=== PATIENT | female | born 1950 | race Two or more races ===

== ENCOUNTER 2017-08-01 22:53 | Inpatient (IN) | payer MEDICARE, MEDICAID ==
[~2017-08-01] VITALS: Ht 134.6 cm; Wt 53.1 kg
[2017-08-01 22:56] VITALS: BP 113/81
--- NOTE | 2017-08-01 23:19 | Emergency Room Report ---
History of Present Illness General Chief Complaint: Syncope Source: Patient, Family Member, EMS Present Illness HPI This is a 67-year-old female with a history of high blood pressure. She presents with chief when of syncope. She was in her usual state of health when she went to the bathroom. She out of her son. She was on the toilet complaining of abdominal pain. Also was complaining of dizziness that she passed out. He said that she had multiple bout of diarrhea. Afterward she passed out. She was better with his on the ground. According to her son somehow she get dizzy but get better when she lay down. Never passed out before. No trauma. Still complaining of abdominal pain on and off for last few days. No fever chills been no nausea no vomiting. Said that she was diaphoretic and pale during her syncopal episode. Allergies: Coded Allergies: No Known Allergies (Unverified , 08/01/17) Patient History Past Medical History: see triage record, old chart reviewed, HTN Past Surgical History: other Pertinent Family History: none Social History: Denies: smoking Last Menstrual Period: NA Now: No Immunizations: other Reviewed Nursing Documentation: PMH: Agreed, PSxH: Agreed Nursing Documentation-PMH Hx Hypertension: Yes Hx Diabetes: Yes Review of Systems Eye: Denies: eye pain, blurred vision ENT: Denies: ear pain, nose congestion, throat swelling Respiratory: Denies: cough, shortness of breath Cardiovascular: Reports: syncope, Denies: chest pain, palpitations Gastrointestinal: Reports: abdominal pain, Denies: diarrhea, nausea, vomiting Musculoskeletal: Denies: back pain, joint pain Skin: Denies: rash Neurological: Denies: headache, numbness Endocrine: Denies: increased thirst, increased urine Hematologic/Lymphatic: Denies: easy bruising All Other Systems: negative except mentioned in HPI Physical Exam Vital Signs Date Time Temp Pulse Resp B/P (MAP) Pulse Ox O2 Delivery O2 Flow Rate FiO2 08/01/17 22:42 97.3 75 18 113/81 99 Room Air vitals normal Sp02 EP Interpretation: reviewed, normal General Appearance: well appearing, no apparent distress, alert, thin Head: normocephalic, atraumatic Eyes: bilateral eye PERRL, bilateral eye EOMI ENT: hearing grossly normal, normal pharynx Neck: full range of motion, supple, no meningismus Respiratory: chest non-tender, lungs clear, normal breath sounds Cardiovascular #1: regular rate, rhythm, no murmur Gastrointestinal: normal bowel sounds, no mass, no organomegaly, no bruit, non- distended, tenderness - Mild, lower abd Musculoskeletal: back normal, gait/station normal, normal range of motion Psychiatric: mood/affect normal Skin: warm/dry Medical Decision Making Diagnostic Impression: Primary Impression: Syncope Qualified Codes: R55 - Syncope and collapse Additional Impressions: Hyperglycemia due to type 1 diabetes mellitus Colitis Proteinuria Qualified Codes: R80.9 - Proteinuria, unspecified ER Course This patient presents with syncope while having bowel movement. This may be secondary to vagal response. No evidence of ACS, PE, dissection. No head trauma. Her abdominal pain is probably secondary to a colitis. Antibiotic started. Will admit to telemetry. I contacted Dr. Castellanos for admission. Laboratory Tests Test 08/01/17 23:21 08/02/17 00:40 White Blood Count 16.2 K/UL (4.8-10.8) H Red Blood Count 5.23 M/UL (4.20-5.40) Hemoglobin 14.9 G/DL (12.0-16.0) Hematocrit 45.4 % (37.0-47.0) Mean Corpuscular Volume 87 FL (80-99) Mean Corpuscular Hemoglobin 28.6 PG (27.0-31.0) Mean Corpuscular Hemoglobin Concent 32.9 G/DL (32.0-36.0) Red Cell Distribution Width 12.5 % (11.6-14.8) Platelet Count 320 K/UL (150-450) Mean Platelet Volume 7.1 FL (6.5-10.1) Neutrophils (%) (Auto) 77.7 % (45.0-75.0) H Lymphocytes (%) (Auto) 9.7 % (20.0-45.0) L Monocytes (%) (Auto) 9.6 % (1.0-10.0) Eosinophils (%) (Auto) 2.3 % (0.0-3.0) Basophils (%) (Auto) 0.8 % (0.0-2.0) Sodium Level 138 MMOL/L (136-145) Potassium Level 4.0 MMOL/L (3.5-5.1) Chloride Level 101 MMOL/L (98-107) Carbon Dioxide Level 30 MMOL/L (21-32) Anion Gap 7 mmol/L (5-15) Blood Urea Nitrogen 15 mg/dL (7-18) Creatinine 0.9 MG/DL (0.55-1.30) Estimat Glomerular Filtration Rate > 60 mL/min (>60) Glucose Level 254 MG/DL (74-106) H Calcium Level 9.1 MG/DL (8.5-10.1) Total Bilirubin 0.4 MG/DL (0.2-1.0) Aspartate Amino Transf (AST/SGOT) 16 U/L (15-37) Alanine Aminotransferase (ALT/SGPT) 20 U/L (12-78) Alkaline Phosphatase 126 U/L (46-116) H Total Creatine Kinase 92 U/L (26-308) Creatine Kinase MB 1.0 NG/ML (0.0-3.6) Creatine Kinase MB Relative Index 1.0 Troponin I 0.000 ng/mL (0.000-0.056) Total Protein 7.4 G/DL (6.4-8.2) Albumin 3.5 G/DL (3.4-5.0) Globulin 3.9 g/dL Albumin/Globulin Ratio 0.9 (1.0-2.7) L Urine Color Pale yellow Urine Appearance Clear Urine pH 7 (4.5-8.0) Urine Specific [place] 1.005 (1.005-1.035) Urine Protein 2+ (NEGATIVE) H Urine Glucose (UA) 2+ (NEGATIVE) H Urine Ketones 1+ (NEGATIVE) H Urine Occult Blood 1+ (NEGATIVE) H Urine Nitrite Negative (NEGATIVE) Urine Bilirubin Negative (NEGATIVE) Urine Urobilinogen Normal MG/DL (0.0-1.0) Urine Leukocyte Esterase 1+ (NEGATIVE) H Urine RBC 0-2 /HPF (0 - 2) Urine WBC 0-2 /HPF (0 - 2) Urine Squamous Epithelial Cells Few /LPF (NONE/OCC) Urine Bacteria None /HPF (NONE) Lab Results Impression labs with leukocytosis EKG Diagnostic Results Rate: normal Rhythm: NSR ST Segments: no acute changes Rhythm Strip Diag. Results Rhythm Strip Time: 23:18 EP Interpretation: yes Rate: 60 Rhythm: NSR, no PVC's, no ectopy Chest X-Ray Diagnostic Results Chest X-Ray Diagnostic Results : Chest X-Ray Ordered: Yes # of Views/Limited/Complete: 1 View Indication: Shortness of Breath EP Interpretation: Yes Interpretation: no consolidation, no effusion, no pneumothorax, no acute cardiopulmonary disease Impression: No acute disease Electronically Signed by: Sy Tolbert MD CT/MRI/US Diagnostic Results CT/MRI/US Diagnostic Results : Imaging Test Ordered: CT abdomen and pelvis Impression Read by radiologist. Colonic wall thickening and descending colon and proximal sigmoid colon. Normal appendix. Last Vital Signs Date Time Temp Pulse Resp B/P (MAP) Pulse Ox O2 Delivery O2 Flow Rate FiO2 08/01/17 22:42 97.3 75 18 113/81 99 Room Air Status: improved Disposition: ADMITTED INPATIENT Condition: Serious SY TOLBERT M.D. Aug 01, 2017 23:19
[2017-08-01 23:55] LABS: BASOPHILS % (AUTO) 0.8 % (0.0-2.0); EOSINOPHILS % (AUTO) 2.3 % (0.0-3.0); LYMPHOCYTES % (AUTO) 9.7 % (20.0-45.0); MEAN CORPUSCULAR HEMOGLOBIN 28.6 PG (27.0-31.0); MEAN CORPUSCULAR HGB CONC 32.9 G/DL (32.0-36.0); MEAN CORPUSCULAR VOLUME 87 FL (80-99); MEAN PLATELET VOLUME 7.1 FL (6.5-10.1); MONOCYTES % (AUTO) 9.6 % (1.0-10.0); NEUTROPHILS % (AUTO) 77.7 % (45.0-75.0); PLATELET COUNT 320 K/UL (150-450); RED BLOOD COUNT 5.23 M/UL (4.20-5.40); RED CELL DISTRIBUTION WIDTH 12.5 % (11.6-14.8); WHITE BLOOD COUNT 16.2 K/UL (4.8-10.8)
[2017-08-01 23:57] LABS: ANION GAP 7 mmol/L (5-15); CALCIUM 9.1 MG/DL (8.5-10.1); CARBON DIOXIDE 30 MMOL/L (21-32); CHLORIDE 101 MMOL/L (98-107); CREATININE 0.9 MG/DL (0.55-1.30); GLOMERULAR FILTRATION RATE > 60 mL/min (>60); SODIUM 138 MMOL/L (136-145)
[2017-08-02] VITALS (7 sets, daily range): BP systolic 115–133; BP diastolic 56–69
[2017-08-02 00:11] LABS: ALANINE AMINOTRANSFERASE 20 U/L (12-78); ALBUMIN/GLOBULIN RATIO 0.9 (1.0-2.7); ASPARTATE AMINO TRANSFERASE 16 U/L (15-37); TOTAL PROTEIN 7.4 G/DL (6.4-8.2)
[2017-08-02 00:54] LABS: APPEARANCE,URINE CLEAR; KETONES,URINE 1+ (NEGATIVE); LEUKOCYTE ESTERASE ,URINE 1+ (NEGATIVE); NITRITE,URINE NEGATIVE (NEGATIVE); PH,URINE 7 (4.5-8.0); PROTEIN,URINE 2+ (NEGATIVE); UROBILINOGEN,URINE NORMAL MG/DL (0.0-1.0)
[2017-08-02 01:14] LABS: RBC,URINE 0-2 /HPF (0 - 2); SQUAMOUS EPITHELIAL CELL,UR FEW /LPF (NONE/OCC); WBC,URINE 0-2 /HPF (0 - 2)
[2017-08-02] MEDS ORDERED: Ciprofloxacin 500mg tab ORAL ONE (01:45)
[2017-08-02] MEDS ORDERED: ENALAPRIL MALEA10 MG ORAL (02:17)
[2017-08-02] MEDS ORDERED: LANTUS SOL100 UNIT/1 SUBQ (02:17)
[2017-08-02] MEDS ORDERED: NORVASC10 MG ORAL (02:17)
[2017-08-02] MEDS ORDERED: VITAMIN D350000 UNIT PO (02:17)
[2017-08-02] MEDS ORDERED: LAMISIL250 MG ORAL (02:17)
--- NOTE | 2017-08-02 08:43 | Consultation ---
History of Present Illness General Date patient seen: Aug 02, 2017 Present Illness Allergies: Coded Allergies: No Known Allergies (Unverified , 08/01/17) Medication History Scheduled Amlodipine Besylate (Norvasc), 10 MG ORAL DAILY, (Reported) Enalapril Maleate* (Enalapril Maleate*), 10 MG ORAL EVERY 12 HOURS, (Reported) Insulin Glargine (Lantus), 0 SUBQ BEDTIME, (Reported) Terbinafine (Lamisil), 250 MG ORAL DAILY, (Reported) Miscellaneous Medications Cholecalciferol (Vitamin D3) (Vitamin D3), 50,000 UNIT PO, (Reported) Patient History Healthcare decision maker [place] Resuscitation status Full Code Advanced Directive on File Physical Exam Last 24 Hour Vital Signs Date Time Temp Pulse Resp B/P (MAP) Pulse Ox O2 Delivery O2 Flow Rate FiO2 08/02/17 08:00 97.8 92 20 133/68 97 08/02/17 04:00 83 08/02/17 04:00 97.5 77 18 115/58 94 Room Air 08/02/17 02:35 97.3 77 18 131/62 100 Room Air 08/02/17 02:26 97.3 77 18 131/62 100 Room Air 08/02/17 00:56 80 18 120/56 96 Room Air 08/01/17 22:56 97.3 75 18 113/81 99 Room Air 08/01/17 22:42 97.3 75 18 113/81 99 Room Air Laboratory Tests Test 08/01/17 23:21 08/02/17 00:40 White Blood Count 16.2 K/UL (4.8-10.8) H Red Blood Count 5.23 M/UL (4.20-5.40) Hemoglobin 14.9 G/DL (12.0-16.0) Hematocrit 45.4 % (37.0-47.0) Mean Corpuscular Volume 87 FL (80-99) Mean Corpuscular Hemoglobin 28.6 PG (27.0-31.0) Mean Corpuscular Hemoglobin Concent 32.9 G/DL (32.0-36.0) Red Cell Distribution Width 12.5 % (11.6-14.8) Platelet Count 320 K/UL (150-450) Mean Platelet Volume 7.1 FL (6.5-10.1) Neutrophils (%) (Auto) 77.7 % (45.0-75.0) H Lymphocytes (%) (Auto) 9.7 % (20.0-45.0) L Monocytes (%) (Auto) 9.6 % (1.0-10.0) Eosinophils (%) (Auto) 2.3 % (0.0-3.0) Basophils (%) (Auto) 0.8 % (0.0-2.0) Sodium Level 138 MMOL/L (136-145) Potassium Level 4.0 MMOL/L (3.5-5.1) Chloride Level 101 MMOL/L (98-107) Carbon Dioxide Level 30 MMOL/L (21-32) Anion Gap 7 mmol/L (5-15) Blood Urea Nitrogen 15 mg/dL (7-18) Creatinine 0.9 MG/DL (0.55-1.30) Estimat Glomerular Filtration Rate > 60 mL/min (>60) Glucose Level 254 MG/DL (74-106) H Calcium Level 9.1 MG/DL (8.5-10.1) Total Bilirubin 0.4 MG/DL (0.2-1.0) Aspartate Amino Transf (AST/SGOT) 16 U/L (15-37) Alanine Aminotransferase (ALT/SGPT) 20 U/L (12-78) Alkaline Phosphatase 126 U/L (46-116) H Total Creatine Kinase 92 U/L (26-308) Creatine Kinase MB 1.0 NG/ML (0.0-3.6) Creatine Kinase MB Relative Index 1.0 Troponin I 0.000 ng/mL (0.000-0.056) Total Protein 7.4 G/DL (6.4-8.2) Albumin 3.5 G/DL (3.4-5.0) Globulin 3.9 g/dL Albumin/Globulin Ratio 0.9 (1.0-2.7) L Urine Color Pale yellow Urine Appearance Clear Urine pH 7 (4.5-8.0) Urine Specific [place] 1.005 (1.005-1.035) Urine Protein 2+ (NEGATIVE) H Urine Glucose (UA) 2+ (NEGATIVE) H Urine Ketones 1+ (NEGATIVE) H Urine Occult Blood 1+ (NEGATIVE) H Urine Nitrite Negative (NEGATIVE) Urine Bilirubin Negative (NEGATIVE) Urine Urobilinogen Normal MG/DL (0.0-1.0) Urine Leukocyte Esterase 1+ (NEGATIVE) H Urine RBC 0-2 /HPF (0 - 2) Urine WBC 0-2 /HPF (0 - 2) Urine Squamous Epithelial Cells Few /LPF (NONE/OCC) Urine Bacteria None /HPF (NONE) Height (Feet): 4 Height (Inches): 0.00 Weight (Pounds): 117 Medications Current Medications Medications (Trade) Dose Ordered Sig/Sue Route PRN Reason Start Time Stop Time Status Last Admin Dose Admin Acetaminophen (Tylenol) 650 mg Q4H PRN ORAL Mild Pain/Temp > 100.5 08/02/17 06:00 09/01/17 05:59 08/02/17 07:52 Ondansetron HCl (Zofran) 4 mg Q6H PRN IVP Nausea & Vomiting 08/02/17 06:00 09/01/17 05:59 Sodium Chloride 1,000 ml @ 70 mls/hr [id number] IV 08/02/17 08:00 09/01/17 07:59 08/02/17 07:53 Assessment/Plan Assessment/Plan (1) Abdominal pain (2) Colitis seen dictated. JATINDER COLE Aug 02, 2017 08:43
[2017-08-02] MEDS ORDERED: Morphine Sulfate 2mg/ml Inj IVP PRN (08:45)
[2017-08-02 09:01] LABS: MEAN CORPUSCULAR HEMOGLOBIN 27.3 PG (27.0-31.0); MEAN CORPUSCULAR HGB CONC 30.8 G/DL (32.0-36.0); MEAN CORPUSCULAR VOLUME 89 FL (80-99); MEAN PLATELET VOLUME 6.6 FL (6.5-10.1); PLATELET COUNT 283 K/UL (150-450); RED BLOOD COUNT 5.06 M/UL (4.20-5.40); RED CELL DISTRIBUTION WIDTH 12.4 % (11.6-14.8)
[2017-08-02 09:13] LABS: ANION GAP 13 mmol/L (5-15); CALCIUM 8.4 MG/DL (8.5-10.1); CARBON DIOXIDE 24 MMOL/L (21-32); CHLORIDE 99 MMOL/L (98-107); CREATININE 0.7 MG/DL (0.55-1.30); GLOMERULAR FILTRATION RATE > 60 mL/min (>60); POTASSIUM 4.1 MMOL/L (3.5-5.1); SODIUM 136 MMOL/L (136-145)
[2017-08-02 09:48] LABS: BAND NEUTROPHILS % (MANUAL) 0 % (0-8); BASOPHILS % (MANUAL) 0 % (0-2); EOSINOPHILS % (MANUAL) 0 % (0-3); LYMPHOCYTES % (MANUAL) 2 % (20-45); NEUTROPHILS % (MANUAL) 96 % (45-75); PLATELET ESTIMATE ADEQUATE; PLATELET MORPHOLOGY NORMAL; TOTAL CELLS COUNTED 100
--- NOTE | 2017-08-02 10:13 | Diagnostic Imaging Report ---
Clinical Indication: Lower abdominal pain x3 hours Technique: No oral contrast utilized, per emergency room physician request IV administration nonionic contrast. Venous phase spiral acquisition obtained through the abdomen and pelvis. Multiplanar reconstructions were generated. Total dose length product 588 mGycm. CTDIvol(s) 13 mGy. Dose reduction achieved using automated exposure control Comparison: None Findings: The wall of the descending and proximal sigmoid colon appears edematous. There is minimal adjacent fat stranding There is no evidence of diverticulosis or diverticulitis. The appendix is only equivocally visualized there is no gross findings to suggest acute appendicitis. No small bowel distention. No free or loculated intraperitoneal air or fluid. There is wall thickening of the distal esophagus and possible hiatal hernia. The stomach and duodenum are unremarkable. Within the right hepatic lobe, bridging segments 5 and 8, there is a 3.5 x 3.7 cm mass. This demonstrates mixture of low attenuation and peripheral nodular enhancement. There is a subcentimeter low-attenuation lesion within segment 4A. This is too small to characterize. The gallbladder, bile ducts, pancreas, spleen, adrenals left kidney are unremarkable.] Demonstrate subcentimeter low-attenuation lesion which is too small to characterize. The uterus is unremarkable. Adnexal calcifications may reflect calcified fallopian tubes. No pelvic mass or adenopathy. No retroperitoneal or mesenteric mass or adenopathy. The included lung bases are clear. The bones are unremarkable Impression: Diffuse wall thickening of the descending and proximal sigmoid colon, consistent with colitis, nonspecific as regards etiology 2.5 x 3.7 cm mass within the right hepatic lobe. Presence of peripheral nodular enhancement is highly suggestive of but not conclusive for the diagnosis of hepatic hemangioma. Recommend hemangioma protocol contrast CT or MRI for further evaluation Subcentimeter low-attenuation within segment 4A of the liver, too small to characterize, most likely benign simple cysts or bile hamartomas. No further followup necessary Small hiatal hernia. Distal esophageal wall thickening nor is possibly esophagitis Appendix not definitely visualized. No findings to suggest acute appendicitis This agrees with the preliminary interpretation provided overnight by [facility] teleradiology service. The CT scanner at [facility] is accredited by the [employer] and the scans are performed using protocols designed to limit radiation exposure to as low as reasonably achievable to attain images of sufficient resolution adequate for diagnostic evaluation.
--- NOTE | 2017-08-02 10:23 | GI Initial Consult Note ---
PrettyAdele Tristen N.PPaola 08/02/17 1023: History of Present Illness General Date patient seen: Aug 02, 2017 Time patient seen: 10:12 Reason for Hospitalization: Syncope Referring physician: SAE DYER Reason for Consultation: RECTAL BLEED Present Illness HPI This is a 67-year-old female with a history of high blood pressure. She presents with chief when of syncope. She was in her usual state of health when she went to the bathroom. She out of her son. She was on the toilet complaining of abdominal pain. Also was complaining of dizziness that she passed out. He said that she had multiple bout of diarrhea. Afterward she passed out. She was better with his on the ground. According to her son somehow she get dizzy but get better when she lay down. Never passed out before. No trauma. Still complaining of abdominal pain on and off for last few days. No fever chills been no nausea no vomiting. Said that she was diaphoretic and pale during her syncopal episode. GI consulted for rectal bleed/colitis shown on CTAP. HPI as noted above. Pt seen on floor, awake A&Ox4 NAD with no active s/sx of N/V/D. Per RN report, the patient had active rectal bleeding over the night. No active rectal bleeding noted at this time. Dried red blood seen on patients under clothing. States this is the first time this has happened to her. The daughter said she recently had episodes of black stools as well. No history of endoscopic or colonoscopy. Home Meds Reported Medications Insulin Glargine (LANTUS) 100 Unit/1 Ml Insuln.pen, 0 SUBQ BEDTIME, #1 EA 0 Refills 08/02/17 Terbinafine (Lamisil) 250 Mg Tablet, 250 MG ORAL DAILY, TAB 08/02/17 Cholecalciferol (Vitamin D3) (VITAMIN D3) 50,000 Unit Capsule, 51797 UNIT PO, CAP 08/02/17 Amlodipine Besylate (Norvasc) 10 Mg Tablet, 10 MG ORAL DAILY, TAB 08/02/17 Enalapril Maleate* (ENALAPRIL MALEATE*) 10 Mg Tablet, 10 MG ORAL EVERY 12 HOURS , TAB 08/02/17 Med list reviewed/reconciled: Yes Allergies: Coded Allergies: No Known Allergies (Unverified , 08/01/17) Patient History History Provided By: Patient, Medical Record PMH Narrative Past Medical History: see triage record, old chart reviewed, HTN Past Surgical History: other Pertinent Family History: none Social History: Denies: smoking Last Menstrual Period: NA Now: No Immunizations: other Reviewed Nursing Documentation: PMH: Agreed, PSxH: Agreed Nursing Documentation-PMH Hx Hypertension: Yes Hx Diabetes: Yes Social History: Denies: smoking, alcohol use, drug use, other Review of Systems All Other Systems: negative except mentioned in HPI Physical Exam Vital Signs Date Time Temp Pulse Resp B/P (MAP) Pulse Ox O2 Delivery O2 Flow Rate FiO2 08/01/17 22:42 97.3 75 18 113/81 99 Room Air Sp02 EP Interpretation: reviewed, normal Labs Laboratory Tests Test 08/01/17 23:21 08/02/17 00:40 08/02/17 08:35 White Blood Count 16.2 K/UL (4.8-10.8) H 13.0 K/UL (4.8-10.8) H Red Blood Count 5.23 M/UL (4.20-5.40) 5.06 M/UL (4.20-5.40) Hemoglobin 14.9 G/DL (12.0-16.0) 13.8 G/DL (12.0-16.0) Hematocrit 45.4 % (37.0-47.0) 44.9 % (37.0-47.0) Mean Corpuscular Volume 87 FL (80-99) 89 FL (80-99) Mean Corpuscular Hemoglobin 28.6 PG (27.0-31.0) 27.3 PG (27.0-31.0) Mean Corpuscular Hemoglobin Concent 32.9 G/DL (32.0-36.0) 30.8 G/DL (32.0-36.0) L Red Cell Distribution Width 12.5 % (11.6-14.8) 12.4 % (11.6-14.8) Platelet Count 320 K/UL (150-450) 283 K/UL (150-450) Mean Platelet Volume 7.1 FL (6.5-10.1) 6.6 FL (6.5-10.1) Neutrophils (%) (Auto) 77.7 % (45.0-75.0) H % (45.0-75.0) Lymphocytes (%) (Auto) 9.7 % (20.0-45.0) L % (20.0-45.0) Monocytes (%) (Auto) 9.6 % (1.0-10.0) % (1.0-10.0) Eosinophils (%) (Auto) 2.3 % (0.0-3.0) % (0.0-3.0) Basophils (%) (Auto) 0.8 % (0.0-2.0) % (0.0-2.0) Sodium Level 138 MMOL/L (136-145) 136 MMOL/L (136-145) Potassium Level 4.0 MMOL/L (3.5-5.1) 4.1 MMOL/L (3.5-5.1) Chloride Level 101 MMOL/L (98-107) 99 MMOL/L (98-107) Carbon Dioxide Level 30 MMOL/L (21-32) 24 MMOL/L (21-32) Anion Gap 7 mmol/L (5-15) 13 mmol/L (5-15) Blood Urea Nitrogen 15 mg/dL (7-18) 11 mg/dL (7-18) Creatinine 0.9 MG/DL (0.55-1.30) 0.7 MG/DL (0.55-1.30) Estimat Glomerular Filtration Rate > 60 mL/min (>60) > 60 mL/min (>60) Glucose Level 254 MG/DL (74-106) H 282 MG/DL (74-106) H Calcium Level 9.1 MG/DL (8.5-10.1) 8.4 MG/DL (8.5-10.1) L Total Bilirubin 0.4 MG/DL (0.2-1.0) Aspartate Amino Transf (AST/SGOT) 16 U/L (15-37) Alanine Aminotransferase (ALT/SGPT) 20 U/L (12-78) Alkaline Phosphatase 126 U/L (46-116) H Total Creatine Kinase 92 U/L (26-308) Creatine Kinase MB 1.0 NG/ML (0.0-3.6) Creatine Kinase MB Relative Index 1.0 Troponin I 0.000 ng/mL (0.000-0.056) Total Protein 7.4 G/DL (6.4-8.2) Albumin 3.5 G/DL (3.4-5.0) Globulin 3.9 g/dL Albumin/Globulin Ratio 0.9 (1.0-2.7) L Urine Color Pale yellow Urine Appearance Clear Urine pH 7 (4.5-8.0) Urine Specific [place] 1.005 (1.005-1.035) Urine Protein 2+ (NEGATIVE) H Urine Glucose (UA) 2+ (NEGATIVE) H Urine Ketones 1+ (NEGATIVE) H Urine Occult Blood 1+ (NEGATIVE) H Urine Nitrite Negative (NEGATIVE) Urine Bilirubin Negative (NEGATIVE) Urine Urobilinogen Normal MG/DL (0.0-1.0) Urine Leukocyte Esterase 1+ (NEGATIVE) H Urine RBC 0-2 /HPF (0 - 2) Urine WBC 0-2 /HPF (0 - 2) Urine Squamous Epithelial Cells Few /LPF (NONE/OCC) Urine Bacteria None /HPF (NONE) Differential Total Cells Counted 100 Neutrophils % (Manual) 96 % (45-75) H Lymphocytes % (Manual) 2 % (20-45) L Monocytes % (Manual) 2 % (1-10) Eosinophils % (Manual) 0 % (0-3) Basophils % (Manual) 0 % (0-2) Band Neutrophils 0 % (0-8) Platelet Estimate Adequate Platelet Morphology Normal Red Blood Cell Morphology Normal General Appearance: well appearing, no apparent distress, alert Head: normocephalic EENT: PERRL/EOMI, normal ENT inspection Neck: supple Respiratory: normal breath sounds, no respiratory distress Cardiovascular: normal rate Gastrointestinal: normal inspection, non tender, soft, normal bowel sounds, non -distended Rectal: deferred Genitourinary: no CVA tenderness Musculoskeletal: normal inspection, back normal Neurologic: normal inspection, alert, oriented x3, responsive Psychiatric: normal inspection, judgement/insight normal, memory normal Skin: normal inspection, normal color, no rash, warm/dry, palpation normal, well hydrated Lymphatic: normal inspection, no adenopathy Current Medications Current Medications Medications (Trade) Dose Ordered Sig/Sue Route PRN Reason Start Time Stop Time Status Last Admin Dose Admin Acetaminophen (Tylenol) 650 mg Q4H PRN ORAL Mild Pain/Temp > 100.5 08/02/17 06:00 09/01/17 05:59 08/02/17 07:52 Morphine Sulfate (Morphine Sulfate) 1 mg Q4H PRN IVP severe pain 08/02/17 08:45 08/09/17 08:44 Ondansetron HCl (Zofran) 4 mg Q6H PRN IVP Nausea & Vomiting 08/02/17 06:00 09/01/17 05:59 Sodium Chloride 1,000 ml @ 70 mls/hr [id number] IV 08/02/17 08:00 09/01/17 07:59 08/02/17 07:53 GI: Plan Problems: (1) Rectal bleed (2) Colitis (3) Hyperglycemia due to type [address] AP reviewed >> see full report, - Diffuse wall thickening of the descending and proximal sigmoid colon, consistent with colitis, nonspecific as regards etiology - 2.5 x 3.7 cm mass within the right hepatic lobe. Presence of peripheral nodular enhancement is highly suggestive of but not conclusive for the diagnosis of hepatic hemangioma. - Small hiatal hernia. Distal esophageal wall thickening nor is possibly esophagitis - Appendix not definitely visualized. No findings to suggest acute appendicitis fu MRI liver protocol EGD/colonoscopy scheduled tomorrow. - CLD now, NPO @ [place]. - cont IVFs - hold all blood thinners monitor H&H, prn transfusions pain mgmt fu labs, AFP, hepatitis panel Discussed with Dr. Gomez. Thank you for this patient referral, we will follow. THEO GOMEZ 08/02/17 1246: History of Present Illness General Reason for Hospitalization: Syncope Present Illness Home Meds Reported Medications Insulin Glargine (LANTUS) 100 Unit/1 Ml Insuln.pen, 0 SUBQ BEDTIME, #1 EA 0 Refills 08/02/17 Terbinafine (Lamisil) 250 Mg Tablet, 250 MG ORAL DAILY, TAB 08/02/17 Cholecalciferol (Vitamin D3) (VITAMIN D3) 50,000 Unit Capsule, 29073 UNIT PO, CAP 08/02/17 Amlodipine Besylate (Norvasc) 10 Mg Tablet, 10 MG ORAL DAILY, TAB 08/02/17 Enalapril Maleate* (ENALAPRIL MALEATE*) 10 Mg Tablet, 10 MG ORAL EVERY 12 HOURS , TAB 08/02/17 Allergies: Coded Allergies: No Known Allergies (Unverified , 08/01/17) GI: Plan Plan The patient was seen and examined at bedside and all new and available data was reviewed in the patients chart. I agree with the above findings, impression and plan. (Patient seen earlier today. Signature stamp does not reflect patient encounter time.). - [facility] Tristen N.PPaola Aug 02, 2017 10:23 THEO GOMEZ Aug 02, 2017 12:46
[2017-08-02] MEDS: Piperacillin/Tazobactam 3.375 GM in D5W 55 ML IVPB SCH ×2 (13:33→20:15)
--- NOTE | 2017-08-02 14:13 | Cardiac Electrophysiology PN ---
Subjective Subjective Cardiology consult dictated [id number] Objective Last 24 Hour Vital Signs Date Time Temp Pulse Resp B/P (MAP) Pulse Ox O2 Delivery O2 Flow Rate FiO2 08/02/17 12:00 97.5 96 20 130/69 97 Room Air 08/02/17 08:00 93 08/02/17 08:00 97.8 92 20 133/68 97 08/02/17 04:00 83 08/02/17 04:00 97.5 77 18 115/58 94 Room Air 08/02/17 02:35 97.3 77 18 131/62 100 Room Air 08/02/17 02:26 97.3 77 18 131/62 100 Room Air 08/02/17 00:56 80 18 120/56 96 Room Air 08/01/17 22:56 97.3 75 18 113/81 99 Room Air 08/01/17 22:42 97.3 75 18 113/81 99 Room Air Laboratory Tests Test 08/01/17 23:21 08/02/17 00:40 08/02/17 08:35 White Blood Count 16.2 K/UL (4.8-10.8) H 13.0 K/UL (4.8-10.8) H Red Blood Count 5.23 M/UL (4.20-5.40) 5.06 M/UL (4.20-5.40) Hemoglobin 14.9 G/DL (12.0-16.0) 13.8 G/DL (12.0-16.0) Hematocrit 45.4 % (37.0-47.0) 44.9 % (37.0-47.0) Mean Corpuscular Volume 87 FL (80-99) 89 FL (80-99) Mean Corpuscular Hemoglobin 28.6 PG (27.0-31.0) 27.3 PG (27.0-31.0) Mean Corpuscular Hemoglobin Concent 32.9 G/DL (32.0-36.0) 30.8 G/DL (32.0-36.0) L Red Cell Distribution Width 12.5 % (11.6-14.8) 12.4 % (11.6-14.8) Platelet Count 320 K/UL (150-450) 283 K/UL (150-450) Mean Platelet Volume 7.1 FL (6.5-10.1) 6.6 FL (6.5-10.1) Neutrophils (%) (Auto) 77.7 % (45.0-75.0) H % (45.0-75.0) Lymphocytes (%) (Auto) 9.7 % (20.0-45.0) L % (20.0-45.0) Monocytes (%) (Auto) 9.6 % (1.0-10.0) % (1.0-10.0) Eosinophils (%) (Auto) 2.3 % (0.0-3.0) % (0.0-3.0) Basophils (%) (Auto) 0.8 % (0.0-2.0) % (0.0-2.0) Sodium Level 138 MMOL/L (136-145) 136 MMOL/L (136-145) Potassium Level 4.0 MMOL/L (3.5-5.1) 4.1 MMOL/L (3.5-5.1) Chloride Level 101 MMOL/L (98-107) 99 MMOL/L (98-107) Carbon Dioxide Level 30 MMOL/L (21-32) 24 MMOL/L (21-32) Anion Gap 7 mmol/L (5-15) 13 mmol/L (5-15) Blood Urea Nitrogen 15 mg/dL (7-18) 11 mg/dL (7-18) Creatinine 0.9 MG/DL (0.55-1.30) 0.7 MG/DL (0.55-1.30) Estimat Glomerular Filtration Rate > 60 mL/min (>60) > 60 mL/min (>60) Glucose Level 254 MG/DL (74-106) H 282 MG/DL (74-106) H Calcium Level 9.1 MG/DL (8.5-10.1) 8.4 MG/DL (8.5-10.1) L Total Bilirubin 0.4 MG/DL (0.2-1.0) Aspartate Amino Transf (AST/SGOT) 16 U/L (15-37) Alanine Aminotransferase (ALT/SGPT) 20 U/L (12-78) Alkaline Phosphatase 126 U/L (46-116) H Total Creatine Kinase 92 U/L (26-308) Creatine Kinase MB 1.0 NG/ML (0.0-3.6) Creatine Kinase MB Relative Index 1.0 Troponin I 0.000 ng/mL (0.000-0.056) Total Protein 7.4 G/DL (6.4-8.2) Albumin 3.5 G/DL (3.4-5.0) Globulin 3.9 g/dL Albumin/Globulin Ratio 0.9 (1.0-2.7) L Urine Color Pale yellow Urine Appearance Clear Urine pH 7 (4.5-8.0) Urine Specific [place] 1.005 (1.005-1.035) Urine Protein 2+ (NEGATIVE) H Urine Glucose (UA) 2+ (NEGATIVE) H Urine Ketones 1+ (NEGATIVE) H Urine Occult Blood 1+ (NEGATIVE) H Urine Nitrite Negative (NEGATIVE) Urine Bilirubin Negative (NEGATIVE) Urine Urobilinogen Normal MG/DL (0.0-1.0) Urine Leukocyte Esterase 1+ (NEGATIVE) H Urine RBC 0-2 /HPF (0 - 2) Urine WBC 0-2 /HPF (0 - 2) Urine Squamous Epithelial Cells Few /LPF (NONE/OCC) Urine Bacteria None /HPF (NONE) Differential Total Cells Counted 100 Neutrophils % (Manual) 96 % (45-75) H Lymphocytes % (Manual) 2 % (20-45) L Monocytes % (Manual) 2 % (1-10) Eosinophils % (Manual) 0 % (0-3) Basophils % (Manual) 0 % (0-2) Band Neutrophils 0 % (0-8) Platelet Estimate Adequate Platelet Morphology Normal Red Blood Cell Morphology Normal FEDE KWOK Aug 02, 2017 14:12
--- NOTE | 2017-08-02 14:26 | Diagnostic Imaging Report ---
Indication: Shortness of breath Technique: One view of the chest Comparison: none Findings: Lungs and pleural spaces are clear. Heart size is normal. Impression: No acute process
[2017-08-02] MEDS ORDERED: Nulytely 4L ORAL ONE (16:00)
--- NOTE | 2017-08-02 16:44 | Diagnostic Imaging Report ---
Indication: Liver mass seen on CT abdomen pelvis Technique: Axial single shot fast spin echo breath hold, coronal single shot fast spin-echo breath hold, axial T2 FRFSE fat-saturated, 2-D thick slab MRCP, axial 2-D FIESTA fat-saturated, axial 3-D dual echo breath-hold, precontrast axial and postcontrast axial and coronal water weighted axial images of the abdomen Comparison: 08/01/2017 CT scan Findings: Some images are degraded by respiratory motion artifact, particularly the postcontrast images. Within the right hepatic lobe, corresponding to the abnormality described on recent CT scan, there is a mass which measures approximately 4.3 x 3.4 cm. This demonstrates uniformly high T2 signal on the T2-weighted images. It demonstrates uniformly low signal on the dual echo and precontrast LAVA FLEX images. On the postcontrast lava flex images, there is very slight nodular enhancement at the lateral periphery, slightly increased nodular enhancement at the periphery on the postcontrast image sets with increased filling of the margins. 10 minute delayed phase images demonstrate complete enhancement of nearly the entirety of the lesion, with a small an enhancing area that may represent a central scar. Note that the intensity of the enhancement is similar to the degree of blood pool enhancement of the aorta. The remainder of the liver is unremarkable. The gallbladder, bile ducts, pancreas, spleen, adrenals are unremarkable. The kidneys are unremarkable No other significant abnormality. Colon wall thickening described on recent CT is less easily seen on MRI, although the descending colon wall does appear diffusely edematous. Impression: 4.2 cm right hepatic lobe mass, also described on recent CT scan. Signal and enhancement characteristics are highly suggestive of a benign hemangioma Colon wall edema reported on previous CT also demonstrated on MRI, consistent with colitis
--- NOTE | 2017-08-02 18:00 | History and Physical Report ---
DATE OF ADMISSION: 08/01/2017 HISTORY OF PRESENT ILLNESS: I saw her at around 6:55 a.m. today, this morning on 08/02/2017. At the bedside, the son was there. I obtained most of the history from the son. According to the son, the patient had syncope last night while she was in the bathroom. She called him and he came and according to the son, while at the bathroom, she lost consciousness for about 3 minutes and also had diaphoresis and dizziness before, but no shortness of breath, no chest pain. The patient has also had rectal bleeding as well, fresh red blood from the rectum. The patient has history of diabetes and hypertension. Rectal bleeding has been going on for one day only and the patient has abdominal pain for one day. She has history of CVA in the past. The patient is also admitted for colitis as well as syncope as well as leukocytosis and rectal bleeding. The patient also had one episode of bradycardia, but it went back to 84 and normal sinus, and there was question of possible heart block as well. Dr. Roque was made aware of this consult and Dr. Roque was made aware of the second pause as well as bradycardia, heart block, and syncope, so Dr. Roque was made aware already by me and was going to see the patient for consultation. The patient just basically denies nausea or vomiting. Does have abdominal pain and rectal bleeding. Does have the syncopal episode. Denies headache. Denies vertigo. Denies shortness of breath. Denies cough. Denies chest pain. PAST MEDICAL HISTORY: Hypertension, NIDDM, and history of CVA. PAST SURGICAL HISTORY: None. ALLERGIES: No known allergies. MEDICATIONS: Amlodipine, enalapril, Lantus, and vitamin D. FAMILY HISTORY: Noncontributory. SOCIAL HISTORY: The patient has no history of smoking, alcohol, or illicit drugs. REVIEW OF SYSTEMS: HEENT: Denies headaches. RESPIRATORY: Denies shortness of breath. Denies cough. CARDIOVASCULAR: Denies chest pain. Denies orthopnea. GASTROINTESTINAL: Denies nausea or vomiting. Does have abdominal pain and rectal bleeding for one day. EXTREMITIES: Denies pain in the lower extremities. CENTRAL NERVOUS SYSTEM: She had syncopal episode last night while she was in the bathroom, lost consciousness for a couple of minutes according to the son. Denies vertigo. Denies headache. PHYSICAL EXAMINATION: VITAL SIGNS: Temperature 97.3, pulse 77, and blood pressure 131/62. HEENT: PERRLA. NECK: Supple. No lymphadenopathy. CHEST: Clear to auscultation. CARDIOVASCULAR: Regular rate and rhythm. No murmur. GASTROINTESTINAL: Soft. Mild midabdomen tenderness. No rebound. Abdomen is soft. No organomegaly. EXTREMITIES: No edema. Reflexes equal on both sides. Moves all four extremities. Cranial nerves II through XII intact. DIAGNOSTIC AND LABORATORY DATA: EKG shows possible heart block. WBC of 16.3, hemoglobin 14.9, and platelets of 320,000. Sodium 138, potassium 4, BUN of 16, creatinine 0.9, and glucose of 254. ASSESSMENT AND PLAN: 1. Syncope. 2. Leukocytosis. 3. Possible on the imaging study. 4. Rectal bleeding. 5. Bradycardia with a pause. PLAN: I have consulted Dr. Roque. Dr. Carrillo, Dr. Gomez, Dr. Bryan, Dr. Hunter, and Dr. Moise have been consulted already. They are aware of this condition and the patient's symptoms and findings, all are aware and consulted by me already. I saw the patient. I spoke with the son and will follow the patient. Gerhard Baltazar M.D. DR: CRYSTAL JOB#: [id number] CC:
--- NOTE | 2017-08-02 21:30 | Consultation ---
DATE OF CONSULTATION: 08/02/2017 INFECTIOUS DISEASE CONSULTATION CONSULTING PHYSICIAN: Ishan Wylie M.D. PRIMARY ATTENDING PHYSICIAN: Gerhard Baltazar M.D. REASON FOR CONSULTATION: Colitis. HISTORY OF PRESENT ILLNESS: This is a 67-year-old female admitted last night with syncopal episode. She had abdominal pain and diarrhea, went to the bathroom and there, she passed out. At the time of admission, she had leukocytosis. She also complains of bleeding from rectum. PAST MEDICAL HISTORY: Significant for hypertension and diabetes mellitus, on insulin. MEDICATIONS: morphine, Zofran, and Tylenol. Got the dose of Cipro and Flagyl in the ER. ALLERGIES: No known drug allergy. SOCIAL HISTORY: Originally from [facility]. , has 3 children. No history of alcohol, drug abuse, or smoking. No recent history of travel to other countries. No sick contact. REVIEW OF SYSTEMS: No nausea. No vomiting. No diarrhea at that time. No fever. No chills. PHYSICAL EXAMINATION: VITAL SIGNS: Temperature 97.8 degrees, pulse 92, and blood pressure 133/68. GENERAL APPEARANCE: Seems to be thin, awake, alert, and oriented x3. HEAD AND NECK: [place] conjunctivae. No oral lesion. HEART: Regular. Normal rate. LUNGS: Clear. ABDOMEN: Soft, flat, nontender. EXTREMITIES: She has no edema. LABORATORY AND DIAGNOSTIC DATA: Sodium 136, potassium 4.1, chloride 99, bicarbonate 24, BUN 11, creatinine 0.7, and glucose 282. WBC coming down from the time of admission from 16.3 , hemoglobin 13.8, hematocrit 44.9, and platelets 283,000. The patient had CT scan of the abdomen and pelvis that showed colitis of descending and proximal sigmoid colon, a 2.5 x 3.7 cm mass in right hepatic lobe, likely hepatic hemangioma. IMPRESSION: 1. Colitis. 2. Right hepatic mass. 3. Syncope. 4. Gastrointestinal bleeding. 5. Diabetes mellitus. 6. Hypertension. RECOMMENDATION: We will start the patient on Zosyn. The patient will have MRI of abdomen for further evaluation of the liver mass. We will follow up the clinical course of laboratories. At the end of my exam, I thank Dr. Baltazar for involving me in the care of this patient. Ishan Wylie M.D. DR: Naseem JOB#: [id number] CC: SHAY
[2017-08-02] MEDS ORDERED: Fleet's Enema 133ml RECTAL ONE (23:00)
--- NOTE | 2017-08-02 23:30 | Consultation ---
DATE OF CONSULTATION: 08/02/2017 CARDIOLOGY CONSULTATION CONSULTING PHYSICIAN: Tesfaye Roque M.D. REFERRING PHYSICIAN: Gerhard Baltazar M.D. REASON FOR CONSULTATION: Recurrent bradycardic episodes and syncope. HISTORY OF PRESENT ILLNESS: The patient is a 67-year-old lady with history of hypertension, who presented to the hospital after syncopal episode. The patient apparently went to the bathroom and she had an episode of dizziness and then she passed out. The patient has never passed out before even though she has got dizzy. The patient also has some abdominal pain and diarrhea, but no vomiting. On the telemetry, the patient had multiple pauses of more than 3 seconds with evidence of intermittent AV block. Cardiac electrophysiology consultation was requested for further evaluation and management. REVIEW OF SYSTEMS: Performed and was negative other than what was mentioned in history of present illness. PAST MEDICAL HISTORY: Includes hypertension. MEDICATIONS: At home include Norvasc 10 mg daily, enalapril 10 mg b.i.d., vitamin D3, and insulin. SOCIAL HISTORY: She lives at home. Does not smoke or drink alcohol. FAMILY HISTORY: Noncontributory. PHYSICAL EXAMINATION: VITAL SIGNS: Blood pressure is 130/60, pulse 96, respirations 18, and she is afebrile. HEAD AND NECK: Shows no JVD or carotid bruit. LUNGS: Clear. CARDIOVASCULAR: Shows regular S1, S2 with no gallop or murmur. ABDOMEN: Soft. EXTREMITIES: No pitting edema. LABORATORY AND DIAGNOSTIC DATA: White count 13, hemoglobin 15.9, hematocrit of 44.9, and platelet count 283,000. Sodium 133, potassium 4.1, BUN of 11, creatinine 0.7, glucose 282. Troponin is negative. Urinalysis was negative nitrite, 1+ leukocyte esterase. CT of the abdomen and pelvis showed a 3.5 x 3.7 cm mass in the right hepatic lobe suggestive of hemangioma. ASSESSMENT AND PLAN: 1. Syncope in a patient with bradycardia, Mobitz type 2 block as well as episodes of sinus bradycardia and junctional rhythm in the 30s, and more than 3-second pause. The patient off any sinus-edwin or atrioventricular-edwin blocking agent. We will check thyroid function test. We will watch the patient on telemetry and get an echocardiogram. If all the above is negative, the patient may need permanent pacemaker implantation. 2. Hypertension. Continue the patient's blood pressure medication, lisinopril 10 mg b.i.d. Please hold off on amlodipine at this time. 3. Diabetes, on insulin and enalapril. 4. A 4-cm liver mass. The patient will be going for MRI for further evaluation of gastrointestinal. 5. Rectal bleed and the patient with history of colitis. CT of abdomen and pelvis again suggestive of thickening of descending and proximal sigmoid colon consistent with colitis. Thank you very much, Dr. Baltazar, for allowing me to participate in the care of this patient. Please do not hesitate to contact me for any questions regarding my evaluation. Tesfaye Roque M.D. DR: Mis JOB#: [id number] CC:
[2017-08-03] VITALS (10 sets, daily range): BP systolic 107–130; BP diastolic 53–68
[2017-08-03] MEDS: Piperacillin/Tazobactam 3.375 GM in D5W 55 ML IVPB SCH ×3 (04:17→20:35)
[2017-08-03] MEDS: NovoLOG Insulin Flexpen SUBQ SCH ×4 (06:07→21:09)
--- NOTE | 2017-08-03 06:59 | Pre-Procedure Note/Attestation ---
Pre-Procedure Note/Attestation Complete Prior to Procedure Planned Procedure: not applicable Procedure Narrative: esophagogastroduodenoscopy and colonoscopy Indications for Procedure Pre-Operative Diagnosis: gib Attestation I attest that I discussed the nature of the procedure; its benefits; risks and complications; and alternatives (and the risks and benefits of such alternatives ), prior to the procedure, with the patient (or the patient's legal footwear sales representative). I attest that, if there was a reasonable possibility of needing a blood transfusion, the patient (or the patient's legal footwear sales representative) was given the [facility] standardized written summary, pursuant to the [place] Blood Safety Act ([place] Health and Safety Code # 1645, as amended). I attest that I re-evaluated the patient just prior to the surgery and that there has been no change in the patient's H&P, except as documented below: THEO MÉNDEZ Aug 03, 2017 06:59
[2017-08-03 07:00] LABS: MEAN CORPUSCULAR HEMOGLOBIN 28.3 PG (27.0-31.0); MEAN CORPUSCULAR VOLUME 88 FL (80-99); MEAN PLATELET VOLUME 7.2 FL (6.5-10.1); PLATELET COUNT 324 K/UL (150-450); RED BLOOD COUNT 4.84 M/UL (4.20-5.40); RED CELL DISTRIBUTION WIDTH 12.7 % (11.6-14.8); WHITE BLOOD COUNT 16.5 K/UL (4.8-10.8)
[2017-08-03 07:02] LABS: PROTHROMBIN TIME 10.9 SEC (9.30-11.50)
--- NOTE | 2017-08-03 07:03 | Anethesia Preoperative Eval ---
Anesthesia Pre-op PMH/ROS General Date of Evaluation: Aug 03, 2017 Time of Evaluation: 06:59 Anesthesiologist: Viviana ASA Score: ASA 3 Mallampati Score Class I : Soft palate, uvula, fauces, pillars visible Class II: Soft palate, uvula, fauces visible Class III: Soft palate, base of uvula visible Class IV: Only hard plate visible Mallampati Classification: Class II Surgeon: Jason Diagnosis: GI bleed Surgical Procedure: EGD Colonoscopy Anesthesia History: none Family History: no anesthesia problems Allergies: Coded Allergies: No Known Allergies (Unverified , 08/01/17) Medications: see eMAR Past Medical History Cardiovascular: Reports: HTN, arrhythmia - Heart block with sima episodes, Denies: CAD, DC, valve dz, other Pulmonary: Denies: asthma, COPD, JENNYFER, other Gastrointestinal/Genitourinary: Reports: GERD, other - colitis, Denies: CRI, ESRD Neurologic/Psychiatric: Denies: dementia, CVA, depression/anxiety, TIA, other Endocrine: Reports: DM - poorly controled, Denies: hypothyroidism, steroids, other HEENT: Denies: cataract (L), cataract (R), glaucoma, [place] (L), [place] (R), other Hematology/Immune: Denies: anemia, DVT, bleeding disorder, other Musculoskeletal/Integumentary: Reports: DJD, Denies: OA, RA, DDD, edema, other Other: other - malnourished PMH Narrative: as above admitted for syncopal episode PSxH Narrative: see chart Anesthesia Pre-op Phys. Exam Physician Exam Last Vital Signs Date Time Temp Pulse Resp B/P (MAP) Pulse Ox O2 Delivery O2 Flow Rate FiO2 08/03/17 04:00 93 08/03/17 04:00 96.8 18 123/64 98 Room Air Constitutional: NAD Neurologic: CN 2-12 intact Cardiovascular: other - IIR Respiratory: CTA Gastrointestinal: S/NT/ND Airway Exam Mallampati Score: Class II Neck: stiff ROM: limited Teeth: missing Dentures: no upper, no lower Anesthesia Pre-op A/P Labs Hematology Test 08/02/17 08:35 08/03/17 05:50 White Blood Count 13.0 K/UL (4.8-10.8) H Pending Red Blood Count 5.06 M/UL (4.20-5.40) Pending Hemoglobin 13.8 G/DL (12.0-16.0) Pending Hematocrit 44.9 % (37.0-47.0) Pending Mean Corpuscular Volume 89 FL (80-99) Pending Mean Corpuscular Hemoglobin 27.3 PG (27.0-31.0) Pending Mean Corpuscular Hemoglobin Concent 30.8 G/DL (32.0-36.0) L Pending Red Cell Distribution Width 12.4 % (11.6-14.8) Pending Platelet Count 283 K/UL (150-450) Pending Mean Platelet Volume 6.6 FL (6.5-10.1) Pending Neutrophils (%) (Auto) % (45.0-75.0) Pending Lymphocytes (%) (Auto) % (20.0-45.0) Pending Monocytes (%) (Auto) % (1.0-10.0) Pending Eosinophils (%) (Auto) % (0.0-3.0) Pending Basophils (%) (Auto) % (0.0-2.0) Pending Differential Total Cells Counted 100 Neutrophils % (Manual) 96 % (45-75) H Lymphocytes % (Manual) 2 % (20-45) L Monocytes % (Manual) 2 % (1-10) Eosinophils % (Manual) 0 % (0-3) Basophils % (Manual) 0 % (0-2) Band Neutrophils 0 % (0-8) Platelet Estimate Adequate Platelet Morphology Normal Red Blood Cell Morphology Normal Coagulation Test 08/03/17 05:50 Prothrombin Time Pending Prothromb Time International Ratio Pending Activated Partial Thromboplast Time Pending Chemistry Test 08/02/17 08:35 08/03/17 05:50 Sodium Level 136 MMOL/L (136-145) Pending Potassium Level 4.1 MMOL/L (3.5-5.1) Pending Chloride Level 99 MMOL/L (98-107) Pending Carbon Dioxide Level 24 MMOL/L (21-32) Pending Anion Gap 13 mmol/L (5-15) Blood Urea Nitrogen 11 mg/dL (7-18) Pending Creatinine 0.7 MG/DL (0.55-1.30) Pending Estimat Glomerular Filtration Rate > 60 mL/min (>60) Pending Glucose Level 282 MG/DL (74-106) H Pending Hemoglobin A1c 10.4 % (4.3-6.0) H Calcium Level 8.4 MG/DL (8.5-10.1) L Pending Troponin I Pending Pro-B-Type Natriuretic Peptide Pending Alpha Fetoprotein Pending Thyroid Stimulating Hormone (TSH) Pending Free Thyroxine Pending Risk Assessment & Plan Assessment: ASA 3 Plan: MAC Status Change Before Surgery: No Pre-Antibiotics Drug: as scheduled MARCEL KENDRICK M.D. Aug 03, 2017 07:03
[2017-08-03] MEDS ORDERED: NS 500ML IV ONE (07:07)
[2017-08-03 07:12] LABS: ANION GAP 19 mmol/L (5-15); CALCIUM 8.4 MG/DL (8.5-10.1); CARBON DIOXIDE 15 MMOL/L (21-32); CHLORIDE 101 MMOL/L (98-107); CREATININE 0.8 MG/DL (0.55-1.30); GLOMERULAR FILTRATION RATE > 60 mL/min (>60); POTASSIUM 4.1 MMOL/L (3.5-5.1); SODIUM 135 MMOL/L (136-145); THYROID STIMULATING HORMONE 1.317 uiU/mL (0.358-3.740)
[2017-08-03] MEDS ORDERED: DiphenhydrAMINE 50mg/ml Inj IVP PRN (07:15)
[2017-08-03] MEDS ORDERED: fentaNYL 100 mcg/2 mL IV PRN (07:15)
--- NOTE | 2017-08-03 07:18 | Endoscopy Procedure Note ---
Endoscopy Procedure Note Indication for Procedure: gib Procedures Performed: EGD, colonoscopy Operative Findings/Diagnosis: HH, gastritis, hemorrhoids Specimen: yes Pt Tolerated Procedure Well: Yes Estimated Blood Loss: none Anesthesiologist: katy Anesthesia: MAC Implant(s) used?: No 50 yrs or older w/o bx or poly: Not Applicable 10yrs. F/U not recommended: Not Applicable THEO MÉNDEZ Aug 03, 2017 07:18
[2017-08-03] MEDS ORDERED: Propofol 200mg/20ml IV ONE (07:30)
[2017-08-03] MEDS ORDERED: fentaNYL 100 mcg/2 mL IV ONE (07:30)
[2017-08-03] MEDS ORDERED: Midazolam 2mg/2ml Inj ONE (07:30)
--- NOTE | 2017-08-03 07:46 | Immediate Post-Op Evaluation ---
Immediate Post-Op Evalulation Immediate Post-Op Evalulation Procedure: EGD Colonoscopy Date of Evaluation: Aug 03, 2017 Time of Evaluation: 07:45 IV Fluids: 300 Blood Products: none Estimated Blood Loss: none Urinary Output: none Blood Pressure Systolic: 121 Blood Pressure Diastolic: 67 Pulse Rate: 94 Respiratory Rate: 22 O2 Sat by Pulse Oximetry: 99 Temperature (Fahrenheit): 99.8 Pain Score (1-10): 1 Nausea: No Vomiting: No Complications none Patient Status: awake, patent, none Hydration Status: adequate MARCEL KENDRICK M.D. Aug 03, 2017 07:46
--- NOTE | 2017-08-03 08:30 | Consultation ---
DATE OF CONSULTATION: 08/02/2017 PAIN MANAGEMENT CONSULTATION CONSULTING PHYSICIAN: Mark Moise M.D. REFERRING PHYSICIAN: Gerhard Baltazar M.D. PHYSICIAN FITNESS COACH: Carine Floyd CHIEF COMPLAINT: Abdominal pain. HISTORY OF PRESENT ILLNESS: This is a 67-year-old female, who has been seen on the telemetry floor of [facility] for initial comprehensive pain management consultation. The patient was complaining of abdominal pain. Upon admission we were consulted so that the patient would have adequate pain control while here in the hospital. PAST MEDICAL HISTORY: Hepatitis, diabetes mellitus. PAST SURGICAL HISTORY: Appendectomy. ALLERGIES: No known drug allergies. MEDICATIONS: Norvasc, enalapril SOCIAL HISTORY: Denies smoking tobacco, drinking alcohol, or drug abuse. REVIEW OF SYSTEMS: Denies rash, fever, chills, sweating, dizziness, drowsiness, sore throat, or change in her weight. No nausea, vomiting, diarrhea, or blood in the stool or urine. No bowel or bladder incontinence. No dysuria. She is complaining of abdominal pain. PHYSICAL EXAMINATION: GENERAL: Alert, awake, and oriented. VITAL SIGNS: Blood pressure 133/68 temperature is 98 degrees Fahrenheit. HEENT: PERRLA. NECK: Range of motion is full in all directions. No tenderness. No adenopathy. LUNGS: Decreased breath sounds bilaterally. HEART: Regular. ABDOMEN: Obese, tenderness to palpation. BACK: Range of motion is decreased in flexion and extension. EXTREMITIES: No cyanosis. No clubbing. No edema. NEUROLOGIC: Motor is intact. Sensory is intact. Reflexes are not obtainable. No adenopathy. ASSESSMENT AND PLAN: This is a 67-year-old female with abdominal pain colitis. The patient was started on morphine 1 mg IV every 4 hours as needed. The patient was discussed with Dr. Moise and Dr. Moise concurred. We will follow the patient. Thank you very much for the courtesy of this consultation. Mark Moise M.D. JEIN Floyd DR: NILSON JOB#: [id number] CC: SHAY
--- NOTE | 2017-08-03 08:30 | General Progress Note ---
Assessment/Plan Assessment/Plan (1) Abdominal pain (2) Colitis Pt will be continued on Morphine D/w Dr. Moise and he concurred. Subjective Date patient seen: Aug 03, 2017 Time patient seen: 07:15 - am Constitutional: Reports: no symptoms HEENT: Reports: no symptoms Cardiovascular: Reports: no symptoms Respiratory: Reports: no symptoms Gastrointestinal/Abdominal: Reports: abdominal pain Genitourinary: Reports: no symptoms Neurologic/Psychiatric: Reports: no symptoms Endocrine: Reports: no symptoms Hematologic/Lymphatic: Reports: no symptoms Allergies: Coded Allergies: No Known Allergies (Unverified , 08/01/17) Subjective Patient is in bed no signs of pain or distress is s/p GI procedure. Objective Last 24 Hour Vital Signs Date Time Temp Pulse Resp B/P (MAP) Pulse Ox O2 Delivery O2 Flow Rate FiO2 08/03/17 08:10 97.3 127/64 08/03/17 08:00 100.0 93 22 124/68 97 Room Air 08/03/17 07:46 94 22 99 08/03/17 07:45 94 24 119/67 97 Room Air 08/03/17 07:40 92 18 121/67 100 Nasal Cannula 3.0 08/03/17 07:34 99.4 93 15 126/65 99 Nasal Cannula 3.0 08/03/17 04:00 93 08/03/17 04:00 96.8 93 18 123/64 98 Room Air 08/03/17 00:00 97.7 88 20 130/64 98 Room Air 08/02/17 20:00 96 08/02/17 20:00 98.4 94 20 132/58 96 Room Air 08/02/17 16:00 97.8 22 118/58 97 08/02/17 16:00 95 08/02/17 12:00 93 08/02/17 12:00 97.5 96 20 130/69 97 Room Air Intake and Output 08/03/17 08/04/17 19:00 07:00 Intake Total 300 ml Output Total 0 ml Balance 300 ml IV Total 300 ml Output Estimated Blood Loss 0 ml Laboratory Tests 08/02/17 08:35: White Blood Count 13.0H, Red Blood Count 5.06, Hemoglobin 13.8, Hematocrit 44.9 , Mean Corpuscular Volume 89, Mean Corpuscular Hemoglobin 27.3, Mean Corpuscular Hemoglobin Concent 30.8L, Red Cell Distribution Width 12.4, Platelet Count 283, Mean Platelet Volume 6.6, Neutrophils (%) (Auto) , Lymphocytes (%) (Auto) , Monocytes (%) (Auto) , Eosinophils (%) (Auto) , Basophils (%) (Auto) , Differential Total Cells Counted 100, Neutrophils % ( Manual) 96H, Lymphocytes % (Manual) 2L, Monocytes % (Manual) 2, Eosinophils % ( Manual) 0, Basophils % (Manual) 0, Band Neutrophils 0, Platelet Estimate Adequate, Platelet Morphology Normal, Red Blood Cell Morphology Normal, Sodium Level 136, Potassium Level 4.1, Chloride Level 99, Carbon Dioxide Level 24, Anion Gap 13, Blood Urea Nitrogen 11, Creatinine 0.7, Estimat Glomerular Filtration Rate > 60, Glucose Level 282H, Hemoglobin A1c 10.4H, Calcium Level 8.4L 08/03/17 05:50: White Blood Count 16.5H, Red Blood Count 4.84, Hemoglobin 13.7, Hematocrit 42.8 , Mean Corpuscular Volume 88, Mean Corpuscular Hemoglobin 28.3, Mean Corpuscular Hemoglobin Concent 32.0, Red Cell Distribution Width 12.7, Platelet Count 324, Mean Platelet Volume 7.2, Neutrophils (%) (Auto) , Lymphocytes (%) ( Auto) , Monocytes (%) (Auto) , Eosinophils (%) (Auto) , Basophils (%) (Auto) , Neutrophils % (Manual) [Pending], Lymphocytes % (Manual) [Pending], Platelet Estimate [Pending], Platelet Morphology [Pending], Sodium Level 135L, Potassium Level 4.1, Chloride Level 101, Carbon Dioxide Level 15L, Anion Gap 19H, Blood Urea Nitrogen 15, Creatinine 0.8, Estimat Glomerular Filtration Rate > 60, Glucose Level 294H, Calcium Level 8.4L, Prothrombin Time 10.9, Prothromb Time International Ratio 1.0, Activated Partial Thromboplast Time 27, Troponin I 0.000, Pro-B-Type Natriuretic Peptide 220H, Alpha Fetoprotein [Pending], Thyroid Stimulating Hormone (TSH) 1.317, Free Thyroxine 1.14, Hepatitis A IgM Antibody [Pending], Hepatitis B Surface Antigen [Pending], Hepatitis B Core IgM Antibody [Pending], Hepatitis C Antibody [Pending] Height (Feet): 4 Height (Inches): 5.00 Weight (Pounds): 117 General Appearance: no apparent distress, alert EENT: PERRL/EOMI, normal ENT inspection Neck: non-tender, normal alignment Cardiovascular: normal rate, regular rhythm Respiratory/Chest: lungs clear, normal breath sounds Abdomen: tender Extremities: non-tender Edema: no edema noted Arm (L), no edema noted Arm (R), no edema noted Leg (L), no edema noted Leg (R), no edema noted Pedal (L), no edema noted Pedal (R), no edema noted Generalized Neurologic: alert, oriented x 3, responsive Skin: warm/dry JATINDER COLE Aug 03, 2017 08:30
--- NOTE | 2017-08-03 08:30 | Consultation ---
DATE OF CONSULTATION: 08/02/2017 HEMATOLOGY/ONCOLOGY CONSULTATION CONSULTING PHYSICIAN: Arun Gamez M.D. REQUESTING PHYSICIAN: Gerhard Baltazar M.D. REASON FOR CONSULTATION: Evaluation of hepatic mass. IDENTIFICATION DATA: Dear Dr. Baltazar: The patient is a pleasant 67-year-old female with past medical history significant for hypertension, at this time presents with dizziness consistent with a potential syncopal episode. She complained that she apparently has been experiencing dizziness and passed out. She had told me she had multiple bouts of diarrhea. She was feeling better. Then she was found on the ground. According to her son she was complaining of getting dizzy before this happened and has been complaining of abdominal pain that has been on and off. GI consulted. A CT of the abdomen was completed and showed a mass in the right hepatic lobe. Hematology service was consulted for evaluation and treatment. PAST MEDICAL HISTORY: As noted above. PAST SURGICAL HISTORY: None noted. MEDICATIONS: Insulin, , vitamin D, . ALLERGIES: No known drug allergies. REVIEW OF SYSTEMS: CONSTITUTIONAL: No fevers, chills, or night sweats. SKIN: No rashes, bumps, or itching. HEENT: No headache, hearing or vision changes. BREASTS: No lumps, pain, or discharge. PULMONARY: No cough, sputum, or shortness of breath. GASTROINTESTINAL: No nausea, vomiting, diarrhea. GENITOURINARY: No dysuria, frequency, or urgency. MUSCULOSKELETAL: No joint swelling, muscle pain, or trauma. PHYSICAL EXAMINATION: VITAL SIGNS: Reviewed. GENERAL: No acute distress. PULMONARY: Decreased breath sounds. CARDIOVASCULAR: Regular rate. No S3, S4. ABDOMEN: Soft, nontender, and nondistended. EXTREMITIES: A 1+ edema. LABORATORY DATA: WBC 13,000 and hemoglobin 13.8. IMAGING: CAT scan of the abdomen and pelvis shows 3.7 x 2.5 cm mass in the hepatic lobe with a hemangioma versus evaluation. MRI of the abdomen completed today shows a 4.2 cm mass of the hepatic lobe on recent CAT scan, highly suggestive of a benign hemangioma. ASSESSMENT AND RECOMMENDATION: 1. 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 I do not need any further workup at this time as it has been already evaluated with an MRI, which is the best study for this type of finding. 2. Leukocytosis, likely secondary to reactive process. 3. Pain management. She has been seen by pain management team and medications have been adjusted. 4. Hypertension. She was seen by cardiology service. Continue to closely monitor. 5. Hyperglycemia. We will check hemoglobin A1c. I appreciate the consultation. Arun Gamez M.D. DR: SADIA JOB#: [id number] CC:
[2017-08-03 08:31] LABS: BAND NEUTROPHILS % (MANUAL) 0 % (0-8); BASOPHILS % (MANUAL) 0 % (0-2); EOSINOPHILS % (MANUAL) 0 % (0-3); LYMPHOCYTES % (MANUAL) 2 % (20-45); NEUTROPHILS % (MANUAL) 91 % (45-75); PLATELET ESTIMATE ADEQUATE; PLATELET MORPHOLOGY NORMAL; TOTAL CELLS COUNTED 100
--- NOTE | 2017-08-03 09:56 | Infectious Diseases Prog Note ---
Assessment/Plan Assessment/Plan A: 1. Colitis. 2. Right hepatic mass, likely hemangioma 3. Syncope. 4. Gastrointestinal bleeding. 5. Diabetes mellitus. 6. Hypertension. 7.Gastritis & Hemorrhoids P; Continue Zosyn Subjective ROS Limited/Unobtainable: No Constitutional: Reports: fever, other - Rxbs=708.3 Respiratory: Reports: no symptoms Cardiovascular: Reports: no symptoms Gastrointestinal/Abdominal: Reports: no symptoms Allergies: Coded Allergies: No Known Allergies (Unverified , 08/01/17) Objective Vital Signs Last 24 Hour Vital Signs Date Time Temp Pulse Resp B/P (MAP) Pulse Ox O2 Delivery O2 Flow Rate FiO2 08/03/17 08:10 97.3 127/64 08/03/17 08:00 100.0 93 22 124/68 97 Room Air 08/03/17 07:46 94 22 99 08/03/17 07:45 94 24 119/67 97 Room Air 08/03/17 07:40 92 18 121/67 100 Nasal Cannula 3.0 08/03/17 07:34 99.4 93 15 126/65 99 Nasal Cannula 3.0 08/03/17 04:00 93 08/03/17 04:00 96.8 93 18 123/64 98 Room Air 08/03/17 00:00 97.7 88 20 130/64 98 Room Air 08/02/17 20:00 96 08/02/17 20:00 98.4 94 20 132/58 96 Room Air 08/02/17 16:00 97.8 22 118/58 97 08/02/17 16:00 95 08/02/17 12:00 93 08/02/17 12:00 97.5 96 20 130/69 97 Room Air Height (Feet): 4 Height (Inches): 5.00 Weight (Pounds): 117 General Appearance: no acute distress HEENT: mucous membranes moist Respiratory/Chest: lungs clear Cardiovascular: normal rate Abdomen: soft, non tender Extremities: no edema Neurologic/Psychiatric: alert, oriented x 3, responsive Laboratory Tests Test 08/03/17 05:50 White Blood Count 16.5 K/UL (4.8-10.8) H Red Blood Count 4.84 M/UL (4.20-5.40) Hemoglobin 13.7 G/DL (12.0-16.0) Hematocrit 42.8 % (37.0-47.0) Mean Corpuscular Volume 88 FL (80-99) Mean Corpuscular Hemoglobin 28.3 PG (27.0-31.0) Mean Corpuscular Hemoglobin Concent 32.0 G/DL (32.0-36.0) Red Cell Distribution Width 12.7 % (11.6-14.8) Platelet Count 324 K/UL (150-450) Mean Platelet Volume 7.2 FL (6.5-10.1) Neutrophils (%) (Auto) % (45.0-75.0) Lymphocytes (%) (Auto) % (20.0-45.0) Monocytes (%) (Auto) % (1.0-10.0) Eosinophils (%) (Auto) % (0.0-3.0) Basophils (%) (Auto) % (0.0-2.0) Differential Total Cells Counted 100 Neutrophils % (Manual) 91 % (45-75) H Lymphocytes % (Manual) 2 % (20-45) L Monocytes % (Manual) 7 % (1-10) Eosinophils % (Manual) 0 % (0-3) Basophils % (Manual) 0 % (0-2) Band Neutrophils 0 % (0-8) Platelet Estimate Adequate Platelet Morphology Normal Red Blood Cell Morphology Normal Prothrombin Time 10.9 SEC (9.30-11.50) Prothromb Time International Ratio 1.0 (0.9-1.1) Activated Partial Thromboplast Time 27 SEC (23-33) Sodium Level 135 MMOL/L (136-145) L Potassium Level 4.1 MMOL/L (3.5-5.1) Chloride Level 101 MMOL/L (98-107) Carbon Dioxide Level 15 MMOL/L (21-32) L Anion Gap 19 mmol/L (5-15) H Blood Urea Nitrogen 15 mg/dL (7-18) Creatinine 0.8 MG/DL (0.55-1.30) Estimat Glomerular Filtration Rate > 60 mL/min (>60) Glucose Level 294 MG/DL (74-106) H Calcium Level 8.4 MG/DL (8.5-10.1) L Troponin I 0.000 ng/mL (0.000-0.056) Pro-B-Type Natriuretic Peptide 220 pg/mL (0-125) H Alpha Fetoprotein Pending Thyroid Stimulating Hormone (TSH) 1.317 uiU/mL (0.358-3.740) Free Thyroxine 1.14 NG/DL (0.76-1.46) Hepatitis A IgM Antibody Pending Hepatitis B Surface Antigen Pending Hepatitis B Core IgM Antibody Pending Hepatitis C Antibody Pending Current Medications Medications (Trade) Dose Ordered Sig/Sue Route PRN Reason Start Time Stop Time Status Last Admin Dose Admin Acetaminophen (Tylenol) 650 mg Q4H PRN ORAL Mild Pain/Temp > 100.5 08/02/17 06:00 09/01/17 05:59 08/02/17 07:52 Dextrose (Dextrose 50%) STAT PRN IV Hypoglycemia 08/02/17 22:15 09/01/17 22:14 Insulin Aspart (NovoLOG) BEFORE MEALS AND HS SUBQ 08/03/17 06:30 09/02/17 06:29 Morphine Sulfate (Morphine Sulfate) 1 mg Q4H PRN IVP severe pain 08/02/17 08:45 08/09/17 08:44 Ondansetron HCl (Zofran) 4 mg Q6H PRN IVP Nausea & Vomiting 08/02/17 06:00 09/01/17 05:59 Piperacillin Sod/ Tazobactam Sod 3.375 gm/Dextrose 55 ml @ 13.75 mls/ hr Q8H IVPB 08/02/17 12:00 08/09/17 11:59 08/03/17 04:17 Sodium Chloride 1,000 ml @ 70 mls/hr [id number] IV 08/02/17 08:00 09/01/17 07:59 08/03/17 08:31 MITCHELL HOLM Aug 03, 2017 09:56
--- NOTE | 2017-08-03 10:58 | General Progress Note ---
Assessment/Plan Assessment/Plan ASSESSMENT AND RECOMMENDATION: 1. 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 Patient does not need any further workup at this time. 2. Leukocytosis, likely secondary to reactive process. 3. Pain management. She has been seen by pain management team and medications have been adjusted. 4. Hypertension. She was seen by cardiology service. Continue to closely monitor. 5. Hyperglycemia. We will check hemoglobin A1c. Subjective Allergies: Coded Allergies: No Known Allergies (Unverified , 08/01/17) All Systems: reviewed and negative except above Subjective pt getting egd/ colo Objective Last 24 Hour Vital Signs Date Time Temp Pulse Resp B/P (MAP) Pulse Ox O2 Delivery O2 Flow Rate FiO2 08/03/17 08:10 97.3 127/64 08/03/17 08:00 100.0 93 22 124/68 97 Room Air 08/03/17 07:46 94 22 99 08/03/17 07:45 94 24 119/67 97 Room Air 08/03/17 07:40 92 18 121/67 100 Nasal Cannula 3.0 08/03/17 07:34 99.4 93 15 126/65 99 Nasal Cannula 3.0 08/03/17 04:00 93 08/03/17 04:00 96.8 93 18 123/64 98 Room Air 08/03/17 00:00 97.7 88 20 130/64 98 Room Air 08/02/17 20:00 96 08/02/17 20:00 98.4 94 20 132/58 96 Room Air 08/02/17 16:00 97.8 22 118/58 97 08/02/17 16:00 95 08/02/17 12:00 93 08/02/17 12:00 97.5 96 20 130/69 97 Room Air Intake and Output 08/03/17 08/04/17 19:00 07:00 Intake Total 300 ml Output Total 0 ml Balance 300 ml IV Total 300 ml Output Estimated Blood Loss 0 ml Laboratory Tests 08/03/17 05:50: White Blood Count 16.5H, Red Blood Count 4.84, Hemoglobin 13.7, Hematocrit 42.8 , Mean Corpuscular Volume 88, Mean Corpuscular Hemoglobin 28.3, Mean Corpuscular Hemoglobin Concent 32.0, Red Cell Distribution Width 12.7, Platelet Count 324, Mean Platelet Volume 7.2, Neutrophils (%) (Auto) , Lymphocytes (%) ( Auto) , Monocytes (%) (Auto) , Eosinophils (%) (Auto) , Basophils (%) (Auto) , Differential Total Cells Counted 100, Neutrophils % (Manual) 91H, Lymphocytes % (Manual) 2L, Monocytes % (Manual) 7, Eosinophils % (Manual) 0, Basophils % ( Manual) 0, Band Neutrophils 0, Platelet Estimate Adequate, Platelet Morphology Normal, Red Blood Cell Morphology Normal, Prothrombin Time 10.9, Prothromb Time International Ratio 1.0, Activated Partial Thromboplast Time 27, Sodium Level 135L, Potassium Level 4.1, Chloride Level 101, Carbon Dioxide Level 15L, Anion Gap 19H, Blood Urea Nitrogen 15, Creatinine 0.8, Estimat Glomerular Filtration Rate > 60, Glucose Level 294H, Calcium Level 8.4L, Troponin I 0.000, Pro-B-Type Natriuretic Peptide 220H, Alpha Fetoprotein [Pending], Thyroid Stimulating Hormone (TSH) 1.317, Free Thyroxine 1.14, Hepatitis A IgM Antibody [Pending], Hepatitis B Surface Antigen [Pending], Hepatitis B Core IgM Antibody [Pending], Hepatitis C Antibody [Pending] Height (Feet): 4 Height (Inches): 5.00 Weight (Pounds): 117 Arun Gamez Aug 03, 2017 10:58
--- NOTE | 2017-08-03 11:03 | Cardiac Electrophysiology PN ---
Assessment/Plan Assessment/Plan 1. Syncope in a patient with bradycardia, Mobitz type 2 block as well as episodes of sinus bradycardia and junctional rhythm in the 30s, and more than 3-second pause. The patient off any sinus-edwin or atrioventricular-edwin blocking agent. HR improved. ? Vagal due to GI symptoms. Watch on tele. 2. Hypertension. Off BP meds for now. 3. Diabetes, on insulin and enalapril. 4. A 4-cm liver mass. Had MRI for further evaluation of gastrointestinal. 5. Rectal bleed and the patient with history of colitis. CT of abdomen and pelvis again suggestive of thickening of descending and proximal sigmoid colon consistent with colitis.S/P EGD and colonoscopy by Dr Jason CRONIN rN Subjective Subjective No chest beverly or SOB. Already had EGD and colonoscopy today. Objective Last 24 Hour Vital Signs Date Time Temp Pulse Resp B/P (MAP) Pulse Ox O2 Delivery O2 Flow Rate FiO2 08/03/17 08:10 97.3 127/64 08/03/17 08:00 100.0 93 22 124/68 97 Room Air 08/03/17 07:46 94 22 99 08/03/17 07:45 94 24 119/67 97 Room Air 08/03/17 07:40 92 18 121/67 100 Nasal Cannula 3.0 08/03/17 07:34 99.4 93 15 126/65 99 Nasal Cannula 3.0 08/03/17 04:00 93 08/03/17 04:00 96.8 93 18 123/64 98 Room Air 08/03/17 00:00 97.7 88 20 130/64 98 Room Air 08/02/17 20:00 96 08/02/17 20:00 98.4 94 20 132/58 96 Room Air 08/02/17 16:00 97.8 22 118/58 97 08/02/17 16:00 95 08/02/17 12:00 93 08/02/17 12:00 97.5 96 20 130/69 97 Room Air Intake and Output 08/03/17 08/04/17 19:00 07:00 Intake Total 300 ml Output Total 0 ml Balance 300 ml IV Total 300 ml Output Estimated Blood Loss 0 ml Laboratory Tests Test 08/03/17 05:50 White Blood Count 16.5 K/UL (4.8-10.8) H Red Blood Count 4.84 M/UL (4.20-5.40) Hemoglobin 13.7 G/DL (12.0-16.0) Hematocrit 42.8 % (37.0-47.0) Mean Corpuscular Volume 88 FL (80-99) Mean Corpuscular Hemoglobin 28.3 PG (27.0-31.0) Mean Corpuscular Hemoglobin Concent 32.0 G/DL (32.0-36.0) Red Cell Distribution Width 12.7 % (11.6-14.8) Platelet Count 324 K/UL (150-450) Mean Platelet Volume 7.2 FL (6.5-10.1) Neutrophils (%) (Auto) % (45.0-75.0) Lymphocytes (%) (Auto) % (20.0-45.0) Monocytes (%) (Auto) % (1.0-10.0) Eosinophils (%) (Auto) % (0.0-3.0) Basophils (%) (Auto) % (0.0-2.0) Differential Total Cells Counted 100 Neutrophils % (Manual) 91 % (45-75) H Lymphocytes % (Manual) 2 % (20-45) L Monocytes % (Manual) 7 % (1-10) Eosinophils % (Manual) 0 % (0-3) Basophils % (Manual) 0 % (0-2) Band Neutrophils 0 % (0-8) Platelet Estimate Adequate Platelet Morphology Normal Red Blood Cell Morphology Normal Prothrombin Time 10.9 SEC (9.30-11.50) Prothromb Time International Ratio 1.0 (0.9-1.1) Activated Partial Thromboplast Time 27 SEC (23-33) Sodium Level 135 MMOL/L (136-145) L Potassium Level 4.1 MMOL/L (3.5-5.1) Chloride Level 101 MMOL/L (98-107) Carbon Dioxide Level 15 MMOL/L (21-32) L Anion Gap 19 mmol/L (5-15) H Blood Urea Nitrogen 15 mg/dL (7-18) Creatinine 0.8 MG/DL (0.55-1.30) Estimat Glomerular Filtration Rate > 60 mL/min (>60) Glucose Level 294 MG/DL (74-106) H Calcium Level 8.4 MG/DL (8.5-10.1) L Troponin I 0.000 ng/mL (0.000-0.056) Pro-B-Type Natriuretic Peptide 220 pg/mL (0-125) H Alpha Fetoprotein Pending Thyroid Stimulating Hormone (TSH) 1.317 uiU/mL (0.358-3.740) Free Thyroxine 1.14 NG/DL (0.76-1.46) Hepatitis A IgM Antibody Pending Hepatitis B Surface Antigen Pending Hepatitis B Core IgM Antibody Pending Hepatitis C Antibody Pending Objective HEAD AND NECK: Shows no JVD or carotid bruit. LUNGS: Clear. CARDIOVASCULAR: Shows regular S1, S2 with no gallop or murmur. ABDOMEN: Soft. EXTREMITIES: No pitting edema. FEDE KWOK Aug 03, 2017 11:03
--- NOTE | 2017-08-03 12:47 | 48 Hour Post Anesthesia Eval ---
Post Anesthesia Evaluation Procedure: EGD Colonoscopy Date of Evaluation: Aug 03, 2017 Time of Evaluation: 12:45 Blood Pressure Systolic: 124 0: 76 Pulse Rate: 74 Respiratory Rate: 22 Temperature (Fahrenheit): 97.6 O2 Sat by Pulse Oximetry: 98 Airway: patent Nausea: No Vomiting: No Pain Intensity: 2 Hydration Status: adequate Cardiopulmonary Status: stable Mental Status/LOC: patient returned to baseline Follow-up Care/Observations: n/a Post-Anesthesia Complications: none Follow-up care needed: N/A MARCEL KENDRICK M.D. Aug 03, 2017 12:47
--- NOTE | 2017-08-03 13:48 | Neurology Progress Note ---
Interim History Interim History ROS Limited/Unobtainable: No Objective Physical Exam Last Vital Signs Date Time Temp Pulse Resp B/P (MAP) Pulse Ox O2 Delivery O2 Flow Rate FiO2 08/03/17 12:47 74 22 98 08/03/17 12:15 97.9 107/53 08/03/17 08:00 Room Air 08/03/17 07:40 3.0 Laboratory Tests Test 08/03/17 05:50 White Blood Count 16.5 K/UL (4.8-10.8) H Red Blood Count 4.84 M/UL (4.20-5.40) Hemoglobin 13.7 G/DL (12.0-16.0) Hematocrit 42.8 % (37.0-47.0) Mean Corpuscular Volume 88 FL (80-99) Mean Corpuscular Hemoglobin 28.3 PG (27.0-31.0) Mean Corpuscular Hemoglobin Concent 32.0 G/DL (32.0-36.0) Red Cell Distribution Width 12.7 % (11.6-14.8) Platelet Count 324 K/UL (150-450) Mean Platelet Volume 7.2 FL (6.5-10.1) Neutrophils (%) (Auto) % (45.0-75.0) Lymphocytes (%) (Auto) % (20.0-45.0) Monocytes (%) (Auto) % (1.0-10.0) Eosinophils (%) (Auto) % (0.0-3.0) Basophils (%) (Auto) % (0.0-2.0) Differential Total Cells Counted 100 Neutrophils % (Manual) 91 % (45-75) H Lymphocytes % (Manual) 2 % (20-45) L Monocytes % (Manual) 7 % (1-10) Eosinophils % (Manual) 0 % (0-3) Basophils % (Manual) 0 % (0-2) Band Neutrophils 0 % (0-8) Platelet Estimate Adequate Platelet Morphology Normal Red Blood Cell Morphology Normal Prothrombin Time 10.9 SEC (9.30-11.50) Prothromb Time International Ratio 1.0 (0.9-1.1) Activated Partial Thromboplast Time 27 SEC (23-33) Sodium Level 135 MMOL/L (136-145) L Potassium Level 4.1 MMOL/L (3.5-5.1) Chloride Level 101 MMOL/L (98-107) Carbon Dioxide Level 15 MMOL/L (21-32) L Anion Gap 19 mmol/L (5-15) H Blood Urea Nitrogen 15 mg/dL (7-18) Creatinine 0.8 MG/DL (0.55-1.30) Estimat Glomerular Filtration Rate > 60 mL/min (>60) Glucose Level 294 MG/DL (74-106) H Calcium Level 8.4 MG/DL (8.5-10.1) L Troponin I 0.000 ng/mL (0.000-0.056) Pro-B-Type Natriuretic Peptide 220 pg/mL (0-125) H Alpha Fetoprotein Pending Thyroid Stimulating Hormone (TSH) 1.317 uiU/mL (0.358-3.740) Free Thyroxine 1.14 NG/DL (0.76-1.46) Hepatitis A IgM Antibody Pending Hepatitis B Surface Antigen Pending Hepatitis B Core IgM Antibody Pending Hepatitis C Antibody Pending Impression/Recommendations Problems: (1) Syncope, vasovagal (2) H/o single seizure episode 2/2 acute stroke x 8 years ago Status: stable Recommendations # [id number] FRANCIA RANDALL Aug 03, 2017 13:47
--- NOTE | 2017-08-03 13:59 | Consultation ---
History of Present Illness General Date patient seen: Aug 03, 2017 Chief Complaint: Syncope Referring physician: SAE DYER Reason for Consultation: RECTAL BLEED Present Illness HPI 67F presented after episode of syncope. Was at home when she had diarrhea followed by syncopal episodes. Was admitted for care and management. During admission stool black and guaiac positive. Had colonoscopy today where some areas of mucosal ischemia noted. Surgery called to evaluate. when seen at bedside patient states she feels well. no complaints. denies abdominal pain or discomfort. no n/v/f/c. has been having diarrhea for few days. no complaints post procedure. chart reviewed. CT/MRI reviewed. Had uncomplicated sigmoid colitis on CT. Allergies: Coded Allergies: No Known Allergies (Unverified , 08/01/17) Medication History Scheduled Amlodipine Besylate (Norvasc), 10 MG ORAL DAILY, (Reported) Enalapril Maleate* (Enalapril Maleate*), 10 MG ORAL EVERY 12 HOURS, (Reported) Insulin Glargine (Lantus), 0 SUBQ BEDTIME, (Reported) Terbinafine (Lamisil), 250 MG ORAL DAILY, (Reported) Miscellaneous Medications Cholecalciferol (Vitamin D3) (Vitamin D3), 50,000 UNIT PO, (Reported) Patient History History Provided By: Patient, Medical Record Healthcare decision maker [place] Resuscitation status Full Code Advanced Directive on File Past Medical/Surgical History Past Medical/Surgical History: (1) Colitis (2) Proteinuria (3) Hyperglycemia due to type 1 diabetes mellitus (4) Rectal bleed (5) Syncope (6) Syncope, vasovagal (7) H/o single seizure episode 2/2 acute stroke x 8 years ago Review of Systems Constitutional: Denies: no symptoms, see HPI, chills, sweats, fever, malaise, weakness, other Eye: Denies: no symptoms, see HPI, eye pain, blurred vision, tearing, double vision, nose pain, nose congestion, acuity changes, discharge, other ENT: Denies: no symptoms, see HPI, ear pain, ear discharge, nose pain, nose congestion, throat pain, throat swelling, mouth pain, hearing loss, nasal discharge, other Respiratory: Denies: no symptoms, see HPI, cough, orthopnea, shortness of breath, stridor, wheezing, HAYNES, sputum, other Cardiovascular: Denies: no symptoms, see HPI, chest pain, edema, palpitations, syncope, PND, other Gastrointestinal: Denies: no symptoms, see HPI, abdominal pain, constipation, diarrhea, nausea, vomiting, melena, hematemesis, other Genitourinary: Denies: no symptoms, see HPI, discharge, dysuria, frequency, hematuria, pain, retention, incontinence, urgency, vag bleed/dc, other Musculoskeletal: Denies: no symptoms, see HPI, back pain, gout, joint pain, joint swelling, muscle pain, muscle stiffness, other Skin: Denies: no symptoms, see HPI, rash, change in color, change in hair/nails , dryness, lesions, other Psychiatric: Denies: no symptoms, see HPI, prior hx, anxiety, depressed feelings, emotional problems, SI, HI, hallucinations, other Neurological: Denies: no symptoms, see HPI, headache, numbness, paresthesia, seizure, tingling, tremors, focal weakness, syncope, dizziness, other Endocrine: Denies: no symptoms, see HPI, excessive sweating, flushing, intolerance to temperature, increased thirst, increased urine, unexplained weight loss, other Hematologic/Lymphatic: Denies: no symptoms, see HPI, anemia, blood clots, easy bleeding, easy bruising, swollen glands, diathesis, other Physical Exam General Appearance: no apparent distress, alert Lines, tubes and drains: peripheral HEENT: normocephalic, mucous membranes moist, PERRL Neck: normal inspection Respiratory/Chest: normal breath sounds, no respiratory distress, no accessory muscle use Cardiovascular/Chest: normal peripheral pulses, normal rate Abdomen: non tender, soft, no organomegaly, no mass, hyperactive bowel sounds Extremities: non-tender Skin Exam: normal pigmentation Neurologic: alert, oriented x 3, responsive Last 24 Hour Vital Signs Date Time Temp Pulse Resp B/P (MAP) Pulse Ox O2 Delivery O2 Flow Rate FiO2 08/03/17 12:47 74 22 98 08/03/17 12:15 97.9 101 18 107/53 100 08/03/17 08:10 97.3 127/64 08/03/17 08:00 100.0 93 22 124/68 97 Room Air 08/03/17 07:46 94 22 99 08/03/17 07:45 94 24 119/67 97 Room Air 08/03/17 07:40 92 18 121/67 100 Nasal Cannula 3.0 08/03/17 07:34 99.4 93 15 126/65 99 Nasal Cannula 3.0 08/03/17 04:00 93 08/03/17 04:00 96.8 93 18 123/64 98 Room Air 08/03/17 00:00 97.7 88 20 130/64 98 Room Air 08/02/17 20:00 96 08/02/17 20:00 98.4 94 20 132/58 96 Room Air 08/02/17 16:00 97.8 22 118/58 97 08/02/17 16:00 95 Intake and Output 08/03/17 08/04/17 19:00 07:00 Intake Total 300 ml Output Total 0 ml Balance 300 ml IV Total 300 ml Output Estimated Blood Loss 0 ml Laboratory Tests Test 08/03/17 05:50 White Blood Count 16.5 K/UL (4.8-10.8) H Red Blood Count 4.84 M/UL (4.20-5.40) Hemoglobin 13.7 G/DL (12.0-16.0) Hematocrit 42.8 % (37.0-47.0) Mean Corpuscular Volume 88 FL (80-99) Mean Corpuscular Hemoglobin 28.3 PG (27.0-31.0) Mean Corpuscular Hemoglobin Concent 32.0 G/DL (32.0-36.0) Red Cell Distribution Width 12.7 % (11.6-14.8) Platelet Count 324 K/UL (150-450) Mean Platelet Volume 7.2 FL (6.5-10.1) Neutrophils (%) (Auto) % (45.0-75.0) Lymphocytes (%) (Auto) % (20.0-45.0) Monocytes (%) (Auto) % (1.0-10.0) Eosinophils (%) (Auto) % (0.0-3.0) Basophils (%) (Auto) % (0.0-2.0) Differential Total Cells Counted 100 Neutrophils % (Manual) 91 % (45-75) H Lymphocytes % (Manual) 2 % (20-45) L Monocytes % (Manual) 7 % (1-10) Eosinophils % (Manual) 0 % (0-3) Basophils % (Manual) 0 % (0-2) Band Neutrophils 0 % (0-8) Platelet Estimate Adequate Platelet Morphology Normal Red Blood Cell Morphology Normal Prothrombin Time 10.9 SEC (9.30-11.50) Prothromb Time International Ratio 1.0 (0.9-1.1) Activated Partial Thromboplast Time 27 SEC (23-33) Sodium Level 135 MMOL/L (136-145) L Potassium Level 4.1 MMOL/L (3.5-5.1) Chloride Level 101 MMOL/L (98-107) Carbon Dioxide Level 15 MMOL/L (21-32) L Anion Gap 19 mmol/L (5-15) H Blood Urea Nitrogen 15 mg/dL (7-18) Creatinine 0.8 MG/DL (0.55-1.30) Estimat Glomerular Filtration Rate > 60 mL/min (>60) Glucose Level 294 MG/DL (74-106) H Calcium Level 8.4 MG/DL (8.5-10.1) L Troponin I 0.000 ng/mL (0.000-0.056) Pro-B-Type Natriuretic Peptide 220 pg/mL (0-125) H Alpha Fetoprotein Pending Thyroid Stimulating Hormone (TSH) 1.317 uiU/mL (0.358-3.740) Free Thyroxine 1.14 NG/DL (0.76-1.46) Hepatitis A IgM Antibody Pending Hepatitis B Surface Antigen Pending Hepatitis B Core IgM Antibody Pending Hepatitis C Antibody Pending Height (Feet): 4 Height (Inches): 5.00 Weight (Pounds): 117 Medications Current Medications Medications (Trade) Dose Ordered Sig/Sue Route PRN Reason Start Time Stop Time Status Last Admin Dose Admin Acetaminophen (Tylenol) 650 mg Q4H PRN ORAL Mild Pain/Temp > 100.5 08/02/17 06:00 09/01/17 05:59 08/02/17 07:52 Dextrose (Dextrose 50%) STAT PRN IV Hypoglycemia 08/02/17 22:15 09/01/17 22:14 Insulin Aspart (NovoLOG) BEFORE MEALS AND HS SUBQ 08/03/17 06:30 09/02/17 06:29 08/03/17 11:27 Morphine Sulfate (Morphine Sulfate) 1 mg Q4H PRN IVP severe pain 08/02/17 08:45 08/09/17 08:44 Ondansetron HCl (Zofran) 4 mg Q6H PRN IVP Nausea & Vomiting 08/02/17 06:00 09/01/17 05:59 Piperacillin Sod/ Tazobactam Sod 3.375 gm/Dextrose 55 ml @ 13.75 mls/ hr Q8H IVPB 08/02/17 12:00 08/09/17 11:59 08/03/17 12:27 Sodium Chloride 1,000 ml @ 70 mls/hr [id number] IV 08/02/17 08:00 09/01/17 07:59 08/03/17 08:31 Assessment/Plan Problem List: (1) Colitis Assessment & Plan: 67F with uncomplicated sigmoid colitis, rectal bleeding, abdominal discomfort, and colonoscopy with ischemia. Afebrile, HD stable, VSS, labs reviewed. CT/MRI reviewed. on Exam patient without abdominal pain or tenderness. abdomen soft, non distended, benign. -likely ischemia from colitis. -no acute surgical intervention planned. will need to keep close eye on her. if complicates will require surgery. hopefully will recover with events. -repeat AM labs -monitor on clears. thank you for this consultation. will follow with recs. ICD Codes: K52.9 - Noninfective gastroenteritis and colitis, unspecified SNOMED: [id number] Status: stable EzequielHoward roy Aug 03, 2017 13:59
--- NOTE | 2017-08-03 15:16 | Cardiology Report ---
APPROVED REPORT EXAM: Two-dimensional and M-mode echocardiogram with Doppler and color Doppler. M-Mode DIMENSIONS IVSd1.2 (0.7-1.1cm)Left Atrium (MM)3.1 (1.6-4.0cm) LVDd4.0 (3.5-5.6cm)Aortic Root3.0 (2.0-3.7cm) PWd0.7 (0.7-1.1cm)Aortic Cusp Exc.1.8 (1.5-2.0cm) IVSs1.4 cm LVDs2.9 (2.5-4.0cm) PWs1.8 cm Normal left ventricular chamber size, systolic function and wall motion. Left ventricular ejection fraction estimated to be 55-60 %. No left ventricular hypertrophy. No evidence of pericardial effusion. All other cardiac chamber sizes are within normal limits. Right cardiac chamber sizes are within normal limits. Focal aortic valve sclerosis with adequate cusp excursion. Thickened mitral valve leaflets with normal excursion. Mitral annulus and aortic root calcification. Normal pulmonic valve structure. Normal tricuspid valve structure. IVC at normal size with physiologic collapse. A color flow and spectral Doppler study was performed and revealed: No aortic regurgitation. Trace mitral regurgitation. Mitral diastolic velocities suggest reduced left ventricular relaxation c/w mild LV diastolic dysfunction (Grade I ). Mild, tricuspid regurgitation. Tricuspid systolic velocities suggests peak right ventricular systolic pressure of 33 mmHg, consistent with mild pulmonary hypertension. No Pulmonic regurgitation present.
[2017-08-03] MEDS ORDERED: 1/2 NS 1000ml IV ONE (15:56)
[2017-08-03] MEDS ORDERED: NS 500ML ONE (15:56)
[2017-08-03] MEDS ORDERED: Tubing IV Secondary IV ONE (15:56)
--- NOTE | 2017-08-03 17:02 | Cardiology Report ---
APPROVED REPORT EKG Measurement Heart [id number] OR 180P51 [id number] Normal sinus rhythm Normal ECG
--- NOTE | 2017-08-03 19:45 | Procedure Note ---
DATE OF PROCEDURE: 08/03/2017 SURGEON: Segundo Gomez M.D. REFERRING PHYSICIAN: Gerhard Baltazar M.D. PROCEDURE: Upper endoscopy with biopsy and colonoscopy with biopsy. ANESTHESIA: Per Dr. Michelle. INSTRUMENT: Olympus adult flexible upper endoscope and colonoscope. INDICATION: Rectal bleeding and anemia. DESCROIPTION OF PROCEDURE: The procedure, risks, benefits, and possible consequences including hemorrhage, aspiration, perforation and infection, and alternative treatments, were explained to the patient/legal guardian by Dr. Segundo Gomez and the patient/legal guardian understood and accepted these risks. After informed consent was obtained and the patient was adequately sedated, Olympus upper endoscope was advanced from mouth into the second portion of the duodenum and retroflexion was performed in the stomach. The patient has atrophic gastritis. Random biopsies from body and antrum were obtained to rule out H. pylori infection. The patient also had evidence of 3-4 cm hiatal hernia without any obvious esophagitis. At this time, the upper endoscope was retrieved. The patient was turned over for colonoscopy. First, digital rectal exam was performed which showed possible internal hemorrhoids. Then the scope was advanced into an area that seemed to be about 60 cm from the anal verge with severe colitis, this is most likely ischemic colitis. Given the possibility of ischemic colitis, only biopsy from this area was obtained and procedure was terminated. SUMMARY FINDINGS: 1. Atrophic gastritis. 2. Hiatal hernia. 3. Possible ischemic colitis. 4. Internal hemorrhoids. RECOMMENDATIONS: 1. Follow up biopsy results and treat accordingly. 2. IV fluids. 3. Bowel rest. 4. The patient currently on antibiotics. 5. Monitor labs. 6. Daily examination. 7. The patient will need a repeat full colonoscopy as an outpatient when the ischemic colitis has completely resolved, may be in a month or two. I want to thank Dr. Gerhard Baltazar for this kind referral. Segundo Gomez M.D. DR: INGRID JOB#: [id number] CC: Gerhard Baltazar M.D.; Fax#: [phone]
--- NOTE | 2017-08-03 20:00 | Consultation ---
DATE OF CONSULTATION: 08/03/2017 NEUROLOGICAL CONSULTATION CONSULTING PHYSICIAN: Jason Hunter M.D. REQUESTING PHYSICIAN: Gerhard Baltazar M.D. HISTORY OF PRESENT ILLNESS: The patient is a 67-year-old female seen in neurological consultation to evaluate the episodes of transient loss of consciousness. According to the patient, but also from her daughter known that on the day of admission, she was having severe constipation. She went to the bathroom trying to push down, she started to developed acute pain in her abdomen. She shouted to her son who tried to help her out, found her pale, diaphoretic, and weak. According to the family, her blood pressure was very low and heart rate was very slow. The patient had a brief loss of consciousness, and she slid down. At that point, she developed a bout of loose stool. Blood was noted in her stool. There was no tongue biting. No involuntary movement but she started to wake up while being in supine position. Paramedics were called to the scene. She was brought to this facility. Her vital signs on admission was stable at 113/81, heart rate of 75, temperature 97.3. She was awake without apparent distress. Her initial workup included a chest x-ray revealing no acute disease. Her abdomen and pelvis CT scan revealed a diffuse wall thickening of the descending and proximal sigmoid colon consistent with colitis, nonspecific etiology, right hepatic lobe had a mass 2.5 x 3.7 cm suggestive of hepatic hemangioma. MRI of the abdomen was obtained. This confirmed presence of 4.2 cm right hepatic lobe mass, enhancement suggestive of a benign hemangioma. Since admission till present, vital signs remained stable, although, the patient has a low-grade fevers of 100.0 degrees. Laboratory work included CBC study with WBC 16.2. Normal coagulopathy. Urinalysis with 1+ ketones and 2+ protein. Chemistry panel unremarkable except blood sugar 254. Anion gap of 19. Hemoglobin A1c of 10.4. BNP of 220. Normal TSH. Hepatitis panel was ordered and results are pending. The patient had an endoscopy done, results are now pending. Since admission until present, there were no paroxysmal events. PAST MEDICAL HISTORY: The patient has a history of previous stroke approximately 8 years ago during which she had a transient loss of consciousness, diagnosed as seizure. There was no further seizure activity and there was no evidence of use of anticonvulsants. She has hypertension, [id number] diabetes mellitus. MEDICATIONS: Treatment now included included Benadryl, fentanyl as necessary, insulin, morphine as necessary, IV fluids, antibiotics. SOCIAL HISTORY: No alcohol or drug abuse. Supportive family. FAMILY HISTORY: Noncontributory. REVIEW OF SYSTEMS: Currently feels well. There is slight generalized weakness and some difficulty ambulation, but denies chest pain or palpitations. Denies respiratory problems. No abdominal pain or discomfort. The patient has frequent constipation. PHYSICAL EXAMINATION: GENERAL: This is a well-developed, slim, elderly female, not in acute distress, lying comfortably in bed. VITAL SIGNS: Now are stable. Blood pressure 127/64, temperature 97.8 degrees. HEENT: Head, normocephalic. There is no evidence of trauma. Eyes, ears, and throat are clear. NECK: Supple. No meningeal signs. MUSCULOSKELETAL: Unremarkable. There are no deformities. Peripheral pulses 1+ symmetric. MENTAL STATUS: She is alert and oriented x3. Her speech is fluent. Language intact. There is no aphasia. No apraxia. Cognitive function normal. CRANIAL NERVE II: Pupils are both responding to light and accommodation. Extraocular movement intact. No nystagmus. CRANIAL NERVE V: Normal corneal responses. CRANIAL NERVE VII: No facial asymmetry. CRANIAL NERVE VIII: Normal hearing. CRANIAL NERVES IX THROUGH XII: Normal limits. MOTOR EXAMINATION: Normal muscle tone and strength 5/5 in all extremities. No involuntary movement. Deep tendon reflexes 1+ symmetric with downgoing toes on both sides. Sensory exam normal to pinprick and light touch. Gait is slow, but stable. IMPRESSION: 1. History of transient loss of consciousness, most likely representing vasovagal syncope. No evidence of transient ischemic attack, stroke, or seizure activities. 2. History of stroke accompanied by a single episode of seizure event. 3. Hypertension. 4. Insulin-dependent diabetes mellitus. 5. Chronic constipation. RECOMMENDATIONS: The patient will complete her current workup including gastrointestinal workup and cardiac assessment. In absence of seizure activities and normal nonfocal neurological examination, we recommended to observe patient for paroxysmal event, no anticonvulsants will be necessary at this time. The patient is to continue with Ecotrin 81 mg and statins as a stroke prevention. Thank you for allowing me to see this interesting patient in neurological consultation. Jason Parul Hunter DR: Sonny JOB#: [id number] CC:
--- NOTE | 2017-08-03 20:55 | General Progress Note ---
Assessment/Plan Problem List: (1) Colitis ICD Codes: K52.9 - Noninfective gastroenteritis and colitis, unspecified SNOMED: 97471583 (2) Rectal bleed ICD Codes: K62.5 - Hemorrhage of anus and rectum SNOMED: 35262791 (3) Syncope ICD Codes: R55 - Syncope and collapse SNOMED: 607448883 Qualifiers: Qualified Codes: R55 - Syncope and collapse (4) H/o single seizure episode 2/2 acute stroke x 8 years ago Status: progressing Assessment/Plan rectal bleed s/p bradycardia afebrile syncope heart block pacer per ep Subjective ROS Limited/Unobtainable: Yes Constitutional: Reports: no symptoms Allergies: Coded Allergies: No Known Allergies (Unverified , 08/01/17) Objective Last 24 Hour Vital Signs Date Time Temp Pulse Resp B/P (MAP) Pulse Ox O2 Delivery O2 Flow Rate FiO2 08/03/17 20:11 98.6 99 18 118/54 95 Room Air 08/03/17 16:00 97.9 18 113/56 98 Room Air 08/03/17 16:00 91 08/03/17 12:47 74 22 98 08/03/17 12:15 97.9 101 18 107/53 100 08/03/17 12:00 101 08/03/17 08:10 97.3 127/64 08/03/17 08:00 100 08/03/17 08:00 100.0 93 22 124/68 97 Room Air 08/03/17 07:46 94 22 99 08/03/17 07:45 94 24 119/67 97 Room Air 08/03/17 07:40 92 18 121/67 100 Nasal Cannula 3.0 08/03/17 07:34 99.4 93 15 126/65 99 Nasal Cannula 3.0 08/03/17 04:00 93 08/03/17 04:00 96.8 93 18 123/64 98 Room Air 08/03/17 00:00 97.7 88 20 130/64 98 Room Air Intake and Output 08/03/17 08/04/17 19:00 07:00 Intake Total 1442.50 ml Output Total 200 ml Balance 1242.50 ml Intake Oral 360 ml IV Total 1082.50 ml Output Urine Total 200 ml Estimated Blood Loss 0 ml Laboratory Tests 08/03/17 05:50: White Blood Count 16.5H, Red Blood Count 4.84, Hemoglobin 13.7, Hematocrit 42.8 , Mean Corpuscular Volume 88, Mean Corpuscular Hemoglobin 28.3, Mean Corpuscular Hemoglobin Concent 32.0, Red Cell Distribution Width 12.7, Platelet Count 324, Mean Platelet Volume 7.2, Neutrophils (%) (Auto) , Lymphocytes (%) ( Auto) , Monocytes (%) (Auto) , Eosinophils (%) (Auto) , Basophils (%) (Auto) , Differential Total Cells Counted 100, Neutrophils % (Manual) 91H, Lymphocytes % (Manual) 2L, Monocytes % (Manual) 7, Eosinophils % (Manual) 0, Basophils % ( Manual) 0, Band Neutrophils 0, Platelet Estimate Adequate, Platelet Morphology Normal, Red Blood Cell Morphology Normal, Prothrombin Time 10.9, Prothromb Time International Ratio 1.0, Activated Partial Thromboplast Time 27, Sodium Level 135L, Potassium Level 4.1, Chloride Level 101, Carbon Dioxide Level 15L, Anion Gap 19H, Blood Urea Nitrogen 15, Creatinine 0.8, Estimat Glomerular Filtration Rate > 60, Glucose Level 294H, Calcium Level 8.4L, Troponin I 0.000, Pro-B-Type Natriuretic Peptide 220H, Alpha Fetoprotein [Pending], Thyroid Stimulating Hormone (TSH) 1.317, Free Thyroxine 1.14, Hepatitis A IgM Antibody [Pending], Hepatitis B Surface Antigen [Pending], Hepatitis B Core IgM Antibody [Pending], Hepatitis C Antibody [Pending] 08/03/17 15:00: Lactic Acid Level 1.40 Height (Feet): 4 Height (Inches): 5.00 Weight (Pounds): 117 Cardiovascular: normal rate Gerhard Baltazar MD Aug 03, 2017 20:55
[2017-08-04] VITALS (7 sets, daily range): BP systolic 106–123; BP diastolic 55–63
[2017-08-04] MEDS: Piperacillin/Tazobactam 3.375 GM in D5W 55 ML IVPB SCH (03:47)
[2017-08-04] MEDS: NovoLOG Insulin Flexpen SUBQ SCH ×4 (06:09→21:30)
[2017-08-04 07:33] LABS: MEAN CORPUSCULAR HEMOGLOBIN 28.7 PG (27.0-31.0); MEAN CORPUSCULAR HGB CONC 31.9 G/DL (32.0-36.0); MEAN CORPUSCULAR VOLUME 90 FL (80-99); MEAN PLATELET VOLUME 6.8 FL (6.5-10.1); PLATELET COUNT 300 K/UL (150-450); RED BLOOD COUNT 4.37 M/UL (4.20-5.40); RED CELL DISTRIBUTION WIDTH 13.2 % (11.6-14.8); WHITE BLOOD COUNT 14.9 K/UL (4.8-10.8)
[2017-08-04 07:56] LABS: ALANINE AMINOTRANSFERASE 16 U/L (12-78); ALBUMIN/GLOBULIN RATIO 0.8 (1.0-2.7); ANION GAP 19 mmol/L (5-15); ASPARTATE AMINO TRANSFERASE 15 U/L (15-37); CALCIUM 8.2 MG/DL (8.5-10.1); CARBON DIOXIDE 12 MMOL/L (21-32); CHLORIDE 102 MMOL/L (98-107); CREATININE 0.9 MG/DL (0.55-1.30); GLOMERULAR FILTRATION RATE > 60 mL/min (>60); POTASSIUM 3.5 MMOL/L (3.5-5.1); SODIUM 133 MMOL/L (136-145)
[2017-08-04 08:27] LABS: BAND NEUTROPHILS % (MANUAL) 0 % (0-8); BASOPHILS % (MANUAL) 0 % (0-2); EOSINOPHILS % (MANUAL) 0 % (0-3); LYMPHOCYTES % (MANUAL) 8 % (20-45); NEUTROPHILS % (MANUAL) 88 % (45-75); PLATELET ESTIMATE ADEQUATE; PLATELET MORPHOLOGY NORMAL; TOTAL CELLS COUNTED 100
--- NOTE | 2017-08-04 09:26 | General Progress Note ---
Assessment/Plan Assessment/Plan (1) Abdominal pain (2) Colitis Pt will be discontinued off the Morphine D/w Dr. Moise and he concurred. Subjective Date patient seen: Aug 04, 2017 Time patient seen: 07:30 - am Constitutional: Reports: no symptoms HEENT: Reports: no symptoms Cardiovascular: Reports: no symptoms Respiratory: Reports: no symptoms Gastrointestinal/Abdominal: Reports: no symptoms Genitourinary: Reports: no symptoms Neurologic/Psychiatric: Reports: no symptoms Endocrine: Reports: no symptoms Hematologic/Lymphatic: Reports: no symptoms Allergies: Coded Allergies: No Known Allergies (Unverified , 08/01/17) Subjective Patient is laying in bed and shows no signs of pain or distress at this time. She no longer is c/o abdominal pain. Objective Last 24 Hour Vital Signs Date Time Temp Pulse Resp B/P (MAP) Pulse Ox O2 Delivery O2 Flow Rate FiO2 08/04/17 08:09 97.3 90 18 117/63 100 08/04/17 05:22 96.6 94 18 122/58 100 Nasal Cannula 08/04/17 04:00 94 08/04/17 04:00 96.6 94 18 122/58 100 Room Air 08/04/17 00:23 96.4 86 18 106/59 98 Room Air 08/04/17 00:00 95 08/03/17 20:11 98.6 99 18 118/54 95 Room Air 08/03/17 20:00 98 08/03/17 16:00 97.9 18 113/56 98 Room Air 08/03/17 16:00 91 08/03/17 12:47 74 22 98 08/03/17 12:15 97.9 101 18 107/53 100 08/03/17 12:00 101 Intake and Output 08/04/17 08/05/17 19:00 07:00 Intake Total 450 ml Balance 450 ml Intake Oral 450 ml Laboratory Tests 08/03/17 15:00: Lactic Acid Level 1.40 08/04/17 06:20: Lactic Acid Level 1.30, White Blood Count 14.9H, Red Blood Count 4.37, Hemoglobin 12.5, Hematocrit 39.2, Mean Corpuscular Volume 90, Mean Corpuscular Hemoglobin 28.7, Mean Corpuscular Hemoglobin Concent 31.9L, Red Cell Distribution Width 13.2, Platelet Count 300, Mean Platelet Volume 6.8, Neutrophils (%) (Auto) , Lymphocytes (%) (Auto) , Monocytes (%) (Auto) , Eosinophils (%) (Auto) , Basophils (%) (Auto) , Differential Total Cells Counted 100, Neutrophils % (Manual) 88H, Lymphocytes % (Manual) 8L, Monocytes % (Manual) 4, Eosinophils % (Manual) 0, Basophils % (Manual) 0, Band Neutrophils 0 , Platelet Estimate Adequate, Platelet Morphology Normal, Red Blood Cell Morphology Normal, Sodium Level 133L, Potassium Level 3.5, Chloride Level 102, Carbon Dioxide Level 12L, Anion Gap 19H, Blood Urea Nitrogen 13, Creatinine 0.9 , Estimat Glomerular Filtration Rate > 60, Glucose Level 300H, Calcium Level 8.2L, Total Bilirubin 0.5, Aspartate Amino Transf (AST/SGOT) 15, Alanine Aminotransferase (ALT/SGPT) 16, Alkaline Phosphatase 99, Total Protein 6.0L, Albumin 2.6L, Globulin 3.4, Albumin/Globulin Ratio 0.8L Height (Feet): 4 Height (Inches): 5.00 Weight (Pounds): 117 General Appearance: no apparent distress, alert EENT: PERRL/EOMI, normal ENT inspection Neck: non-tender, normal alignment Cardiovascular: normal rate, regular rhythm Respiratory/Chest: lungs clear, normal breath sounds Abdomen: non tender, soft Extremities: non-tender Edema: no edema noted Arm (L), no edema noted Arm (R), no edema noted Leg (L), no edema noted Leg (R), no edema noted Pedal (L), no edema noted Pedal (R), no edema noted Generalized Neurologic: alert, oriented x 3 JATINDER COLE N. P.Idris Aug 04, 2017 09:26
--- NOTE | 2017-08-04 10:02 | General Surgery Progress Note ---
General Surgery-Progress Note Subjective Symptoms: improved, BM Objective Last 24 Hour Vital Signs Date Time Temp Pulse Resp B/P (MAP) Pulse Ox O2 Delivery O2 Flow Rate FiO2 08/04/17 08:09 97.3 90 18 117/63 100 08/04/17 05:22 96.6 94 18 122/58 100 Nasal Cannula 08/04/17 04:00 94 08/04/17 04:00 96.6 94 18 122/58 100 Room Air 08/04/17 00:23 96.4 86 18 106/59 98 Room Air 08/04/17 00:00 95 08/03/17 20:11 98.6 99 18 118/54 95 Room Air 08/03/17 20:00 98 08/03/17 16:00 97.9 18 113/56 98 Room Air 08/03/17 16:00 91 08/03/17 12:47 74 22 98 08/03/17 12:15 97.9 101 18 107/53 100 08/03/17 12:00 101 I&O Intake and Output 08/04/17 08/05/17 19:00 07:00 Intake Total 450 ml Balance 450 ml Intake Oral 450 ml Cardiovascular: RSR Respiratory: clear Abdomen: soft, flat, non-tender, present bowel sounds Extremities: no tenderness Laboratory Tests Test 08/03/17 15:00 08/04/17 06:20 Lactic Acid Level 1.40 mmol/L (0.66-2.22) 1.30 mmol/L (0.66-2.22) White Blood Count 14.9 K/UL (4.8-10.8) H Red Blood Count 4.37 M/UL (4.20-5.40) Hemoglobin 12.5 G/DL (12.0-16.0) Hematocrit 39.2 % (37.0-47.0) Mean Corpuscular Volume 90 FL (80-99) Mean Corpuscular Hemoglobin 28.7 PG (27.0-31.0) Mean Corpuscular Hemoglobin Concent 31.9 G/DL (32.0-36.0) L Red Cell Distribution Width 13.2 % (11.6-14.8) Platelet Count 300 K/UL (150-450) Mean Platelet Volume 6.8 FL (6.5-10.1) Neutrophils (%) (Auto) % (45.0-75.0) Lymphocytes (%) (Auto) % (20.0-45.0) Monocytes (%) (Auto) % (1.0-10.0) Eosinophils (%) (Auto) % (0.0-3.0) Basophils (%) (Auto) % (0.0-2.0) Differential Total Cells Counted 100 Neutrophils % (Manual) 88 % (45-75) H Lymphocytes % (Manual) 8 % (20-45) L Monocytes % (Manual) 4 % (1-10) Eosinophils % (Manual) 0 % (0-3) Basophils % (Manual) 0 % (0-2) Band Neutrophils 0 % (0-8) Platelet Estimate Adequate Platelet Morphology Normal Red Blood Cell Morphology Normal Sodium Level 133 MMOL/L (136-145) L Potassium Level 3.5 MMOL/L (3.5-5.1) Chloride Level 102 MMOL/L (98-107) Carbon Dioxide Level 12 MMOL/L (21-32) L Anion Gap 19 mmol/L (5-15) H Blood Urea Nitrogen 13 mg/dL (7-18) Creatinine 0.9 MG/DL (0.55-1.30) Estimat Glomerular Filtration Rate > 60 mL/min (>60) Glucose Level 300 MG/DL (74-106) H Calcium Level 8.2 MG/DL (8.5-10.1) L Total Bilirubin 0.5 MG/DL (0.2-1.0) Aspartate Amino Transf (AST/SGOT) 15 U/L (15-37) Alanine Aminotransferase (ALT/SGPT) 16 U/L (12-78) Alkaline Phosphatase 99 U/L (46-116) Total Protein 6.0 G/DL (6.4-8.2) L Albumin 2.6 G/DL (3.4-5.0) L Globulin 3.4 g/dL Albumin/Globulin Ratio 0.8 (1.0-2.7) L Plan Problems: (1) Colitis Assessment & Plan: 67F with uncomplicated sigmoid colitis, rectal bleeding, abdominal discomfort, and colonoscopy with ischemia. Afebrile, HD stable, VSS, labs reviewed. CT/MRI reviewed. Exam without abdominal pain or tenderness. abdomen soft, non distended, benign. labs with leukocytosis resolving and lactate trending down. -likely ischemia from colitis. -no acute surgical intervention planned as she is improving. -diet as tolerated. thank you for this consultation. will follow with lisbeth. Howard Cerda Aug 04, 2017 10:02
--- NOTE | 2017-08-04 10:39 | Infectious Diseases Prog Note ---
Assessment/Plan Assessment/Plan A: 1. Colitis, likely ischemic 2. Right hepatic mass, likely hemangioma 3. Syncope. 4. Gastrointestinal bleeding. 5. Diabetes mellitus. 6. Hypertension. 7.Gastritis & Hemorrhoids P; Change Zosyn to Levaquin & Flagyl Subjective ROS Limited/Unobtainable: No Respiratory: Reports: no symptoms Cardiovascular: Reports: no symptoms Gastrointestinal/Abdominal: Reports: no symptoms, other - tolerating liquid diet Genitourinary: Reports: no symptoms Allergies: Coded Allergies: No Known Allergies (Unverified , 08/01/17) Objective Vital Signs Last 24 Hour Vital Signs Date Time Temp Pulse Resp B/P (MAP) Pulse Ox O2 Delivery O2 Flow Rate FiO2 08/04/17 08:09 97.3 90 18 117/63 100 08/04/17 05:22 96.6 94 18 122/58 100 Nasal Cannula 08/04/17 04:00 94 08/04/17 04:00 96.6 94 18 122/58 100 Room Air 08/04/17 00:23 96.4 86 18 106/59 98 Room Air 08/04/17 00:00 95 08/03/17 20:11 98.6 99 18 118/54 95 Room Air 08/03/17 20:00 98 08/03/17 16:00 97.9 18 113/56 98 Room Air 08/03/17 16:00 91 08/03/17 12:47 74 22 98 08/03/17 12:15 97.9 101 18 107/53 100 08/03/17 12:00 101 Height (Feet): 4 Height (Inches): 5.00 Weight (Pounds): 117 General Appearance: no acute distress HEENT: mucous membranes moist Respiratory/Chest: lungs clear Cardiovascular: normal rate Abdomen: soft, non tender Extremities: no edema Neurologic/Psychiatric: alert, oriented x 3, responsive Laboratory Tests Test 08/03/17 15:00 08/04/17 06:20 Lactic Acid Level 1.40 mmol/L (0.66-2.22) 1.30 mmol/L (0.66-2.22) White Blood Count 14.9 K/UL (4.8-10.8) H Red Blood Count 4.37 M/UL (4.20-5.40) Hemoglobin 12.5 G/DL (12.0-16.0) Hematocrit 39.2 % (37.0-47.0) Mean Corpuscular Volume 90 FL (80-99) Mean Corpuscular Hemoglobin 28.7 PG (27.0-31.0) Mean Corpuscular Hemoglobin Concent 31.9 G/DL (32.0-36.0) L Red Cell Distribution Width 13.2 % (11.6-14.8) Platelet Count 300 K/UL (150-450) Mean Platelet Volume 6.8 FL (6.5-10.1) Neutrophils (%) (Auto) % (45.0-75.0) Lymphocytes (%) (Auto) % (20.0-45.0) Monocytes (%) (Auto) % (1.0-10.0) Eosinophils (%) (Auto) % (0.0-3.0) Basophils (%) (Auto) % (0.0-2.0) Differential Total Cells Counted 100 Neutrophils % (Manual) 88 % (45-75) H Lymphocytes % (Manual) 8 % (20-45) L Monocytes % (Manual) 4 % (1-10) Eosinophils % (Manual) 0 % (0-3) Basophils % (Manual) 0 % (0-2) Band Neutrophils 0 % (0-8) Platelet Estimate Adequate Platelet Morphology Normal Red Blood Cell Morphology Normal Sodium Level 133 MMOL/L (136-145) L Potassium Level 3.5 MMOL/L (3.5-5.1) Chloride Level 102 MMOL/L (98-107) Carbon Dioxide Level 12 MMOL/L (21-32) L Anion Gap 19 mmol/L (5-15) H Blood Urea Nitrogen 13 mg/dL (7-18) Creatinine 0.9 MG/DL (0.55-1.30) Estimat Glomerular Filtration Rate > 60 mL/min (>60) Glucose Level 300 MG/DL (74-106) H Calcium Level 8.2 MG/DL (8.5-10.1) L Total Bilirubin 0.5 MG/DL (0.2-1.0) Aspartate Amino Transf (AST/SGOT) 15 U/L (15-37) Alanine Aminotransferase (ALT/SGPT) 16 U/L (12-78) Alkaline Phosphatase 99 U/L (46-116) Total Protein 6.0 G/DL (6.4-8.2) L Albumin 2.6 G/DL (3.4-5.0) L Globulin 3.4 g/dL Albumin/Globulin Ratio 0.8 (1.0-2.7) L Current Medications Medications (Trade) Dose Ordered Sig/Sue Route PRN Reason Start Time Stop Time Status Last Admin Dose Admin Acetaminophen (Tylenol) 650 mg Q4H PRN ORAL Mild Pain/Temp > 100.5 08/02/17 06:00 09/01/17 05:59 08/02/17 07:52 Dextrose (Dextrose 50%) STAT PRN IV Hypoglycemia 08/02/17 22:15 09/01/17 22:14 Insulin Aspart (NovoLOG) BEFORE MEALS AND HS SUBQ 08/03/17 06:30 09/02/17 06:29 08/04/17 06:09 Ondansetron HCl (Zofran) 4 mg Q6H PRN IVP Nausea & Vomiting 08/02/17 06:00 09/01/17 05:59 Piperacillin Sod/ Tazobactam Sod 3.375 gm/Dextrose 55 ml @ 13.75 mls/ hr Q8H IVPB 08/02/17 12:00 08/09/17 11:59 08/04/17 03:47 Sodium Chloride 1,000 ml @ 70 mls/hr [id number] IV 08/02/17 08:00 09/01/17 07:59 08/04/17 00:34 MITCHELL HOLM Aug 04, 2017 10:39
[2017-08-04] MEDS: metroNIDAZOLE 500mg tab ORAL SCH ×2 (13:21→21:28)
[2017-08-04] MEDS ORDERED: Levofloxacin 500mg tab ORAL SCH (14:00)
--- NOTE | 2017-08-04 14:14 | GI Progress Note ---
Assessment/Plan Problems: (1) Syncope ICD Codes: R55 - Syncope and collapse SNOMED: 852857523 Qualifiers: Qualified Codes: R55 - Syncope and collapse (2) Rectal bleed ICD Codes: K62.5 - Hemorrhage of anus and rectum SNOMED: 18214627 (3) Colitis ICD Codes: K52.9 - Noninfective gastroenteritis and colitis, unspecified SNOMED: 41611116 Status: stable Status Narrative Discussed with Dr. Gomez. Assessment/Plan SUMMARY FINDINGS: 1. Atrophic gastritis. 2. Hiatal hernia. 3. Possible ischemic colitis. 4. Internal hemorrhoids. RECOMMENDATIONS: okay for DC per GI standpoint Follow up biopsy results and treat accordingly. IV fluids. Bowel rest. >> adv diet transition to PO abx >> leva + flagyl The patient will need a repeat full colonoscopy as an outpatient when the ischemic colitis has completely resolved, may be in a month or two. Subjective Gastrointestinal/Abdominal: Reports: abdominal pain Subjective rectal bleed Objective Last 24 Hour Vital Signs Date Time Temp Pulse Resp B/P (MAP) Pulse Ox O2 Delivery O2 Flow Rate FiO2 08/04/17 11:55 97.1 84 18 123/58 100 08/04/17 08:09 97.3 90 18 117/63 100 08/04/17 08:00 104 08/04/17 05:22 96.6 94 18 122/58 100 Nasal Cannula 08/04/17 04:00 94 08/04/17 04:00 96.6 94 18 122/58 100 Room Air 08/04/17 00:23 96.4 86 18 106/59 98 Room Air 08/04/17 00:00 95 08/03/17 20:11 98.6 99 18 118/54 95 Room Air 08/03/17 20:00 98 08/03/17 16:00 97.9 18 113/56 98 Room Air 08/03/17 16:00 91 Intake and Output 08/04/17 08/05/17 19:00 07:00 Intake Total 700 ml Balance 700 ml Intake Oral 700 ml # Voids 1 # Bowel Movements 1 Laboratory Tests Test 08/03/17 15:00 08/04/17 06:20 Lactic Acid Level 1.40 mmol/L (0.66-2.22) 1.30 mmol/L (0.66-2.22) White Blood Count 14.9 K/UL (4.8-10.8) H Red Blood Count 4.37 M/UL (4.20-5.40) Hemoglobin 12.5 G/DL (12.0-16.0) Hematocrit 39.2 % (37.0-47.0) Mean Corpuscular Volume 90 FL (80-99) Mean Corpuscular Hemoglobin 28.7 PG (27.0-31.0) Mean Corpuscular Hemoglobin Concent 31.9 G/DL (32.0-36.0) L Red Cell Distribution Width 13.2 % (11.6-14.8) Platelet Count 300 K/UL (150-450) Mean Platelet Volume 6.8 FL (6.5-10.1) Neutrophils (%) (Auto) % (45.0-75.0) Lymphocytes (%) (Auto) % (20.0-45.0) Monocytes (%) (Auto) % (1.0-10.0) Eosinophils (%) (Auto) % (0.0-3.0) Basophils (%) (Auto) % (0.0-2.0) Differential Total Cells Counted 100 Neutrophils % (Manual) 88 % (45-75) H Lymphocytes % (Manual) 8 % (20-45) L Monocytes % (Manual) 4 % (1-10) Eosinophils % (Manual) 0 % (0-3) Basophils % (Manual) 0 % (0-2) Band Neutrophils 0 % (0-8) Platelet Estimate Adequate Platelet Morphology Normal Red Blood Cell Morphology Normal Sodium Level 133 MMOL/L (136-145) L Potassium Level 3.5 MMOL/L (3.5-5.1) Chloride Level 102 MMOL/L (98-107) Carbon Dioxide Level 12 MMOL/L (21-32) L Anion Gap 19 mmol/L (5-15) H Blood Urea Nitrogen 13 mg/dL (7-18) Creatinine 0.9 MG/DL (0.55-1.30) Estimat Glomerular Filtration Rate > 60 mL/min (>60) Glucose Level 300 MG/DL (74-106) H Calcium Level 8.2 MG/DL (8.5-10.1) L Total Bilirubin 0.5 MG/DL (0.2-1.0) Aspartate Amino Transf (AST/SGOT) 15 U/L (15-37) Alanine Aminotransferase (ALT/SGPT) 16 U/L (12-78) Alkaline Phosphatase 99 U/L (46-116) Total Protein 6.0 G/DL (6.4-8.2) L Albumin 2.6 G/DL (3.4-5.0) L Globulin 3.4 g/dL Albumin/Globulin Ratio 0.8 (1.0-2.7) L Height (Feet): 4 Height (Inches): 5.00 Weight (Pounds): 117 General Appearance: WD/WN, no apparent distress, alert Cardiovascular: normal rate Respiratory/Chest: normal breath sounds, no respiratory distress Abdominal Exam: normal bowel sounds, non tender, soft Extremities: normal range of motion, non-tender Adele Olsen N.P. Aug 04, 2017 14:14
--- NOTE | 2017-08-04 15:30 | Cardiac Electrophysiology PN ---
Assessment/Plan Assessment/Plan 1. Syncope in a patient with sinus bradycardia and junctional rhythm in the 30s , and more than 3-second pause. The patient off any sinus-edwin or atrioventricular-edwni blocking agent. HR improved. ? Vagal due to GI symptoms. No recurrence 2. Hypertension. Off BP meds for now. 3. Diabetes, on insulin 4. A 4-cm liver mass. Had MRI for further evaluation of gastrointestinal. 5. Rectal bleed and the patient with history of colitis. CT of abdomen and pelvis again suggestive of thickening of descending and proximal sigmoid colon consistent with colitis.S/P EGD and colonoscopy by Dr Jason LYON rN Subjective Subjective Feeling better. S/P EGD and colonoscopy yesterday. Objective Last 24 Hour Vital Signs Date Time Temp Pulse Resp B/P (MAP) Pulse Ox O2 Delivery O2 Flow Rate FiO2 08/04/17 11:55 97.1 84 18 123/58 100 08/04/17 08:09 97.3 90 18 117/63 100 08/04/17 08:00 104 08/04/17 05:22 96.6 94 18 122/58 100 Nasal Cannula 08/04/17 04:00 94 08/04/17 04:00 96.6 94 18 122/58 100 Room Air 08/04/17 00:23 96.4 86 18 106/59 98 Room Air 08/04/17 00:00 95 08/03/17 20:11 98.6 99 18 118/54 95 Room Air 08/03/17 20:00 98 08/03/17 16:00 97.9 18 113/56 98 Room Air 08/03/17 16:00 91 Intake and Output 08/04/17 08/05/17 19:00 07:00 Intake Total 700 ml Balance 700 ml Intake Oral 700 ml # Voids 2 # Bowel Movements 2 Laboratory Tests Test 08/04/17 06:20 White Blood Count 14.9 K/UL (4.8-10.8) H Red Blood Count 4.37 M/UL (4.20-5.40) Hemoglobin 12.5 G/DL (12.0-16.0) Hematocrit 39.2 % (37.0-47.0) Mean Corpuscular Volume 90 FL (80-99) Mean Corpuscular Hemoglobin 28.7 PG (27.0-31.0) Mean Corpuscular Hemoglobin Concent 31.9 G/DL (32.0-36.0) L Red Cell Distribution Width 13.2 % (11.6-14.8) Platelet Count 300 K/UL (150-450) Mean Platelet Volume 6.8 FL (6.5-10.1) Neutrophils (%) (Auto) % (45.0-75.0) Lymphocytes (%) (Auto) % (20.0-45.0) Monocytes (%) (Auto) % (1.0-10.0) Eosinophils (%) (Auto) % (0.0-3.0) Basophils (%) (Auto) % (0.0-2.0) Differential Total Cells Counted 100 Neutrophils % (Manual) 88 % (45-75) H Lymphocytes % (Manual) 8 % (20-45) L Monocytes % (Manual) 4 % (1-10) Eosinophils % (Manual) 0 % (0-3) Basophils % (Manual) 0 % (0-2) Band Neutrophils 0 % (0-8) Platelet Estimate Adequate Platelet Morphology Normal Red Blood Cell Morphology Normal Sodium Level 133 MMOL/L (136-145) L Potassium Level 3.5 MMOL/L (3.5-5.1) Chloride Level 102 MMOL/L (98-107) Carbon Dioxide Level 12 MMOL/L (21-32) L Anion Gap 19 mmol/L (5-15) H Blood Urea Nitrogen 13 mg/dL (7-18) Creatinine 0.9 MG/DL (0.55-1.30) Estimat Glomerular Filtration Rate > 60 mL/min (>60) Glucose Level 300 MG/DL (74-106) H Lactic Acid Level 1.30 mmol/L (0.66-2.22) Calcium Level 8.2 MG/DL (8.5-10.1) L Total Bilirubin 0.5 MG/DL (0.2-1.0) Aspartate Amino Transf (AST/SGOT) 15 U/L (15-37) Alanine Aminotransferase (ALT/SGPT) 16 U/L (12-78) Alkaline Phosphatase 99 U/L (46-116) Total Protein 6.0 G/DL (6.4-8.2) L Albumin 2.6 G/DL (3.4-5.0) L Globulin 3.4 g/dL Albumin/Globulin Ratio 0.8 (1.0-2.7) L Objective HEAD AND NECK: Shows no JVD or carotid bruit. LUNGS: Clear. CARDIOVASCULAR: Shows regular S1, S2 with no gallop or murmur. ABDOMEN: Soft. EXTREMITIES: No pitting edema. FEDE KWOK Aug 04, 2017 15:30
--- NOTE | 2017-08-04 17:03 | General Progress Note ---
Assessment/Plan Assessment/Plan ASSESSMENT AND RECOMMENDATION: 1. 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 Patient does not need any further workup at this time. 2. Leukocytosis, likely secondary to reactive process. 3. Rectal bleeding, no drop in H/H. 4. Ischemic colitis and hemorrhoids. GI following. Subjective Allergies: Coded Allergies: No Known Allergies (Unverified , 08/01/17) All Systems: reviewed and negative except above Subjective rectal bleeding Objective Last 24 Hour Vital Signs Date Time Temp Pulse Resp B/P (MAP) Pulse Ox O2 Delivery O2 Flow Rate FiO2 08/04/17 15:41 97.5 95 18 123/61 100 08/04/17 12:00 86 08/04/17 11:55 97.1 84 18 123/58 100 08/04/17 08:09 97.3 90 18 117/63 100 08/04/17 08:00 104 08/04/17 05:22 96.6 94 18 122/58 100 Nasal Cannula 08/04/17 04:00 94 08/04/17 04:00 96.6 94 18 122/58 100 Room Air 08/04/17 00:23 96.4 86 18 106/59 98 Room Air 08/04/17 00:00 95 08/03/17 20:11 98.6 99 18 118/54 95 Room Air 08/03/17 20:00 98 Intake and Output 08/04/17 08/05/17 19:00 07:00 Intake Total 700 ml Balance 700 ml Intake Oral 700 ml # Voids 2 # Bowel Movements 2 Laboratory Tests 08/04/17 06:20: White Blood Count 14.9H, Red Blood Count 4.37, Hemoglobin 12.5, Hematocrit 39.2 , Mean Corpuscular Volume 90, Mean Corpuscular Hemoglobin 28.7, Mean Corpuscular Hemoglobin Concent 31.9L, Red Cell Distribution Width 13.2, Platelet Count 300, Mean Platelet Volume 6.8, Neutrophils (%) (Auto) , Lymphocytes (%) (Auto) , Monocytes (%) (Auto) , Eosinophils (%) (Auto) , Basophils (%) (Auto) , Differential Total Cells Counted 100, Neutrophils % ( Manual) 88H, Lymphocytes % (Manual) 8L, Monocytes % (Manual) 4, Eosinophils % ( Manual) 0, Basophils % (Manual) 0, Band Neutrophils 0, Platelet Estimate Adequate, Platelet Morphology Normal, Red Blood Cell Morphology Normal, Sodium Level 133L, Potassium Level 3.5, Chloride Level 102, Carbon Dioxide Level 12L, Anion Gap 19H, Blood Urea Nitrogen 13, Creatinine 0.9, Estimat Glomerular Filtration Rate > 60, Glucose Level 300H, Lactic Acid Level 1.30, Calcium Level 8.2L, Total Bilirubin 0.5, Aspartate Amino Transf (AST/SGOT) 15, Alanine Aminotransferase (ALT/SGPT) 16, Alkaline Phosphatase 99, Total Protein 6.0L, Albumin 2.6L, Globulin 3.4, Albumin/Globulin Ratio 0.8L Height (Feet): 4 Height (Inches): 5.00 Weight (Pounds): 117 General Appearance: no apparent distress EENT: normal ENT inspection Neck: normal alignment Cardiovascular: normal peripheral pulses Extremities: non-tender Skin: warm/dry Arun Gamez Aug 04, 2017 17:03
--- NOTE | 2017-08-04 17:29 | General Progress Note ---
Assessment/Plan Problem List: (1) Colitis ICD Codes: K52.9 - Noninfective gastroenteritis and colitis, unspecified SNOMED: 54009535 (2) Rectal bleed ICD Codes: K62.5 - Hemorrhage of anus and rectum SNOMED: 77245861 (3) Syncope ICD Codes: R55 - Syncope and collapse SNOMED: 565792689 Qualifiers: Qualified Codes: R55 - Syncope and collapse (4) H/o single seizure episode 2/2 acute stroke x 8 years ago Assessment/Plan rectal bleed s/p bradycardia afebrile syncope heart block ischemic colitis heartburn improving Subjective Allergies: Coded Allergies: No Known Allergies (Unverified , 08/01/17) Subjective heartburn Objective Last 24 Hour Vital Signs Date Time Temp Pulse Resp B/P (MAP) Pulse Ox O2 Delivery O2 Flow Rate FiO2 08/04/17 15:41 97.5 95 18 123/61 100 08/04/17 12:00 86 08/04/17 11:55 97.1 84 18 123/58 100 08/04/17 08:09 97.3 90 18 117/63 100 08/04/17 08:00 104 08/04/17 05:22 96.6 94 18 122/58 100 Nasal Cannula 08/04/17 04:00 94 08/04/17 04:00 96.6 94 18 122/58 100 Room Air 08/04/17 00:23 96.4 86 18 106/59 98 Room Air 08/04/17 00:00 95 08/03/17 20:11 98.6 99 18 118/54 95 Room Air 08/03/17 20:00 98 Intake and Output 08/04/17 08/05/17 19:00 07:00 Intake Total 1280 ml Balance 1280 ml Intake Oral 700 ml IV Total 580 ml # Voids 2 # Bowel Movements 2 Laboratory Tests 08/04/17 06:20: White Blood Count 14.9H, Red Blood Count 4.37, Hemoglobin 12.5, Hematocrit 39.2 , Mean Corpuscular Volume 90, Mean Corpuscular Hemoglobin 28.7, Mean Corpuscular Hemoglobin Concent 31.9L, Red Cell Distribution Width 13.2, Platelet Count 300, Mean Platelet Volume 6.8, Neutrophils (%) (Auto) , Lymphocytes (%) (Auto) , Monocytes (%) (Auto) , Eosinophils (%) (Auto) , Basophils (%) (Auto) , Differential Total Cells Counted 100, Neutrophils % ( Manual) 88H, Lymphocytes % (Manual) 8L, Monocytes % (Manual) 4, Eosinophils % ( Manual) 0, Basophils % (Manual) 0, Band Neutrophils 0, Platelet Estimate Adequate, Platelet Morphology Normal, Red Blood Cell Morphology Normal, Sodium Level 133L, Potassium Level 3.5, Chloride Level 102, Carbon Dioxide Level 12L, Anion Gap 19H, Blood Urea Nitrogen 13, Creatinine 0.9, Estimat Glomerular Filtration Rate > 60, Glucose Level 300H, Lactic Acid Level 1.30, Calcium Level 8.2L, Total Bilirubin 0.5, Aspartate Amino Transf (AST/SGOT) 15, Alanine Aminotransferase (ALT/SGPT) 16, Alkaline Phosphatase 99, Total Protein 6.0L, Albumin 2.6L, Globulin 3.4, Albumin/Globulin Ratio 0.8L Height (Feet): 4 Height (Inches): 5.00 Weight (Pounds): 117 Gerhard Baltazar MD Aug 04, 2017 17:29
[2017-08-05] VITALS: BP 104/50
[2017-08-05 04:00] VITALS: BP 123/79
[2017-08-05] MEDS: metroNIDAZOLE 500mg tab ORAL SCH (05:54)
[2017-08-05] MEDS: NovoLOG Insulin Flexpen SUBQ SCH (06:02)
[2017-08-05 06:16] VITALS: BP 123/79
--- NOTE | 2017-08-05 07:19 | General Progress Note ---
Assessment/Plan Problem List: (1) Colitis ICD Codes: K52.9 - Noninfective gastroenteritis and colitis, unspecified SNOMED: 71489235 (2) Syncope ICD Codes: R55 - Syncope and collapse SNOMED: 442927292 Qualifiers: Qualified Codes: R55 - Syncope and collapse (3) Rectal bleed ICD Codes: K62.5 - Hemorrhage of anus and rectum SNOMED: 28821677 Assessment/Plan fu biopsy results ok to dc needs out patient fu for full colonoscopy in 4-6 weeks Subjective ROS Limited/Unobtainable: Yes Allergies: Coded Allergies: No Known Allergies (Unverified , 08/01/17) Subjective no event Objective Last 24 Hour Vital Signs Date Time Temp Pulse Resp B/P (MAP) Pulse Ox O2 Delivery O2 Flow Rate FiO2 08/05/17 06:16 98.1 94 20 123/79 100 08/05/17 04:00 98.1 94 20 123/79 100 08/05/17 03:44 91 08/05/17 00:00 97.8 95 18 104/50 100 08/05/17 00:00 109 08/04/17 20:00 99.2 111 18 118/55 97 08/04/17 20:00 116 08/04/17 16:00 108 08/04/17 15:41 97.5 95 18 123/61 100 08/04/17 12:00 86 08/04/17 11:55 97.1 84 18 123/58 100 08/04/17 08:09 97.3 90 18 117/63 100 08/04/17 08:00 104 Height (Feet): 4 Height (Inches): 5.00 Weight (Pounds): 117 General Appearance: alert EENT: normal ENT inspection Neck: supple Cardiovascular: normal rate Respiratory/Chest: lungs clear Abdomen: normal bowel sounds, non tender, soft Extremities: non-tender THEO MÉNDEZ Aug 05, 2017 07:19
[2017-08-05 07:43] LABS: BASOPHILS % (AUTO) 0.8 % (0.0-2.0); EOSINOPHILS % (AUTO) 0.2 % (0.0-3.0); LYMPHOCYTES % (AUTO) 9.5 % (20.0-45.0); MEAN CORPUSCULAR HEMOGLOBIN 28.6 PG (27.0-31.0); MEAN CORPUSCULAR HGB CONC 31.9 G/DL (32.0-36.0); MEAN CORPUSCULAR VOLUME 90 FL (80-99); MEAN PLATELET VOLUME 6.9 FL (6.5-10.1); MONOCYTES % (AUTO) 10.2 % (1.0-10.0); NEUTROPHILS % (AUTO) 79.3 % (45.0-75.0); PLATELET COUNT 337 K/UL (150-450); RED BLOOD COUNT 4.51 M/UL (4.20-5.40); RED CELL DISTRIBUTION WIDTH 13.2 % (11.6-14.8); WHITE BLOOD COUNT 13.1 K/UL (4.8-10.8)
[2017-08-05 08:00] VITALS: BP 105/52
[2017-08-05 08:29] LABS: ANION GAP 17 mmol/L (5-15); CALCIUM 7.9 MG/DL (8.5-10.1); CARBON DIOXIDE 12 MMOL/L (21-32); CHLORIDE 104 MMOL/L (98-107); CREATININE 0.9 MG/DL (0.55-1.30); GLOMERULAR FILTRATION RATE > 60 mL/min (>60); POTASSIUM 4.6 MMOL/L (3.5-5.1); SODIUM 133 MMOL/L (136-145)
--- NOTE | 2017-08-05 10:54 | Infectious Diseases Prog Note ---
Assessment/Plan Assessment/Plan antibiotics : levoquin, flagyl A 1. colitis 2. liver hemangioma 3. DM 4. HTN 5. GI bleeding P 1. continue levoquin, flagyl po 6 more days 2. will follow up cultures Subjective Constitutional: Denies: fever, chills Respiratory: Denies: shortness of breath, dry cough Gastrointestinal/Abdominal: Denies: nausea, vomiting, diarrhea Musculoskeletal: Denies: pain Allergies: Coded Allergies: No Known Allergies (Unverified , 08/01/17) Objective Vital Signs Last 24 Hour Vital Signs Date Time Temp Pulse Resp B/P (MAP) Pulse Ox O2 Delivery O2 Flow Rate FiO2 08/05/17 08:00 89 08/05/17 08:00 97.2 89 21 105/52 99 08/05/17 06:16 98.1 94 20 123/79 100 08/05/17 04:00 98.1 94 20 123/79 100 08/05/17 03:44 91 08/05/17 00:00 97.8 95 18 104/50 100 08/05/17 00:00 109 08/04/17 20:00 99.2 111 18 118/55 97 08/04/17 20:00 116 08/04/17 16:00 108 08/04/17 15:41 97.5 95 18 123/61 100 08/04/17 12:00 86 08/04/17 11:55 97.1 84 18 123/58 100 Height (Feet): 4 Height (Inches): 5.00 Weight (Pounds): 117 Respiratory/Chest: lungs clear Cardiovascular: normal rate, regular rhythm, no gallop/murmur Abdomen: soft, non tender Extremities: no edema Laboratory Tests Test 08/05/17 06:11 White Blood Count 13.1 K/UL (4.8-10.8) H Red Blood Count 4.51 M/UL (4.20-5.40) Hemoglobin 12.9 G/DL (12.0-16.0) Hematocrit 40.4 % (37.0-47.0) Mean Corpuscular Volume 90 FL (80-99) Mean Corpuscular Hemoglobin 28.6 PG (27.0-31.0) Mean Corpuscular Hemoglobin Concent 31.9 G/DL (32.0-36.0) L Red Cell Distribution Width 13.2 % (11.6-14.8) Platelet Count 337 K/UL (150-450) Mean Platelet Volume 6.9 FL (6.5-10.1) Neutrophils (%) (Auto) 79.3 % (45.0-75.0) H Lymphocytes (%) (Auto) 9.5 % (20.0-45.0) L Monocytes (%) (Auto) 10.2 % (1.0-10.0) H Eosinophils (%) (Auto) 0.2 % (0.0-3.0) Basophils (%) (Auto) 0.8 % (0.0-2.0) Sodium Level 133 MMOL/L (136-145) L Potassium Level 4.6 MMOL/L (3.5-5.1) Chloride Level 104 MMOL/L (98-107) Carbon Dioxide Level 12 MMOL/L (21-32) L Anion Gap 17 mmol/L (5-15) H Blood Urea Nitrogen 16 mg/dL (7-18) Creatinine 0.9 MG/DL (0.55-1.30) Estimat Glomerular Filtration Rate > 60 mL/min (>60) Glucose Level 274 MG/DL (74-106) H Calcium Level 7.9 MG/DL (8.5-10.1) ROMMEL VARGAS Aug 05, 2017 10:54
--- NOTE | 2017-08-05 11:02 | General Surgery Progress Note ---
General Surgery-Progress Note Subjective Symptoms: improved, tolerating diet, voiding well, passing flatus, BM Additional Comments no complaints. feels great. Objective Last 24 Hour Vital Signs Date Time Temp Pulse Resp B/P (MAP) Pulse Ox O2 Delivery O2 Flow Rate FiO2 08/05/17 08:00 89 08/05/17 08:00 97.2 89 21 105/52 99 08/05/17 06:16 98.1 94 20 123/79 100 08/05/17 04:00 98.1 94 20 123/79 100 08/05/17 03:44 91 08/05/17 00:00 97.8 95 18 104/50 100 08/05/17 00:00 109 08/04/17 20:00 99.2 111 18 118/55 97 08/04/17 20:00 116 08/04/17 16:00 108 08/04/17 15:41 97.5 95 18 123/61 100 08/04/17 12:00 86 08/04/17 11:55 97.1 84 18 123/58 100 Drains: none Cardiovascular: RSR Respiratory: clear Abdomen: soft, flat, non-tender, present bowel sounds Extremities: no tenderness Laboratory Tests Test 08/05/17 06:11 White Blood Count 13.1 K/UL (4.8-10.8) H Red Blood Count 4.51 M/UL (4.20-5.40) Hemoglobin 12.9 G/DL (12.0-16.0) Hematocrit 40.4 % (37.0-47.0) Mean Corpuscular Volume 90 FL (80-99) Mean Corpuscular Hemoglobin 28.6 PG (27.0-31.0) Mean Corpuscular Hemoglobin Concent 31.9 G/DL (32.0-36.0) L Red Cell Distribution Width 13.2 % (11.6-14.8) Platelet Count 337 K/UL (150-450) Mean Platelet Volume 6.9 FL (6.5-10.1) Neutrophils (%) (Auto) 79.3 % (45.0-75.0) H Lymphocytes (%) (Auto) 9.5 % (20.0-45.0) L Monocytes (%) (Auto) 10.2 % (1.0-10.0) H Eosinophils (%) (Auto) 0.2 % (0.0-3.0) Basophils (%) (Auto) 0.8 % (0.0-2.0) Sodium Level 133 MMOL/L (136-145) L Potassium Level 4.6 MMOL/L (3.5-5.1) Chloride Level 104 MMOL/L (98-107) Carbon Dioxide Level 12 MMOL/L (21-32) L Anion Gap 17 mmol/L (5-15) H Blood Urea Nitrogen 16 mg/dL (7-18) Creatinine 0.9 MG/DL (0.55-1.30) Estimat Glomerular Filtration Rate > 60 mL/min (>60) Glucose Level 274 MG/DL (74-106) H Calcium Level 7.9 MG/DL (8.5-10.1) L Plan Problems: (1) Colitis Assessment & Plan: 67F with uncomplicated sigmoid colitis, rectal bleeding, abdominal discomfort, and colonoscopy with ischemia. Afebrile, HD stable, VSS, labs reviewed. CT/MRI reviewed. Exam without abdominal pain or tenderness. abdomen soft, non distended, benign. labs with leukocytosis resolving and lactate trending down. -likely ischemia from colitis which has resolved without sequela -no acute surgical intervention planned as she is improving. -diet as tolerated. -okay to d/c from surgical standpoint thank you for this consultation. Howard Cerda Aug 05, 2017 11:02
[2017-08-05] MEDS ORDERED: 1/2 NS 1000ml IV ONE (11:29)
--- NOTE | 2017-08-06 03:00 | Consultation ---
DATE OF CONSULTATION: 08/05/2017 PULMONARY CONSULTATION CONSULTING PHYSICIAN: Chicho Loco M.D. ATTENDING PHYSICIAN: Gerhard Baltazar M.D. TIME SEEN: 10:30 p.m. CHIEF COMPLAINT: Short of breath. HISTORY OF PRESENT ILLNESS: The patient is a 67-year-old woman who came in to the hospital from home brought in by the family. She was discharged earlier today after being treated for ischemic colitis. She became more short of breath and had elevated blood sugars. She was found to have diabetic ketoacidosis in the emergency department. Her pH was 6.98. She was intubated by the emergency physician and I was called to see her in consultation. PAST MEDICAL HISTORY: The patient has type 1 diabetes and is on insulin. She has history of recent diagnosis of ischemic colitis, hypertension, syncope, past history of stroke with single seizure. MEDICATIONS: At home, she was on amlodipine, enalapril, insulin, and Lamisil. She was discharged from the hospital today with Flagyl and insulin. The patient can provide no additional history. ALLERGIES: None. REVIEW OF SYSTEMS: Cannot be obtained. PHYSICAL EXAMINATION: GENERAL: The patient is sedated and intubated. VITAL SIGNS: Stable. She is on ventilator support via orotracheal tube. LUNGS: The chest is clear. CARDIAC: Rhythm is regular. ABDOMEN: Soft and nontender. Liver and spleen are not enlarged. There is no distention. Bowel sounds are hypoactive. EXTREMITIES: Perfused well. There is no clubbing, cyanosis, or edema. LABORATORY DATA: At the time of discharge, her bicarbonate is 12 this morning. DIAGNOSTIC DATA: CT of the abdomen and pelvis shows colonic wall thickening, it is less well seen, and there is some motion artifact. There is suggestion of nonspecific colitis, but there is no free air. There is no sign of infarct on CT of the brain. There is some left sphenoid sinusitis. IMPRESSIONS: 1. Diabetic ketoacidosis. 2. Diabetes mellitus. 3. Ischemic colitis. 4. Hypertension. 5. Leukocytosis with left shift. 6. Protein-calorie malnutrition. 7. Lactic acidosis. PLAN: The patient will be given intravenous fluids, insulin, and antibiotics. Ventilator support will be continued. I will be happy to follow her with you. Chicho Loco M.D. DR: Mansi JOB#: [id number] CC: SHAY
--- NOTE | 2017-08-08 09:33 | Discharge Summary ---
Discharge Summary Hospital Course Date of Admission Aug 01, 2017 at 23:18 Date of Discharge Aug 05, 2017 at 11:30 Admitting Diagnosis SYNCOPE HPI Carlee Harper is a 67 year old female who was admitted on Aug 01, 2017 at 23:18 for Syncope Hospital Course dc summary #[id number] Discharge Medications New Medications: Levofloxacin* (Levaquin*) 500 Mg Tablet 500 MG ORAL DAILY, #6 TAB Metronidazole* (Flagyl*) 500 Mg Tablet 500 MG ORAL THREE TIMES A DAY, #18 TAB 0 Refills Continued Medications: Cholecalciferol (Vitamin D3) (Vitamin D3) 50,000 Unit Capsule 97994 UNIT PO, CAP Enalapril Maleate* (Enalapril Maleate*) 10 Mg Tablet 10 MG ORAL EVERY 12 HOURS, TAB Insulin Glargine (Lantus) 100 Unit/1 Ml Insuln.pen 0 SUBQ BEDTIME, #1 EA 0 Refills Terbinafine (Lamisil) 250 Mg Tablet 250 MG ORAL DAILY, TAB Discharge Condition Upon Discharge: stable Discharge Disposition Patient was discharged to Home with Home Health() Discharge Diagnoses: Discharge Instructions Discharge Instructions Special Instructions I have been assigned to complete a D/C Summary on this account. I was not involved in the patient management María Cook NP ([facility]) Aug 08, 2017 09:33
--- NOTE | 2017-08-09 05:30 | Discharge Summary 2 SIG ---
DATE OF ADMISSION: 08/01/2017 DATE OF DISCHARGE: 08/05/2017 REASON FOR ADMISSION: A 67-year-old female with a history of hypertension, presented after apparently syncopal episode. She was in her usual state of health when she went to the bathroom. She was complaining of abdominal pain. She also complained of dizziness and then she passed out. The patient had reported multiple bouts of diarrhea. No fevers. No chills. No nausea. No vomiting. No bright red blood per rectum or tarry stools. After she had a syncopal episode, she was diaphoretic and pale. Upon presentation to ED she was still complaining of abdominal pain. Initial evaluation revealed leukocytosis, WBC -16.4. Stable hemoglobin and hematocrit. Stable electrolytes and renal parameters. Glucose -254. Vital signs were stable. Chest x-ray revealed no acute cardiopulmonary pathology. Troponin was negative. Urinalysis revealed no evidence of UTI. EKG showed sinus rhythm. No acute ischemic changes. CT of the abdomen and pelvis revealed diffuse wall thickening of the descending and proximal sigmoid colon consistent with colitis. A 2.5 x 3.7 mass in the right hepatic lobe. The patient was admitted with a diagnosis of syncope, colitis, and hyperglycemia. HOSPITAL COURSE: The patient was admitted on telemetry floor. Cardiology consult was requested. According to assistant to the vice president, who personally revealed all telemetry strips, the patient had Mobitz type 2 block, episodes of sinus bradycardia, and junctional rhythm in the 30s for more than 3 seconds. The patient was off any sinus edwin or atrioventricular edwin blocking agents. Thyroid function test was within normal limits. Echocardiogram revealed preserved ejection fraction of 55% to 60% and right ventricular systolic pressure of 33 consistent with mild pulmonary hypertension. LES inhibitor was continued for blood pressure, but amlodipine was on hold. Histotechnologist Supervisor closely followed. No further episodes of syncope. Heart rate improved, sinus rhythm on the monitor. According to assistant to the vice president, the patient had vasovagal syncope likely due to the GI symptoms. GI specialist seen and evaluated the patient. The patient subsequently undergone MRI of the abdomen, which revealed right hepatic lobe mass highly suggestive of benign hemangioma. Alpha-fetoprotein was within normal limits. Hepatitis panel was negative. The patient had overnight episode of the rectal bleeding, and the patient subsequently undergone upper endoscopy with biopsy and colonoscopy with biopsy with findings of atrophic gastritis, hiatal hernia, possible ischemic colitis, and internal hemorrhoids. The patient was on the IV fluids, initially on the bowel rest. The patient was on antibiotics per Infectious Diseases management. Initially, on IV antibiotics and later was transitioned to oral. The patient will need a full colonoscopy as outpatient in one to two months after ischemic colitis completely resolved. Pathology result revealed mild chronic gastritis, negative for Helicobacter infection; descending colon biopsy revealed benign colonic mucosa with ischemic type of injury. Per Infectious Disease specialist recommendation, the patient will need additional six days of Levaquin and Flagyl upon discharge. Diet was slowly advanced as tolerated. Patient was able to tolerate diet. Bed And Breakfast Innkeeper/oncologist followed the patient. The patient with stable hemoglobin and hematocrit. WBC down from initial 16.2 to 13.1 on the day of discharge. Blood sugar was managed with sliding scale of insulin. Hemoglobin A1c - 10.4, not at goal. The patient will need further optimization of anti-glycemic regimen as outpatient to bring the hemoglobin A1c under control. Neurologist seen and evaluated the patient and stated that the patient had transient loss of consciousness, most likely representing vasovagal syncope. No evidence of transient ischemic attack, stroke, or seizure activities. However, the patient had a history of stroke accompanied by single episode of seizure event in the past. Neurologist recommended to continue aspirin and statin and keep the patient off anticonvulsant medications at this time, but observe for any paroxysmal event. Pain management was addressed. Pain specialist closely followed. Surgeon followed with ischemic colitis management as well. According to surgeon, there was no need for surgical intervention at this time . Bowel regimen instituted. DVT and GI prophylaxis provided. The patient was able to tolerate diet. The patient was discharged home with Home Health Services. FINAL DIAGNOSES: 1. Syncope likely vasovagal, secondary to gastrointestinal symptoms. 2. Junctional rate, resolved. 3. Sinus bradycardia with Mobitz type 2, resolved. 4. Hypertension. 5. Rectal bleeding. 6. Status post esophagogastroduodenoscopy with colonoscopy. 7. Sigmoid ischemic colitis. 8. Hiatal hernia. 9. Atrophic gastritis. 10. Internal hemorrhoids. 11. Diabetes mellitus, out of control. 12. Liver hemangioma. 13. History of stroke with a single episode of seizure event. 14. Chronic constipation. DISCHARGE MEDICATIONS: See medication reconciliation list. Continue antibiotics for six additional days as per Infectious Diseases recommendation. DISCHARGE INSTRUCTIONS: The patient discharged home with Home Health Services for close monitoring of blood pressure and blood sugar and ensure compliance with medications and antibiotics. Monitor for any paroxysmal events. Gerhard Baltazar M.D. I have been assigned to dictate discharge summary on this account and I was not involved in the patient's management. María Carlsonyamile N.PPaola DR: Ann JOB#: [id number] CC: SHAY
--- NOTE | 2017-08-10 11:01 | Diagnostic Imaging Report ---
APPROVED REPORT CPT Code: 37819 Present Symptoms Comments: R/O DVT BILATERAL: Imaging reveals a patent deep venous system bilaterally. There is no evidence of thrombus within the femoral, popliteal or tibial segments. The greater saphenous veins are also within normal limits. Doppler indicates normal spontaneous flow within these segments.
--- NOTE | 2017-08-10 11:01 | Diagnostic Imaging Report ---
APPROVED REPORT CPT Code: 08299 Vascular Symptoms Syncope CAROTID (BILATERAL) - Imaging reveals no significant plaque within the right and left extracranial carotid arteries. The Doppler spectral flow analysis is within normal limits throughout the extracranial carotid arteries bilaterally. VERTEBRAL- The vertebral arteries are within normal limits.
== END 2017-08-05 11:30 | disposition home health service (06) | DRG 395 ==
LOC: EDBD 22:53 → EMR 23:05 → 2E 23:18 → EDBEDREQ 23:59
PROC: 0DBM8ZX Excision of Descending Colon, Via Natural or Artificial Opening Endoscopic, Diagnostic (ICD-10-PCS; principal; 2017-08-03 07:14)
PROC: 0DB78ZX Excision of Stomach, Pylorus, Via Natural or Artificial Opening Endoscopic, Diagnostic (ICD-10-PCS; principal; 2017-08-03 07:14)
PROC: 0DB68ZX Excision of Stomach, Via Natural or Artificial Opening Endoscopic, Diagnostic (ICD-10-PCS; principal; 2017-08-03 07:14)
DX: K55.9 Vascular disorder of intestine, unspecified (principal); E10.65 Type 1 diabetes mellitus with hyperglycemia; I10 Essential (primary) hypertension; R55 Syncope and collapse; Z79.4 Long term (current) use of insulin; R00.1 Bradycardia, unspecified; K44.9 Diaphragmatic hernia without obstruction or gangrene; K29.40 Chronic atrophic gastritis without bleeding; K64.8 Other hemorrhoids; D18.09 Hemangioma of other sites; Z86.73 Personal history of transient ischemic attack (TIA), and cerebral infarction without residual deficits; K59.00 Constipation, unspecified
CPT/HCPCS: 36415; 71010; 74177; 74183; 80048; 80053; 81003; 82105; 82550; 82553; 82962; 83036; 83605; 83880; 84439; 84443; 84484; 85007; 85025; 85610; 85730; 86705; 86709; 86803; 87340; 93005; 93306; 93880; 93970; 94003; 94150; 99285; A9585; J1815; J2250

== ENCOUNTER 2017-08-05 20:04 | Inpatient (IN) | payer MEDICARE, MEDICAID ==
[~2017-08-05] VITALS: Ht 147.3 cm; Wt 54.0 kg
[~2017-08-05 20:04] MED LIST: ENALAPRIL MALEA10 MG ORAL; LAMISIL250 MG ORAL; LANTUS SOL100 UNIT/1 SUBQ; NORVASC10 MG ORAL; VITAMIN D350000 UNIT PO
[2017-08-05] MEDS ORDERED: LORazepam Inj 2mg/ml 1ml IV ONE (20:15)
[2017-08-05 20:40] VITALS: BP 132/80
[2017-08-05 20:40] LABS: ABG ALLEN TEST POSITIVE; ABG PCO2 17.2 mmHg (35.0-45.0)
[2017-08-05 21:10] LABS: MEAN CORPUSCULAR HEMOGLOBIN 27.8 PG (27.0-31.0); MEAN CORPUSCULAR HGB CONC 29.7 G/DL (32.0-36.0); MEAN CORPUSCULAR VOLUME 94 FL (80-99); MEAN PLATELET VOLUME 6.2 FL (6.5-10.1); PLATELET COUNT 358 K/UL (150-450); RED BLOOD COUNT 4.42 M/UL (4.20-5.40); RED CELL DISTRIBUTION WIDTH 13.6 % (11.6-14.8); WHITE BLOOD COUNT 17.7 K/UL (4.8-10.8)
[2017-08-05 21:17] LABS: KETONES,URINE 4+ (NEGATIVE); LEUKOCYTE ESTERASE ,URINE NEGATIVE (NEGATIVE); NITRITE,URINE NEGATIVE (NEGATIVE); PH,URINE 5 (4.5-8.0); PROTEIN,URINE 2+ (NEGATIVE); UROBILINOGEN,URINE NORMAL MG/DL (0.0-1.0)
[2017-08-05 21:18] LABS: APPEARANCE,URINE SLIGHTLY CLOUDY
[2017-08-05 21:20] VITALS: BP 128/84
[2017-08-05 21:21] LABS: AMORPHOUS SEDIMENT,UR MODERATE /LPF; BACTERIA,URINE FEW /HPF; SQUAMOUS EPITHELIAL CELL,UR OCCASIONAL /LPF (NONE/OCC)
[2017-08-05 21:27] LABS: BAND NEUTROPHILS % (MANUAL) 0 % (0-8); BASOPHILS % (MANUAL) 0 % (0-2); EOSINOPHILS % (MANUAL) 0 % (0-3); LYMPHOCYTES % (MANUAL) 2 % (20-45); NEUTROPHILS % (MANUAL) 90 % (45-75); PLATELET ESTIMATE ADEQUATE; PLATELET MORPHOLOGY NORMAL; TOTAL CELLS COUNTED 100
[2017-08-05 21:28] LABS: BURR CELLS 2+; OVALOCYTES 1+
[2017-08-05 21:29] LABS: SCHISTOCYTES 1+
[2017-08-05 21:34] LABS: ALANINE AMINOTRANSFERASE 19 U/L (12-78); ALBUMIN/GLOBULIN RATIO 0.9 (1.0-2.7); ASPARTATE AMINO TRANSFERASE 20 U/L (15-37); CALCIUM 9.2 MG/DL (8.5-10.1); CHLORIDE 100 MMOL/L (98-107); CREATININE 1.2 MG/DL (0.55-1.30); LIPASE 62 U/L (73-393); POTASSIUM 4.9 MMOL/L (3.5-5.1); SODIUM 132 MMOL/L (136-145); TOTAL PROTEIN 6.8 G/DL (6.4-8.2)
[2017-08-05 21:40] LABS: CARBON DIOXIDE < 5 MMOL/L (21-32)
[2017-08-05 21:43] LABS: REFLEX LACTIC ACID YES OR NO YES
--- NOTE | 2017-08-05 21:48 | Emergency Room Report ---
History of Present Illness General Chief Complaint: Dyspnea/Respdistress Source: Family Member Present Illness HPI Patient was brought in by family Report that the patient was just recently discharged with diagnoses of colitis Family reports that the patient has been breathing faster than usual appears to be Becoming more unresponsive They also reported the patient was hungry and was asking to eat earlier However her blood sugars have been running in the mid 400s After repeat insulin doses it did not appear to make much difference as the patient's symptoms continued to worsen patient was brought to the emergency room Upon arrival the patient is tachypneic Appearance of who small respirations Confused and decreased GCS Patient however maintaining appropriate gag reflex Follows minimal commands initially History from the patient is not able to be obtained this does limit the history of present illness significantly However the patient's son provides appropriate input Allergies: Coded Allergies: No Known Allergies (Unverified , 08/01/17) Patient History Limited by: medical condition Past Medical History: see triage record Pertinent Family History: unable to obtain Now: No Reviewed Nursing Documentation: PMH: Agreed, PSxH: Agreed Nursing Documentation-PMH Past Medical History: No History, Except For Hx Hypertension: Yes Hx Diabetes: Yes Review of Systems All Other Systems: limited - Other than the ones mentioned in the history of present illness all others are reviewed however they do stay limited due to the patient's mental status Physical Exam Vital Signs Date Time Temp Pulse Resp B/P (MAP) Pulse Ox O2 Delivery O2 Flow Rate FiO2 08/05/17 20:05 97.5 116 25 135/82 100 Nasal Cannula 2.0 Sp02 EP Interpretation: reviewed, normal General Appearance: moderate distress - Altered, [place] respirations Head: normocephalic, atraumatic Eyes: bilateral eye PERRL, bilateral eye EOMI ENT: dry mucus membranes Neck: full range of motion, supple, thyroid normal Respiratory: lungs clear - However tachypneic, no retraction Cardiovascular #1: no edema, no gallop, tachycardia Gastrointestinal: non tender, soft, no mass, no organomegaly Genitourinary: no CVA tenderness Musculoskeletal: other - Patient is extremely weak, had to be transported by wheelchair, patient was not able to get onto the bed and had to be lifted, extremely weak diffusely Neurologic: responsive - To physical stimuli, was minimally verbal with us and denied abdominal pain however appears confused Skin: normal color, no rash, other - poor skin turgor Lymphatic: no adenopathy Procedures Critical Care Time Critical Care Time 50 minutes for multiple re\re evaluations Clinical findings including acidotic findings concerning for end organ injury and cardiopulmonary arrest not including any procedural time Central Line Central Line : Consent: Emergent Central Line Lumen: triple Maximal Sterile Barrier Tech: yes cap, yes mask, yes sterile gown, yes sterile gloves, yes large sterile sheet, yes hand hygiene, yes chlorhexidine prep Central Line Postion: femoral (R) Anesthesia: Lidocaine cc's of anesthesia: 2 Complications: none Central Line Post Position: sutured Attempts: One Patient Tolerated: Well Complications: None Intubation Intubation : Consent: Emergent Intubation Method: orotracheal Tube Size (cm): 7.5 Medications: Etomidate, Succinylcholine Breath Sounds after Intubation: equal Intubation Complications: no complications Post Intubation Xray: Yes Attempts: One Patient Tolerated: Well Complications: None Medical Decision Making Diagnostic Impression: Primary Impression: DKA (diabetic ketoacidoses) Additional Impression: Sepsis ER Course Patient presents in acute distress Tachypneic Accu-Chek is significantly elevated and there is concern regarding DKA upon arrival patient was aggressively hydrated along with insulin and insulin drip Patient is felt to have extremely dangerous blood work including ABG with a significantly low pH Given the patient's continued deterioration airway intubation was required The patient also had a central line placement Patient also had broad-spectrum antibiotics CT repeat does not reveal any perforation CT head reveals areas of hypodensity is appear to be chronic CVA Patient admitted to ICU in critical condition Dr santiago here evaluating for inpatient status Labs Test 08/05/17 20:30 08/05/17 21:00 08/05/17 22:23 08/05/17 23:55 White Blood Count 17.7 K/UL (4.8-10.8) Red Blood Count 4.42 M/UL (4.20-5.40) Hemoglobin 12.3 G/DL (12.0-16.0) Hematocrit 41.5 % (37.0-47.0) Mean Corpuscular Volume 94 FL (80-99) Mean Corpuscular Hemoglobin 27.8 PG (27.0-31.0) Mean Corpuscular Hemoglobin Concent 29.7 G/DL (32.0-36.0) Red Cell Distribution Width 13.6 % (11.6-14.8) Platelet Count 358 K/UL (150-450) Mean Platelet Volume 6.2 FL (6.5-10.1) Neutrophils (%) (Auto) % (45.0-75.0) Lymphocytes (%) (Auto) % (20.0-45.0) Monocytes (%) (Auto) % (1.0-10.0) Eosinophils (%) (Auto) % (0.0-3.0) Basophils (%) (Auto) % (0.0-2.0) Differential Total Cells Counted 100 Neutrophils % (Manual) 90 % (45-75) Lymphocytes % (Manual) 2 % (20-45) Monocytes % (Manual) 8 % (1-10) Eosinophils % (Manual) 0 % (0-3) Basophils % (Manual) 0 % (0-2) Band Neutrophils 0 % (0-8) Platelet Estimate Adequate Platelet Morphology Normal Ovalocytes 1+ [place] Cells 2+ Schistocytes 1+ Arterial Blood pH 6.980 (7.350-7.450) 6.840 (7.350-7.450) Arterial Blood Partial Pressure CO2 17.2 mmHg (35.0-45.0) 18.2 mmHg (35.0-45.0) Arterial Blood Partial Pressure O2 51.9 mmHg (75.0-100.0) 402.7 mmHg (75.0-100.0) Arterial Blood HCO3 4.0 mmol/L (22.0-26.0) 3.1 mmol/L (22.0-26.0) Arterial Blood Oxygen Saturation 81.5 % (92.0-98.0) 99.4 % (92.0-98.0) Arterial Blood Base Excess -26.0 -29.6 Zohaib Test Positive Positive Sodium Level 132 MMOL/L (136-145) Potassium Level 4.9 MMOL/L (3.5-5.1) Chloride Level 100 MMOL/L (98-107) Carbon Dioxide Level < 5 MMOL/L (21-32) Blood Urea Nitrogen 24 mg/dL (7-18) Creatinine 1.2 MG/DL (0.55-1.30) Estimat Glomerular Filtration Rate 45.0 mL/min (>60) Glucose Level 538 MG/DL (74-106) Lactic Acid Level 3.90 mmol/L (0.66-2.22) 3.80 mmol/L (0.66-2.22) Calcium Level 9.2 MG/DL (8.5-10.1) Total Bilirubin 0.3 MG/DL (0.2-1.0) Aspartate Amino Transf (AST/SGOT) 20 U/L (15-37) Alanine Aminotransferase (ALT/SGPT) 19 U/L (12-78) Alkaline Phosphatase 127 U/L (46-116) Total Creatine Kinase 98 U/L (26-308) Creatine Kinase MB 4.0 NG/ML (0.0-3.6) Creatine Kinase MB Relative Index 4.0 Troponin I 0.001 ng/mL (0.000-0.056) Pro-B-Type Natriuretic Peptide 910 pg/mL (0-125) Total Protein 6.8 G/DL (6.4-8.2) Albumin 3.2 G/DL (3.4-5.0) Globulin 3.6 g/dL Albumin/Globulin Ratio 0.9 (1.0-2.7) Lipase 62 U/L (73-393) Urine Color Pale yellow Urine Appearance Slightly cloudy Urine pH 5 (4.5-8.0) Urine Specific [place] 1.025 (1.005-1.035) Urine Protein 2+ (NEGATIVE) Urine Glucose (UA) 4+ (NEGATIVE) Urine Ketones 4+ (NEGATIVE) Urine Occult Blood 3+ (NEGATIVE) Urine Nitrite Negative (NEGATIVE) Urine Bilirubin Negative (NEGATIVE) Urine Urobilinogen Normal MG/DL (0.0-1.0) Urine Leukocyte Esterase Negative (NEGATIVE) Urine RBC 2-4 /HPF (0 - 2) Urine WBC 2-4 /HPF (0 - 2) Urine Squamous Epithelial Cells Occasional /LPF Urine Amorphous Sediment Moderate /LPF (NONE) Urine Bacteria Few /HPF (NONE) Test 08/06/17 00:40 Arterial Blood pH 7.220 (7.350-7.450) Arterial Blood Partial Pressure CO2 15.3 mmHg (35.0-45.0) Arterial Blood Partial Pressure O2 319.0 mmHg (75.0-100.0) Arterial Blood HCO3 6.1 mmol/L (22.0-26.0) Arterial Blood Oxygen Saturation 99.0 % (92.0-98.0) Arterial Blood Base Excess -19.3 Zohaib Test Positive EKG Diagnostic Results Rate: tachycardiac Rhythm: other ST Segments: other - Nonspecific ST and T-wave changes Rhythm Strip Diag. Results EP Interpretation: yes Rate: 110 Rhythm: no PVC's, no ectopy, other - sinus tach Chest X-Ray Diagnostic Results Chest X-Ray Diagnostic Results #1: Chest X-Ray Ordered: Yes # of Views/Limited/Complete: 1 View Indication: Shortness of Breath EP Interpretation: Yes Interpretation: no consolidation, no effusion, no pneumothorax, no acute cardiopulmonary disease Impression: No acute disease Electronically Signed by: Gerhard Joiner DO Chest X-Ray Diagnostic Results #2: Chest X-Ray Ordered: Yes # of Views/Limited/Complete: 1 View Indication: Shortness of Breath EP Interpretation: Yes Interpretation: no consolidation, no effusion, no pneumothorax, other - et tube at kym will be drawn back Impression: Other Electronically Signed by: Gerhard Joiner DO CT/MRI/US Diagnostic Results CT/MRI/US Diagnostic Results : Impression CT head:Areas of hypodensity concerning for ischemia, does not appear acute, multiple other previous recurrent infarcts CT abdomen pelvis:Similar colitis to previous no obvious perforation Last Vital Signs Date Time Temp Pulse Resp B/P (MAP) Pulse Ox O2 Delivery O2 Flow Rate FiO2 08/05/17 20:05 97.5 116 25 135/82 100 Nasal Cannula 2.0 Status: worsened Disposition: ADMITTED INPATIENT Condition: Critical Referrals: NOT CHOSEN IPA/,REFERRING (PCP) GERHARD JOINER D.O. Aug 05, 2017 21:47
[2017-08-05 22:20] VITALS: BP 133/82
[2017-08-05 23:00] VITALS: BP 116/60
[2017-08-05 23:00] LABS: ABG PCO2 18.2 mmHg (35.0-45.0)
[2017-08-05] MEDS ORDERED: Sodium Bicarbonate 50ml Carp IV ONE (23:00)
[2017-08-05 23:01] LABS: ABG ALLEN TEST POSITIVE; ABG BASE EXCESS -29.6
[2017-08-05 23:50] VITALS: BP 118/58
[2017-08-06] VITALS (24 sets, daily range): BP systolic 102–150; BP diastolic 41–61
[2017-08-06 00:52] LABS: ABG PCO2 15.3 mmHg (35.0-45.0)
[2017-08-06 00:53] LABS: ABG ALLEN TEST POSITIVE; ABG BASE EXCESS -19.3
[2017-08-06] MEDS: Insulin Rate Change 1 Each MISC PRN ×5 (04:54→23:57)
--- NOTE | 2017-08-06 06:03 | General Progress Note ---
Assessment/Plan Problem List: (1) Lactic acidosis ICD Codes: E87.2 - Acidosis SNOMED: 33765694 (2) Colitis ICD Codes: K52.9 - Noninfective gastroenteritis and colitis, unspecified SNOMED: 95802694 (3) DKA (diabetic ketoacidoses) ICD Codes: E13.10 - Other specified diabetes mellitus with ketoacidosis without coma SNOMED: 520346453, 34994511 (4) Sepsis ICD Codes: A41.9 - Sepsis, unspecified organism SNOMED: 74812866, 05593325 (5) Respiratory failure requiring intubation ICD Codes: J96.90 - Respiratory failure, unspecified, unspecified whether with hypoxia or hypercapnia SNOMED: 636271041 Assessment/Plan continue to manage DKA with IV insulin and IVF will follow electrolytes and replete as indicated continue ICU care Subjective ROS Limited/Unobtainable: Yes Allergies: Coded Allergies: No Known Allergies (Unverified , 08/01/17) Subjective admitted with severe metabolic acidosis after recent discharge intubated in ICU recently admitted with colitis Objective Last 24 Hour Vital Signs Date Time Temp Pulse Resp B/P (MAP) Pulse Ox O2 Delivery O2 Flow Rate FiO2 08/06/17 05:06 92 25 50 08/06/17 05:00 97 25 140/58 100 Mechanical Ventilator 100 08/06/17 04:09 99.8 90 25 132/61 100 Mechanical Ventilator 100 08/06/17 04:00 90 08/06/17 03:35 91 25 50 08/06/17 03:00 90 25 125/61 100 Mechanical Ventilator 100 08/06/17 02:00 102 25 111/54 100 Mechanical Ventilator 100 08/06/17 01:27 104 25 50 08/06/17 01:01 100 08/06/17 01:00 98.6 123 20 102/54 100 Mechanical Ventilator 100 08/06/17 00:30 100 08/06/17 00:05 98.0 120 24 118/58 100 Mechanical Ventilator 2.0 50 08/06/17 00:00 123 08/05/17 23:50 98.0 120 24 118/58 100 Mechanical Ventilator 2.0 50 08/05/17 23:08 50 08/05/17 23:00 98.1 122 24 116/60 100 Mechanical Ventilator 2.0 50 08/05/17 22:56 114 24 Mechanical Ventilator 65 08/05/17 22:47 115 26 65 08/05/17 22:20 98.0 124 22 133/82 100 Nasal Cannula 2.0 50 08/05/17 22:15 2.0 50 08/05/17 21:20 97.8 122 22 128/84 100 Nasal Cannula 2.0 99 08/05/17 20:40 116 24 Nasal Cannula 2.0 99 08/05/17 20:40 97.8 118 24 132/80 100 Nasal Cannula 2.0 99 08/05/17 20:05 97.5 116 25 135/82 100 Nasal Cannula 2.0 Laboratory Tests 08/05/17 20:30: White Blood Count 17.7H, Red Blood Count 4.42, Hemoglobin 12.3, Hematocrit 41.5 , Mean Corpuscular Volume 94, Mean Corpuscular Hemoglobin 27.8, Mean Corpuscular Hemoglobin Concent 29.7L, Red Cell Distribution Width 13.6, Platelet Count 358, Mean Platelet Volume 6.2L, Neutrophils (%) (Auto) , Lymphocytes (%) (Auto) , Monocytes (%) (Auto) , Eosinophils (%) (Auto) , Basophils (%) (Auto) , Differential Total Cells Counted 100, Neutrophils % ( Manual) 90H, Lymphocytes % (Manual) 2L, Monocytes % (Manual) 8, Eosinophils % ( Manual) 0, Basophils % (Manual) 0, Band Neutrophils 0, Platelet Estimate Adequate, Platelet Morphology Normal, Ovalocytes 1+, [place] Cells 2+, Schistocytes 1+, Arterial Blood pH 6.980*L, Arterial Blood Partial Pressure CO2 17.2*L, Arterial Blood Partial Pressure O2 51.9L, Arterial Blood HCO3 4.0L, Arterial Blood Oxygen Saturation 81.5L, Arterial Blood Base Excess -26.0, Zohaib Test Positive, Sodium Level 132L, Potassium Level 4.9, Chloride Level 100, Carbon Dioxide Level < 5*L, Blood Urea Nitrogen 24H, Creatinine 1.2, Estimat Glomerular Filtration Rate 45.0, Glucose Level 538#*H, Lactic Acid Level 3.90H, Calcium Level 9.2, Total Bilirubin 0.3, Aspartate Amino Transf (AST/SGOT) 20, Alanine Aminotransferase (ALT/SGPT) 19, Alkaline Phosphatase 127H, Total Creatine Kinase 98, Creatine Kinase MB 4.0H, Creatine Kinase MB Relative Index 4.0, Troponin I 0.001, Pro-B-Type Natriuretic Peptide 910H, Total Protein 6.8, Albumin 3.2L, Globulin 3.6, Albumin/Globulin Ratio 0.9L, Lipase 62L 08/05/17 21:00: Urine Color Pale yellow, Urine Appearance Slightly cloudy, Urine pH 5, Urine Specific [place] 1.025, Urine Protein 2+H, Urine Glucose (UA) 4+H, Urine Ketones 4+H, Urine Occult Blood 3+H, Urine Nitrite Negative, Urine Bilirubin Negative, Urine Urobilinogen Normal, Urine Leukocyte Esterase Negative, Urine RBC 2-4H, Urine WBC 2-4, Urine Squamous Epithelial Cells Occasional, Urine Amorphous Sediment ModerateH, Urine Bacteria Few 08/05/17 22:23: Arterial Blood pH 6.840*L, Arterial Blood Partial Pressure CO2 18.2*L, Arterial Blood Partial Pressure O2 402.7H, Arterial Blood HCO3 3.1L, Arterial Blood Oxygen Saturation 99.4H, Arterial Blood Base Excess -29.6, Zohaib Test Positive 08/05/17 23:55: Lactic Acid Level 3.80H 08/06/17 00:40: Arterial Blood pH 7.220*L, Arterial Blood Partial Pressure CO2 15.3*L, Arterial Blood Partial Pressure O2 319.0H, Arterial Blood HCO3 6.1L, Arterial Blood Oxygen Saturation 99.0H, Arterial Blood Base Excess -19.3, Zohaib Test Positive Height (Feet): 4 Height (Inches): 10.00 Weight (Pounds): 116 General Appearance: severe distress, other - intubated EENT: pale conjunctivae Neck: normal alignment Cardiovascular: tachycardia Respiratory/Chest: decreased breath sounds Abdomen: normal bowel sounds Pelvis: normal external exam Edema: 1+ Arm (L), 1+ Arm (R), 1+ Leg (L), 1+ Leg (R), 1+ Pedal (L), 1+ Pedal ( R), 1+ Generalized Objective Current Medications Medications (Trade) Dose Ordered Sig/Sue Route PRN Reason Start Time Stop Time Status Last Admin Dose Admin Dextrose (Dextrose 50%) PRN PRN IV HYPOGLYCEMIA 08/06/17 01:15 09/05/17 01:14 Insulin Human Regular (NovoLIN R) 5 units PRN PRN IV BS 200-299 08/06/17 01:15 09/05/17 01:14 Insulin Human Regular (NovoLIN R) 10 units PRN PRN IV BS=>300 08/06/17 01:15 09/05/17 01:14 Insulin Human Regular 100 units/ Sodium Chloride 101 ml @ 0 mls/hr Q24H IV 08/06/17 04:00 09/05/17 01:14 08/06/17 04:09 Miscellaneous Medication (Insulin Rate Change) 1 ea PRN PRN MISC Hyperglycemia 08/06/17 01:15 09/05/17 01:14 08/06/17 05:55 Item Value Date Time Bedside Blood Glucose 94 mg/dl 08/06/17 0500 Bedside Blood Glucose 245 mg/dl H 08/06/17 0200 Bedside Blood Glucose 441 mg/dl H 08/05/17 2250 RL MEDINA Aug 06, 2017 06:03
[2017-08-06] MEDS ORDERED: Piperacillin/Tazobactam 3.375 GM in D5W 110 ML IVPB SCH (07:45)
--- NOTE | 2017-08-06 07:52 | Infectious Diseases Prog Note ---
Assessment/Plan Assessment/Plan A: Sepsis, SIRS DKA Ischemic colitis Hypoxemic respiratory failure P: Started on Zosyn & IV fluids Subjective ROS Limited/Unobtainable: Yes Neurologic: Reports: confusion, other - on restraint Allergies: Coded Allergies: No Known Allergies (Unverified , 08/01/17) Objective Vital Signs Last 24 Hour Vital Signs Date Time Temp Pulse Resp B/P (MAP) Pulse Ox O2 Delivery O2 Flow Rate FiO2 08/06/17 07:00 83 25 139/54 100 Mechanical Ventilator 100 08/06/17 06:00 101 24 118/52 100 Mechanical Ventilator 100 08/06/17 05:06 92 25 50 08/06/17 05:00 97 25 140/58 100 Mechanical Ventilator 100 08/06/17 04:09 99.8 90 25 132/61 100 Mechanical Ventilator 100 08/06/17 04:00 90 08/06/17 03:35 91 25 50 08/06/17 03:00 90 25 125/61 100 Mechanical Ventilator 100 08/06/17 02:00 102 25 111/54 100 Mechanical Ventilator 100 08/06/17 01:27 104 25 50 08/06/17 01:01 100 08/06/17 01:00 98.6 123 20 102/54 100 Mechanical Ventilator 100 08/06/17 00:30 100 08/06/17 00:05 98.0 120 24 118/58 100 Mechanical Ventilator 2.0 50 08/06/17 00:00 123 08/05/17 23:50 98.0 120 24 118/58 100 Mechanical Ventilator 2.0 50 08/05/17 23:08 50 08/05/17 23:00 98.1 122 24 116/60 100 Mechanical Ventilator 2.0 50 08/05/17 22:56 114 24 Mechanical Ventilator 65 08/05/17 22:47 115 26 65 08/05/17 22:20 98.0 124 22 133/82 100 Nasal Cannula 2.0 50 08/05/17 22:15 2.0 50 08/05/17 21:20 97.8 122 22 128/84 100 Nasal Cannula 2.0 99 08/05/17 20:40 116 24 Nasal Cannula 2.0 99 08/05/17 20:40 97.8 118 24 132/80 100 Nasal Cannula 2.0 99 08/05/17 20:05 97.5 116 25 135/82 100 Nasal Cannula 2.0 Height (Feet): 4 Height (Inches): 10.00 Weight (Pounds): 116 HEENT: other - oally intubated Respiratory/Chest: lungs clear, other - on ventilator Cardiovascular: normal rate Abdomen: soft, non tender Extremities: no edema Neurologic/Psychiatric: disoriented Laboratory Tests Test 08/05/17 20:30 08/05/17 21:00 08/05/17 22:23 08/05/17 23:55 White Blood Count 17.7 K/UL (4.8-10.8) H Red Blood Count 4.42 M/UL (4.20-5.40) Hemoglobin 12.3 G/DL (12.0-16.0) Hematocrit 41.5 % (37.0-47.0) Mean Corpuscular Volume 94 FL (80-99) Mean Corpuscular Hemoglobin 27.8 PG (27.0-31.0) Mean Corpuscular Hemoglobin Concent 29.7 G/DL (32.0-36.0) L Red Cell Distribution Width 13.6 % (11.6-14.8) Platelet Count 358 K/UL (150-450) Mean Platelet Volume 6.2 FL (6.5-10.1) L Neutrophils (%) (Auto) % (45.0-75.0) Lymphocytes (%) (Auto) % (20.0-45.0) Monocytes (%) (Auto) % (1.0-10.0) Eosinophils (%) (Auto) % (0.0-3.0) Basophils (%) (Auto) % (0.0-2.0) Differential Total Cells Counted 100 Neutrophils % (Manual) 90 % (45-75) H Lymphocytes % (Manual) 2 % (20-45) L Monocytes % (Manual) 8 % (1-10) Eosinophils % (Manual) 0 % (0-3) Basophils % (Manual) 0 % (0-2) Band Neutrophils 0 % (0-8) Platelet Estimate Adequate Platelet Morphology Normal Ovalocytes 1+ [place] Cells 2+ Schistocytes 1+ Arterial Blood pH 6.980 (7.350-7.450) 6.840 (7.350-7.450) Arterial Blood Partial Pressure CO2 17.2 mmHg (35.0-45.0) *L 18.2 mmHg (35.0-45.0) *L Arterial Blood Partial Pressure O2 51.9 mmHg (75.0-100.0) L 402.7 mmHg (75.0-100.0) H Arterial Blood HCO3 4.0 mmol/L (22.0-26.0) L 3.1 mmol/L (22.0-26.0) L Arterial Blood Oxygen Saturation 81.5 % (92.0-98.0) L 99.4 % (92.0-98.0) H Arterial Blood Base Excess -26.0 -29.6 Zohaib Test Positive Positive Sodium Level 132 MMOL/L (136-145) L Potassium Level 4.9 MMOL/L (3.5-5.1) Chloride Level 100 MMOL/L (98-107) Carbon Dioxide Level < 5 MMOL/L (21-32) *L Blood Urea Nitrogen 24 mg/dL (7-18) H Creatinine 1.2 MG/DL (0.55-1.30) Estimat Glomerular Filtration Rate 45.0 mL/min (>60) Glucose Level 538 MG/DL (74-106) #*H Lactic Acid Level 3.90 mmol/L (0.66-2.22) H 3.80 mmol/L (0.66-2.22) H Calcium Level 9.2 MG/DL (8.5-10.1) Total Bilirubin 0.3 MG/DL (0.2-1.0) Aspartate Amino Transf (AST/SGOT) 20 U/L (15-37) Alanine Aminotransferase (ALT/SGPT) 19 U/L (12-78) Alkaline Phosphatase 127 U/L (46-116) H Total Creatine Kinase 98 U/L (26-308) Creatine Kinase MB 4.0 NG/ML (0.0-3.6) H Creatine Kinase MB Relative Index 4.0 Troponin I 0.001 ng/mL (0.000-0.056) Pro-B-Type Natriuretic Peptide 910 pg/mL (0-125) H Total Protein 6.8 G/DL (6.4-8.2) Albumin 3.2 G/DL (3.4-5.0) L Globulin 3.6 g/dL Albumin/Globulin Ratio 0.9 (1.0-2.7) L Lipase 62 U/L (73-393) L Urine Color Pale yellow Urine Appearance Slightly cloudy Urine pH 5 (4.5-8.0) Urine Specific [place] 1.025 (1.005-1.035) Urine Protein 2+ (NEGATIVE) H Urine Glucose (UA) 4+ (NEGATIVE) H Urine Ketones 4+ (NEGATIVE) H Urine Occult Blood 3+ (NEGATIVE) H Urine Nitrite Negative (NEGATIVE) Urine Bilirubin Negative (NEGATIVE) Urine Urobilinogen Normal MG/DL (0.0-1.0) Urine Leukocyte Esterase Negative (NEGATIVE) Urine RBC 2-4 /HPF (0 - 2) H Urine WBC 2-4 /HPF (0 - 2) Urine Squamous Epithelial Cells Occasional /LPF Urine Amorphous Sediment Moderate /LPF (NONE) H Urine Bacteria Few /HPF (NONE) Test 08/06/17 00:40 Arterial Blood pH 7.220 (7.350-7.450) Arterial Blood Partial Pressure CO2 15.3 mmHg (35.0-45.0) *L Arterial Blood Partial Pressure O2 319.0 mmHg (75.0-100.0) H Arterial Blood HCO3 6.1 mmol/L (22.0-26.0) L Arterial Blood Oxygen Saturation 99.0 % (92.0-98.0) H Arterial Blood Base Excess -19.3 Zohaib Test Positive Current Medications Medications (Trade) Dose Ordered Sig/Seu Route PRN Reason Start Time Stop Time Status Last Admin Dose Admin Dextrose (Dextrose 50%) PRN PRN IV HYPOGLYCEMIA 08/06/17 01:15 09/05/17 01:14 Insulin Human Regular (NovoLIN R) 5 units PRN PRN IV BS 200-299 08/06/17 01:15 09/05/17 01:14 Insulin Human Regular (NovoLIN R) 10 units PRN PRN IV BS=>300 08/06/17 01:15 09/05/17 01:14 Insulin Human Regular 100 units/ Sodium Chloride 101 ml @ 0 mls/hr Q24H IV 08/06/17 04:00 09/05/17 01:14 08/06/17 04:09 Miscellaneous Medication (Insulin Rate Change) 1 ea PRN PRN MISC Hyperglycemia 08/06/17 01:15 09/05/17 01:14 08/06/17 07:06 Piperacillin Sod/ Tazobactam Sod 3.375 gm/Dextrose 110 ml @ 27.5 mls/hr EVERY 8 HOURS IVPB 08/06/17 07:45 08/11/17 07:44 MITCHELL SHRESTHA Aug 06, 2017 07:52
--- NOTE | 2017-08-06 08:29 | Diagnostic Imaging Report ---
Indication: Abdominal pain Technique: Continuous helical scanning was performed without any contrast material from the diaphragms through the pelvis per specific request of the ordering physician. Axial, sagittal, and coronal images were generated. Dose: Total Dose Length Product - DLP MA before mGycm. Volume CT Dose Index - CTDIvol(s) 70.25 mGy. Automated exposure control was utilized for dose reduction. Comparison: 08/02/17 Findings: Lack of intravenous and oral contrast material limits evaluation. [place] artifact degrades the study. There is a subtle area of high density in the right lobe of the liver consistent with the lesion noted on previous study.. The spleen is unremarkable. The gallbladder is grossly normal. The pancreas is unremarkable. Adrenal glands are normal. The kidneys are grossly normal. Aorta is normal caliber. There is some calcification of the aorta. Fluid-filled colon is noted. The wall is difficult to evaluate due to lack of contrast. The bones are osteopenic. There are some mildly dilated loops of small bowel filled with fluid. The bladder is unremarkable. Uterus is normal. The remainder the study is unchanged. Impression: : Difficult to evaluate due to lack of contrast material. Wall thickening noted previously is difficult to determine on this exam. Nonspecific slightly dilated fluid-filled loops of small bowel. His may represent ileus. Mass in the right lobe of the liver representing the lesion seen on previous CT scan, likely hemangioma. No other gross change from previous study. The above report is concordant with preliminary reading by [employer] . The CT scanner at [facility] is accredited by the [employer] and the scans are performed using protocols designed to limit radiation exposure to as low as reasonably achievable to attain images of sufficient resolution adequate for diagnostic evaluation.
--- NOTE | 2017-08-06 09:32 | Diagnostic Imaging Report ---
Indication: Altered mental status Technique: Continuous helical CT scanning of the head was performed without intravenous contrast material. Axial and coronal 5 mm sections were generated. Dose: Total Dose Length Product - DLP [address] Dose Index - CTDIvol(s) 70.38 mGy. Automated exposure control was utilized for dose reduction. Comparison: None Findings: There is periventricular white matter low density. Focal low density is present in the right chaney radiata in the frontal lobe. Mild prominence of cortical sulci is noted. There is no shift of midline structures. No abnormal extra-axial fluid collections are noted. There is no evidence of intracerebral bleeding. No other abnormal high or low density areas are noted within the brain. There is an air-fluid level in left sphenoid sinus. There is ossification in the carotid siphons. Impression: Mild atrophy. Chronic small vessel white matter ischemic change. 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 MRI may be helpful for better evaluation if clinically warranted. Left sphenoid sinus inflammatory change. Atherosclerotic change. The above report is concordant with preliminary reading by [employer] . The CT scanner at [facility] is accredited by the [employer] and the scans are performed using protocols designed to limit radiation exposure to as low as reasonably achievable to attain images of sufficient resolution adequate for diagnostic evaluation.
--- NOTE | 2017-08-06 09:39 | Diagnostic Imaging Report ---
Indication: SOB Technique: XRAY CHEST 1 V Comparison:Current exam obtained at 2246 compared with an earlier 08/05/2017 16/09/14 Findings: An endotracheal tube has been placed. The tip is in the right mainstem bronchus. There is no other change. Impression: Endotracheal tube placement with the tip in the right mainstem bronchus. The ER physician was aware of this and made note that the tube was pulled back 1.5 cm after this image was taken. No other change.
--- NOTE | 2017-08-06 09:43 | Diagnostic Imaging Report ---
Indication: SOB Technique: XRAY CHEST 1 V. Comparison: 08/01/2017 Findings: The cardiomediastinal silhouette is stable. There are no acute infiltrates. Impression: No acute abnormality. No change from prior exam. .
[2017-08-06] MEDS: Piperacillin/Tazobactam 3.375 GM in NS 55 ML IVPB SCH ×2 (11:54→17:56)
[2017-08-06 12:14] LABS: BASOPHILS % (AUTO) 0.7 % (0.0-2.0); MEAN CORPUSCULAR HEMOGLOBIN 28.5 PG (27.0-31.0); MEAN CORPUSCULAR HGB CONC 32.8 G/DL (32.0-36.0); MEAN CORPUSCULAR VOLUME 87 FL (80-99); MEAN PLATELET VOLUME 6.3 FL (6.5-10.1); NEUTROPHILS % (AUTO) 82.3 % (45.0-75.0); PLATELET COUNT 260 K/UL (150-450); RED BLOOD COUNT 3.79 M/UL (4.20-5.40); RED CELL DISTRIBUTION WIDTH 12.6 % (11.6-14.8); WHITE BLOOD COUNT 12.5 K/UL (4.8-10.8)
--- NOTE | 2017-08-06 12:50 | Pulmonology Progress Note ---
Assessment/Plan Assessment/Plan resp failure Sepsis, SIRS DKA, severe acidosis Ischemic colitis P: seen last night for consultation, dictated and orders entered vent adjusted met w son at bedside last night in ER met w multiple children at bedside today in ICU ID started on Zosyn & IV fluids f/u ABG insulin drip per endo wean as tolerated Subjective ROS Limited/Unobtainable: Yes Allergies: Coded Allergies: No Known Allergies (Unverified , 08/01/17) Objective Last 24 Hour Vital Signs Date Time Temp Pulse Resp B/P (MAP) Pulse Ox O2 Delivery O2 Flow Rate FiO2 08/06/17 12:00 95 08/06/17 12:00 95 25 133/51 100 Mechanical Ventilator 100 08/06/17 12:00 100 08/06/17 11:25 89 25 50 08/06/17 11:00 90 25 131/51 100 Mechanical Ventilator 100 08/06/17 10:00 89 25 129/55 100 Mechanical Ventilator 100 08/06/17 09:10 93 25 50 08/06/17 09:00 85 25 124/53 100 Mechanical Ventilator 100 08/06/17 08:00 99.2 83 25 150/52 100 Mechanical Ventilator 100 08/06/17 08:00 80 08/06/17 08:00 100 08/06/17 07:24 89 26 50 08/06/17 07:00 83 25 139/54 100 Mechanical Ventilator 100 08/06/17 06:00 101 24 118/52 100 Mechanical Ventilator 100 08/06/17 05:06 92 25 50 08/06/17 05:00 97 25 140/58 100 Mechanical Ventilator 100 08/06/17 04:09 99.8 90 25 132/61 100 Mechanical Ventilator 100 08/06/17 04:00 90 08/06/17 03:35 91 25 50 08/06/17 03:00 90 25 125/61 100 Mechanical Ventilator 100 08/06/17 02:00 102 25 111/54 100 Mechanical Ventilator 100 08/06/17 01:27 104 25 50 08/06/17 01:01 100 08/06/17 01:00 98.6 123 20 102/54 100 Mechanical Ventilator 100 08/06/17 00:30 100 08/06/17 00:05 98.0 120 24 118/58 100 Mechanical Ventilator 2.0 50 08/06/17 00:00 123 08/05/17 23:50 98.0 120 24 118/58 100 Mechanical Ventilator 2.0 50 08/05/17 23:08 50 08/05/17 23:00 98.1 122 24 116/60 100 Mechanical Ventilator 2.0 50 08/05/17 22:56 114 24 Mechanical Ventilator 65 08/05/17 22:47 115 26 65 08/05/17 22:20 98.0 124 22 133/82 100 Nasal Cannula 2.0 50 08/05/17 22:15 2.0 50 08/05/17 21:20 97.8 122 22 128/84 100 Nasal Cannula 2.0 99 08/05/17 20:40 116 24 Nasal Cannula 2.0 99 08/05/17 20:40 97.8 118 24 132/80 100 Nasal Cannula 2.0 99 08/05/17 20:05 97.5 116 25 135/82 100 Nasal Cannula 2.0 Intake and Output 08/06/17 08/07/17 19:00 07:00 Intake Total 3.2 ml Output Total 440 ml Balance -436.8 ml Intake Oral 0 ml IV Total 3.2 ml Output Urine Total 440 ml # Bowel Movements 2 General Appearance: no acute distress HEENT: atraumatic Respiratory/Chest: lungs clear Cardiovascular: tachycardia Abdomen: soft, non tender Laboratory Tests 08/05/17 20:30: White Blood Count 17.7H, Red Blood Count 4.42, Hemoglobin 12.3, Hematocrit 41.5 , Mean Corpuscular Volume 94, Mean Corpuscular Hemoglobin 27.8, Mean Corpuscular Hemoglobin Concent 29.7L, Red Cell Distribution Width 13.6, Platelet Count 358, Mean Platelet Volume 6.2L, Neutrophils (%) (Auto) , Lymphocytes (%) (Auto) , Monocytes (%) (Auto) , Eosinophils (%) (Auto) , Basophils (%) (Auto) , Differential Total Cells Counted 100, Neutrophils % ( Manual) 90H, Lymphocytes % (Manual) 2L, Monocytes % (Manual) 8, Eosinophils % ( Manual) 0, Basophils % (Manual) 0, Band Neutrophils 0, Platelet Estimate Adequate, Platelet Morphology Normal, Ovalocytes 1+, [place] Cells 2+, Schistocytes 1+, Arterial Blood pH 6.980*L, Arterial Blood Partial Pressure CO2 17.2*L, Arterial Blood Partial Pressure O2 51.9L, Arterial Blood HCO3 4.0L, Arterial Blood Oxygen Saturation 81.5L, Arterial Blood Base Excess -26.0, Zohaib Test Positive, Sodium Level 132L, Potassium Level 4.9, Chloride Level 100, Carbon Dioxide Level < 5*L, Blood Urea Nitrogen 24H, Creatinine 1.2, Estimat Glomerular Filtration Rate 45.0, Glucose Level 538#*H, Lactic Acid Level 3.90H, Calcium Level 9.2, Total Bilirubin 0.3, Aspartate Amino Transf (AST/SGOT) 20, Alanine Aminotransferase (ALT/SGPT) 19, Alkaline Phosphatase 127H, Total Creatine Kinase 98, Creatine Kinase MB 4.0H, Creatine Kinase MB Relative Index 4.0, Troponin I 0.001, Pro-B-Type Natriuretic Peptide 910H, Total Protein 6.8, Albumin 3.2L, Globulin 3.6, Albumin/Globulin Ratio 0.9L, Lipase 62L 08/05/17 21:00: Urine Color Pale yellow, Urine Appearance Slightly cloudy, Urine pH 5, Urine Specific [place] 1.025, Urine Protein 2+H, Urine Glucose (UA) 4+H, Urine Ketones 4+H, Urine Occult Blood 3+H, Urine Nitrite Negative, Urine Bilirubin Negative, Urine Urobilinogen Normal, Urine Leukocyte Esterase Negative, Urine RBC 2-4H, Urine WBC 2-4, Urine Squamous Epithelial Cells Occasional, Urine Amorphous Sediment ModerateH, Urine Bacteria Few 08/05/17 22:23: Arterial Blood pH 6.840*L, Arterial Blood Partial Pressure CO2 18.2*L, Arterial Blood Partial Pressure O2 402.7H, Arterial Blood HCO3 3.1L, Arterial Blood Oxygen Saturation 99.4H, Arterial Blood Base Excess -29.6, Zohaib Test Positive 08/05/17 23:55: Lactic Acid Level 3.80H 08/06/17 00:40: Arterial Blood pH 7.220*L, Arterial Blood Partial Pressure CO2 15.3*L, Arterial Blood Partial Pressure O2 319.0H, Arterial Blood HCO3 6.1L, Arterial Blood Oxygen Saturation 99.0H, Arterial Blood Base Excess -19.3, Zohaib Test Positive 08/06/17 11:15: White Blood Count 12.5H, Red Blood Count 3.79L, Hemoglobin 10.8L, Hematocrit 32.9L, Mean Corpuscular Volume 87, Mean Corpuscular Hemoglobin 28.5, Mean Corpuscular Hemoglobin Concent 32.8, Red Cell Distribution Width 12.6, Platelet Count 260, Mean Platelet Volume 6.3L, Neutrophils (%) (Auto) 82.3H, Lymphocytes (%) (Auto) 6.0L, Monocytes (%) (Auto) 11.0H, Eosinophils (%) (Auto) 0.0, Basophils (%) (Auto) 0.7, Sodium Level [Pending], Potassium Level [Pending], Chloride Level [Pending], Carbon Dioxide Level [Pending], Blood Urea Nitrogen [ Pending], Creatinine [Pending], Estimat Glomerular Filtration Rate [Pending], Glucose Level [Pending], Calcium Level [Pending], Total Bilirubin [Pending], Aspartate Amino Transf (AST/SGOT) [Pending], Alanine Aminotransferase (ALT/SGPT ) [Pending], Alkaline Phosphatase [Pending], Total Protein [Pending], Albumin [ Pending], Globulin [Pending] Current Medications Medications (Trade) Dose Ordered Sig/Sue Route PRN Reason Start Time Stop Time Status Last Admin Dose Admin Dextrose (Dextrose 50%) PRN PRN IV HYPOGLYCEMIA 08/06/17 01:15 09/05/17 01:14 Insulin Human Regular (NovoLIN R) 5 units PRN PRN IV BS 200-299 08/06/17 01:15 09/05/17 01:14 Insulin Human Regular (NovoLIN R) 10 units PRN PRN IV BS=>300 08/06/17 01:15 09/05/17 01:14 Insulin Human Regular 100 units/ Sodium Chloride 101 ml @ 0 mls/hr Q24H IV 08/06/17 04:00 09/05/17 01:14 08/06/17 04:09 Miscellaneous Medication (Insulin Rate Change) 1 ea PRN PRN MISC Hyperglycemia 08/06/17 01:15 09/05/17 01:14 08/06/17 07:06 Piperacillin Sod/ Tazobactam Sod 3.375 gm/Sodium Chloride 55 ml @ 13.75 mls/ hr Q8H IVPB 08/06/17 10:00 08/13/17 09:59 08/06/17 11:54 Sodium Chloride 1,000 ml @ 75 mls/hr [id number] IV 08/06/17 09:00 09/05/17 08:59 08/06/17 09:45 NATO WOODRUFF Aug 06, 2017 12:50
[2017-08-06 12:56] LABS: ALANINE AMINOTRANSFERASE 15 U/L (12-78); ALBUMIN/GLOBULIN RATIO 0.9 (1.0-2.7); ANION GAP 22 mmol/L (5-15); ASPARTATE AMINO TRANSFERASE 19 U/L (15-37); CALCIUM 8.1 MG/DL (8.5-10.1); CHLORIDE 115 MMOL/L (98-107); CREATININE 0.9 MG/DL (0.55-1.30); GLOMERULAR FILTRATION RATE > 60 mL/min (>60); SODIUM 146 MMOL/L (136-145); TOTAL PROTEIN 5.2 G/DL (6.4-8.2)
[2017-08-06 12:58] LABS: CARBON DIOXIDE 9 MMOL/L (21-32); POTASSIUM 2.8 MMOL/L (3.5-5.1)
[2017-08-06 13:37] LABS: ABG ALLEN TEST POSITIVE; ABG BASE EXCESS -14.9; ABG PCO2 20.1 mmHg (35.0-45.0)
[2017-08-06] MEDS ORDERED: 1/2 NS 1000ml IV ONE (16:24)
[2017-08-06] MEDS ORDERED: NS 500ML ONE (16:35)
[2017-08-06] MEDS: D5 1/2NS w/KCl 20mEq 1,000 ML IV SCH (20:59)
--- NOTE | 2017-08-06 21:01 | Consultation ---
DATE OF CONSULTATION: 08/06/2017 CHIEF COMPLAINT: Abdominal pain. HISTORY OF PRESENT ILLNESS: The patient is a 67-year-old female, who just recently discharged from [facility]. In the last admission, she was diagnosed with ischemic colitis. She was stable and discharged to home. Apparently, according to the family the patient was tachypneic, sugars were running very high. The patient was brought to the emergency room. In the ER, the patient was found to have shortness of breath and respiratory failure requiring intubation. The patient was found to be having sugar in 500 range and acidotic, admitted for diabetic ketoacidosis. The patient had CT of the abdomen and pelvis without contrast done in the ER, which did not show any acute abdominal perforation. PAST MEDICAL HISTORY: 1. Hypertension. 2. Ischemic colitis. 3. Liver hemangioma. 4. Diabetes. 5. History of CVA. MEDICATIONS: Please see medication reconciliation list. ALLERGIES: No known drug allergies. SOCIAL HISTORY: Unable to obtain. FAMILY HISTORY: Noncontributory. REVIEW OF SYSTEMS: Unable to obtain. PHYSICAL EXAMINATION: VITAL SIGNS: Temperature is 99.2 degrees, pulse 89, respirations 25, and blood pressure 110/55. HEENT: Normocephalic and atraumatic. Sclerae anicteric. NECK: Supple. No evidence of obvious lymphadenopathy. CARDIOVASCULAR: Tachy, regular rate. Plus S1 and S2. LUNGS: Decreased breath sounds bilaterally and diffusely. The patient is on vent. ABDOMEN: Soft. Bowel sounds are hypoactive. Abdomen is mildly distended. No rebound. No guarding. No peritoneal signs. EXTREMITIES: No cyanosis. No clubbing. No edema. LABORATORY AND DIAGNOSTIC DATA: White count 17.7, hemoglobin 12, hematocrit 41, and platelets of 368. Sodium 133, potassium 4.9, bicarbonate less than 5, creatinine is 1.2, and glucose is 538. Alkaline phosphatase is 127. ASSESSMENT AND PLAN: This is a 67-year-old female with history of ischemic colitis, came to the hospital with respiratory failure, diabetic ketoacidosis, elevated blood sugars, elevated lactic acid. The patient currently on antibiotics, intubated. Based on repeat CT, there is no obvious perforation. No obvious acute complication from the ischemic colitis. Plan to continue antibiotic. Monitor laboratories. Followup with Endocrinology. Daily exam. We will make further recommendation as needed. Segundo Gomez M.D. DR: ARNALDO JOB#: [id number] CC:
[2017-08-06] MEDS: Pantoprazole Inj IVP SCH (21:55)
[2017-08-06] MEDS: Dyna-Hex 2% Top Sol 2oz TOPIC SCH (23:35)
[2017-08-07] VITALS (25 sets, daily range): BP systolic 103–181; BP diastolic 48–105
[2017-08-07] MEDS: Piperacillin/Tazobactam 3.375 GM in NS 55 ML IVPB SCH ×3 (01:52→17:30)
[2017-08-07] MEDS: Insulin Rate Change 1 Each MISC PRN ×3 (04:58→06:52)
[2017-08-07 05:02] LABS: ANION GAP 9 mmol/L (5-15); CALCIUM 7.7 MG/DL (8.5-10.1); CARBON DIOXIDE 19 MMOL/L (21-32); CHLORIDE 114 MMOL/L (98-107); CREATININE 0.9 MG/DL (0.55-1.30); GLOMERULAR FILTRATION RATE > 60 mL/min (>60); POTASSIUM 3.1 MMOL/L (3.5-5.1); SODIUM 142 MMOL/L (136-145)
[2017-08-07 05:21] LABS: MAGNESIUM 1.7 MG/DL (1.8-2.4); PHOSPHORUS 0.5 MG/DL (2.5-4.9)
[2017-08-07] MEDS: D5 1/2NS w/KCl 20mEq 1,000 ML IV SCH ×2 (06:00→17:29)
[2017-08-07] MEDS: Pantoprazole Inj IVP SCH (08:04)
--- NOTE | 2017-08-07 08:15 | History and Physical Report ---
DATE OF ADMISSION: 08/05/2017 HISTORY OF PRESENT ILLNESS: The patient was just discharged and was readmitted at this time for DKA and also leukocytosis and dyspnea. The patient complained of shortness of breath. No chest pain. No vomiting or diarrhea. No fever or chills. Does have abdominal pain and weakness. The patient is very weak, lethargic initially. The patient has a history of left-sided weakness, IDDM, history of syncope, history of bradycardia, history of colitis, history of gastrointestinal bleeding, hypertension, and history of fungal infection. MEDICATIONS: Norvasc, , Lantus. ALLERGIES: No known allergies. FAMILY HISTORY: Does have history of diabetes and hypertension. SOCIAL HISTORY: The patient denies history of smoking, alcohol, or illicit drugs. REVIEW OF SYSTEMS: HEENT: Denies headaches. RESPIRATORY: Does have shortness of breath. No cough. CARDIOVASCULAR: Denies chest pain. GASTROINTESTINAL: Does have nausea. No vomiting. Does have some abdominal cramps and generalized weakness. CENTRAL NERVOUS SYSTEM: No change in vision or speech pattern. Feels weak. PHYSICAL EXAMINATION: VITAL SIGNS: Temperature 99.6 degrees, pulse 98, and blood pressure 135/51. HEENT: PERRLA. NECK: Supple. No lymphadenopathy. CHEST: Clear to auscultation. GASTROINTESTINAL: Soft, nontender, and nondistended. Positive bowel sounds. No organomegaly. EXTREMITIES: No edema. Reflexes equal on both sides. NEUROLOGIC: Generalized weakness. LABORATORY STUDIES: WBC of 17.7, hemoglobin 12.3, and platelets 358,000. Sodium 132, potassium 4.9, BUN of 24, creatinine 1.9, carbon dioxide less than 5, and glucose 538. ASSESSMENT AND PLAN: 1. Diabetic ketoacidosis, the patient is admitted to intensive care unit. 2. Leukocytosis, rule out urinary tract infection, rule out sepsis, rule out apnea with dyspnea. I have asked Dr. Bryan, Dr. Last, Dr. Moise, Dr. Loco, Dr. Gomez, and Dr. Roque to see the patient for the history of bradycardia, gastrointestinal bleed, and dyspnea, rule out pneumonia as well as for diabetic ketoacidosis and management of . Ali Parul Baltazar DR: Lui JOB#: [id number] CC:
[2017-08-07] MEDS: Dyna-Hex 2% Top Sol 2oz TOPIC SCH (09:00)
--- NOTE | 2017-08-07 09:46 | Consultation ---
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
[2017-08-07] MEDS ORDERED: Potassium Phosphate 30 MM in NS 275 ML IV ONE (10:30)
--- NOTE | 2017-08-07 11:21 | GI Progress Note ---
Assessment/Plan Problems: (1) DKA (diabetic ketoacidoses) ICD Codes: E13.10 - Other specified diabetes mellitus with ketoacidosis without coma SNOMED: 487093674, 68341748 (2) Colitis ICD Codes: K52.9 - Noninfective gastroenteritis and colitis, unspecified SNOMED: 78759632 (3) Lactic acidosis ICD Codes: E87.2 - Acidosis SNOMED: 66745841 (4) Respiratory failure requiring intubation ICD Codes: J96.90 - Respiratory failure, unspecified, unspecified whether with hypoxia or hypercapnia SNOMED: 370695155 Status: progressing Status Narrative Discussed with Dr. Gomez. Assessment/Plan s/p colonoscopy SUMMARY FINDINGS: 1. Atrophic gastritis. 2. Hiatal hernia. 3. Possible ischemic colitis. 4. Internal hemorrhoids. CT AP reviewed >> no obvious perforation or acute complication from ischemic colitis Lactic Acid >> WNL RECOMMENDATIONS: fu endocrine recs ST eval pending monitor H&H, prn transfusions DM mgmt ppi abx The patient will need a repeat full colonoscopy as an outpatient when the ischemic colitis has completely resolved, may be in a month or two. Subjective Subjective generalized weakness Objective Last 24 Hour Vital Signs Date Time Temp Pulse Resp B/P (MAP) Pulse Ox O2 Delivery O2 Flow Rate FiO2 08/07/17 09:07 99 Nasal Cannula 2.0 28 08/07/17 09:06 Nasal Cannula 2.0 28 08/07/17 09:00 Nasal Cannula 2.0 28 08/07/17 08:00 30 08/07/17 08:00 88 08/07/17 08:00 99.6 90 17 130/60 100 Mechanical Ventilator 30 08/07/17 07:02 87 20 30 08/07/17 07:00 90 17 124/58 100 Mechanical Ventilator 30 08/07/17 06:00 89 24 114/55 100 Mechanical Ventilator 30 08/07/17 05:14 94 18 30 08/07/17 05:00 90 16 133/61 100 Mechanical Ventilator 30 08/07/17 04:00 98.6 93 17 132/99 100 Mechanical Ventilator 30 08/07/17 04:00 30 08/07/17 03:54 92 08/07/17 03:15 97 21 135/60 100 Mechanical Ventilator 30 08/07/17 03:00 88 17 181/105 100 Mechanical Ventilator 30 08/07/17 02:40 85 16 30 08/07/17 02:00 88 16 141/65 100 Mechanical Ventilator 30 08/07/17 01:28 89 16 30 08/07/17 01:00 88 17 138/59 100 Mechanical Ventilator 30 08/07/17 00:01 91 08/07/17 00:00 99.0 88 17 141/62 100 Mechanical Ventilator 30 08/07/17 00:00 30 08/06/17 23:25 88 17 30 08/06/17 23:00 87 16 128/56 100 Mechanical Ventilator 30 08/06/17 22:00 95 16 123/50 100 Mechanical Ventilator 30 08/06/17 21:30 30 08/06/17 21:26 94 17 30 08/06/17 21:00 96 17 133/58 100 Mechanical Ventilator 40 08/06/17 20:09 87 08/06/17 20:00 99.8 99 17 124/54 100 Mechanical Ventilator 40 08/06/17 20:00 40 08/06/17 19:28 98 16 40 08/06/17 19:00 96 16 121/54 100 Mechanical Ventilator 100 08/06/17 18:00 100 17 130/55 100 Mechanical Ventilator 100 08/06/17 17:14 99 18 50 08/06/17 17:00 94 16 114/51 100 Mechanical Ventilator 100 08/06/17 16:00 99.6 98 18 131/51 100 Mechanical Ventilator 100 08/06/17 16:00 100 08/06/17 16:00 98 08/06/17 15:02 95 21 50 08/06/17 15:00 96 19 135/54 100 Mechanical Ventilator 100 08/06/17 14:00 99 19 130/48 100 Mechanical Ventilator 100 08/06/17 13:11 109 21 50 08/06/17 13:00 107 20 131/41 100 Mechanical Ventilator 100 08/06/17 12:00 95 08/06/17 12:00 98.9 95 25 133/51 100 Mechanical Ventilator 100 08/06/17 12:00 100 08/06/17 11:25 89 25 50 Intake and Output 08/07/17 08/08/17 19:00 07:00 Intake Total 302.8 ml Output Total 100 ml Balance 202.8 ml IV Total 302.8 ml Output Urine Total 100 ml Laboratory Tests Test 08/06/17 13:28 08/06/17 20:15 08/07/17 04:10 Arterial Blood pH 7.295 (7.350-7.450) Arterial Blood Partial Pressure CO2 20.1 mmHg (35.0-45.0) *L Arterial Blood Partial Pressure O2 267.5 mmHg (75.0-100.0) H Arterial Blood HCO3 9.6 mmol/L (22.0-26.0) L Arterial Blood Oxygen Saturation 99.0 % (92.0-98.0) H Arterial Blood Base Excess -14.9 Zohaib Test Positive Lactic Acid Level 0.80 mmol/L (0.66-2.22) 0.90 mmol/L (0.66-2.22) Sodium Level 142 MMOL/L (136-145) Potassium Level 3.1 MMOL/L (3.5-5.1) L Chloride Level 114 MMOL/L (98-107) H Carbon Dioxide Level 19 MMOL/L (21-32) L Anion Gap 9 mmol/L (5-15) Blood Urea Nitrogen 13 mg/dL (7-18) Creatinine 0.9 MG/DL (0.55-1.30) Estimat Glomerular Filtration Rate > 60 mL/min (>60) Glucose Level 195 MG/DL (74-106) H Calcium Level 7.7 MG/DL (8.5-10.1) L Phosphorus Level 0.5 MG/DL (2.5-4.9) *L Magnesium Level 1.7 MG/DL (1.8-2.4) L Height (Feet): 4 Height (Inches): 10.00 Weight (Pounds): 120 General Appearance: WD/WN, no apparent distress, alert, thin Cardiovascular: normal rate Respiratory/Chest: normal breath sounds, no respiratory distress, other - NC Abdominal Exam: normal bowel sounds, non tender, soft Extremities: non-tender Adele Olsen N.P. Aug 07, 2017 11:21
--- NOTE | 2017-08-07 11:43 | Cardiac Electrophysiology PN ---
Subjective Subjective Cardiology consult dictated [id number] Objective Last 24 Hour Vital Signs Date Time Temp Pulse Resp B/P (MAP) Pulse Ox O2 Delivery O2 Flow Rate FiO2 08/07/17 09:07 99 Nasal Cannula 2.0 28 08/07/17 09:06 Nasal Cannula 2.0 28 08/07/17 09:00 Nasal Cannula 2.0 28 08/07/17 08:00 30 08/07/17 08:00 88 08/07/17 08:00 99.6 90 17 130/60 100 Mechanical Ventilator 30 08/07/17 07:02 87 20 30 08/07/17 07:00 90 17 124/58 100 Mechanical Ventilator 30 08/07/17 06:00 89 24 114/55 100 Mechanical Ventilator 30 08/07/17 05:14 94 18 30 08/07/17 05:00 90 16 133/61 100 Mechanical Ventilator 30 08/07/17 04:00 98.6 93 17 132/99 100 Mechanical Ventilator 30 08/07/17 04:00 30 08/07/17 03:54 92 08/07/17 03:15 97 21 135/60 100 Mechanical Ventilator 30 08/07/17 03:00 88 17 181/105 100 Mechanical Ventilator 30 08/07/17 02:40 85 16 30 08/07/17 02:00 88 16 141/65 100 Mechanical Ventilator 30 08/07/17 01:28 89 16 30 08/07/17 01:00 88 17 138/59 100 Mechanical Ventilator 30 08/07/17 00:01 91 08/07/17 00:00 99.0 88 17 141/62 100 Mechanical Ventilator 30 08/07/17 00:00 30 08/06/17 23:25 88 17 30 08/06/17 23:00 87 16 128/56 100 Mechanical Ventilator 30 08/06/17 22:00 95 16 123/50 100 Mechanical Ventilator 30 08/06/17 21:30 30 08/06/17 21:26 94 17 30 08/06/17 21:00 96 17 133/58 100 Mechanical Ventilator 40 08/06/17 20:09 87 08/06/17 20:00 99.8 99 17 124/54 100 Mechanical Ventilator 40 08/06/17 20:00 40 08/06/17 19:28 98 16 40 08/06/17 19:00 96 16 121/54 100 Mechanical Ventilator 100 08/06/17 18:00 100 17 130/55 100 Mechanical Ventilator 100 08/06/17 17:14 99 18 50 08/06/17 17:00 94 16 114/51 100 Mechanical Ventilator 100 08/06/17 16:00 99.6 98 18 131/51 100 Mechanical Ventilator 100 08/06/17 16:00 100 08/06/17 16:00 98 08/06/17 15:02 95 21 50 08/06/17 15:00 96 19 135/54 100 Mechanical Ventilator 100 08/06/17 14:00 99 19 130/48 100 Mechanical Ventilator 100 08/06/17 13:11 109 21 50 08/06/17 13:00 107 20 131/41 100 Mechanical Ventilator 100 08/06/17 12:00 95 08/06/17 12:00 98.9 95 25 133/51 100 Mechanical Ventilator 100 08/06/17 12:00 100 Intake and Output 08/07/17 08/08/17 19:00 07:00 Intake Total 302.8 ml Output Total 100 ml Balance 202.8 ml IV Total 302.8 ml Output Urine Total 100 ml Laboratory Tests Test 08/06/17 13:28 08/06/17 20:15 08/07/17 04:10 Arterial Blood pH 7.295 (7.350-7.450) Arterial Blood Partial Pressure CO2 20.1 mmHg (35.0-45.0) *L Arterial Blood Partial Pressure O2 267.5 mmHg (75.0-100.0) H Arterial Blood HCO3 9.6 mmol/L (22.0-26.0) L Arterial Blood Oxygen Saturation 99.0 % (92.0-98.0) H Arterial Blood Base Excess -14.9 Zohaib Test Positive Lactic Acid Level 0.80 mmol/L (0.66-2.22) 0.90 mmol/L (0.66-2.22) Sodium Level 142 MMOL/L (136-145) Potassium Level 3.1 MMOL/L (3.5-5.1) L Chloride Level 114 MMOL/L (98-107) H Carbon Dioxide Level 19 MMOL/L (21-32) L Anion Gap 9 mmol/L (5-15) Blood Urea Nitrogen 13 mg/dL (7-18) Creatinine 0.9 MG/DL (0.55-1.30) Estimat Glomerular Filtration Rate > 60 mL/min (>60) Glucose Level 195 MG/DL (74-106) H Calcium Level 7.7 MG/DL (8.5-10.1) L Phosphorus Level 0.5 MG/DL (2.5-4.9) *L Magnesium Level 1.7 MG/DL (1.8-2.4) L Microbiology Date/Time Source Procedure Growth Status 08/05/17 20:45 Blood Blood Culture - Preliminary NO GROWTH AFTER 24 HOURS Resulted 08/05/17 20:30 Blood Blood Culture - Preliminary NO GROWTH AFTER 24 HOURS Resulted FEDE KWOK Aug 07, 2017 11:43
--- NOTE | 2017-08-07 11:50 | Infectious Diseases Prog Note ---
Assessment/Plan Assessment/Plan A: Sepsis, SIRS DKA Ischemic colitis Hypoxemic respiratory failure resolved P: Continue Zosyn , will f/u cultures Subjective ROS Limited/Unobtainable: No HEENT: Reports: other - muffled voice Respiratory: Reports: dry cough, other - extubated Gastrointestinal/Abdominal: Reports: no symptoms Genitourinary: Reports: no symptoms Allergies: Coded Allergies: No Known Allergies (Unverified , 08/01/17) Objective Vital Signs Last 24 Hour Vital Signs Date Time Temp Pulse Resp B/P (MAP) Pulse Ox O2 Delivery O2 Flow Rate FiO2 08/07/17 09:07 99 Nasal Cannula 2.0 28 08/07/17 09:06 Nasal Cannula 2.0 28 08/07/17 09:00 Nasal Cannula 2.0 28 08/07/17 08:00 30 08/07/17 08:00 88 08/07/17 08:00 99.6 90 17 130/60 100 Mechanical Ventilator 30 08/07/17 07:02 87 20 30 08/07/17 07:00 90 17 124/58 100 Mechanical Ventilator 30 08/07/17 06:00 89 24 114/55 100 Mechanical Ventilator 30 08/07/17 05:14 94 18 30 08/07/17 05:00 90 16 133/61 100 Mechanical Ventilator 30 08/07/17 04:00 98.6 93 17 132/99 100 Mechanical Ventilator 30 08/07/17 04:00 30 08/07/17 03:54 92 08/07/17 03:15 97 21 135/60 100 Mechanical Ventilator 30 08/07/17 03:00 88 17 181/105 100 Mechanical Ventilator 30 08/07/17 02:40 85 16 30 08/07/17 02:00 88 16 141/65 100 Mechanical Ventilator 30 08/07/17 01:28 89 16 30 08/07/17 01:00 88 17 138/59 100 Mechanical Ventilator 30 08/07/17 00:01 91 08/07/17 00:00 99.0 88 17 141/62 100 Mechanical Ventilator 30 08/07/17 00:00 30 08/06/17 23:25 88 17 30 08/06/17 23:00 87 16 128/56 100 Mechanical Ventilator 30 08/06/17 22:00 95 16 123/50 100 Mechanical Ventilator 30 08/06/17 21:30 30 08/06/17 21:26 94 17 30 08/06/17 21:00 96 17 133/58 100 Mechanical Ventilator 40 08/06/17 20:09 87 08/06/17 20:00 99.8 99 17 124/54 100 Mechanical Ventilator 40 08/06/17 20:00 40 08/06/17 19:28 98 16 40 08/06/17 19:00 96 16 121/54 100 Mechanical Ventilator 100 08/06/17 18:00 100 17 130/55 100 Mechanical Ventilator 100 08/06/17 17:14 99 18 50 08/06/17 17:00 94 16 114/51 100 Mechanical Ventilator 100 08/06/17 16:00 99.6 98 18 131/51 100 Mechanical Ventilator 100 08/06/17 16:00 100 08/06/17 16:00 98 08/06/17 15:02 95 21 50 08/06/17 15:00 96 19 135/54 100 Mechanical Ventilator 100 08/06/17 14:00 99 19 130/48 100 Mechanical Ventilator 100 08/06/17 13:11 109 21 50 08/06/17 13:00 107 20 131/41 100 Mechanical Ventilator 100 08/06/17 12:00 95 08/06/17 12:00 98.9 95 25 133/51 100 Mechanical Ventilator 100 08/06/17 12:00 100 Height (Feet): 4 Height (Inches): 10.00 Weight (Pounds): 120 General Appearance: no acute distress HEENT: mucous membranes moist Respiratory/Chest: lungs clear Cardiovascular: normal rate Abdomen: soft, non tender Extremities: no edema Neurologic/Psychiatric: alert, oriented x 3, responsive Microbiology Date/Time Source Procedure Growth Status 08/05/17 20:45 Blood Blood Culture - Preliminary NO GROWTH AFTER 24 HOURS Resulted 08/05/17 20:30 Blood Blood Culture - Preliminary NO GROWTH AFTER 24 HOURS Resulted Laboratory Tests Test 08/06/17 13:28 08/06/17 20:15 08/07/17 04:10 Arterial Blood pH 7.295 (7.350-7.450) Arterial Blood Partial Pressure CO2 20.1 mmHg (35.0-45.0) *L Arterial Blood Partial Pressure O2 267.5 mmHg (75.0-100.0) H Arterial Blood HCO3 9.6 mmol/L (22.0-26.0) L Arterial Blood Oxygen Saturation 99.0 % (92.0-98.0) H Arterial Blood Base Excess -14.9 Zohaib Test Positive Lactic Acid Level 0.80 mmol/L (0.66-2.22) 0.90 mmol/L (0.66-2.22) Sodium Level 142 MMOL/L (136-145) Potassium Level 3.1 MMOL/L (3.5-5.1) L Chloride Level 114 MMOL/L (98-107) H Carbon Dioxide Level 19 MMOL/L (21-32) L Anion Gap 9 mmol/L (5-15) Blood Urea Nitrogen 13 mg/dL (7-18) Creatinine 0.9 MG/DL (0.55-1.30) Estimat Glomerular Filtration Rate > 60 mL/min (>60) Glucose Level 195 MG/DL (74-106) H Calcium Level 7.7 MG/DL (8.5-10.1) L Phosphorus Level 0.5 MG/DL (2.5-4.9) *L Magnesium Level 1.7 MG/DL (1.8-2.4) L Current Medications Medications (Trade) Dose Ordered Sig/Sue Route PRN Reason Start Time Stop Time Status Last Admin Dose Admin Chlorhexidine Gluconate (Zahraa-Hex 2%) 1 applic DAILY TOPIC 08/06/17 23:15 09/05/17 23:14 08/06/17 23:35 Dextrose (Dextrose 50%) PRN PRN IV HYPOGLYCEMIA 08/06/17 01:15 09/05/17 01:14 Dextrose/ Electrolytes 1,000 ml @ 100 mls/hr Q10H IV 08/06/17 20:30 09/05/17 20:29 08/07/17 06:00 Insulin Human Regular (NovoLIN R) 5 units PRN PRN IV BS 200-299 08/06/17 01:15 09/05/17 01:14 08/07/17 05:00 Insulin Human Regular (NovoLIN R) 10 units PRN PRN IV BS=>300 08/06/17 01:15 09/05/17 01:14 Insulin Human Regular 100 units/ Sodium Chloride 101 ml @ 0 mls/hr Q24H IV 08/06/17 04:00 09/05/17 01:14 08/07/17 03:59 Magnesium Sulfate 100 ml @ 100 mls/hr Q1H IVPB 08/07/17 10:00 08/07/17 13:59 08/07/17 11:17 Miscellaneous Medication (Insulin Rate Change) 1 ea PRN PRN MISC Hyperglycemia 08/06/17 01:15 09/05/17 01:14 08/07/17 06:52 Pantoprazole (Protonix) 40 mg DAILY IVP 08/06/17 21:45 09/05/17 21:44 08/07/17 08:04 Piperacillin Sod/ Tazobactam Sod 3.375 gm/Sodium Chloride 55 ml @ 13.75 mls/ hr Q8H IVPB 08/06/17 10:00 08/13/17 09:59 08/07/17 09:48 Potassium Phosphate 30 mm/ Sodium Chloride 285 ml @ 47.5 mls/hr ONCE ONCE IV 08/07/17 10:30 08/07/17 16:29 08/07/17 11:17 MITCHELL HOLM Aug 07, 2017 11:50
--- NOTE | 2017-08-07 13:59 | Consultation ---
Consult Note Assessment/Plan Please refer to consult note DOS: 08/03/17, further details to follow Current DOS: 08/07/17 ASSESSMENT AND RECOMMENDATION: #. Anemia of chronic disease --> w/u from prior admission has been reviewed #. 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 Patient does not need any further workup at this time. #. Leukocytosis, likely secondary to reactive process. #. Rectal bleeding, no drop in H/H. Continue to monitor #. Ischemic colitis and hemorrhoids. GI following. Arun Gamez Aug 07, 2017 13:59
[2017-08-07] MEDS: Levemir Flexpen SUBQ SCH ×2 (15:28→21:10)
[2017-08-07] MEDS: NovoLOG Insulin Flexpen SUBQ SCH ×2 (17:31→21:09)
[2017-08-07 17:49] LABS: INR 1.1 (0.9-1.1); PROTHROMBIN TIME 11.2 SEC (9.30-11.50)
[2017-08-07] MEDS: Enoxaparin Sodium 300mg/3ml vial SUBQ SCH (18:26)
--- NOTE | 2017-08-07 19:27 | Pulmonology Progress Note ---
Assessment/Plan Assessment/Plan resp failure Sepsis, SIRS DKA, severe acidosis Ischemic colitis P: breathing well on vent; extubated met w dtr at bedside continue Zosyn & IV fluids insulin drip per endo improving Subjective ROS Limited/Unobtainable: Yes Allergies: Coded Allergies: No Known Allergies (Unverified , 08/01/17) Objective Last 24 Hour Vital Signs Date Time Temp Pulse Resp B/P (MAP) Pulse Ox O2 Delivery O2 Flow Rate FiO2 08/07/17 19:00 95 19 116/63 95 Nasal Cannula 2.0 08/07/17 18:00 94 17 127/57 95 Nasal Cannula 2.0 08/07/17 17:00 99 18 109/51 92 Nasal Cannula 2.0 08/07/17 16:00 99.4 92 16 114/58 95 Nasal Cannula 2.0 08/07/17 16:00 93 08/07/17 15:00 93 16 108/51 93 Nasal Cannula 2.0 08/07/17 14:00 94 17 117/52 95 Nasal Cannula 2.0 08/07/17 13:00 95 17 108/48 95 Nasal Cannula 2.0 08/07/17 12:00 94 08/07/17 12:00 99.9 93 17 114/58 97 Nasal Cannula 2.0 08/07/17 11:00 93 17 123/56 97 Nasal Cannula 2.0 08/07/17 10:00 94 20 122/56 100 Nasal Cannula 2.0 08/07/17 09:07 99 Nasal Cannula 2.0 28 08/07/17 09:06 Nasal Cannula 2.0 28 08/07/17 09:00 94 20 143/61 100 Nasal Cannula 2.0 08/07/17 09:00 Nasal Cannula 2.0 28 08/07/17 08:00 30 08/07/17 08:00 88 08/07/17 08:00 99.6 90 17 130/60 100 Mechanical Ventilator 30 08/07/17 07:02 87 20 30 08/07/17 07:00 90 17 124/58 100 Mechanical Ventilator 30 08/07/17 06:00 89 24 114/55 100 Mechanical Ventilator 30 08/07/17 05:14 94 18 30 08/07/17 05:00 90 16 133/61 100 Mechanical Ventilator 30 08/07/17 04:00 98.6 93 17 132/99 100 Mechanical Ventilator 30 08/07/17 04:00 30 08/07/17 03:54 92 08/07/17 03:15 97 21 135/60 100 Mechanical Ventilator 30 08/07/17 03:00 88 17 181/105 100 Mechanical Ventilator 30 08/07/17 02:40 85 16 30 08/07/17 02:00 88 16 141/65 100 Mechanical Ventilator 30 08/07/17 01:28 89 16 30 08/07/17 01:00 88 17 138/59 100 Mechanical Ventilator 30 08/07/17 00:01 91 08/07/17 00:00 99.0 88 17 141/62 100 Mechanical Ventilator 30 08/07/17 00:00 30 08/06/17 23:25 88 17 30 08/06/17 23:00 87 16 128/56 100 Mechanical Ventilator 30 08/06/17 22:00 95 16 123/50 100 Mechanical Ventilator 30 08/06/17 21:30 30 08/06/17 21:26 94 17 30 08/06/17 21:00 96 17 133/58 100 Mechanical Ventilator 40 08/06/17 20:09 87 08/06/17 20:00 99.8 99 17 124/54 100 Mechanical Ventilator 40 08/06/17 20:00 40 08/06/17 19:28 98 16 40 Intake and Output 08/07/17 08/08/17 19:00 07:00 Intake Total 1713.25 ml Output Total 1250 ml Balance 463.25 ml Intake Oral 200 ml IV Total 1513.25 ml Output Urine Total 1250 ml General Appearance: no acute distress HEENT: atraumatic Respiratory/Chest: lungs clear Cardiovascular: normal rate Abdomen: soft, non tender Microbiology Date/Time Source Procedure Growth Status 08/05/17 20:45 Blood Blood Culture - Preliminary NO GROWTH AFTER 24 HOURS Resulted 08/05/17 20:30 Blood Blood Culture - Preliminary NO GROWTH AFTER 24 HOURS Resulted Laboratory Tests 08/06/17 20:15: Lactic Acid Level 0.80 08/07/17 04:10: Lactic Acid Level 0.90, Sodium Level 142, Potassium Level 3.1L, Chloride Level 114H, Carbon Dioxide Level 19L, Anion Gap 9, Blood Urea Nitrogen 13, Creatinine 0.9, Estimat Glomerular Filtration Rate > 60, Glucose Level 195H, Calcium Level 7.7L, Phosphorus Level 0.5*L, Magnesium Level 1.7L 08/07/17 12:15: Troponin I 0.023 08/07/17 17:00: Prothrombin Time 11.2, Prothromb Time International Ratio 1.1 Current Medications Medications (Trade) Dose Ordered Sig/Sue Route PRN Reason Start Time Stop Time Status Last Admin Dose Admin Chlorhexidine Gluconate (Zahraa-Hex 2%) 1 applic DAILY TOPIC 08/06/17 23:15 09/05/17 23:14 08/06/17 23:35 Dextrose (Dextrose 50%) PRN IV hypoglycemia 08/07/17 15:45 09/06/17 15:44 Dextrose/ Electrolytes 1,000 ml @ 100 mls/hr Q10H IV 08/06/17 20:30 09/05/17 20:29 08/07/17 17:29 Enoxaparin Sodium (Lovenox) 50 mg Q12HR SUBQ 08/07/17 17:30 09/06/17 17:29 08/07/17 18:26 Insulin Aspart (NovoLOG) Q4HR SUBQ 08/07/17 17:00 09/06/17 16:59 08/07/17 17:31 Insulin Detemir (Levemir) 12 units BID SUBQ 08/07/17 14:00 09/06/17 13:59 08/07/17 15:28 Pantoprazole (Protonix) 40 mg DAILY IVP 08/06/17 21:45 09/05/17 21:44 08/07/17 08:04 Piperacillin Sod/ Tazobactam Sod 3.375 gm/Sodium Chloride 55 ml @ 13.75 mls/ hr Q8H IVPB 08/06/17 10:00 08/13/17 09:59 08/07/17 17:30 Warfarin Sodium (Coumadin per pharmacy) 1 ea DAILY PRN MISC Per rx protocol 08/07/17 16:30 09/06/17 16:29 Warfarin Sodium (Coumadin) 5 mg COUMADIN ONCE ORAL 08/07/17 19:30 08/07/17 19:31 NATO WOODRUFF Aug 07, 2017 19:27
[2017-08-07] MEDS ORDERED: Warfarin Sodium 5mg ORAL ONE (19:30)
--- NOTE | 2017-08-07 20:10 | General Progress Note ---
Assessment/Plan Problem List: (1) DKA (diabetic ketoacidoses) ICD Codes: E13.10 - Other specified diabetes mellitus with ketoacidosis without coma SNOMED: 885525064, 25291044 (2) Sepsis ICD Codes: A41.9 - Sepsis, unspecified organism SNOMED: 86028435, 07859473 (3) Lactic acidosis ICD Codes: E87.2 - Acidosis SNOMED: 54188013 (4) Rectal bleed ICD Codes: K62.5 - Hemorrhage of anus and rectum SNOMED: 47449158 Status: progressing Assessment/Plan afebrile resp insuff dka is resolved s/p gi bleed elevated bg sepsis afebrile abx per id reviewed chart and labs Subjective ROS Limited/Unobtainable: Yes Allergies: Coded Allergies: No Known Allergies (Unverified , 08/01/17) Objective Last 24 Hour Vital Signs Date Time Temp Pulse Resp B/P (MAP) Pulse Ox O2 Delivery O2 Flow Rate FiO2 08/07/17 19:00 95 19 116/63 95 Nasal Cannula 2.0 08/07/17 18:00 94 17 127/57 95 Nasal Cannula 2.0 08/07/17 17:00 99 18 109/51 92 Nasal Cannula 2.0 08/07/17 16:00 99.4 92 16 114/58 95 Nasal Cannula 2.0 08/07/17 16:00 93 08/07/17 15:00 93 16 108/51 93 Nasal Cannula 2.0 08/07/17 14:00 94 17 117/52 95 Nasal Cannula 2.0 08/07/17 13:00 95 17 108/48 95 Nasal Cannula 2.0 08/07/17 12:00 94 08/07/17 12:00 99.9 93 17 114/58 97 Nasal Cannula 2.0 08/07/17 11:00 93 17 123/56 97 Nasal Cannula 2.0 08/07/17 10:00 94 20 122/56 100 Nasal Cannula 2.0 08/07/17 09:07 99 Nasal Cannula 2.0 28 08/07/17 09:06 Nasal Cannula 2.0 28 08/07/17 09:00 94 20 143/61 100 Nasal Cannula 2.0 08/07/17 09:00 Nasal Cannula 2.0 28 08/07/17 08:00 30 08/07/17 08:00 88 08/07/17 08:00 99.6 90 17 130/60 100 Mechanical Ventilator 30 08/07/17 07:02 87 20 30 08/07/17 07:00 90 17 124/58 100 Mechanical Ventilator 30 08/07/17 06:00 89 24 114/55 100 Mechanical Ventilator 30 08/07/17 05:14 94 18 30 08/07/17 05:00 90 16 133/61 100 Mechanical Ventilator 30 08/07/17 04:00 98.6 93 17 132/99 100 Mechanical Ventilator 30 08/07/17 04:00 30 08/07/17 03:54 92 08/07/17 03:15 97 21 135/60 100 Mechanical Ventilator 30 08/07/17 03:00 88 17 181/105 100 Mechanical Ventilator 30 08/07/17 02:40 85 16 30 08/07/17 02:00 88 16 141/65 100 Mechanical Ventilator 30 08/07/17 01:28 89 16 30 08/07/17 01:00 88 17 138/59 100 Mechanical Ventilator 30 08/07/17 00:01 91 08/07/17 00:00 99.0 88 17 141/62 100 Mechanical Ventilator 30 08/07/17 00:00 30 08/06/17 23:25 88 17 30 08/06/17 23:00 87 16 128/56 100 Mechanical Ventilator 30 08/06/17 22:00 95 16 123/50 100 Mechanical Ventilator 30 08/06/17 21:30 30 08/06/17 21:26 94 17 30 08/06/17 21:00 96 17 133/58 100 Mechanical Ventilator 40 Intake and Output 08/07/17 08/08/17 19:00 07:00 Intake Total 1713.25 ml Output Total 1250 ml Balance 463.25 ml Intake Oral 200 ml IV Total 1513.25 ml Output Urine Total 1250 ml Laboratory Tests 08/06/17 20:15: Lactic Acid Level 0.80 08/07/17 04:10: Lactic Acid Level 0.90, Sodium Level 142, Potassium Level 3.1L, Chloride Level 114H, Carbon Dioxide Level 19L, Anion Gap 9, Blood Urea Nitrogen 13, Creatinine 0.9, Estimat Glomerular Filtration Rate > 60, Glucose Level 195H, Calcium Level 7.7L, Phosphorus Level 0.5*L, Magnesium Level 1.7L 08/07/17 12:15: Troponin I 0.023 08/07/17 17:00: Prothrombin Time 11.2, Prothromb Time International Ratio 1.1 08/07/17 19:15: Troponin I 0.011 Height (Feet): 4 Height (Inches): 10.00 Weight (Pounds): 120 Gerhard Baltazar MD Aug 07, 2017 20:10
--- NOTE | 2017-08-07 21:00 | Consultation ---
DATE OF CONSULTATION: 08/07/2017 CARDIOLOGY CONSULTATION CONSULTING PHYSICIAN: Tesfaye Roque M.D. REFERRING PHYSICIAN: Gerhard Baltazar M.D. REASON FOR CONSULTATION: Hypertension, tachycardia, and respiratory failure. HISTORY OF PRESENT ILLNESS: The patient is a 67-year-old lady with history of hypertension, type 1 diabetes as well as recent diagnosis of ischemic colitis, syncope and bradycardia with long pauses, who was just discharged two days ago with diagnosis of ischemic colitis. The patient went home; however, she developed shortness of breath and came to the emergency room and was found to be in diabetic ketoacidosis with pH of 6.9 and blood glucose was more than 500. The patient was intubated and was transferred to intensive care unit. Cardiology consultation was obtained for further evaluation and management in view of the patient's history of bradycardia and hypertension. PAST MEDICAL HISTORY: 1. Hypertension. 2. Diabetes. 3. History of bradycardia with two second pauses. 4. Ischemic colitis. 5. History of stroke. 6. History of seizure. 7. History of syncope. MEDICATIONS AT HOME: Amlodipine, enalapril, insulin and Lamisil. SOCIAL HISTORY: She lives at home. Does not smoke or drink alcohol. FAMILY HISTORY: Noncontributory. REVIEW OF SYSTEMS: Review of systems was negative other than what was mentioned in the history of present illness. As the patient was just extubated, was able to communicate. PHYSICAL EXAMINATION: VITAL SIGNS: Blood pressure is 130/60, pulse 88, respirations 17, and she is afebrile. HEAD AND NECK: No JVD. LUNGS: Coarse rhonchi. CARDIOVASCULAR: Regular S1 and S2 with no gallop. ABDOMEN: Soft. EXTREMITIES: No pitting edema. LABORATORY AND DIAGNOSTIC DATA: Her laboratory show white count of 12.5, hemoglobin 12.8, hematocrit 33, and platelet count is 260. Sodium 142, potassium 3.1, BUN 13, creatinine 0.9, and glucose of 195. Initial white count was only 9. ASSESSMENT AND PLAN: 1. History of profound bradycardia, heart rate in the 30s that has resolved. 2. Status post respiratory failure. The patient was just extubated. It was due to patient's diabetic ketoacidosis. 3. Diabetic ketoacidosis with a blood glucose of 538. The patient is feeling much better. IV fluids. 4. Ischemic colitis. 5. Status post respiratory failure and was extubated just today. 6. History of cerebrovascular accident. 7. History of seizure disorder. Thank very much, Dr. Baltazar, for allowing me to participate in the care of this patient. Please do not hesitate to contact me if you have any questions regarding my evaluation. Tesfaye Roque M.D. DR: JOHN JOB#: [id number] CC:
[2017-08-08] VITALS (20 sets, daily range): BP systolic 107–136; BP diastolic 40–87
[2017-08-08] MEDS: NovoLOG Insulin Flexpen SUBQ SCH ×6 (01:31→21:00)
[2017-08-08] MEDS: Piperacillin/Tazobactam 3.375 GM in NS 55 ML IVPB SCH ×3 (02:00→17:15)
[2017-08-08] MEDS: D5 1/2NS w/KCl 20mEq 1,000 ML IV SCH (02:39)
[2017-08-08 05:48] LABS: BASOPHILS % (AUTO) 0.5 % (0.0-2.0); EOSINOPHILS % (AUTO) 1.7 % (0.0-3.0); LYMPHOCYTES % (AUTO) 10.5 % (20.0-45.0); MEAN CORPUSCULAR HEMOGLOBIN 29.7 PG (27.0-31.0); MEAN CORPUSCULAR HGB CONC 34.9 G/DL (32.0-36.0); MEAN CORPUSCULAR VOLUME 85 FL (80-99); MEAN PLATELET VOLUME 6.7 FL (6.5-10.1); MONOCYTES % (AUTO) 7.9 % (1.0-10.0); NEUTROPHILS % (AUTO) 79.3 % (45.0-75.0); PLATELET COUNT 193 K/UL (150-450); RED BLOOD COUNT 3.61 M/UL (4.20-5.40); RED CELL DISTRIBUTION WIDTH 13.3 % (11.6-14.8); WHITE BLOOD COUNT 9.8 K/UL (4.8-10.8)
[2017-08-08 06:00] LABS: INR 1.2 (0.9-1.1); PROTHROMBIN TIME 12.6 SEC (9.30-11.50)
--- NOTE | 2017-08-08 06:16 | General Progress Note ---
Assessment/Plan Problem List: (1) Lactic acidosis ICD Codes: E87.2 - Acidosis SNOMED: 16212732 (2) Colitis ICD Codes: K52.9 - Noninfective gastroenteritis and colitis, unspecified SNOMED: 72921687 (3) DKA (diabetic ketoacidoses) ICD Codes: E13.10 - Other specified diabetes mellitus with ketoacidosis without coma SNOMED: 731766708, 04759237 (4) Sepsis ICD Codes: A41.9 - Sepsis, unspecified organism SNOMED: 42626480, 92082378 (5) Respiratory failure requiring intubation ICD Codes: J96.90 - Respiratory failure, unspecified, unspecified whether with hypoxia or hypercapnia SNOMED: 435716367 Assessment/Plan insulin drip stopped yesterday continue Levemir 12 units bid + SSI Subjective ROS Limited/Unobtainable: Yes Allergies: Coded Allergies: No Known Allergies (Unverified , 08/01/17) Subjective events noted Objective Last 24 Hour Vital Signs Date Time Temp Pulse Resp B/P (MAP) Pulse Ox O2 Delivery O2 Flow Rate FiO2 08/08/17 04:00 98.7 84 18 107/62 96 Nasal Cannula 2.0 08/08/17 03:00 86 20 110/59 96 Nasal Cannula 2.0 08/08/17 02:00 80 18 112/60 98 Nasal Cannula 2.0 08/08/17 01:00 83 19 115/63 97 Nasal Cannula 2.0 08/08/17 00:00 98.7 84 18 111/57 97 Nasal Cannula 2.0 08/08/17 00:00 95 08/07/17 23:00 86 20 109/57 96 Nasal Cannula 2.0 08/07/17 22:00 87 19 103/58 97 Nasal Cannula 2.0 08/07/17 21:00 89 19 112/55 94 Nasal Cannula 2.0 08/07/17 20:00 99.1 90 16 118/52 97 Nasal Cannula 2.0 08/07/17 19:30 Nasal Cannula 2.0 28 08/07/17 19:30 96 Nasal Cannula 2.0 28 08/07/17 19:00 95 19 116/63 95 Nasal Cannula 2.0 08/07/17 18:00 94 17 127/57 95 Nasal Cannula 2.0 08/07/17 17:00 99 18 109/51 92 Nasal Cannula 2.0 08/07/17 16:00 99.4 92 16 114/58 95 Nasal Cannula 2.0 08/07/17 16:00 93 08/07/17 15:00 93 16 108/51 93 Nasal Cannula 2.0 08/07/17 14:00 94 17 117/52 95 Nasal Cannula 2.0 08/07/17 13:00 95 17 108/48 95 Nasal Cannula 2.0 08/07/17 12:00 94 08/07/17 12:00 99.9 93 17 114/58 97 Nasal Cannula 2.0 08/07/17 11:00 93 17 123/56 97 Nasal Cannula 2.0 08/07/17 10:00 94 20 122/56 100 Nasal Cannula 2.0 08/07/17 09:07 99 Nasal Cannula 2.0 28 08/07/17 09:06 Nasal Cannula 2.0 28 08/07/17 09:00 94 20 143/61 100 Nasal Cannula 2.0 08/07/17 09:00 Nasal Cannula 2.0 28 08/07/17 08:00 30 08/07/17 08:00 88 08/07/17 08:00 99.6 90 17 130/60 100 Mechanical Ventilator 30 08/07/17 07:02 87 20 30 08/07/17 07:00 90 17 124/58 100 Mechanical Ventilator 30 Laboratory Tests 08/07/17 12:15: Troponin I 0.023 08/07/17 17:00: Prothrombin Time 11.2, Prothromb Time International Ratio 1.1 08/07/17 19:15: Troponin I 0.011 08/08/17 03:00: Troponin I 0.012 08/08/17 05:00: White Blood Count 9.8, Red Blood Count 3.61L, Hemoglobin 10.7L, Hematocrit 30.8L , Mean Corpuscular Volume 85, Mean Corpuscular Hemoglobin 29.7, Mean Corpuscular Hemoglobin Concent 34.9, Red Cell Distribution Width 13.3, Platelet Count 193, Mean Platelet Volume 6.7, Neutrophils (%) (Auto) 79.3H, Lymphocytes ( %) (Auto) 10.5L, Monocytes (%) (Auto) 7.9, Eosinophils (%) (Auto) 1.7, Basophils (%) (Auto) 0.5, Prothrombin Time [Pending], Prothromb Time International Ratio [Pending], Sodium Level [Pending], Potassium Level [Pending] , Chloride Level [Pending], Carbon Dioxide Level [Pending], Blood Urea Nitrogen [Pending], Creatinine [Pending], Estimat Glomerular Filtration Rate [Pending], Glucose Level [Pending], Hemoglobin A1c [Pending], Lactic Acid Level [Pending], Uric Acid [Pending], Calcium Level [Pending], Phosphorus Level [Pending], Magnesium Level [Pending], Ferritin [Pending], Total Bilirubin [Pending], Gamma Glutamyl Transpeptidase [Pending], Aspartate Amino Transf (AST/SGOT) [Pending], Alanine Aminotransferase (ALT/SGPT) [Pending], Alkaline Phosphatase [Pending], C -Reactive Protein, Quantitative [Pending], Pro-B-Type Natriuretic Peptide [ Pending], Total Protein [Pending], Albumin [Pending], Globulin [Pending], Triglycerides Level [Pending], Cholesterol Level [Pending], LDL Cholesterol [ Pending], HDL Cholesterol [Pending], Cholesterol/HDL Ratio [Pending], Vitamin B12 Level [Pending], Folate [Pending], Thyroid Stimulating Hormone (TSH) [ Pending] Height (Feet): 4 Height (Inches): 10.00 Weight (Pounds): 120 General Appearance: lethargic Neck: normal alignment Cardiovascular: normal rate Respiratory/Chest: lungs clear Objective Current Medications Medications (Trade) Dose Ordered Sig/Sue Route PRN Reason Start Time Stop Time Status Last Admin Dose Admin Chlorhexidine Gluconate (Zahraa-Hex 2%) 1 applic DAILY TOPIC 08/06/17 23:15 09/05/17 23:14 08/06/17 23:35 Dextrose (Dextrose 50%) PRN IV hypoglycemia 08/07/17 15:45 09/06/17 15:44 Dextrose/ Electrolytes 1,000 ml @ 100 mls/hr Q10H IV 08/06/17 20:30 09/05/17 20:29 08/08/17 02:39 Enoxaparin Sodium (Lovenox) 50 mg Q12HR SUBQ 08/07/17 17:30 09/06/17 17:29 08/07/17 18:26 Insulin Aspart (NovoLOG) Q4HR SUBQ 08/07/17 17:00 09/06/17 16:59 08/08/17 01:31 Insulin Detemir (Levemir) 12 units BID SUBQ 08/07/17 14:00 09/06/17 13:59 08/07/17 21:10 Pantoprazole (Protonix) 40 mg DAILY IVP 08/06/17 21:45 09/05/17 21:44 08/07/17 08:04 Piperacillin Sod/ Tazobactam Sod 3.375 gm/Sodium Chloride 55 ml @ 13.75 mls/ hr Q8H IVPB 08/06/17 10:00 08/13/17 09:59 08/08/17 02:00 Warfarin Sodium (Coumadin per pharmacy) 1 ea DAILY PRN MISC Per rx protocol 08/07/17 16:30 09/06/17 16:29 Item Value Date Time Bedside Blood Glucose 77 mg/dl 08/08/17 0500 Bedside Blood Glucose 130 mg/dl H 08/08/17 0131 Bedside Blood Glucose 220 mg/dl H 08/07/17 2110 Bedside Blood Glucose 181 mg/dl H 08/07/17 1731 Bedside Blood Glucose 179 mg/dl H 08/07/17 1400 RL MEDINA Aug 08, 2017 06:16
[2017-08-08 06:23] LABS: ALANINE AMINOTRANSFERASE 16 U/L (12-78); ALBUMIN/GLOBULIN RATIO 0.6 (1.0-2.7); ANION GAP 4 mmol/L (5-15); ASPARTATE AMINO TRANSFERASE 18 U/L (15-37); CALCIUM 7.2 MG/DL (8.5-10.1); CARBON DIOXIDE 26 MMOL/L (21-32); CHLORIDE 111 MMOL/L (98-107); CHOLESTEROL 121 MG/DL (< 200); CHOLESTEROL/HDL RATIO 1.9 (3.3-4.4); CREATININE 0.7 MG/DL (0.55-1.30); CRP QUANT 11.3 mg/dL (0.00-0.90); FERRITIN 131 NG/ML (8-388); GLOMERULAR FILTRATION RATE > 60 mL/min (>60); MAGNESIUM 2.1 MG/DL (1.8-2.4); PHOSPHORUS 1.1 MG/DL (2.5-4.9); POTASSIUM 2.9 MMOL/L (3.5-5.1); SODIUM 141 MMOL/L (136-145); THYROID STIMULATING HORMONE 2.905 uiU/mL (0.358-3.740); TOTAL PROTEIN 4.7 G/DL (6.4-8.2); URIC ACID 1.3 MG/DL (2.6-7.2)
[2017-08-08 06:30] LABS: HEMOGLOBIN A1C 11.1 % (4.3-6.0)
[2017-08-08 06:54] LABS: FOLIC ACID 3.9 NG/ML (8.6-58.9)
[2017-08-08 07:19] LABS: ANION GAP 7 mmol/L (5-15); CALCIUM 7.4 MG/DL (8.5-10.1); CARBON DIOXIDE 24 MMOL/L (21-32); CHLORIDE 110 MMOL/L (98-107); CREATININE 0.7 MG/DL (0.55-1.30); GLOMERULAR FILTRATION RATE > 60 mL/min (>60); SODIUM 141 MMOL/L (136-145)
[2017-08-08] MEDS: Pantoprazole Inj IVP SCH (08:38)
[2017-08-08] MEDS: Levemir Flexpen SUBQ SCH ×2 (08:40→17:17)
[2017-08-08] MEDS: Dyna-Hex 2% Top Sol 2oz TOPIC SCH (08:43)
[2017-08-08] MEDS: Phospha 250 Neutral tab ORAL SCH ×3 (09:17→17:15)
[2017-08-08] MEDS: Enoxaparin Sodium 300mg/3ml vial SUBQ SCH ×2 (09:18→21:00)
[2017-08-08] MEDS ORDERED: LEVAQUIN500 MG ORAL (09:31)
[2017-08-08] MEDS ORDERED: METRONIDAZOLE500 MG ORAL (09:31)
[2017-08-08] MEDS ORDERED: Potassium Phosphate 30 MM in NS 275 ML IV ONE (10:00)
--- NOTE | 2017-08-08 12:28 | Nephrology Progress Note ---
Assessment/Plan Problem List: (1) Sepsis (2) Colitis (3) Respiratory failure requiring intubation (4) Hypophosphatemia (5) Hypokalemia Assessment Respiratory failure and DKA on admit, resolved Low Phos , K , and Mag HTN Ischemic colitis h/o CVA Anemia Plan Plan: IV Phos , mag , and K Monitor lytes and renal parameters per consultants per orders Subjective ROS Limited/Unobtainable: No Constitutional: Reports: malaise Objective Objective Last 24 Hour Vital Signs Date Time Temp Pulse Resp B/P (MAP) Pulse Ox O2 Delivery O2 Flow Rate FiO2 08/08/17 12:00 98.5 81 18 109/62 94 Room Air 08/08/17 12:00 80 08/08/17 11:00 85 20 128/87 96 Room Air 08/08/17 10:00 81 22 112/58 95 Room Air 08/08/17 09:00 82 13 118/60 93 Room Air 08/08/17 08:00 84 08/08/17 08:00 98.4 84 23 122/57 94 Room Air 08/08/17 07:00 80 20 120/65 98 Nasal Cannula 2.0 08/08/17 06:00 78 20 116/55 98 Nasal Cannula 2.0 08/08/17 05:00 89 18 109/60 95 Nasal Cannula 2.0 08/08/17 04:00 90 08/08/17 04:00 98.7 84 18 107/62 96 Nasal Cannula 2.0 08/08/17 03:00 86 20 110/59 96 Nasal Cannula 2.0 08/08/17 02:00 80 18 112/60 98 Nasal Cannula 2.0 08/08/17 01:00 83 19 115/63 97 Nasal Cannula 2.0 08/08/17 00:00 98.7 84 18 111/57 97 Nasal Cannula 2.0 08/08/17 00:00 95 08/07/17 23:00 86 20 109/57 96 Nasal Cannula 2.0 08/07/17 22:00 87 19 103/58 97 Nasal Cannula 2.0 08/07/17 21:00 89 19 112/55 94 Nasal Cannula 2.0 08/07/17 20:00 99.1 90 16 118/52 97 Nasal Cannula 2.0 08/07/17 19:30 Nasal Cannula 2.0 28 08/07/17 19:30 96 Nasal Cannula 2.0 28 08/07/17 19:00 95 19 116/63 95 Nasal Cannula 2.0 08/07/17 18:00 94 17 127/57 95 Nasal Cannula 2.0 08/07/17 17:00 99 18 109/51 92 Nasal Cannula 2.0 08/07/17 16:00 99.4 92 16 114/58 95 Nasal Cannula 2.0 08/07/17 16:00 93 08/07/17 15:00 93 16 108/51 93 Nasal Cannula 2.0 08/07/17 14:00 94 17 117/52 95 Nasal Cannula 2.0 08/07/17 13:00 95 17 108/48 95 Nasal Cannula 2.0 Intake and Output 08/08/17 08/09/17 19:00 07:00 Intake Total 825.00 ml Output Total 550 ml Balance 275.00 ml Intake Oral 150 ml IV Total 575.00 ml Other 100 ml Output Urine Total 550 ml Laboratory Tests 08/07/17 17:00: Prothrombin Time 11.2, Prothromb Time International Ratio 1.1 08/07/17 19:15: Troponin I 0.011 08/08/17 03:00: Troponin I 0.012, Phosphorus Level 1.3L 08/08/17 05:00: Prothrombin Time 12.6H, Prothromb Time International Ratio 1.2H, Phosphorus Level 1.1L, White Blood Count 9.8, Red Blood Count 3.61L, Hemoglobin 10.7L, Hematocrit 30.8L, Mean Corpuscular Volume 85, Mean Corpuscular Hemoglobin 29.7, Mean Corpuscular Hemoglobin Concent 34.9, Red Cell Distribution Width 13.3, Platelet Count 193, Mean Platelet Volume 6.7, Neutrophils (%) (Auto) 79.3H, Lymphocytes (%) (Auto) 10.5L, Monocytes (%) (Auto) 7.9, Eosinophils (%) (Auto) 1.7, Basophils (%) (Auto) 0.5, Sodium Level 141, Potassium Level 3.0L, Chloride Level 110H, Carbon Dioxide Level 24, Anion Gap 7, Blood Urea Nitrogen 4L, Creatinine 0.7, Estimat Glomerular Filtration Rate > 60, Glucose Level 86, Hemoglobin A1c 11.1H, Lactic Acid Level 1.00, Uric Acid 1.3L, Calcium Level 7.4L , Magnesium Level 2.1, Ferritin 131, Total Bilirubin 0.4, Gamma Glutamyl Transpeptidase 13, Aspartate Amino Transf (AST/SGOT) 18, Alanine Aminotransferase (ALT/SGPT) 16, Alkaline Phosphatase 85, C-Reactive Protein, Quantitative 11.3H, Pro-B-Type Natriuretic Peptide 772H, Total Protein 4.7L, Albumin 1.7L, Globulin 3.0, Albumin/Globulin Ratio 0.6L, Triglycerides Level 61 , Cholesterol Level 121, LDL Cholesterol 44, HDL Cholesterol 63H, Cholesterol/ HDL Ratio 1.9L, Vitamin B12 Level 1514H, Folate 3.9L, Thyroid Stimulating Hormone (TSH) 2.905 Height (Feet): 4 Height (Inches): 10.00 Weight (Pounds): 120 General Appearance: no apparent distress Cardiovascular: normal rate Respiratory/Chest: lungs clear Abdomen: soft LAYNE WEIR Aug 08, 2017 12:28
--- NOTE | 2017-08-08 13:36 | Pulmonology Progress Note ---
Assessment/Plan Assessment/Plan resp failure Sepsis, SIRS DKA, severe acidosis Ischemic colitis calf vein clot P: extubated, some sore throat, cough met w dtr at bedside continue Zosyn & IV fluids insulin per endo improving tele Subjective ROS Limited/Unobtainable: No Respiratory: Reports: dry cough, Denies: shortness of breath Gastrointestinal/Abdominal: Reports: other - pain Allergies: Coded Allergies: No Known Allergies (Unverified , 08/01/17) Objective Last 24 Hour Vital Signs Date Time Temp Pulse Resp B/P (MAP) Pulse Ox O2 Delivery O2 Flow Rate FiO2 08/08/17 13:00 80 22 127/65 96 Room Air 08/08/17 12:00 98.5 81 18 109/62 94 Room Air 08/08/17 12:00 80 08/08/17 11:00 85 20 128/87 96 Room Air 08/08/17 10:00 81 22 112/58 95 Room Air 08/08/17 09:00 82 13 118/60 93 Room Air 08/08/17 08:00 84 08/08/17 08:00 98.4 84 23 122/57 94 Room Air 08/08/17 07:00 80 20 120/65 98 Nasal Cannula 2.0 08/08/17 06:00 78 20 116/55 98 Nasal Cannula 2.0 08/08/17 05:00 89 18 109/60 95 Nasal Cannula 2.0 08/08/17 04:00 90 08/08/17 04:00 98.7 84 18 107/62 96 Nasal Cannula 2.0 08/08/17 03:00 86 20 110/59 96 Nasal Cannula 2.0 08/08/17 02:00 80 18 112/60 98 Nasal Cannula 2.0 08/08/17 01:00 83 19 115/63 97 Nasal Cannula 2.0 08/08/17 00:00 98.7 84 18 111/57 97 Nasal Cannula 2.0 08/08/17 00:00 95 08/07/17 23:00 86 20 109/57 96 Nasal Cannula 2.0 08/07/17 22:00 87 19 103/58 97 Nasal Cannula 2.0 08/07/17 21:00 89 19 112/55 94 Nasal Cannula 2.0 08/07/17 20:00 99.1 90 16 118/52 97 Nasal Cannula 2.0 08/07/17 19:30 Nasal Cannula 2.0 28 08/07/17 19:30 96 Nasal Cannula 2.0 28 08/07/17 19:00 95 19 116/63 95 Nasal Cannula 2.0 08/07/17 18:00 94 17 127/57 95 Nasal Cannula 2.0 08/07/17 17:00 99 18 109/51 92 Nasal Cannula 2.0 08/07/17 16:00 99.4 92 16 114/58 95 Nasal Cannula 2.0 08/07/17 16:00 93 08/07/17 15:00 93 16 108/51 93 Nasal Cannula 2.0 08/07/17 14:00 94 17 117/52 95 Nasal Cannula 2.0 Intake and Output 08/08/17 08/09/17 19:00 07:00 Intake Total 936.25 ml Output Total 750 ml Balance 186.25 ml Intake Oral 150 ml IV Total 636.25 ml Other 150 ml Output Urine Total 750 ml General Appearance: no acute distress Respiratory/Chest: lungs clear Cardiovascular: normal rate Abdomen: soft, non tender Microbiology Date/Time Source Procedure Growth Status 08/05/17 20:45 Blood Blood Culture - Preliminary NO GROWTH AFTER 48 HOURS Resulted 08/05/17 20:30 Blood Blood Culture - Preliminary NO GROWTH AFTER 48 HOURS Resulted 08/05/17 23:55 Nasal Nares MRSA Culture - Final Staphylococcus Aureus - Mrsa Complete 08/05/17 23:55 Rectum VRE Culture - Final NO VANCOMYCIN RESISTANT ENTEROCOCCUS ... Complete Laboratory Tests 08/07/17 17:00: Prothrombin Time 11.2, Prothromb Time International Ratio 1.1 08/07/17 19:15: Troponin I 0.011 08/08/17 03:00: Troponin I 0.012, Phosphorus Level 1.3L 08/08/17 05:00: Prothrombin Time 12.6H, Prothromb Time International Ratio 1.2H, Phosphorus Level 1.1L, White Blood Count 9.8, Red Blood Count 3.61L, Hemoglobin 10.7L, Hematocrit 30.8L, Mean Corpuscular Volume 85, Mean Corpuscular Hemoglobin 29.7, Mean Corpuscular Hemoglobin Concent 34.9, Red Cell Distribution Width 13.3, Platelet Count 193, Mean Platelet Volume 6.7, Neutrophils (%) (Auto) 79.3H, Lymphocytes (%) (Auto) 10.5L, Monocytes (%) (Auto) 7.9, Eosinophils (%) (Auto) 1.7, Basophils (%) (Auto) 0.5, Sodium Level 141, Potassium Level 3.0L, Chloride Level 110H, Carbon Dioxide Level 24, Anion Gap 7, Blood Urea Nitrogen 4L, Creatinine 0.7, Estimat Glomerular Filtration Rate > 60, Glucose Level 86, Hemoglobin A1c 11.1H, Lactic Acid Level 1.00, Uric Acid 1.3L, Calcium Level 7.4L , Magnesium Level 2.1, Ferritin 131, Total Bilirubin 0.4, Gamma Glutamyl Transpeptidase 13, Aspartate Amino Transf (AST/SGOT) 18, Alanine Aminotransferase (ALT/SGPT) 16, Alkaline Phosphatase 85, C-Reactive Protein, Quantitative 11.3H, Pro-B-Type Natriuretic Peptide 772H, Total Protein 4.7L, Albumin 1.7L, Globulin 3.0, Albumin/Globulin Ratio 0.6L, Triglycerides Level 61 , Cholesterol Level 121, LDL Cholesterol 44, HDL Cholesterol 63H, Cholesterol/ HDL Ratio 1.9L, Vitamin B12 Level 1514H, Folate 3.9L, Thyroid Stimulating Hormone (TSH) 2.905 Current Medications Medications (Trade) Dose Ordered Sig/Sue Route PRN Reason Start Time Stop Time Status Last Admin Dose Admin Chlorhexidine Gluconate (Zahraa-Hex 2%) 1 applic DAILY TOPIC 08/06/17 23:15 09/05/17 23:14 08/08/17 08:43 Dextrose (Dextrose 50%) PRN IV hypoglycemia 08/07/17 15:45 09/06/17 15:44 Enoxaparin Sodium (Lovenox) 50 mg Q12HR SUBQ 08/07/17 17:30 09/06/17 17:29 08/08/17 09:18 Insulin Aspart (NovoLOG) Q4HR SUBQ 08/07/17 17:00 09/06/17 16:59 08/08/17 12:55 Insulin Detemir (Levemir) 12 units BID SUBQ 08/07/17 14:00 09/06/17 13:59 08/08/17 08:40 Phosphorus (Phospha 250 Neutral) 250 mg THREE TIMES A DAY ORAL 08/08/17 09:00 09/07/17 08:59 08/08/17 12:54 Piperacillin Sod/ Tazobactam Sod 3.375 gm/Sodium Chloride 55 ml @ 13.75 mls/ hr Q8H IVPB 08/06/17 10:00 08/13/17 09:59 08/08/17 09:17 Potassium Phosphate 30 mm/ Sodium Chloride 285 ml @ 47.5 mls/hr ONCE ONCE IV 08/08/17 10:00 08/08/17 15:59 08/08/17 10:19 Potassium Chloride (K-Dur) 20 meq TWICE A DAY ORAL 08/08/17 09:00 08/09/17 08:59 08/08/17 09:17 Ranitidine HCl (Zantac) 150 mg TWICE A DAY ORAL 08/08/17 18:00 09/07/17 17:59 Warfarin Sodium (Coumadin per pharmacy) 1 ea DAILY PRN MISC Per rx protocol 08/07/17 16:30 09/06/17 16:29 Warfarin Sodium (Coumadin) 5 mg COUMADIN ONCE ORAL 08/08/17 17:00 08/08/17 17:01 [employer] WOODRUFF Aug 08, 2017 13:36
--- NOTE | 2017-08-08 13:56 | General Progress Note ---
Assessment/Plan Assessment/Plan ASSESSMENT AND RECOMMENDATION: #. Acute DVT. On lovenox and coumadin. #. Anemia of chronic disease --> w/u from prior admission has been reviewed. Continue to monitor counts #. 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 Patient does not need any further workup at this time. #. Leukocytosis, likely secondary to reactive process. #. Rectal bleeding, no drop in H/H. Continue to monitor #. Ischemic colitis and hemorrhoids. GI following. Subjective Allergies: Coded Allergies: No Known Allergies (Unverified , 08/01/17) All Systems: reviewed and negative except above Subjective NAD Objective Last 24 Hour Vital Signs Date Time Temp Pulse Resp B/P (MAP) Pulse Ox O2 Delivery O2 Flow Rate FiO2 08/08/17 13:00 80 22 127/65 96 Room Air 08/08/17 12:00 98.5 81 18 109/62 94 Room Air 08/08/17 12:00 80 08/08/17 11:00 85 20 128/87 96 Room Air 08/08/17 10:00 81 22 112/58 95 Room Air 08/08/17 09:00 82 13 118/60 93 Room Air 08/08/17 08:00 84 08/08/17 08:00 98.4 84 23 122/57 94 Room Air 08/08/17 07:00 80 20 120/65 98 Nasal Cannula 2.0 08/08/17 06:00 78 20 116/55 98 Nasal Cannula 2.0 08/08/17 05:00 89 18 109/60 95 Nasal Cannula 2.0 08/08/17 04:00 90 08/08/17 04:00 98.7 84 18 107/62 96 Nasal Cannula 2.0 08/08/17 03:00 86 20 110/59 96 Nasal Cannula 2.0 08/08/17 02:00 80 18 112/60 98 Nasal Cannula 2.0 08/08/17 01:00 83 19 115/63 97 Nasal Cannula 2.0 08/08/17 00:00 98.7 84 18 111/57 97 Nasal Cannula 2.0 08/08/17 00:00 95 08/07/17 23:00 86 20 109/57 96 Nasal Cannula 2.0 08/07/17 22:00 87 19 103/58 97 Nasal Cannula 2.0 08/07/17 21:00 89 19 112/55 94 Nasal Cannula 2.0 08/07/17 20:00 99.1 90 16 118/52 97 Nasal Cannula 2.0 08/07/17 19:30 Nasal Cannula 2.0 28 08/07/17 19:30 96 Nasal Cannula 2.0 28 08/07/17 19:00 95 19 116/63 95 Nasal Cannula 2.0 08/07/17 18:00 94 17 127/57 95 Nasal Cannula 2.0 08/07/17 17:00 99 18 109/51 92 Nasal Cannula 2.0 08/07/17 16:00 99.4 92 16 114/58 95 Nasal Cannula 2.0 08/07/17 16:00 93 08/07/17 15:00 93 16 108/51 93 Nasal Cannula 2.0 08/07/17 14:00 94 17 117/52 95 Nasal Cannula 2.0 Intake and Output 08/08/17 08/09/17 19:00 07:00 Intake Total 936.25 ml Output Total 750 ml Balance 186.25 ml Intake Oral 150 ml IV Total 636.25 ml Other 150 ml Output Urine Total 750 ml # Bowel Movements 1 Laboratory Tests 08/07/17 17:00: Prothrombin Time 11.2, Prothromb Time International Ratio 1.1 08/07/17 19:15: Troponin I 0.011 08/08/17 03:00: Troponin I 0.012, Phosphorus Level 1.3L 08/08/17 05:00: Prothrombin Time 12.6H, Prothromb Time International Ratio 1.2H, Phosphorus Level 1.1L, White Blood Count 9.8, Red Blood Count 3.61L, Hemoglobin 10.7L, Hematocrit 30.8L, Mean Corpuscular Volume 85, Mean Corpuscular Hemoglobin 29.7, Mean Corpuscular Hemoglobin Concent 34.9, Red Cell Distribution Width 13.3, Platelet Count 193, Mean Platelet Volume 6.7, Neutrophils (%) (Auto) 79.3H, Lymphocytes (%) (Auto) 10.5L, Monocytes (%) (Auto) 7.9, Eosinophils (%) (Auto) 1.7, Basophils (%) (Auto) 0.5, Sodium Level 141, Potassium Level 3.0L, Chloride Level 110H, Carbon Dioxide Level 24, Anion Gap 7, Blood Urea Nitrogen 4L, Creatinine 0.7, Estimat Glomerular Filtration Rate > 60, Glucose Level 86, Hemoglobin A1c 11.1H, Lactic Acid Level 1.00, Uric Acid 1.3L, Calcium Level 7.4L , Magnesium Level 2.1, Ferritin 131, Total Bilirubin 0.4, Gamma Glutamyl Transpeptidase 13, Aspartate Amino Transf (AST/SGOT) 18, Alanine Aminotransferase (ALT/SGPT) 16, Alkaline Phosphatase 85, C-Reactive Protein, Quantitative 11.3H, Pro-B-Type Natriuretic Peptide 772H, Total Protein 4.7L, Albumin 1.7L, Globulin 3.0, Albumin/Globulin Ratio 0.6L, Triglycerides Level 61 , Cholesterol Level 121, LDL Cholesterol 44, HDL Cholesterol 63H, Cholesterol/ HDL Ratio 1.9L, Vitamin B12 Level 1514H, Folate 3.9L, Thyroid Stimulating Hormone (TSH) 2.905 Height (Feet): 4 Height (Inches): 10.00 Weight (Pounds): 120 General Appearance: mild distress EENT: PERRL/EOMI Neck: non-tender Edema: mild edema 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
--- NOTE | 2017-08-08 14:04 | Infectious Diseases Prog Note ---
Assessment/Plan Assessment/Plan A: Sepsis, SIRS DKA Ischemic colitis Hypoxemic respiratory failure resolved MRSA colonization P: Continue Zosyn , will stop antibiotic soon Subjective ROS Limited/Unobtainable: No Constitutional: Reports: no symptoms Respiratory: Reports: productive cough Cardiovascular: Reports: no symptoms Gastrointestinal/Abdominal: Reports: no symptoms Genitourinary: Reports: no symptoms Neurologic: Reports: no symptoms Allergies: Coded Allergies: No Known Allergies (Unverified , 08/01/17) Objective Vital Signs Last 24 Hour Vital Signs Date Time Temp Pulse Resp B/P (MAP) Pulse Ox O2 Delivery O2 Flow Rate FiO2 08/08/17 13:00 80 22 127/65 96 Room Air 08/08/17 12:00 98.5 81 18 109/62 94 Room Air 08/08/17 12:00 80 08/08/17 11:00 85 20 128/87 96 Room Air 08/08/17 10:00 81 22 112/58 95 Room Air 08/08/17 09:00 82 13 118/60 93 Room Air 08/08/17 08:00 84 08/08/17 08:00 98.4 84 23 122/57 94 Room Air 08/08/17 07:00 80 20 120/65 98 Nasal Cannula 2.0 08/08/17 06:00 78 20 116/55 98 Nasal Cannula 2.0 08/08/17 05:00 89 18 109/60 95 Nasal Cannula 2.0 08/08/17 04:00 90 08/08/17 04:00 98.7 84 18 107/62 96 Nasal Cannula 2.0 08/08/17 03:00 86 20 110/59 96 Nasal Cannula 2.0 08/08/17 02:00 80 18 112/60 98 Nasal Cannula 2.0 08/08/17 01:00 83 19 115/63 97 Nasal Cannula 2.0 08/08/17 00:00 98.7 84 18 111/57 97 Nasal Cannula 2.0 08/08/17 00:00 95 08/07/17 23:00 86 20 109/57 96 Nasal Cannula 2.0 08/07/17 22:00 87 19 103/58 97 Nasal Cannula 2.0 08/07/17 21:00 89 19 112/55 94 Nasal Cannula 2.0 08/07/17 20:00 99.1 90 16 118/52 97 Nasal Cannula 2.0 08/07/17 19:30 Nasal Cannula 2.0 28 08/07/17 19:30 96 Nasal Cannula 2.0 28 08/07/17 19:00 95 19 116/63 95 Nasal Cannula 2.0 08/07/17 18:00 94 17 127/57 95 Nasal Cannula 2.0 08/07/17 17:00 99 18 109/51 92 Nasal Cannula 2.0 08/07/17 16:00 99.4 92 16 114/58 95 Nasal Cannula 2.0 08/07/17 16:00 93 08/07/17 15:00 93 16 108/51 93 Nasal Cannula 2.0 Height (Feet): 4 Height (Inches): 10.00 Weight (Pounds): 120 General Appearance: no acute distress HEENT: mucous membranes moist Respiratory/Chest: lungs clear Cardiovascular: normal rate Abdomen: soft, non tender Extremities: no edema Neurologic/Psychiatric: alert, oriented x 3, responsive Microbiology Date/Time Source Procedure Growth Status 08/05/17 20:45 Blood Blood Culture - Preliminary NO GROWTH AFTER 48 HOURS Resulted 08/05/17 20:30 Blood Blood Culture - Preliminary NO GROWTH AFTER 48 HOURS Resulted 08/05/17 23:55 Nasal Nares MRSA Culture - Final Staphylococcus Aureus - Mrsa Complete 08/05/17 23:55 Rectum VRE Culture - Final NO VANCOMYCIN RESISTANT ENTEROCOCCUS ... Complete Laboratory Tests Test 08/07/17 17:00 08/07/17 19:15 08/08/17 03:00 08/08/17 05:00 Prothrombin Time 11.2 SEC (9.30-11.50) 12.6 SEC (9.30-11.50) H Prothromb Time International Ratio 1.1 (0.9-1.1) 1.2 (0.9-1.1) H Troponin I 0.011 ng/mL (0.000-0.056) 0.012 ng/mL (0.000-0.056) Phosphorus Level 1.3 MG/DL (2.5-4.9) L 1.1 MG/DL (2.5-4.9) L White Blood Count 9.8 K/UL (4.8-10.8) Red Blood Count 3.61 M/UL (4.20-5.40) L Hemoglobin 10.7 G/DL (12.0-16.0) L Hematocrit 30.8 % (37.0-47.0) L Mean Corpuscular Volume 85 FL (80-99) Mean Corpuscular Hemoglobin 29.7 PG (27.0-31.0) Mean Corpuscular Hemoglobin Concent 34.9 G/DL (32.0-36.0) Red Cell Distribution Width 13.3 % (11.6-14.8) Platelet Count 193 K/UL (150-450) Mean Platelet Volume 6.7 FL (6.5-10.1) Neutrophils (%) (Auto) 79.3 % (45.0-75.0) H Lymphocytes (%) (Auto) 10.5 % (20.0-45.0) L Monocytes (%) (Auto) 7.9 % (1.0-10.0) Eosinophils (%) (Auto) 1.7 % (0.0-3.0) Basophils (%) (Auto) 0.5 % (0.0-2.0) Sodium Level 141 MMOL/L (136-145) Potassium Level 3.0 MMOL/L (3.5-5.1) L Chloride Level 110 MMOL/L (98-107) H Carbon Dioxide Level 24 MMOL/L (21-32) Anion Gap 7 mmol/L (5-15) Blood Urea Nitrogen 4 mg/dL (7-18) L Creatinine 0.7 MG/DL (0.55-1.30) Estimat Glomerular Filtration Rate > 60 mL/min (>60) Glucose Level 86 MG/DL (74-106) Hemoglobin A1c 11.1 % (4.3-6.0) H Lactic Acid Level 1.00 mmol/L (0.66-2.22) Uric Acid 1.3 MG/DL (2.6-7.2) L Calcium Level 7.4 MG/DL (8.5-10.1) L Magnesium Level 2.1 MG/DL (1.8-2.4) Ferritin 131 NG/ML (8-388) Total Bilirubin 0.4 MG/DL (0.2-1.0) Gamma Glutamyl Transpeptidase 13 U/L (5-85) Aspartate Amino Transf (AST/SGOT) 18 U/L (15-37) Alanine Aminotransferase (ALT/SGPT) 16 U/L (12-78) Alkaline Phosphatase 85 U/L (46-116) C-Reactive Protein, Quantitative 11.3 mg/dL (0.00-0.90) H Pro-B-Type Natriuretic Peptide 772 pg/mL (0-125) H Total Protein 4.7 G/DL (6.4-8.2) L Albumin 1.7 G/DL (3.4-5.0) L Globulin 3.0 g/dL Albumin/Globulin Ratio 0.6 (1.0-2.7) L Triglycerides Level 61 MG/DL (30-150) Cholesterol Level 121 MG/DL (< 200) LDL Cholesterol 44 mg/dL (<100) HDL Cholesterol 63 MG/DL (40-60) H Cholesterol/HDL Ratio 1.9 (3.3-4.4) L Vitamin B12 Level 1514 PG/ML (193-986) H Folate 3.9 NG/ML (8.6-58.9) L Thyroid Stimulating Hormone (TSH) 2.905 uiU/mL (0.358-3.740) Current Medications Medications (Trade) Dose Ordered Sig/Sue Route PRN Reason Start Time Stop Time Status Last Admin Dose Admin Chlorhexidine Gluconate (Zahraa-Hex 2%) 1 applic DAILY TOPIC 08/06/17 23:15 09/05/17 23:14 08/08/17 08:43 Dextrose (Dextrose 50%) PRN IV hypoglycemia 08/07/17 15:45 09/06/17 15:44 Enoxaparin Sodium (Lovenox) 50 mg Q12HR SUBQ 08/07/17 17:30 09/06/17 17:29 08/08/17 09:18 Insulin Aspart (NovoLOG) Q4HR SUBQ 08/07/17 17:00 09/06/17 16:59 08/08/17 12:55 Insulin Detemir (Levemir) 12 units BID SUBQ 08/07/17 14:00 09/06/17 13:59 08/08/17 08:40 Phosphorus (Phospha 250 Neutral) 250 mg THREE TIMES A DAY ORAL 08/08/17 09:00 09/07/17 08:59 08/08/17 12:54 Piperacillin Sod/ Tazobactam Sod 3.375 gm/Sodium Chloride 55 ml @ 13.75 mls/ hr Q8H IVPB 08/06/17 10:00 08/13/17 09:59 08/08/17 09:17 Potassium Phosphate 30 mm/ Sodium Chloride 285 ml @ 47.5 mls/hr ONCE ONCE IV 08/08/17 10:00 08/08/17 15:59 08/08/17 10:19 Potassium Chloride (K-Dur) 20 meq TWICE A DAY ORAL 08/08/17 09:00 08/09/17 08:59 08/08/17 09:17 Ranitidine HCl (Zantac) 150 mg TWICE A DAY ORAL 08/08/17 18:00 09/07/17 17:59 Warfarin Sodium (Coumadin per pharmacy) 1 ea DAILY PRN MISC Per rx protocol 08/07/17 16:30 09/06/17 16:29 Warfarin Sodium (Coumadin) 5 mg COUMADIN ONCE ORAL 08/08/17 17:00 08/08/17 17:01 MITCHELL HOLM Aug 08, 2017 14:04
--- NOTE | 2017-08-08 14:25 | GI Progress Note ---
Assessment/Plan Problems: (1) DKA (diabetic ketoacidoses) ICD Codes: E13.10 - Other specified diabetes mellitus with ketoacidosis without coma SNOMED: 189361561, 73644029 (2) Colitis ICD Codes: K52.9 - Noninfective gastroenteritis and colitis, unspecified SNOMED: 90717471 (3) Lactic acidosis ICD Codes: E87.2 - Acidosis SNOMED: 18585107 (4) Respiratory failure requiring intubation ICD Codes: J96.90 - Respiratory failure, unspecified, unspecified whether with hypoxia or hypercapnia SNOMED: 816638139 Status: stable, progressing Status Narrative Discussed with Dr. Gomez. Assessment/Plan s/p colonoscopy SUMMARY FINDINGS: 1. Atrophic gastritis. 2. Hiatal hernia. 3. Possible ischemic colitis. 4. Internal hemorrhoids. CT AP reviewed >> no obvious perforation or acute complication from ischemic colitis Lactic Acid >> WNL RECOMMENDATIONS: fu endocrine recs adv diet monitor H&H, prn transfusions DM mgmt bowel regime >> colace + miralax ppi abx The patient will need a repeat full colonoscopy as an outpatient when the ischemic colitis has completely resolved, may be in a month or two. The patient was seen and examined at bedside and all new and available data was reviewed in the patients chart. I agree with the above findings, impression and plan. (Patient seen earlier today. Signature stamp does not reflect patient encounter time.). - Cain Gomez MD Subjective Subjective generalized weakness constipated Objective Last 24 Hour Vital Signs Date Time Temp Pulse Resp B/P (MAP) Pulse Ox O2 Delivery O2 Flow Rate FiO2 08/08/17 14:00 80 23 136/58 96 Room Air 08/08/17 13:00 80 22 127/65 96 Room Air 08/08/17 12:00 98.5 81 18 109/62 94 Room Air 08/08/17 12:00 80 08/08/17 11:00 85 20 128/87 96 Room Air 08/08/17 10:00 81 22 112/58 95 Room Air 08/08/17 09:00 82 13 118/60 93 Room Air 08/08/17 08:00 84 08/08/17 08:00 98.4 84 23 122/57 94 Room Air 08/08/17 07:00 80 20 120/65 98 Nasal Cannula 2.0 08/08/17 06:00 78 20 116/55 98 Nasal Cannula 2.0 08/08/17 05:00 89 18 109/60 95 Nasal Cannula 2.0 08/08/17 04:00 90 08/08/17 04:00 98.7 84 18 107/62 96 Nasal Cannula 2.0 08/08/17 03:00 86 20 110/59 96 Nasal Cannula 2.0 08/08/17 02:00 80 18 112/60 98 Nasal Cannula 2.0 08/08/17 01:00 83 19 115/63 97 Nasal Cannula 2.0 08/08/17 00:00 98.7 84 18 111/57 97 Nasal Cannula 2.0 08/08/17 00:00 95 08/07/17 23:00 86 20 109/57 96 Nasal Cannula 2.0 08/07/17 22:00 87 19 103/58 97 Nasal Cannula 2.0 08/07/17 21:00 89 19 112/55 94 Nasal Cannula 2.0 08/07/17 20:00 99.1 90 16 118/52 97 Nasal Cannula 2.0 08/07/17 19:30 Nasal Cannula 2.0 28 08/07/17 19:30 96 Nasal Cannula 2.0 28 08/07/17 19:00 95 19 116/63 95 Nasal Cannula 2.0 08/07/17 18:00 94 17 127/57 95 Nasal Cannula 2.0 08/07/17 17:00 99 18 109/51 92 Nasal Cannula 2.0 08/07/17 16:00 99.4 92 16 114/58 95 Nasal Cannula 2.0 08/07/17 16:00 93 08/07/17 15:00 93 16 108/51 93 Nasal Cannula 2.0 Intake and Output 08/08/17 08/09/17 19:00 07:00 Intake Total 1145.00 ml Output Total 875 ml Balance 270.00 ml Intake Oral 250 ml IV Total 745.00 ml Other 150 ml Output Urine Total 875 ml # Bowel Movements 1 Laboratory Tests Test 08/07/17 17:00 08/07/17 19:15 08/08/17 03:00 08/08/17 05:00 Prothrombin Time 11.2 SEC (9.30-11.50) 12.6 SEC (9.30-11.50) H Prothromb Time International Ratio 1.1 (0.9-1.1) 1.2 (0.9-1.1) H Troponin I 0.011 ng/mL (0.000-0.056) 0.012 ng/mL (0.000-0.056) Phosphorus Level 1.3 MG/DL (2.5-4.9) L 1.1 MG/DL (2.5-4.9) L White Blood Count 9.8 K/UL (4.8-10.8) Red Blood Count 3.61 M/UL (4.20-5.40) L Hemoglobin 10.7 G/DL (12.0-16.0) L Hematocrit 30.8 % (37.0-47.0) L Mean Corpuscular Volume 85 FL (80-99) Mean Corpuscular Hemoglobin 29.7 PG (27.0-31.0) Mean Corpuscular Hemoglobin Concent 34.9 G/DL (32.0-36.0) Red Cell Distribution Width 13.3 % (11.6-14.8) Platelet Count 193 K/UL (150-450) Mean Platelet Volume 6.7 FL (6.5-10.1) Neutrophils (%) (Auto) 79.3 % (45.0-75.0) H Lymphocytes (%) (Auto) 10.5 % (20.0-45.0) L Monocytes (%) (Auto) 7.9 % (1.0-10.0) Eosinophils (%) (Auto) 1.7 % (0.0-3.0) Basophils (%) (Auto) 0.5 % (0.0-2.0) Sodium Level 141 MMOL/L (136-145) Potassium Level 3.0 MMOL/L (3.5-5.1) L Chloride Level 110 MMOL/L (98-107) H Carbon Dioxide Level 24 MMOL/L (21-32) Anion Gap 7 mmol/L (5-15) Blood Urea Nitrogen 4 mg/dL (7-18) L Creatinine 0.7 MG/DL (0.55-1.30) Estimat Glomerular Filtration Rate > 60 mL/min (>60) Glucose Level 86 MG/DL (74-106) Hemoglobin A1c 11.1 % (4.3-6.0) H Lactic Acid Level 1.00 mmol/L (0.66-2.22) Uric Acid 1.3 MG/DL (2.6-7.2) L Calcium Level 7.4 MG/DL (8.5-10.1) L Magnesium Level 2.1 MG/DL (1.8-2.4) Ferritin 131 NG/ML (8-388) Total Bilirubin 0.4 MG/DL (0.2-1.0) Gamma Glutamyl Transpeptidase 13 U/L (5-85) Aspartate Amino Transf (AST/SGOT) 18 U/L (15-37) Alanine Aminotransferase (ALT/SGPT) 16 U/L (12-78) Alkaline Phosphatase 85 U/L (46-116) C-Reactive Protein, Quantitative 11.3 mg/dL (0.00-0.90) H Pro-B-Type Natriuretic Peptide 772 pg/mL (0-125) H Total Protein 4.7 G/DL (6.4-8.2) L Albumin 1.7 G/DL (3.4-5.0) L Globulin 3.0 g/dL Albumin/Globulin Ratio 0.6 (1.0-2.7) L Triglycerides Level 61 MG/DL (30-150) Cholesterol Level 121 MG/DL (< 200) LDL Cholesterol 44 mg/dL (<100) HDL Cholesterol 63 MG/DL (40-60) H Cholesterol/HDL Ratio 1.9 (3.3-4.4) L Vitamin B12 Level 1514 PG/ML (193-986) H Folate 3.9 NG/ML (8.6-58.9) L Thyroid Stimulating Hormone (TSH) 2.905 uiU/mL (0.358-3.740) Height (Feet): 4 Height (Inches): 10.00 Weight (Pounds): 120 General Appearance: WD/WN, no apparent distress, alert Cardiovascular: normal rate Respiratory/Chest: normal breath sounds, no respiratory distress Abdominal Exam: normal bowel sounds, non tender, soft Extremities: normal range of motion, non-tender Adele Olsen N.PPaola Aug 08, 2017 14:25 THEO GOMEZ Aug 09, 2017 09:03
--- NOTE | 2017-08-08 16:16 | Cardiac Electrophysiology PN ---
Assessment/Plan Assessment/Plan 1. Severe bradycardia with heart rate in the 30s last week that has resolved. 2. Status post respiratory failure. Extubated yesterday. It was due to patient' s diabetic ketoacidosis. 3. Diabetic ketoacidosis with a blood glucose of 538. The patient is feeling much better. IV fluids. 4. Ischemic colitis. 5. History of cerebrovascular accident. 6. History of seizure disorder. Transfer out of ICU Subjective Subjective Comfortable in NAD. Still in ICU.Off pressor and off Vent Objective Last 24 Hour Vital Signs Date Time Temp Pulse Resp B/P (MAP) Pulse Ox O2 Delivery O2 Flow Rate FiO2 08/08/17 15:00 85 21 117/40 94 Room Air 08/08/17 14:00 80 23 136/58 96 Room Air 08/08/17 13:00 80 22 127/65 96 Room Air 08/08/17 12:00 98.5 81 18 109/62 94 Room Air 08/08/17 12:00 80 08/08/17 11:00 85 20 128/87 96 Room Air 08/08/17 10:00 81 22 112/58 95 Room Air 08/08/17 09:00 82 13 118/60 93 Room Air 08/08/17 08:00 84 08/08/17 08:00 98.4 84 23 122/57 94 Room Air 08/08/17 07:00 80 20 120/65 98 Nasal Cannula 2.0 08/08/17 06:00 78 20 116/55 98 Nasal Cannula 2.0 08/08/17 05:00 89 18 109/60 95 Nasal Cannula 2.0 08/08/17 04:00 90 08/08/17 04:00 98.7 84 18 107/62 96 Nasal Cannula 2.0 08/08/17 03:00 86 20 110/59 96 Nasal Cannula 2.0 08/08/17 02:00 80 18 112/60 98 Nasal Cannula 2.0 08/08/17 01:00 83 19 115/63 97 Nasal Cannula 2.0 08/08/17 00:00 98.7 84 18 111/57 97 Nasal Cannula 2.0 08/08/17 00:00 95 08/07/17 23:00 86 20 109/57 96 Nasal Cannula 2.0 08/07/17 22:00 87 19 103/58 97 Nasal Cannula 2.0 08/07/17 21:00 89 19 112/55 94 Nasal Cannula 2.0 08/07/17 20:00 99.1 90 16 118/52 97 Nasal Cannula 2.0 08/07/17 19:30 Nasal Cannula 2.0 28 08/07/17 19:30 96 Nasal Cannula 2.0 28 08/07/17 19:00 95 19 116/63 95 Nasal Cannula 2.0 08/07/17 18:00 94 17 127/57 95 Nasal Cannula 2.0 08/07/17 17:00 99 18 109/51 92 Nasal Cannula 2.0 Intake and Output 08/08/17 08/09/17 19:00 07:00 Intake Total 1145.00 ml Output Total 975 ml Balance 170.00 ml Intake Oral 250 ml IV Total 745.00 ml Other 150 ml Output Urine Total 975 ml # Bowel Movements 1 Laboratory Tests Test 08/07/17 17:00 08/07/17 19:15 08/08/17 03:00 08/08/17 05:00 Prothrombin Time 11.2 SEC (9.30-11.50) 12.6 SEC (9.30-11.50) H Prothromb Time International Ratio 1.1 (0.9-1.1) 1.2 (0.9-1.1) H Troponin I 0.011 ng/mL (0.000-0.056) 0.012 ng/mL (0.000-0.056) Phosphorus Level 1.3 MG/DL (2.5-4.9) L 1.1 MG/DL (2.5-4.9) L White Blood Count 9.8 K/UL (4.8-10.8) Red Blood Count 3.61 M/UL (4.20-5.40) L Hemoglobin 10.7 G/DL (12.0-16.0) L Hematocrit 30.8 % (37.0-47.0) L Mean Corpuscular Volume 85 FL (80-99) Mean Corpuscular Hemoglobin 29.7 PG (27.0-31.0) Mean Corpuscular Hemoglobin Concent 34.9 G/DL (32.0-36.0) Red Cell Distribution Width 13.3 % (11.6-14.8) Platelet Count 193 K/UL (150-450) Mean Platelet Volume 6.7 FL (6.5-10.1) Neutrophils (%) (Auto) 79.3 % (45.0-75.0) H Lymphocytes (%) (Auto) 10.5 % (20.0-45.0) L Monocytes (%) (Auto) 7.9 % (1.0-10.0) Eosinophils (%) (Auto) 1.7 % (0.0-3.0) Basophils (%) (Auto) 0.5 % (0.0-2.0) Sodium Level 141 MMOL/L (136-145) Potassium Level 3.0 MMOL/L (3.5-5.1) L Chloride Level 110 MMOL/L (98-107) H Carbon Dioxide Level 24 MMOL/L (21-32) Anion Gap 7 mmol/L (5-15) Blood Urea Nitrogen 4 mg/dL (7-18) L Creatinine 0.7 MG/DL (0.55-1.30) Estimat Glomerular Filtration Rate > 60 mL/min (>60) Glucose Level 86 MG/DL (74-106) Hemoglobin A1c 11.1 % (4.3-6.0) H Lactic Acid Level 1.00 mmol/L (0.66-2.22) Uric Acid 1.3 MG/DL (2.6-7.2) L Calcium Level 7.4 MG/DL (8.5-10.1) L Magnesium Level 2.1 MG/DL (1.8-2.4) Ferritin 131 NG/ML (8-388) Total Bilirubin 0.4 MG/DL (0.2-1.0) Gamma Glutamyl Transpeptidase 13 U/L (5-85) Aspartate Amino Transf (AST/SGOT) 18 U/L (15-37) Alanine Aminotransferase (ALT/SGPT) 16 U/L (12-78) Alkaline Phosphatase 85 U/L (46-116) C-Reactive Protein, Quantitative 11.3 mg/dL (0.00-0.90) H Pro-B-Type Natriuretic Peptide 772 pg/mL (0-125) H Total Protein 4.7 G/DL (6.4-8.2) L Albumin 1.7 G/DL (3.4-5.0) L Globulin 3.0 g/dL Albumin/Globulin Ratio 0.6 (1.0-2.7) L Triglycerides Level 61 MG/DL (30-150) Cholesterol Level 121 MG/DL (< 200) LDL Cholesterol 44 mg/dL (<100) HDL Cholesterol 63 MG/DL (40-60) H Cholesterol/HDL Ratio 1.9 (3.3-4.4) L Vitamin B12 Level 1514 PG/ML (193-986) H Folate 3.9 NG/ML (8.6-58.9) L Thyroid Stimulating Hormone (TSH) 2.905 uiU/mL (0.358-3.740) Microbiology Date/Time Source Procedure Growth Status 08/05/17 20:45 Blood Blood Culture - Preliminary NO GROWTH AFTER 48 HOURS Resulted 08/05/17 20:30 Blood Blood Culture - Preliminary NO GROWTH AFTER 48 HOURS Resulted 08/05/17 23:55 Nasal Nares MRSA Culture - Final Staphylococcus Aureus - Mrsa Complete 08/05/17 23:55 Rectum VRE Culture - Final NO VANCOMYCIN RESISTANT ENTEROCOCCUS ... Complete Objective HEAD AND NECK: No JVD. LUNGS: Coarse rhonchi. CARDIOVASCULAR: Regular S1 and S2 with no gallop. ABDOMEN: Soft. EXTREMITIES: No pitting edema. FEDE KWOK Aug 08, 2017 16:16
[2017-08-08] MEDS ORDERED: NS 500ML ONE (16:35)
[2017-08-08] MEDS ORDERED: Warfarin Sodium 5mg ORAL ONE (17:00)
[2017-08-08] MEDS ORDERED: Docusate 100mg cap ORAL SCH (18:00)
--- NOTE | 2017-08-08 20:42 | General Progress Note ---
Assessment/Plan Problem List: (1) DKA (diabetic ketoacidoses) ICD Codes: E13.10 - Other specified diabetes mellitus with ketoacidosis without coma SNOMED: 983834460, 31458815 (2) Sepsis ICD Codes: A41.9 - Sepsis, unspecified organism SNOMED: 54173092, 92423462 (3) Lactic acidosis ICD Codes: E87.2 - Acidosis SNOMED: 42553570 (4) Rectal bleed ICD Codes: K62.5 - Hemorrhage of anus and rectum SNOMED: 59916533 Status: progressing Assessment/Plan has acute dvt anti coagulation per heme/onc dka is resolved s/p gi bleed elevated bg s reviewed chart and labs Subjective ROS Limited/Unobtainable: Yes Allergies: Coded Allergies: No Known Allergies (Unverified , 08/01/17) Objective Last 24 Hour Vital Signs Date Time Temp Pulse Resp B/P (MAP) Pulse Ox O2 Delivery O2 Flow Rate FiO2 08/08/17 19:40 97 Nasal Cannula 2.0 28 08/08/17 19:40 Nasal Cannula 2.0 28 08/08/17 18:00 98.4 80 21 130/84 95 Room Air 08/08/17 18:00 97.5 83 19 130/83 Room Air 08/08/17 17:00 83 21 128/84 95 Room Air 08/08/17 16:00 97.4 83 19 130/83 Room Air 08/08/17 16:00 98.7 84 24 125/59 94 Room Air 08/08/17 16:00 89 08/08/17 15:00 85 21 117/40 94 Room Air 08/08/17 14:00 80 23 136/58 96 Room Air 08/08/17 13:00 80 22 127/65 96 Room Air 08/08/17 12:00 98.5 81 18 109/62 94 Room Air 08/08/17 12:00 80 08/08/17 11:00 85 20 128/87 96 Room Air 08/08/17 10:00 81 22 112/58 95 Room Air 08/08/17 09:00 82 13 118/60 93 Room Air 08/08/17 08:00 84 08/08/17 08:00 98.4 84 23 122/57 94 Room Air 08/08/17 07:00 80 20 120/65 98 Nasal Cannula 2.0 08/08/17 06:00 78 20 116/55 98 Nasal Cannula 2.0 08/08/17 05:00 89 18 109/60 95 Nasal Cannula 2.0 08/08/17 04:00 90 08/08/17 04:00 98.7 84 18 107/62 96 Nasal Cannula 2.0 08/08/17 03:00 86 20 110/59 96 Nasal Cannula 2.0 08/08/17 02:00 80 18 112/60 98 Nasal Cannula 2.0 08/08/17 01:00 83 19 115/63 97 Nasal Cannula 2.0 08/08/17 00:00 98.7 84 18 111/57 97 Nasal Cannula 2.0 08/08/17 00:00 95 08/07/17 23:00 86 20 109/57 96 Nasal Cannula 2.0 08/07/17 22:00 87 19 103/58 97 Nasal Cannula 2.0 08/07/17 21:00 89 19 112/55 94 Nasal Cannula 2.0 Intake and Output 08/08/17 08/09/17 19:00 07:00 Intake Total 1145.00 ml Output Total 1200 ml Balance -55.00 ml Intake Oral 250 ml IV Total 745.00 ml Other 150 ml Output Urine Total 1200 ml # Bowel Movements 5 Laboratory Tests 08/08/17 03:00: Phosphorus Level 1.3L, Troponin I 0.012 08/08/17 05:00: Phosphorus Level 1.1L, White Blood Count 9.8, Red Blood Count 3.61L, Hemoglobin 10.7L, Hematocrit 30.8L, Mean Corpuscular Volume 85, Mean Corpuscular Hemoglobin 29.7, Mean Corpuscular Hemoglobin Concent 34.9, Red Cell Distribution Width 13.3, Platelet Count 193, Mean Platelet Volume 6.7, Neutrophils (%) (Auto) 79.3H, Lymphocytes (%) (Auto) 10.5L, Monocytes (%) (Auto ) 7.9, Eosinophils (%) (Auto) 1.7, Basophils (%) (Auto) 0.5, Prothrombin Time 12.6H, Prothromb Time International Ratio 1.2H, Sodium Level 141, Potassium Level 3.0L, Chloride Level 110H, Carbon Dioxide Level 24, Anion Gap 7, Blood Urea Nitrogen 4L, Creatinine 0.7, Estimat Glomerular Filtration Rate > 60, Glucose Level 86, Hemoglobin A1c 11.1H, Lactic Acid Level 1.00, Uric Acid 1.3L, Calcium Level 7.4L, Magnesium Level 2.1, Ferritin 131, Total Bilirubin 0.4, Gamma Glutamyl Transpeptidase 13, Aspartate Amino Transf (AST/SGOT) 18, Alanine Aminotransferase (ALT/SGPT) 16, Alkaline Phosphatase 85, C-Reactive Protein, Quantitative 11.3H, Pro-B-Type Natriuretic Peptide 772H, Total Protein 4.7L, Albumin 1.7L, Globulin 3.0, Albumin/Globulin Ratio 0.6L, Triglycerides Level 61 , Cholesterol Level 121, LDL Cholesterol 44, HDL Cholesterol 63H, Cholesterol/ HDL Ratio 1.9L, Vitamin B12 Level 1514H, Folate 3.9L, Thyroid Stimulating Hormone (TSH) 2.905 Height (Feet): 4 Height (Inches): 10.00 Weight (Pounds): 120 Gerhard Baltazar MD Aug 08, 2017 20:42
[2017-08-08] MEDS: Miralax 17gm pkt ORAL SCH (21:00)
[2017-08-08] MEDS ORDERED: Miralax 17gm pkt ORAL SCH (21:00)
[2017-08-09] VITALS: BP 116/61
[2017-08-09] MEDS: NovoLOG Insulin Flexpen SUBQ SCH ×7 (01:00→20:12)
[2017-08-09] MEDS: Piperacillin/Tazobactam 3.375 GM in NS 55 ML IVPB SCH ×2 (02:00→10:08)
[2017-08-09 04:00] VITALS: BP 127/65
[2017-08-09 08:00] VITALS: BP 132/73
[2017-08-09 08:13] LABS: BASOPHILS % (AUTO) 0.5 % (0.0-2.0); EOSINOPHILS % (AUTO) 1.4 % (0.0-3.0); LYMPHOCYTES % (AUTO) 13.8 % (20.0-45.0); MEAN CORPUSCULAR HEMOGLOBIN 27.4 PG (27.0-31.0); MEAN CORPUSCULAR HGB CONC 31.8 G/DL (32.0-36.0); MEAN CORPUSCULAR VOLUME 86 FL (80-99); MEAN PLATELET VOLUME 6.3 FL (6.5-10.1); MONOCYTES % (AUTO) 12.3 % (1.0-10.0); PLATELET COUNT 195 K/UL (150-450); RED BLOOD COUNT 3.59 M/UL (4.20-5.40); RED CELL DISTRIBUTION WIDTH 13.2 % (11.6-14.8); WHITE BLOOD COUNT 7.8 K/UL (4.8-10.8)
[2017-08-09 08:40] LABS: INR 1.8 (0.9-1.1)
[2017-08-09] MEDS ORDERED: Phospha 250 Neutral tab ORAL SCH (09:00)
[2017-08-09] MEDS ORDERED: Levemir Flexpen SUBQ SCH (09:00)
[2017-08-09] MEDS: Docusate 100mg cap ORAL SCH ×3 (09:00→17:35)
[2017-08-09 09:27] LABS: ALANINE AMINOTRANSFERASE 20 U/L (12-78); ALBUMIN/GLOBULIN RATIO 0.5 (1.0-2.7); ANION GAP 4 mmol/L (5-15); ASPARTATE AMINO TRANSFERASE 23 U/L (15-37); CALCIUM 7.4 MG/DL (8.5-10.1); CARBON DIOXIDE 28 MMOL/L (21-32); CHLORIDE 109 MMOL/L (98-107); CREATININE 0.5 MG/DL (0.55-1.30); CRP QUANT 7.1 mg/dL (0.00-0.90); GLOMERULAR FILTRATION RATE > 60 mL/min (>60); PHOSPHORUS 2.2 MG/DL (2.5-4.9); POTASSIUM 3.5 MMOL/L (3.5-5.1); SODIUM 141 MMOL/L (136-145); TOTAL PROTEIN 4.8 G/DL (6.4-8.2); URIC ACID 1.3 MG/DL (2.6-7.2)
[2017-08-09] MEDS: Enoxaparin Sodium 300mg/3ml vial SUBQ SCH ×2 (10:15→21:38)
--- NOTE | 2017-08-09 10:22 | GI Progress Note ---
Assessment/Plan Problems: (1) DKA (diabetic ketoacidoses) ICD Codes: E13.10 - Other specified diabetes mellitus with ketoacidosis without coma SNOMED: 219253352, 23836370 (2) Colitis ICD Codes: K52.9 - Noninfective gastroenteritis and colitis, unspecified SNOMED: 91246077 (3) Lactic acidosis ICD Codes: E87.2 - Acidosis SNOMED: 85735589 (4) Respiratory failure requiring intubation ICD Codes: J96.90 - Respiratory failure, unspecified, unspecified whether with hypoxia or hypercapnia SNOMED: 124210285 Status: stable Status Narrative Discussed with Dr. Gomez. Assessment/Plan s/p colonoscopy SUMMARY FINDINGS: 1. Atrophic gastritis. 2. Hiatal hernia. 3. Possible ischemic colitis. 4. Internal hemorrhoids. CT AP reviewed >> no obvious perforation or acute complication from ischemic colitis Lactic Acid >> WNL RECOMMENDATIONS: okay for DC per GI standpoint fu endocrine adv diet monitor H&H, prn transfusions DM mgmt titrate bowel regime ppi abx The patient will need a repeat full colonoscopy as an outpatient when the ischemic colitis has completely resolved, 2 months from dc date. Subjective Subjective generalized weakness diarrhea Objective Last 24 Hour Vital Signs Date Time Temp Pulse Resp B/P (MAP) Pulse Ox O2 Delivery O2 Flow Rate FiO2 08/09/17 08:00 99.0 18 19 132/73 Nasal Cannula 2.0 08/09/17 04:00 98.2 81 20 127/65 98 Nasal Cannula 08/09/17 04:00 Nasal Cannula 2.0 08/09/17 04:00 78 08/09/17 00:00 98.6 99 22 116/61 88 Room Air 08/09/17 00:00 Nasal Cannula 2.0 08/09/17 00:00 94 08/08/17 20:00 84 08/08/17 20:00 99.0 85 22 108/56 95 Room Air 08/08/17 19:40 97 Nasal Cannula 2.0 28 08/08/17 19:40 Nasal Cannula 2.0 28 08/08/17 18:00 98.4 80 21 130/84 95 Room Air 08/08/17 18:00 97.5 83 19 130/83 Room Air 08/08/17 17:00 83 21 128/84 95 Room Air 08/08/17 16:00 97.4 83 19 130/83 Room Air 08/08/17 16:00 98.7 84 24 125/59 94 Room Air 08/08/17 16:00 89 08/08/17 15:00 85 21 117/40 94 Room Air 08/08/17 14:00 80 23 136/58 96 Room Air 08/08/17 13:00 80 22 127/65 96 Room Air 08/08/17 12:00 98.5 81 18 109/62 94 Room Air 08/08/17 12:00 80 08/08/17 11:00 85 20 128/87 96 Room Air Laboratory Tests Test 08/09/17 07:20 White Blood Count 7.8 K/UL (4.8-10.8) Red Blood Count 3.59 M/UL (4.20-5.40) L Hemoglobin 9.8 G/DL (12.0-16.0) L Hematocrit 30.9 % (37.0-47.0) L Mean Corpuscular Volume 86 FL (80-99) Mean Corpuscular Hemoglobin 27.4 PG (27.0-31.0) Mean Corpuscular Hemoglobin Concent 31.8 G/DL (32.0-36.0) L Red Cell Distribution Width 13.2 % (11.6-14.8) Platelet Count 195 K/UL (150-450) Mean Platelet Volume 6.3 FL (6.5-10.1) L Neutrophils (%) (Auto) 72.0 % (45.0-75.0) Lymphocytes (%) (Auto) 13.8 % (20.0-45.0) L Monocytes (%) (Auto) 12.3 % (1.0-10.0) H Eosinophils (%) (Auto) 1.4 % (0.0-3.0) Basophils (%) (Auto) 0.5 % (0.0-2.0) Prothrombin Time 19.0 SEC (9.30-11.50) H Prothromb Time International Ratio 1.8 (0.9-1.1) H Sodium Level 141 MMOL/L (136-145) Potassium Level 3.5 MMOL/L (3.5-5.1) Chloride Level 109 MMOL/L (98-107) H Carbon Dioxide Level 28 MMOL/L (21-32) Anion Gap 4 mmol/L (5-15) L Blood Urea Nitrogen 3 mg/dL (7-18) L Creatinine 0.5 MG/DL (0.55-1.30) L Estimat Glomerular Filtration Rate > 60 mL/min (>60) Glucose Level 136 MG/DL (74-106) H Uric Acid 1.3 MG/DL (2.6-7.2) L Calcium Level 7.4 MG/DL (8.5-10.1) L Phosphorus Level 2.2 MG/DL (2.5-4.9) L Magnesium Level 2.0 MG/DL (1.8-2.4) Total Bilirubin 0.2 MG/DL (0.2-1.0) Aspartate Amino Transf (AST/SGOT) 23 U/L (15-37) Alanine Aminotransferase (ALT/SGPT) 20 U/L (12-78) Alkaline Phosphatase 91 U/L (46-116) C-Reactive Protein, Quantitative 7.1 mg/dL (0.00-0.90) H Pro-B-Type Natriuretic Peptide 774 pg/mL (0-125) H Total Protein 4.8 G/DL (6.4-8.2) L Albumin 1.6 G/DL (3.4-5.0) L Globulin 3.2 g/dL Albumin/Globulin Ratio 0.5 (1.0-2.7) L Height (Feet): 4 Height (Inches): 10.00 Weight (Pounds): 120 General Appearance: WD/WN, no apparent distress, alert, thin Cardiovascular: normal rate Respiratory/Chest: normal breath sounds, no respiratory distress Abdominal Exam: normal bowel sounds, non tender, soft Extremities: normal range of motion, non-tender Adele Olsen N.Williams Aug 09, 2017 10:22
--- NOTE | 2017-08-09 10:40 | Infectious Diseases Prog Note ---
Assessment/Plan Assessment/Plan A: Sepsis, SIRS DKA Ischemic colitis Hypoxemic respiratory failure resolved MRSA colonization P: Change Zosyn to Levaquin & Flagyl Subjective ROS Limited/Unobtainable: No Constitutional: Reports: no symptoms Respiratory: Reports: productive cough Cardiovascular: Reports: no symptoms Gastrointestinal/Abdominal: Reports: diarrhea, other - after taking laxative Musculoskeletal: Reports: no symptoms Allergies: Coded Allergies: No Known Allergies (Unverified , 08/01/17) Objective Vital Signs Last 24 Hour Vital Signs Date Time Temp Pulse Resp B/P (MAP) Pulse Ox O2 Delivery O2 Flow Rate FiO2 08/09/17 08:00 99.0 18 19 132/73 Nasal Cannula 2.0 08/09/17 04:00 98.2 81 20 127/65 98 Nasal Cannula 08/09/17 04:00 Nasal Cannula 2.0 08/09/17 04:00 78 08/09/17 00:00 98.6 99 22 116/61 88 Room Air 08/09/17 00:00 Nasal Cannula 2.0 08/09/17 00:00 94 08/08/17 20:00 84 08/08/17 20:00 99.0 85 22 108/56 95 Room Air 08/08/17 19:40 97 Nasal Cannula 2.0 28 08/08/17 19:40 Nasal Cannula 2.0 28 08/08/17 18:00 98.4 80 21 130/84 95 Room Air 08/08/17 18:00 97.5 83 19 130/83 Room Air 08/08/17 17:00 83 21 128/84 95 Room Air 08/08/17 16:00 97.4 83 19 130/83 Room Air 08/08/17 16:00 98.7 84 24 125/59 94 Room Air 08/08/17 16:00 89 08/08/17 15:00 85 21 117/40 94 Room Air 08/08/17 14:00 80 23 136/58 96 Room Air 08/08/17 13:00 80 22 127/65 96 Room Air 08/08/17 12:00 98.5 81 18 109/62 94 Room Air 08/08/17 12:00 80 08/08/17 11:00 85 20 128/87 96 Room Air Height (Feet): 4 Height (Inches): 10.00 Weight (Pounds): 120 General Appearance: no acute distress HEENT: mucous membranes moist Respiratory/Chest: lungs clear Cardiovascular: normal rate Abdomen: soft, non tender Extremities: no edema Neurologic/Psychiatric: alert, responsive Laboratory Tests Test 08/09/17 07:20 White Blood Count 7.8 K/UL (4.8-10.8) Red Blood Count 3.59 M/UL (4.20-5.40) L Hemoglobin 9.8 G/DL (12.0-16.0) L Hematocrit 30.9 % (37.0-47.0) L Mean Corpuscular Volume 86 FL (80-99) Mean Corpuscular Hemoglobin 27.4 PG (27.0-31.0) Mean Corpuscular Hemoglobin Concent 31.8 G/DL (32.0-36.0) L Red Cell Distribution Width 13.2 % (11.6-14.8) Platelet Count 195 K/UL (150-450) Mean Platelet Volume 6.3 FL (6.5-10.1) L Neutrophils (%) (Auto) 72.0 % (45.0-75.0) Lymphocytes (%) (Auto) 13.8 % (20.0-45.0) L Monocytes (%) (Auto) 12.3 % (1.0-10.0) H Eosinophils (%) (Auto) 1.4 % (0.0-3.0) Basophils (%) (Auto) 0.5 % (0.0-2.0) Prothrombin Time 19.0 SEC (9.30-11.50) H Prothromb Time International Ratio 1.8 (0.9-1.1) H Sodium Level 141 MMOL/L (136-145) Potassium Level 3.5 MMOL/L (3.5-5.1) Chloride Level 109 MMOL/L (98-107) H Carbon Dioxide Level 28 MMOL/L (21-32) Anion Gap 4 mmol/L (5-15) L Blood Urea Nitrogen 3 mg/dL (7-18) L Creatinine 0.5 MG/DL (0.55-1.30) L Estimat Glomerular Filtration Rate > 60 mL/min (>60) Glucose Level 136 MG/DL (74-106) H Uric Acid 1.3 MG/DL (2.6-7.2) L Calcium Level 7.4 MG/DL (8.5-10.1) L Phosphorus Level 2.2 MG/DL (2.5-4.9) L Magnesium Level 2.0 MG/DL (1.8-2.4) Total Bilirubin 0.2 MG/DL (0.2-1.0) Aspartate Amino Transf (AST/SGOT) 23 U/L (15-37) Alanine Aminotransferase (ALT/SGPT) 20 U/L (12-78) Alkaline Phosphatase 91 U/L (46-116) C-Reactive Protein, Quantitative 7.1 mg/dL (0.00-0.90) H Pro-B-Type Natriuretic Peptide 774 pg/mL (0-125) H Total Protein 4.8 G/DL (6.4-8.2) L Albumin 1.6 G/DL (3.4-5.0) L Globulin 3.2 g/dL Albumin/Globulin Ratio 0.5 (1.0-2.7) L Current Medications Medications (Trade) Dose Ordered Sig/Sue Route PRN Reason Start Time Stop Time Status Last Admin Dose Admin Dextrose (Dextrose 50%) PRN IV hypoglycemia 08/08/17 18:00 09/06/17 15:44 Docusate Sodium (Colace) 100 mg THREE TIMES A DAY ORAL 08/09/17 09:00 09/08/17 08:59 Enoxaparin Sodium (Lovenox) 50 mg Q12HR SUBQ 08/08/17 21:00 09/06/17 17:29 08/09/17 10:15 Insulin Aspart (NovoLOG) Q4HR SUBQ 08/08/17 21:00 09/06/17 16:59 08/09/17 10:16 Phosphorus (Phospha 250 Neutral) 250 mg THREE TIMES A DAY ORAL 08/09/17 09:00 09/08/17 08:59 08/09/17 09:29 Piperacillin Sod/ Tazobactam Sod 3.375 gm/Sodium Chloride 55 ml @ 13.75 mls/ hr Q8HR@0200,1000,1800 IVPB 08/09/17 02:00 08/16/17 01:59 08/09/17 10:08 Polyethylene Glycol (Miralax) 17 gm BEDTIME ORAL 08/08/17 21:00 09/07/17 20:59 Potassium Chloride (K-Dur) 20 meq TWICE A DAY ORAL 08/09/17 09:00 09/08/17 08:59 08/09/17 09:30 Ranitidine HCl (Zantac) 150 mg TWICE A DAY ORAL 08/09/17 09:00 09/08/17 08:59 08/09/17 09:29 Warfarin Sodium (Coumadin per pharmacy) 1 ea DAILY PRN MISC Per rx protocol 08/09/17 09:00 09/06/17 16:29 Warfarin Sodium (Coumadin) 3 mg COUMADIN ONCE ORAL 08/09/17 17:00 08/09/17 17:01 MITCHELL HOLM Aug 09, 2017 10:40
--- NOTE | 2017-08-09 11:24 | Cardiac Electrophysiology PN ---
Assessment/Plan Assessment/Plan 1. Severe bradycardia with heart rate in the 30s last week that has resolved.No recurrence.Could have been vagal at the time. 2. Status post respiratory failure. Extubated. It was due to patient's diabetic ketoacidosis. 3. Diabetic ketoacidosis with a blood glucose of 538. The patient is feeling much better. IV fluids. 4. Ischemic colitis. 5. History of cerebrovascular accident. 6. History of seizure disorder. CAMRON RN Subjective Subjective Comfortable in NAD.Transferred to tele. No arrhythmias on tele. Objective Last 24 Hour Vital Signs Date Time Temp Pulse Resp B/P (MAP) Pulse Ox O2 Delivery O2 Flow Rate FiO2 08/09/17 08:00 84 08/09/17 08:00 99.0 18 19 132/73 Nasal Cannula 2.0 08/09/17 04:00 98.2 81 20 127/65 98 Nasal Cannula 08/09/17 04:00 Nasal Cannula 2.0 08/09/17 04:00 78 08/09/17 00:00 98.6 99 22 116/61 88 Room Air 08/09/17 00:00 Nasal Cannula 2.0 08/09/17 00:00 94 08/08/17 20:00 84 08/08/17 20:00 99.0 85 22 108/56 95 Room Air 08/08/17 19:40 97 Nasal Cannula 2.0 28 08/08/17 19:40 Nasal Cannula 2.0 28 08/08/17 18:00 98.4 80 21 130/84 95 Room Air 08/08/17 18:00 97.5 83 19 130/83 Room Air 08/08/17 17:00 83 21 128/84 95 Room Air 08/08/17 16:00 97.4 83 19 130/83 Room Air 08/08/17 16:00 98.7 84 24 125/59 94 Room Air 08/08/17 16:00 89 08/08/17 15:00 85 21 117/40 94 Room Air 08/08/17 14:00 80 23 136/58 96 Room Air 08/08/17 13:00 80 22 127/65 96 Room Air 08/08/17 12:00 98.5 81 18 109/62 94 Room Air 08/08/17 12:00 80 Laboratory Tests Test 08/09/17 07:20 White Blood Count 7.8 K/UL (4.8-10.8) Red Blood Count 3.59 M/UL (4.20-5.40) L Hemoglobin 9.8 G/DL (12.0-16.0) L Hematocrit 30.9 % (37.0-47.0) L Mean Corpuscular Volume 86 FL (80-99) Mean Corpuscular Hemoglobin 27.4 PG (27.0-31.0) Mean Corpuscular Hemoglobin Concent 31.8 G/DL (32.0-36.0) L Red Cell Distribution Width 13.2 % (11.6-14.8) Platelet Count 195 K/UL (150-450) Mean Platelet Volume 6.3 FL (6.5-10.1) L Neutrophils (%) (Auto) 72.0 % (45.0-75.0) Lymphocytes (%) (Auto) 13.8 % (20.0-45.0) L Monocytes (%) (Auto) 12.3 % (1.0-10.0) H Eosinophils (%) (Auto) 1.4 % (0.0-3.0) Basophils (%) (Auto) 0.5 % (0.0-2.0) Prothrombin Time 19.0 SEC (9.30-11.50) H Prothromb Time International Ratio 1.8 (0.9-1.1) H Sodium Level 141 MMOL/L (136-145) Potassium Level 3.5 MMOL/L (3.5-5.1) Chloride Level 109 MMOL/L (98-107) H Carbon Dioxide Level 28 MMOL/L (21-32) Anion Gap 4 mmol/L (5-15) L Blood Urea Nitrogen 3 mg/dL (7-18) L Creatinine 0.5 MG/DL (0.55-1.30) L Estimat Glomerular Filtration Rate > 60 mL/min (>60) Glucose Level 136 MG/DL (74-106) H Uric Acid 1.3 MG/DL (2.6-7.2) L Calcium Level 7.4 MG/DL (8.5-10.1) L Phosphorus Level 2.2 MG/DL (2.5-4.9) L Magnesium Level 2.0 MG/DL (1.8-2.4) Total Bilirubin 0.2 MG/DL (0.2-1.0) Aspartate Amino Transf (AST/SGOT) 23 U/L (15-37) Alanine Aminotransferase (ALT/SGPT) 20 U/L (12-78) Alkaline Phosphatase 91 U/L (46-116) C-Reactive Protein, Quantitative 7.1 mg/dL (0.00-0.90) H Pro-B-Type Natriuretic Peptide 774 pg/mL (0-125) H Total Protein 4.8 G/DL (6.4-8.2) L Albumin 1.6 G/DL (3.4-5.0) L Globulin 3.2 g/dL Albumin/Globulin Ratio 0.5 (1.0-2.7) L Objective HEAD AND NECK: No JVD. LUNGS: Coarse rhonchi. CARDIOVASCULAR: Regular S1 and S2 with no gallop. ABDOMEN: Soft. EXTREMITIES: No pitting edema. FEDE KWOK Aug 09, 2017 11:24
--- NOTE | 2017-08-09 11:48 | Nephrology Progress Note ---
Assessment/Plan Problem List: (1) Sepsis (2) Colitis Assessment: sever hypoalbuminemia (3) Respiratory failure requiring intubation Assessment: now extubated (4) Hypophosphatemia Assessment: resolving (5) Hypokalemia Assessment: resolving Assessment Respiratory failure and DKA on admit, resolved Low Phos , K , and Mag HTN Ischemic colitis h/o CVA Anemia Plan Plan: Phos , mag , and K as needed Monitor lytes and renal parameters per consultants per orders nutritinal boost per GI Subjective ROS Limited/Unobtainable: No Constitutional: Reports: malaise Objective Objective Last 24 Hour Vital Signs Date Time Temp Pulse Resp B/P (MAP) Pulse Ox O2 Delivery O2 Flow Rate FiO2 08/09/17 08:00 84 08/09/17 08:00 99.0 18 19 132/73 Nasal Cannula 2.0 08/09/17 04:00 98.2 81 20 127/65 98 Nasal Cannula 08/09/17 04:00 Nasal Cannula 2.0 08/09/17 04:00 78 08/09/17 00:00 98.6 99 22 116/61 88 Room Air 08/09/17 00:00 Nasal Cannula 2.0 08/09/17 00:00 94 08/08/17 20:00 84 08/08/17 20:00 99.0 85 22 108/56 95 Room Air 08/08/17 19:40 97 Nasal Cannula 2.0 28 08/08/17 19:40 Nasal Cannula 2.0 28 08/08/17 18:00 98.4 80 21 130/84 95 Room Air 08/08/17 18:00 97.5 83 19 130/83 Room Air 08/08/17 17:00 83 21 128/84 95 Room Air 08/08/17 16:00 97.4 83 19 130/83 Room Air 08/08/17 16:00 98.7 84 24 125/59 94 Room Air 08/08/17 16:00 89 08/08/17 15:00 85 21 117/40 94 Room Air 08/08/17 14:00 80 23 136/58 96 Room Air 08/08/17 13:00 80 22 127/65 96 Room Air 08/08/17 12:00 98.5 81 18 109/62 94 Room Air 08/08/17 12:00 80 Laboratory Tests 08/09/17 07:20: White Blood Count 7.8, Red Blood Count 3.59L, Hemoglobin 9.8L, Hematocrit 30.9L , Mean Corpuscular Volume 86, Mean Corpuscular Hemoglobin 27.4, Mean Corpuscular Hemoglobin Concent 31.8L, Red Cell Distribution Width 13.2, Platelet Count 195, Mean Platelet Volume 6.3L, Neutrophils (%) (Auto) 72.0, Lymphocytes (%) (Auto) 13.8L, Monocytes (%) (Auto) 12.3H, Eosinophils (%) (Auto ) 1.4, Basophils (%) (Auto) 0.5, Prothrombin Time 19.0H, Prothromb Time International Ratio 1.8H, Sodium Level 141, Potassium Level 3.5, Chloride Level 109H, Carbon Dioxide Level 28, Anion Gap 4L, Blood Urea Nitrogen 3L, Creatinine 0.5L, Estimat Glomerular Filtration Rate > 60, Glucose Level 136H, Uric Acid 1.3L, Calcium Level 7.4L, Phosphorus Level 2.2L, Magnesium Level 2.0, Total Bilirubin 0.2, Aspartate Amino Transf (AST/SGOT) 23, Alanine Aminotransferase ( ALT/SGPT) 20, Alkaline Phosphatase 91, C-Reactive Protein, Quantitative 7.1H, Pro-B-Type Natriuretic Peptide 774H, Total Protein 4.8L, Albumin 1.6L, Globulin 3.2, Albumin/Globulin Ratio 0.5L Height (Feet): 4 Height (Inches): 10.00 Weight (Pounds): 120 General Appearance: no apparent distress Abdomen: soft Objective no other change LAYNE WEIR Aug 09, 2017 11:48
[2017-08-09 12:00] VITALS: BP 130/74
[2017-08-09] MEDS: Phospha 250 Neutral tab ORAL SCH ×2 (12:27→17:34)
[2017-08-09] MEDS: metroNIDAZOLE 500mg tab ORAL SCH ×2 (13:03→21:36)
--- NOTE | 2017-08-09 13:21 | Pulmonology Progress Note ---
Assessment/Plan Assessment/Plan resp failure Sepsis, SIRS DKA, severe acidosis Ischemic colitis calf vein clot hypoglycemia last night cough met w dtr at bedside continue Zosyn & IV fluids insulin per endo improving CXR Subjective Constitutional: Denies: fever Respiratory: Reports: productive cough Allergies: Coded Allergies: No Known Allergies (Unverified , 08/01/17) Objective Last 24 Hour Vital Signs Date Time Temp Pulse Resp B/P (MAP) Pulse Ox O2 Delivery O2 Flow Rate FiO2 08/09/17 12:00 97.5 75 18 130/74 Nasal Cannula 2.0 08/09/17 08:00 84 08/09/17 08:00 99.0 18 19 132/73 Nasal Cannula 2.0 08/09/17 04:00 98.2 81 20 127/65 98 Nasal Cannula 08/09/17 04:00 Nasal Cannula 2.0 08/09/17 04:00 78 08/09/17 00:00 98.6 99 22 116/61 88 Room Air 08/09/17 00:00 Nasal Cannula 2.0 08/09/17 00:00 94 08/08/17 20:00 84 08/08/17 20:00 99.0 85 22 108/56 95 Room Air 08/08/17 19:40 97 Nasal Cannula 2.0 28 08/08/17 19:40 Nasal Cannula 2.0 28 08/08/17 18:00 98.4 80 21 130/84 95 Room Air 08/08/17 18:00 97.5 83 19 130/83 Room Air 08/08/17 17:00 83 21 128/84 95 Room Air 08/08/17 16:00 97.4 83 19 130/83 Room Air 08/08/17 16:00 98.7 84 24 125/59 94 Room Air 08/08/17 16:00 89 08/08/17 15:00 85 21 117/40 94 Room Air 08/08/17 14:00 80 23 136/58 96 Room Air General Appearance: no acute distress HEENT: atraumatic Respiratory/Chest: lungs clear Cardiovascular: normal rate Laboratory Tests 08/09/17 07:20: White Blood Count 7.8, Red Blood Count 3.59L, Hemoglobin 9.8L, Hematocrit 30.9L , Mean Corpuscular Volume 86, Mean Corpuscular Hemoglobin 27.4, Mean Corpuscular Hemoglobin Concent 31.8L, Red Cell Distribution Width 13.2, Platelet Count 195, Mean Platelet Volume 6.3L, Neutrophils (%) (Auto) 72.0, Lymphocytes (%) (Auto) 13.8L, Monocytes (%) (Auto) 12.3H, Eosinophils (%) (Auto ) 1.4, Basophils (%) (Auto) 0.5, Prothrombin Time 19.0H, Prothromb Time International Ratio 1.8H, Sodium Level 141, Potassium Level 3.5, Chloride Level 109H, Carbon Dioxide Level 28, Anion Gap 4L, Blood Urea Nitrogen 3L, Creatinine 0.5L, Estimat Glomerular Filtration Rate > 60, Glucose Level 136H, Uric Acid 1.3L, Calcium Level 7.4L, Phosphorus Level 2.2L, Magnesium Level 2.0, Total Bilirubin 0.2, Aspartate Amino Transf (AST/SGOT) 23, Alanine Aminotransferase ( ALT/SGPT) 20, Alkaline Phosphatase 91, C-Reactive Protein, Quantitative 7.1H, Pro-B-Type Natriuretic Peptide 774H, Total Protein 4.8L, Albumin 1.6L, Globulin 3.2, Albumin/Globulin Ratio 0.5L Current Medications Medications (Trade) Dose Ordered Sig/Sue Route PRN Reason Start Time Stop Time Status Last Admin Dose Admin Dextrose (Dextrose 50%) PRN IV hypoglycemia 08/08/17 18:00 09/06/17 15:44 Docusate Sodium (Colace) 100 mg THREE TIMES A DAY ORAL 08/09/17 09:00 09/08/17 08:59 Enoxaparin Sodium (Lovenox) 50 mg Q12HR SUBQ 08/08/17 21:00 09/06/17 17:29 08/09/17 10:15 Insulin Aspart (NovoLOG) Q4HR SUBQ 08/08/17 21:00 09/06/17 16:59 08/09/17 12:46 Levofloxacin (Levaquin) 250 mg DAILY ORAL 08/09/17 11:00 08/16/17 10:59 08/09/17 12:27 Metronidazole (Flagyl) 500 mg Q8HR ORAL 08/09/17 14:00 08/16/17 13:59 08/09/17 13:03 Phosphorus (Phospha 250 Neutral) 500 mg THREE TIMES A DAY ORAL 08/09/17 13:00 09/08/17 12:59 08/09/17 12:27 Polyethylene Glycol (Miralax) 17 gm BEDTIME ORAL 08/08/17 21:00 09/07/17 20:59 Potassium Chloride (K-Dur) 20 meq TWICE A DAY ORAL 08/09/17 09:00 09/08/17 08:59 08/09/17 09:30 Ranitidine HCl (Zantac) 150 mg TWICE A DAY ORAL 08/09/17 09:00 09/08/17 08:59 08/09/17 09:29 Warfarin Sodium (Coumadin per pharmacy) 1 ea DAILY PRN MISC Per rx protocol 08/09/17 09:00 09/06/17 16:29 Warfarin Sodium (Coumadin) 3 mg COUMADIN ONCE ORAL 08/09/17 17:00 08/09/17 17:01 [employer] WOODRUFF Aug 09, 2017 13:21
--- NOTE | 2017-08-09 13:24 | General Progress Note ---
Assessment/Plan Problem List: (1) DKA (diabetic ketoacidoses) ICD Codes: E13.10 - Other specified diabetes mellitus with ketoacidosis without coma SNOMED: 930076164, 44714695 (2) Sepsis ICD Codes: A41.9 - Sepsis, unspecified organism SNOMED: 56625779, 29949778 (3) Lactic acidosis ICD Codes: E87.2 - Acidosis SNOMED: 26204607 (4) Rectal bleed ICD Codes: K62.5 - Hemorrhage of anus and rectum SNOMED: 20126646 Status: progressing Assessment/Plan has acute dvt anti coagulation per heme/onc dka is resolved s/p gi bleed elevated bg is improving dc planning to snf had long discussion w son and he agreed for her mother to go to snf for now not safe to go home Subjective ROS Limited/Unobtainable: Yes Allergies: Coded Allergies: No Known Allergies (Unverified , 08/01/17) Objective Last 24 Hour Vital Signs Date Time Temp Pulse Resp B/P (MAP) Pulse Ox O2 Delivery O2 Flow Rate FiO2 08/09/17 12:00 97.5 75 18 130/74 Nasal Cannula 2.0 08/09/17 08:00 84 08/09/17 08:00 99.0 18 19 132/73 Nasal Cannula 2.0 08/09/17 04:00 98.2 81 20 127/65 98 Nasal Cannula 08/09/17 04:00 Nasal Cannula 2.0 08/09/17 04:00 78 08/09/17 00:00 98.6 99 22 116/61 88 Room Air 08/09/17 00:00 Nasal Cannula 2.0 08/09/17 00:00 94 08/08/17 20:00 84 08/08/17 20:00 99.0 85 22 108/56 95 Room Air 08/08/17 19:40 97 Nasal Cannula 2.0 28 08/08/17 19:40 Nasal Cannula 2.0 28 08/08/17 18:00 98.4 80 21 130/84 95 Room Air 08/08/17 18:00 97.5 83 19 130/83 Room Air 08/08/17 17:00 83 21 128/84 95 Room Air 08/08/17 16:00 97.4 83 19 130/83 Room Air 08/08/17 16:00 98.7 84 24 125/59 94 Room Air 08/08/17 16:00 89 08/08/17 15:00 85 21 117/40 94 Room Air 08/08/17 14:00 80 23 136/58 96 Room Air Laboratory Tests 08/09/17 07:20: White Blood Count 7.8, Red Blood Count 3.59L, Hemoglobin 9.8L, Hematocrit 30.9L , Mean Corpuscular Volume 86, Mean Corpuscular Hemoglobin 27.4, Mean Corpuscular Hemoglobin Concent 31.8L, Red Cell Distribution Width 13.2, Platelet Count 195, Mean Platelet Volume 6.3L, Neutrophils (%) (Auto) 72.0, Lymphocytes (%) (Auto) 13.8L, Monocytes (%) (Auto) 12.3H, Eosinophils (%) (Auto ) 1.4, Basophils (%) (Auto) 0.5, Prothrombin Time 19.0H, Prothromb Time International Ratio 1.8H, Sodium Level 141, Potassium Level 3.5, Chloride Level 109H, Carbon Dioxide Level 28, Anion Gap 4L, Blood Urea Nitrogen 3L, Creatinine 0.5L, Estimat Glomerular Filtration Rate > 60, Glucose Level 136H, Uric Acid 1.3L, Calcium Level 7.4L, Phosphorus Level 2.2L, Magnesium Level 2.0, Total Bilirubin 0.2, Aspartate Amino Transf (AST/SGOT) 23, Alanine Aminotransferase ( ALT/SGPT) 20, Alkaline Phosphatase 91, C-Reactive Protein, Quantitative 7.1H, Pro-B-Type Natriuretic Peptide 774H, Total Protein 4.8L, Albumin 1.6L, Globulin 3.2, Albumin/Globulin Ratio 0.5L Height (Feet): 4 Height (Inches): 10.00 Weight (Pounds): 120 Neck: supple Cardiovascular: normal rate Respiratory/Chest: lungs clear Gerhard Baltazar MD Aug 09, 2017 13:24
--- NOTE | 2017-08-09 14:24 | General Progress Note ---
Assessment/Plan Assessment/Plan ASSESSMENT AND RECOMMENDATION: #. Acute DVT. On lovenox and coumadin. INR goal 2-3. DC lovenox once INR becomes therapeutic. #. Anemia of chronic disease --> w/u from prior admission has been reviewed. Continue to monitor counts #. 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 Patient does not need any further workup at this time. #. Leukocytosis, likely secondary to reactive process. #. Rectal bleeding, no drop in H/H. Continue to monitor #. Ischemic colitis and hemorrhoids. GI following. Subjective Allergies: Coded Allergies: No Known Allergies (Unverified , 08/01/17) All Systems: reviewed and negative except above Subjective no events overnight. NAD Objective Last 24 Hour Vital Signs Date Time Temp Pulse Resp B/P (MAP) Pulse Ox O2 Delivery O2 Flow Rate FiO2 08/09/17 12:00 86 08/09/17 12:00 86 08/09/17 12:00 97.5 75 18 130/74 Nasal Cannula 2.0 08/09/17 08:00 84 08/09/17 08:00 99.0 18 19 132/73 Nasal Cannula 2.0 08/09/17 04:00 98.2 81 20 127/65 98 Nasal Cannula 08/09/17 04:00 Nasal Cannula 2.0 08/09/17 04:00 78 08/09/17 00:00 98.6 99 22 116/61 88 Room Air 08/09/17 00:00 Nasal Cannula 2.0 08/09/17 00:00 94 08/08/17 20:00 84 08/08/17 20:00 99.0 85 22 108/56 95 Room Air 08/08/17 19:40 97 Nasal Cannula 2.0 28 08/08/17 19:40 Nasal Cannula 2.0 28 08/08/17 18:00 98.4 80 21 130/84 95 Room Air 08/08/17 18:00 97.5 83 19 130/83 Room Air 08/08/17 17:00 83 21 128/84 95 Room Air 08/08/17 16:00 97.4 83 19 130/83 Room Air 08/08/17 16:00 98.7 84 24 125/59 94 Room Air 08/08/17 16:00 89 08/08/17 15:00 85 21 117/40 94 Room Air Laboratory Tests 08/09/17 07:20: White Blood Count 7.8, Red Blood Count 3.59L, Hemoglobin 9.8L, Hematocrit 30.9L , Mean Corpuscular Volume 86, Mean Corpuscular Hemoglobin 27.4, Mean Corpuscular Hemoglobin Concent 31.8L, Red Cell Distribution Width 13.2, Platelet Count 195, Mean Platelet Volume 6.3L, Neutrophils (%) (Auto) 72.0, Lymphocytes (%) (Auto) 13.8L, Monocytes (%) (Auto) 12.3H, Eosinophils (%) (Auto ) 1.4, Basophils (%) (Auto) 0.5, Prothrombin Time 19.0H, Prothromb Time International Ratio 1.8H, Sodium Level 141, Potassium Level 3.5, Chloride Level 109H, Carbon Dioxide Level 28, Anion Gap 4L, Blood Urea Nitrogen 3L, Creatinine 0.5L, Estimat Glomerular Filtration Rate > 60, Glucose Level 136H, Uric Acid 1.3L, Calcium Level 7.4L, Phosphorus Level 2.2L, Magnesium Level 2.0, Total Bilirubin 0.2, Aspartate Amino Transf (AST/SGOT) 23, Alanine Aminotransferase ( ALT/SGPT) 20, Alkaline Phosphatase 91, C-Reactive Protein, Quantitative 7.1H, Pro-B-Type Natriuretic Peptide 774H, Total Protein 4.8L, Albumin 1.6L, Globulin 3.2, Albumin/Globulin Ratio 0.5L Height (Feet): 4 Height (Inches): 10.00 Weight (Pounds): 120 General Appearance: no apparent distress EENT: normal ENT inspection Neck: normal alignment Neurologic: institute director II-XII grossly normal Skin: normal pigmentation Arun Gamez Aug 09, 2017 14:24
[2017-08-09 16:00] VITALS: BP 131/60
[2017-08-09] MEDS ORDERED: Warfarin Sodium 3mg ORAL ONE (17:00)
[2017-08-09 20:00] VITALS: BP 119/59
[2017-08-09] MEDS: Levemir Flexpen SUBQ SCH (20:11)
[2017-08-09] MEDS: Miralax 17gm pkt ORAL SCH (20:14)
[2017-08-10 00:29] VITALS: BP 112/56
[2017-08-10] MEDS: NovoLOG Insulin Flexpen SUBQ SCH ×6 (00:51→20:52)
[2017-08-10 04:20] VITALS: BP 115/68
[2017-08-10] MEDS: metroNIDAZOLE 500mg tab ORAL SCH (06:25)
[2017-08-10 08:00] VITALS: BP 111/59
[2017-08-10] MEDS: Docusate 100mg cap ORAL SCH ×3 (09:00→18:00)
--- NOTE | 2017-08-10 09:03 | Infectious Diseases Prog Note ---
Assessment/Plan Assessment/Plan A: Sepsis, SIRS DKA Ischemic colitis Hypoxemic respiratory failure resolved MRSA colonization Diarrhea P: discontinue Levaquin & Flagyl will f/u C. difficile test Subjective ROS Limited/Unobtainable: No Constitutional: Reports: no symptoms Respiratory: Reports: productive cough, other - wheezing Cardiovascular: Reports: no symptoms Gastrointestinal/Abdominal: Reports: diarrhea, other - frequent soft stool Genitourinary: Reports: no symptoms Neurologic: Reports: no symptoms Allergies: Coded Allergies: No Known Allergies (Unverified , 08/01/17) Objective Vital Signs Last 24 Hour Vital Signs Date Time Temp Pulse Resp B/P (MAP) Pulse Ox O2 Delivery O2 Flow Rate FiO2 08/10/17 06:45 Nasal Cannula 2.0 28 08/10/17 06:45 97 Nasal Cannula 2.0 28 08/10/17 04:20 98.0 94 20 115/68 98 Room Air 08/10/17 04:00 85 08/10/17 00:29 98.2 91 20 112/56 95 Room Air 08/09/17 23:50 90 08/09/17 20:00 98.6 97 20 119/59 97 Nasal Cannula 08/09/17 20:00 87 08/09/17 19:43 Nasal Cannula 2.0 28 08/09/17 19:42 98 Nasal Cannula 2.0 28 08/09/17 16:52 93 08/09/17 16:00 97.3 81 19 131/60 Nasal Cannula 2.0 08/09/17 12:00 86 08/09/17 12:00 86 08/09/17 12:00 97.5 75 18 130/74 Nasal Cannula 2.0 Height (Feet): 4 Height (Inches): 10.00 Weight (Pounds): 120 General Appearance: no acute distress HEENT: mucous membranes moist Respiratory/Chest: other - coarse sounds with deep breathing Cardiovascular: normal rate Abdomen: soft, non tender Extremities: no edema Neurologic/Psychiatric: alert, oriented x 3, responsive Current Medications Medications (Trade) Dose Ordered Sig/Sue Route PRN Reason Start Time Stop Time Status Last Admin Dose Admin Dextrose (Dextrose 50%) PRN IV hypoglycemia 08/08/17 18:00 09/06/17 15:44 Dextrose (Dextrose 50%) STAT PRN IV Hypoglycemia 08/09/17 18:15 09/08/17 18:14 Docusate Sodium (Colace) 100 mg THREE TIMES A DAY ORAL 08/09/17 09:00 09/08/17 08:59 Enoxaparin Sodium (Lovenox) 50 mg Q12HR SUBQ 08/08/17 21:00 09/06/17 17:29 08/09/17 21:38 Insulin Aspart (NovoLOG) Q4HR SUBQ 08/08/17 21:00 09/06/17 16:59 08/09/17 20:12 Insulin Detemir (Levemir) 8 units Q12HR SUBQ 08/09/17 19:30 09/08/17 19:29 08/09/17 20:11 Levofloxacin (Levaquin) 250 mg DAILY ORAL 08/09/17 11:00 08/16/17 10:59 08/09/17 12:27 Metronidazole (Flagyl) 500 mg Q8HR ORAL 08/09/17 14:00 08/16/17 13:59 08/10/17 06:25 Phosphorus (Phospha 250 Neutral) 500 mg THREE TIMES A DAY ORAL 08/09/17 13:00 09/08/17 12:59 08/09/17 17:34 Polyethylene Glycol (Miralax) 17 gm BEDTIME ORAL 08/08/17 21:00 09/07/17 20:59 Potassium Chloride (K-Dur) 20 meq TWICE A DAY ORAL 08/09/17 09:00 09/08/17 08:59 08/09/17 17:34 Ranitidine HCl (Zantac) 150 mg TWICE A DAY ORAL 08/09/17 09:00 09/08/17 08:59 08/09/17 17:34 Warfarin Sodium (Coumadin per pharmacy) 1 ea DAILY PRN MISC Per rx protocol 08/09/17 09:00 09/06/17 16:29 MITCHELL HOLM Aug 10, 2017 09:03
[2017-08-10] MEDS: Phospha 250 Neutral tab ORAL SCH ×3 (09:11→18:30)
[2017-08-10 09:54] LABS: INR 1.6 (0.9-1.1)
--- NOTE | 2017-08-10 10:02 | Cardiac Electrophysiology PN ---
Assessment/Plan Assessment/Plan 1. Severe bradycardia with heart rate in the 30s last week. Resolved.No recurrence.Could have been vagal at the time. 2. Status post respiratory failure. Extubated. It was due to patient's diabetic ketoacidosis. 3. Diabetic ketoacidosis with a blood glucose of 538. Resolved. On IV fluids. 4. Ischemic colitis. 5. History of cerebrovascular accident. 6. History of seizure disorder. DW RN and son Awaiting SNIF placement Subjective Subjective Comfortable in NAD. No arrhythmias on tele. Son at bedside. Has sore throat and cough with yellow phlegm. Objective Last 24 Hour Vital Signs Date Time Temp Pulse Resp B/P (MAP) Pulse Ox O2 Delivery O2 Flow Rate FiO2 08/10/17 08:00 98.6 100 20 111/59 100 08/10/17 06:45 Nasal Cannula 2.0 28 08/10/17 06:45 97 Nasal Cannula 2.0 28 08/10/17 04:20 98.0 94 20 115/68 98 Room Air 08/10/17 04:00 85 08/10/17 00:29 98.2 91 20 112/56 95 Room Air 08/09/17 23:50 90 08/09/17 20:00 98.6 97 20 119/59 97 Nasal Cannula 08/09/17 20:00 87 08/09/17 19:43 Nasal Cannula 2.0 28 08/09/17 19:42 98 Nasal Cannula 2.0 28 08/09/17 16:52 93 08/09/17 16:00 97.3 81 19 131/60 Nasal Cannula 2.0 08/09/17 12:00 86 08/09/17 12:00 86 08/09/17 12:00 97.5 75 18 130/74 Nasal Cannula 2.0 Intake and Output 08/10/17 08/11/17 19:00 07:00 Intake Total 200 ml Balance 200 ml Intake Oral 200 ml Laboratory Tests Test 08/10/17 08:30 Prothrombin Time 17.0 SEC (9.30-11.50) H Prothromb Time International Ratio 1.6 (0.9-1.1) H Objective HEAD AND NECK: No JVD. LUNGS: Coarse rhonchi. CARDIOVASCULAR: Regular S1 and S2 with no gallop. ABDOMEN: Soft. EXTREMITIES: No pitting edema. FEDE KWOK Aug 10, 2017 10:02
[2017-08-10] MEDS: Levemir Flexpen SUBQ SCH ×2 (10:05→20:52)
[2017-08-10] MEDS: Enoxaparin Sodium 300mg/3ml vial SUBQ SCH ×2 (10:12→21:15)
[2017-08-10] MEDS ORDERED: LEVEMIR FL100 UNIT/1 SUBQ (10:51)
[2017-08-10] MEDS ORDERED: RANITIDINE HCL150 MG ORAL (10:51)
[2017-08-10] MEDS ORDERED: MIRALAX17 G2 ORAL (10:51)
[2017-08-10] MEDS ORDERED: LOVENOX300 MG/3 M SUBQ (10:51)
[2017-08-10] MEDS ORDERED: COUMADIN5 MG ORAL (10:51)
[2017-08-10] MEDS ORDERED: NOVOLOG100 UNITS1 SUBQ (10:51)
--- NOTE | 2017-08-10 10:53 | Discharge Instructions ---
Discharge Instructions Discharge Instructions Follow up with: MD at the facility Diet: diabetic calorie control Activity: as tolerated Special Instructions continue Lovenox and Warfarin per pharmacy/MD daily PT, dc Lovenox when INR above 2 monitor for any signs of bleeding s/p abx treatment For Congestive Heart Failure Reminder Report to your physician any weight gain of 5 pounds or more in one week. Joey (María Addison NP Aug 10, 2017 10:53
--- NOTE | 2017-08-10 11:02 | Diagnostic Imaging Report ---
APPROVED REPORT CPT Code: 81889 Present Symptoms Comments: Swelling Doppler Evaluation (Right) IJV (Right): Spontaneous, Phasic, Augmentation(Dist.), SCV (Right): Spontaneous, Phasic, Augmentation(Dist.), Axillary (R): Spontaneous, Phasic, Augmentation(Dist.), Brachial (R): Spontaneous, Phasic, Augmentation(Dist.), Basilic (R): Spontaneous, Phasic, Augmentation(Dist.), Doppler Evaluation (Left) IJV (Left): Spontaneous, Phasic, Augmentation(Dist.), SCV (Left): Spontaneous, Phasic, Augmentation(Dist.), Axillary (L): Spontaneous, Phasic, Augmentation(Dist.), Brachial (L): Spontaneous, Phasic, Augmentation(Dist.), Basilic (L): Spontaneous, Phasic, Augmentation(Dist.), BILATERAL UPPER EXTREMITY: Imaging reveals patency of the internal jugular, subclavian, axillary and brachial veins. The basilic veins are also patent. Doppler indicates normal spontaneous flow within these venous segments, bilaterally. The both cephalic veins were not well visualized.
--- NOTE | 2017-08-10 11:02 | Diagnostic Imaging Report ---
APPROVED REPORT CPT Code: 83515 Present Symptoms Comments: R/O DVT Risk Factors Bed Rest RIGHT LEG: Venous imaging reveals a patent deep venous system. There is no evidence of thrombus within the femoral, popliteal or tibial segments. The greater saphenous vein is also within normal limits. Doppler indicates normal spontaneous flow within these segments. LEFT LEG: Venous imaging reveals acute thrombus in one of the paired peroneal veins. Imaging also reveals patency of the common femoral, popliteal and calf veins (posterior tibial and anterior tibial). Greater saphenous vein also within normal limits. CHALINO Nicole was notified of abnormal results at 1340 hours.
--- NOTE | 2017-08-10 11:03 | GI Progress Note ---
Assessment/Plan Problems: (1) DKA (diabetic ketoacidoses) ICD Codes: E13.10 - Other specified diabetes mellitus with ketoacidosis without coma SNOMED: 647782761, 68790266 (2) Colitis ICD Codes: K52.9 - Noninfective gastroenteritis and colitis, unspecified SNOMED: 79930533 (3) Lactic acidosis ICD Codes: E87.2 - Acidosis SNOMED: 25546353 (4) Respiratory failure requiring intubation ICD Codes: J96.90 - Respiratory failure, unspecified, unspecified whether with hypoxia or hypercapnia SNOMED: 117572637 Status: stable Status Narrative Discussed with Dr. Gomez. Assessment/Plan s/p colonoscopy SUMMARY FINDINGS: 1. Atrophic gastritis. 2. Hiatal hernia. 3. Possible ischemic colitis. 4. Internal hemorrhoids. CT AP reviewed >> no obvious perforation or acute complication from ischemic colitis Lactic Acid >> WNL RECOMMENDATIONS: okay for DC per GI standpoint fu endocrine adv diet monitor H&H, prn transfusions DM mgmt titrate bowel regime ppi abx The patient will need a repeat full colonoscopy as an outpatient when the ischemic colitis has completely resolved, 2 months from dc date. Subjective Subjective generalized weakness diarrhea Objective Last 24 Hour Vital Signs Date Time Temp Pulse Resp B/P (MAP) Pulse Ox O2 Delivery O2 Flow Rate FiO2 08/10/17 08:00 98.6 100 20 111/59 100 08/10/17 06:45 Nasal Cannula 2.0 08/10/17 06:45 97 Nasal Cannula 2.0 08/10/17 04:20 98.0 94 20 115/68 98 Room Air 08/10/17 04:00 85 08/10/17 00:29 98.2 91 20 112/56 95 Room Air 08/09/17 23:50 90 08/09/17 20:00 98.6 97 20 119/59 97 Nasal Cannula 08/09/17 20:00 87 08/09/17 19:43 Nasal Cannula 2.0 08/09/17 19:42 98 Nasal Cannula 2.0 08/09/17 16:52 93 08/09/17 16:00 97.3 81 19 131/60 Nasal Cannula 2.0 08/09/17 12:00 86 08/09/17 12:00 86 08/09/17 12:00 97.5 75 18 130/74 Nasal Cannula 2.0 Intake and Output 08/10/17 08/11/17 19:00 07:00 Intake Total 200 ml Balance 200 ml Intake Oral 200 ml Laboratory Tests Test 08/10/17 08:30 Prothrombin Time 17.0 SEC (9.30-11.50) H Prothromb Time International Ratio 1.6 (0.9-1.1) H Height (Feet): 4 Height (Inches): 10.00 Weight (Pounds): 120 General Appearance: WD/WN, no apparent distress, alert, thin Cardiovascular: normal rate Respiratory/Chest: normal breath sounds, no respiratory distress Abdominal Exam: normal bowel sounds, non tender, soft Extremities: normal range of motion, non-tender Adele Olsen N.P. Aug 10, 2017 11:03
--- NOTE | 2017-08-10 11:03 | Cardiology Report ---
APPROVED REPORT EKG Measurement Heart [id number] Sinus tachycardia Otherwise normal ECG
--- NOTE | 2017-08-10 11:58 | Diagnostic Imaging Report ---
Indication: Cough Technique: XRAY Chest 2v Comparison: 08/05/2017 Findings: Interval removal of endotracheal tube. There is interval development of patchy opacity at the right base which may represent atelectasis however pneumonia is not excluded. Follow-up exam recommended. Heart size and mediastinal contours are stable. No acute osseous abnormality is seen. Impression: Interval extubation. New opacity at the right base possibly related to atelectasis however developing pneumonia is not excluded. Clinical correlation and follow-up exam recommended.
[2017-08-10 12:05] VITALS: BP 137/75
--- NOTE | 2017-08-10 12:47 | Nephrology Progress Note ---
Assessment/Plan Problem List: (1) Sepsis (2) Colitis Assessment: sever hypoalbuminemia (3) Respiratory failure requiring intubation Assessment: now extubated (4) Hypophosphatemia Assessment: resolving (5) Hypokalemia Assessment: resolving Assessment Respiratory failure and DKA on admit, resolved Low Phos , K , and Mag HTN Ischemic colitis h/o CVA Anemia Plan Plan: no labs today- Phos , mag , and K as needed Monitor lytes and renal parameters per consultants per orders nutritinal boost per GI Subjective ROS Limited/Unobtainable: No Constitutional: Reports: malaise Objective Objective Last 24 Hour Vital Signs Date Time Temp Pulse Resp B/P (MAP) Pulse Ox O2 Delivery O2 Flow Rate FiO2 08/10/17 12:05 98.4 91 20 137/75 97 08/10/17 08:00 98.6 100 20 111/59 100 08/10/17 08:00 92 08/10/17 06:45 Nasal Cannula 2.0 28 08/10/17 06:45 97 Nasal Cannula 2.0 28 08/10/17 04:20 98.0 94 20 115/68 98 Room Air 08/10/17 04:00 85 08/10/17 00:29 98.2 91 20 112/56 95 Room Air 08/09/17 23:50 90 08/09/17 20:00 98.6 97 20 119/59 97 Nasal Cannula 08/09/17 20:00 87 08/09/17 19:43 Nasal Cannula 2.0 28 08/09/17 19:42 98 Nasal Cannula 2.0 28 08/09/17 16:52 93 08/09/17 16:00 97.3 81 19 131/60 Nasal Cannula 2.0 Intake and Output 08/10/17 08/11/17 19:00 07:00 Intake Total 200 ml Balance 200 ml Intake Oral 200 ml # Bowel Movements 1 Laboratory Tests 08/10/17 08:30: Prothrombin Time 17.0H, Prothromb Time International Ratio 1.6H Height (Feet): 4 Height (Inches): 10.00 Weight (Pounds): 120 General Appearance: no apparent distress Objective no other change LAYNE WEIR Aug 10, 2017 12:47
[2017-08-10 16:00] VITALS: BP 106/66
--- NOTE | 2017-08-10 16:49 | Pulmonology Progress Note ---
Assessment/Plan Assessment/Plan resp failure Sepsis, SIRS DKA, severe acidosis Ischemic colitis calf vein clot PNEUMONIA CXR with new infiltrate met w dtr, son at bedside resume abx hold dc Subjective Respiratory: Reports: productive cough, shortness of breath Allergies: Coded Allergies: No Known Allergies (Unverified , 08/01/17) Objective Last 24 Hour Vital Signs Date Time Temp Pulse Resp B/P (MAP) Pulse Ox O2 Delivery O2 Flow Rate FiO2 08/10/17 12:05 98.4 91 20 137/75 97 08/10/17 12:00 85 08/10/17 08:00 98.6 100 20 111/59 100 08/10/17 08:00 92 08/10/17 06:45 Nasal Cannula 2.0 28 08/10/17 06:45 97 Nasal Cannula 2.0 28 08/10/17 04:20 98.0 94 20 115/68 98 Room Air 08/10/17 04:00 85 08/10/17 00:29 98.2 91 20 112/56 95 Room Air 08/09/17 23:50 90 08/09/17 20:00 98.6 97 20 119/59 97 Nasal Cannula 08/09/17 20:00 87 08/09/17 19:43 Nasal Cannula 2.0 28 08/09/17 19:42 98 Nasal Cannula 2.0 28 08/09/17 16:52 93 Intake and Output 08/10/17 08/11/17 19:00 07:00 Intake Total 320 ml Balance 320 ml Intake Oral 320 ml # Bowel Movements 1 General Appearance: no acute distress Respiratory/Chest: rhonchi Laboratory Tests 08/10/17 08:30: Prothrombin Time 17.0H, Prothromb Time International Ratio 1.6H Current Medications Medications (Trade) Dose Ordered Sig/Sue Route PRN Reason Start Time Stop Time Status Last Admin Dose Admin Dextrose (Dextrose 50%) PRN IV hypoglycemia 08/08/17 18:00 09/06/17 15:44 Dextrose (Dextrose 50%) STAT PRN IV Hypoglycemia 08/09/17 18:15 09/08/17 18:14 Docusate Sodium (Colace) 100 mg THREE TIMES A DAY ORAL 08/09/17 09:00 09/08/17 08:59 Enoxaparin Sodium (Lovenox) 50 mg Q12HR SUBQ 08/08/17 21:00 09/06/17 17:29 08/10/17 10:12 Insulin Aspart (NovoLOG) Q4HR SUBQ 08/08/17 21:00 09/06/17 16:59 08/10/17 12:55 Insulin Detemir (Levemir) 8 units Q12HR SUBQ 08/09/17 19:30 09/08/17 19:29 08/10/17 10:05 Phosphorus (Phospha 250 Neutral) 500 mg THREE TIMES A DAY ORAL 08/09/17 13:00 09/08/17 12:59 08/10/17 12:52 Polyethylene Glycol (Miralax) 17 gm BEDTIME ORAL 08/08/17 21:00 09/07/17 20:59 Potassium Chloride (K-Dur) 20 meq TWICE A DAY ORAL 08/09/17 09:00 09/08/17 08:59 08/10/17 09:11 Ranitidine HCl (Zantac) 150 mg TWICE A DAY ORAL 08/09/17 09:00 09/08/17 08:59 08/10/17 09:11 Warfarin Sodium (Coumadin per pharmacy) 1 ea DAILY PRN MISC Per rx protocol 08/09/17 09:00 09/06/17 16:29 Warfarin Sodium (Coumadin) 5 mg COUMADIN ONCE ORAL 08/10/17 17:00 08/10/17 17:01 [employer] WOODRUFF Aug 10, 2017 16:49
[2017-08-10] MEDS ORDERED: Warfarin Sodium 5mg ORAL ONE (17:00)
[2017-08-10] MEDS ORDERED: Tubing IV Secondary IV ONE (17:30)
[2017-08-10] MEDS ORDERED: Cefepime 2gm/D5W 110ml IV SCH ×2 (18:30)
[2017-08-10] MEDS: Albuterol/Ipratropium 3ml neb HHN SCH ×2 (20:04→22:47)
[2017-08-10] MEDS: [UNRECOGNIZED DRUG - OTHER] IV SCH ×2 (20:21)
[2017-08-10] MEDS: CEFEPIME IV SCH ×2 (20:21)
[2017-08-10] MEDS: Miralax 17gm pkt ORAL SCH (20:51)
[2017-08-10] MEDS ORDERED: Cefepime HCl 1 GM in D5W 55 ML IVPB SCH (21:00)
--- NOTE | 2017-08-10 21:15 | General Progress Note ---
Assessment/Plan Problem List: (1) DKA (diabetic ketoacidoses) ICD Codes: E13.10 - Other specified diabetes mellitus with ketoacidosis without coma SNOMED: 372844600, 76177231 (2) Sepsis ICD Codes: A41.9 - Sepsis, unspecified organism SNOMED: 31205526, 21888673 (3) Lactic acidosis ICD Codes: E87.2 - Acidosis SNOMED: 19243514 (4) Rectal bleed ICD Codes: K62.5 - Hemorrhage of anus and rectum SNOMED: 49488887 Status: progressing Assessment/Plan cancelled the dc given the finding on cxr pna ear pain consulted ent for ear pain leg edema due to dvt dvt on anti coagulation Subjective ROS Limited/Unobtainable: Yes Allergies: Coded Allergies: No Known Allergies (Unverified , 08/01/17) Objective Last 24 Hour Vital Signs Date Time Temp Pulse Resp B/P (MAP) Pulse Ox O2 Delivery O2 Flow Rate FiO2 08/10/17 20:23 93 24 Nasal Cannula 2.0 28 08/10/17 20:22 Nasal Cannula 2.0 28 08/10/17 20:21 99 Nasal Cannula 2.0 28 08/10/17 19:55 95 20 100 Nasal Cannula 2.0 28 08/10/17 19:45 28 08/10/17 19:45 93 24 99 Nasal Cannula 2.0 28 08/10/17 16:00 98.6 99 20 106/66 100 Room Air 08/10/17 16:00 87 08/10/17 12:05 98.4 91 20 137/75 97 08/10/17 12:00 85 08/10/17 08:00 98.6 100 20 111/59 100 08/10/17 08:00 92 08/10/17 06:45 Nasal Cannula 2.0 28 08/10/17 06:45 97 Nasal Cannula 2.0 28 08/10/17 04:20 98.0 94 20 115/68 98 Room Air 08/10/17 04:00 85 08/10/17 00:29 98.2 91 20 112/56 95 Room Air 08/09/17 23:50 90 Intake and Output 08/10/17 08/11/17 19:00 07:00 Intake Total 500 ml Balance 500 ml Intake Oral 500 ml # Voids 1 # Bowel Movements 1 Laboratory Tests 08/10/17 08:30: Prothrombin Time 17.0H, Prothromb Time International Ratio 1.6H Height (Feet): 4 Height (Inches): 10.00 Weight (Pounds): 120 Gerhard Baltazar MD Aug 10, 2017 21:15
[2017-08-10] MEDS ORDERED: Levemir Flexpen SUBQ ONE (23:00)
[2017-08-11] VITALS: BP 102/48
[2017-08-11] MEDS: NovoLOG Insulin Flexpen SUBQ SCH ×6 (00:39→21:07)
[2017-08-11] MEDS: Albuterol/Ipratropium 3ml neb HHN SCH ×6 (03:04→23:14)
[2017-08-11 04:25] VITALS: BP 107/55
[2017-08-11 08:00] VITALS: BP 101/49
[2017-08-11 08:29] LABS: BASOPHILS % (AUTO) 0.8 % (0.0-2.0); EOSINOPHILS % (AUTO) 1.4 % (0.0-3.0); LYMPHOCYTES % (AUTO) 12.9 % (20.0-45.0); MEAN CORPUSCULAR HEMOGLOBIN 28.7 PG (27.0-31.0); MEAN CORPUSCULAR VOLUME 87 FL (80-99); MEAN PLATELET VOLUME 5.7 FL (6.5-10.1); MONOCYTES % (AUTO) 17.4 % (1.0-10.0); NEUTROPHILS % (AUTO) 67.6 % (45.0-75.0); PLATELET COUNT 369 K/UL (150-450); RED BLOOD COUNT 3.46 M/UL (4.20-5.40); RED CELL DISTRIBUTION WIDTH 13.5 % (11.6-14.8); WHITE BLOOD COUNT 11.7 K/UL (4.8-10.8)
--- NOTE | 2017-08-11 08:39 | Infectious Diseases Prog Note ---
Assessment/Plan Assessment/Plan A: Atelectasis/ Pneumonia DKA Ischemic colitis Hypoxemic respiratory failure resolved MRSA colonization Diarrhea P: continue Cefepime will f/u sputum culture Subjective ROS Limited/Unobtainable: No Constitutional: Reports: other - feels better today Respiratory: Reports: productive cough, other - wheezing resolved Gastrointestinal/Abdominal: Reports: no symptoms Genitourinary: Reports: no symptoms Allergies: Coded Allergies: No Known Allergies (Unverified , 08/01/17) Objective Vital Signs Last 24 Hour Vital Signs Date Time Temp Pulse Resp B/P (MAP) Pulse Ox O2 Delivery O2 Flow Rate FiO2 08/11/17 06:57 94 20 100 Nasal Cannula 2.0 08/11/17 06:51 Nasal Cannula 2.0 28 08/11/17 06:50 92 18 100 Nasal Cannula 2.0 28 08/11/17 06:50 100 Nasal Cannula 2.0 28 08/11/17 06:50 28 08/11/17 04:25 98.2 96 20 107/55 98 Nasal Cannula 08/11/17 04:00 105 08/11/17 03:26 99 18 100 Nasal Cannula 2.0 28 08/11/17 03:06 100 18 99 Nasal Cannula 2.0 28 08/11/17 03:06 28 08/11/17 00:00 98.0 117 20 102/48 97 08/11/17 00:00 114 08/10/17 23:00 108 20 100 Nasal Cannula 2.0 28 08/10/17 22:51 28 08/10/17 22:50 114 22 97 Nasal Cannula 2.0 28 08/10/17 20:23 93 24 Nasal Cannula 2.0 28 08/10/17 20:22 Nasal Cannula 2.0 28 08/10/17 20:21 99 Nasal Cannula 2.0 28 08/10/17 20:00 112 08/10/17 19:55 95 20 100 Nasal Cannula 2.0 28 08/10/17 19:45 28 08/10/17 19:45 93 24 99 Nasal Cannula 2.0 28 08/10/17 16:00 98.6 99 20 106/66 100 Room Air 08/10/17 16:00 87 08/10/17 12:05 98.4 91 20 137/75 97 08/10/17 12:00 85 Height (Feet): 4 Height (Inches): 10.00 Weight (Pounds): 118 General Appearance: no acute distress HEENT: mucous membranes moist Respiratory/Chest: lungs clear Cardiovascular: normal rate Abdomen: soft, non tender Extremities: other - mild lana-ankle edema Neurologic/Psychiatric: alert, oriented x 3, responsive Laboratory Tests Test 08/11/17 07:50 White Blood Count 11.7 K/UL (4.8-10.8) H Red Blood Count 3.46 M/UL (4.20-5.40) L Hemoglobin 9.9 G/DL (12.0-16.0) L Hematocrit 30.1 % (37.0-47.0) L Mean Corpuscular Volume 87 FL (80-99) Mean Corpuscular Hemoglobin 28.7 PG (27.0-31.0) Mean Corpuscular Hemoglobin Concent 33.0 G/DL (32.0-36.0) Red Cell Distribution Width 13.5 % (11.6-14.8) Platelet Count 369 K/UL (150-450) Mean Platelet Volume 5.7 FL (6.5-10.1) L Neutrophils (%) (Auto) 67.6 % (45.0-75.0) Lymphocytes (%) (Auto) 12.9 % (20.0-45.0) L Monocytes (%) (Auto) 17.4 % (1.0-10.0) H Eosinophils (%) (Auto) 1.4 % (0.0-3.0) Basophils (%) (Auto) 0.8 % (0.0-2.0) Prothrombin Time Pending Prothromb Time International Ratio Pending Sodium Level Pending Potassium Level Pending Chloride Level Pending Carbon Dioxide Level Pending Blood Urea Nitrogen Pending Creatinine Pending Estimat Glomerular Filtration Rate Pending Glucose Level Pending Calcium Level Pending Phosphorus Level Pending Magnesium Level Pending Total Bilirubin Pending Aspartate Amino Transf (AST/SGOT) Pending Alanine Aminotransferase (ALT/SGPT) Pending Alkaline Phosphatase Pending Total Protein Pending Albumin Pending Globulin Pending Current Medications Medications (Trade) Dose Ordered Sig/Sue Route PRN Reason Start Time Stop Time Status Last Admin Dose Admin Albuterol/ Ipratropium (Albuterol/ Ipratropium) 3 ml Q4HRT HHN 08/10/17 19:00 08/15/17 18:59 08/11/17 06:48 Cefepime HCl 2 gm/ Dextrose 55 ml @ 110 mls/hr Q24H IV 08/10/17 18:30 08/17/17 18:29 08/10/17 20:21 Dextrose (Dextrose 50%) PRN IV hypoglycemia 08/08/17 18:00 09/06/17 15:44 Dextrose (Dextrose 50%) STAT PRN IV Hypoglycemia 08/09/17 18:15 09/08/17 18:14 Docusate Sodium (Colace) 100 mg THREE TIMES A DAY ORAL 08/09/17 09:00 09/08/17 08:59 Enoxaparin Sodium (Lovenox) 50 mg Q12HR SUBQ 08/08/17 21:00 09/06/17 17:29 08/10/17 21:15 Insulin Aspart (NovoLOG) Q4HR SUBQ 08/08/17 21:00 09/06/17 16:59 08/11/17 04:46 Insulin Detemir (Levemir) 8 units Q12HR SUBQ 08/09/17 19:30 09/08/17 19:29 08/10/17 20:52 Phosphorus (Phospha 250 Neutral) 500 mg THREE TIMES A DAY ORAL 08/09/17 13:00 09/08/17 12:59 08/10/17 18:30 Polyethylene Glycol (Miralax) 17 gm BEDTIME ORAL 08/08/17 21:00 09/07/17 20:59 Potassium Chloride (K-Dur) 20 meq TWICE A DAY ORAL 08/09/17 09:00 09/08/17 08:59 08/10/17 18:29 Ranitidine HCl (Zantac) 150 mg TWICE A DAY ORAL 08/09/17 09:00 09/08/17 08:59 08/10/17 18:30 Warfarin Sodium (Coumadin per pharmacy) 1 ea DAILY PRN MISC Per rx protocol 08/09/17 09:00 09/06/17 16:29 MITCHELL HOLM Aug 11, 2017 08:39
[2017-08-11 08:46] LABS: INR 1.6 (0.9-1.1); PROTHROMBIN TIME 16.7 SEC (9.30-11.50)
[2017-08-11 08:48] LABS: ALANINE AMINOTRANSFERASE 24 U/L (12-78); ALBUMIN/GLOBULIN RATIO 0.5 (1.0-2.7); ANION GAP 8 mmol/L (5-15); ASPARTATE AMINO TRANSFERASE 32 U/L (15-37); CALCIUM 8.1 MG/DL (8.5-10.1); CARBON DIOXIDE 25 MMOL/L (21-32); CHLORIDE 108 MMOL/L (98-107); CREATININE 0.8 MG/DL (0.55-1.30); GLOMERULAR FILTRATION RATE > 60 mL/min (>60); PHOSPHORUS 3.8 MG/DL (2.5-4.9); POTASSIUM 3.5 MMOL/L (3.5-5.1); SODIUM 141 MMOL/L (136-145); TOTAL PROTEIN 5.5 G/DL (6.4-8.2)
[2017-08-11] MEDS: Docusate 100mg cap ORAL SCH ×3 (08:59→17:00)
[2017-08-11] MEDS: Phospha 250 Neutral tab ORAL SCH ×2 (09:00→18:16)
[2017-08-11] MEDS: Enoxaparin Sodium 300mg/3ml vial SUBQ SCH ×2 (09:03→21:06)
[2017-08-11] MEDS: Levemir Flexpen SUBQ SCH ×2 (09:04→21:06)
--- NOTE | 2017-08-11 10:32 | Nephrology Progress Note ---
Assessment/Plan Problem List: (1) Sepsis (2) Colitis Assessment: sever hypoalbuminemia (3) Respiratory failure requiring intubation Assessment: now extubated (4) Hypophosphatemia Assessment: resolving (5) Hypokalemia Assessment: resolving Assessment no renal issues- new pneumonia- family filed appeal on IV Abx Respiratory failure and DKA on admit, resolved Low Phos , K , and Mag HTN Ischemic colitis h/o CVA Anemia Plan Plan: ? lower level care? Phos , mag , and K as needed Monitor lytes and renal parameters per consultants per orders nutritinal boost per GI Subjective ROS Limited/Unobtainable: No Constitutional: Reports: malaise Objective Objective Last 24 Hour Vital Signs Date Time Temp Pulse Resp B/P (MAP) Pulse Ox O2 Delivery O2 Flow Rate FiO2 08/11/17 08:00 97.7 105 20 101/49 97 08/11/17 08:00 100 08/11/17 06:57 94 20 100 Nasal Cannula 2.0 08/11/17 06:51 Nasal Cannula 2.0 08/11/17 06:50 92 18 100 Nasal Cannula 2.0 08/11/17 06:50 100 Nasal Cannula 2.0 28 08/11/17 06:50 28 08/11/17 04:25 98.2 96 20 107/55 98 Nasal Cannula 08/11/17 04:00 105 08/11/17 03:26 99 18 100 Nasal Cannula 2.0 28 08/11/17 03:06 100 18 99 Nasal Cannula 2.0 28 08/11/17 03:06 28 08/11/17 00:00 98.0 117 20 102/48 97 08/11/17 00:00 114 08/10/17 23:00 108 20 100 Nasal Cannula 2.0 08/10/17 22:51 28 08/10/17 22:50 114 22 97 Nasal Cannula 2.0 28 08/10/17 20:23 93 24 Nasal Cannula 2.0 28 08/10/17 20:22 Nasal Cannula 2.0 28 08/10/17 20:21 99 Nasal Cannula 2.0 28 08/10/17 20:00 112 08/10/17 19:55 95 20 100 Nasal Cannula 2.0 28 08/10/17 19:45 28 08/10/17 19:45 93 24 99 Nasal Cannula 2.0 28 08/10/17 16:00 98.6 99 20 106/66 100 Room Air 08/10/17 16:00 87 08/10/17 12:05 98.4 91 20 137/75 97 08/10/17 12:00 85 Laboratory Tests 08/11/17 07:50: White Blood Count 11.7H, Red Blood Count 3.46L, Hemoglobin 9.9L, Hematocrit 30.1L, Mean Corpuscular Volume 87, Mean Corpuscular Hemoglobin 28.7, Mean Corpuscular Hemoglobin Concent 33.0, Red Cell Distribution Width 13.5, Platelet Count 369, Mean Platelet Volume 5.7L, Neutrophils (%) (Auto) 67.6, Lymphocytes ( %) (Auto) 12.9L, Monocytes (%) (Auto) 17.4H, Eosinophils (%) (Auto) 1.4, Basophils (%) (Auto) 0.8, Prothrombin Time 16.7H, Prothromb Time International Ratio 1.6H, Sodium Level 141, Potassium Level 3.5, Chloride Level 108H, Carbon Dioxide Level 25, Anion Gap 8, Blood Urea Nitrogen 14, Creatinine 0.8, Estimat Glomerular Filtration Rate > 60, Glucose Level 90, Calcium Level 8.1L, Phosphorus Level 3.8, Magnesium Level 2.0, Total Bilirubin 0.2, Aspartate Amino Transf (AST/SGOT) 32, Alanine Aminotransferase (ALT/SGPT) 24, Alkaline Phosphatase 101, Total Protein 5.5L, Albumin 1.9L, Globulin 3.6, Albumin/ Globulin Ratio 0.5L Height (Feet): 4 Height (Inches): 10.00 Weight (Pounds): 118 General Appearance: no apparent distress Objective no other change LAYNE WEIR Aug 11, 2017 10:32
--- NOTE | 2017-08-11 10:42 | GI Progress Note ---
Assessment/Plan Problems: (1) DKA (diabetic ketoacidoses) ICD Codes: E13.10 - Other specified diabetes mellitus with ketoacidosis without coma SNOMED: 599637470, 00205515 (2) Colitis ICD Codes: K52.9 - Noninfective gastroenteritis and colitis, unspecified SNOMED: 71005640 (3) Lactic acidosis ICD Codes: E87.2 - Acidosis SNOMED: 85598622 (4) Respiratory failure requiring intubation ICD Codes: J96.90 - Respiratory failure, unspecified, unspecified whether with hypoxia or hypercapnia SNOMED: 781499562 Status: stable Status Narrative Discussed with Dr. Gomez. Assessment/Plan s/p colonoscopy SUMMARY FINDINGS: 1. Atrophic gastritis. 2. Hiatal hernia. 3. Possible ischemic colitis. 4. Internal hemorrhoids. CT AP reviewed >> no obvious perforation or acute complication from ischemic colitis Lactic Acid >> WNL RECOMMENDATIONS: okay for DC per GI standpoint fu endocrine adv diet monitor H&H, prn transfusions DM mgmt titrate bowel regime ppi abx The patient will need a repeat full colonoscopy as an outpatient when the ischemic colitis has completely resolved, 2 months from dc date. Subjective Subjective generalized weakness diarrhea resolved Objective Last 24 Hour Vital Signs Date Time Temp Pulse Resp B/P (MAP) Pulse Ox O2 Delivery O2 Flow Rate FiO2 08/11/17 08:00 97.7 105 20 101/49 97 08/11/17 08:00 100 08/11/17 06:57 94 20 100 Nasal Cannula 2.0 08/11/17 06:51 Nasal Cannula 2.0 08/11/17 06:50 92 18 100 Nasal Cannula 2.0 08/11/17 06:50 100 Nasal Cannula 2.0 28 08/11/17 06:50 28 08/11/17 04:25 98.2 96 20 107/55 98 Nasal Cannula 08/11/17 04:00 105 08/11/17 03:26 99 18 100 Nasal Cannula 2.0 08/11/17 03:06 100 18 99 Nasal Cannula 2.0 08/11/17 03:06 28 08/11/17 00:00 98.0 117 20 102/48 97 08/11/17 00:00 114 08/10/17 23:00 108 20 100 Nasal Cannula 2.0 08/10/17 22:51 28 08/10/17 22:50 114 22 97 Nasal Cannula 2.0 28 08/10/17 20:23 93 24 Nasal Cannula 2.0 28 08/10/17 20:22 Nasal Cannula 2.0 28 08/10/17 20:21 99 Nasal Cannula 2.0 28 08/10/17 20:00 112 08/10/17 19:55 95 20 100 Nasal Cannula 2.0 28 08/10/17 19:45 28 08/10/17 19:45 93 24 99 Nasal Cannula 2.0 28 08/10/17 16:00 98.6 99 20 106/66 100 Room Air 08/10/17 16:00 87 08/10/17 12:05 98.4 91 20 137/75 97 08/10/17 12:00 85 Laboratory Tests Test 08/11/17 07:50 White Blood Count 11.7 K/UL (4.8-10.8) H Red Blood Count 3.46 M/UL (4.20-5.40) L Hemoglobin 9.9 G/DL (12.0-16.0) L Hematocrit 30.1 % (37.0-47.0) L Mean Corpuscular Volume 87 FL (80-99) Mean Corpuscular Hemoglobin 28.7 PG (27.0-31.0) Mean Corpuscular Hemoglobin Concent 33.0 G/DL (32.0-36.0) Red Cell Distribution Width 13.5 % (11.6-14.8) Platelet Count 369 K/UL (150-450) Mean Platelet Volume 5.7 FL (6.5-10.1) L Neutrophils (%) (Auto) 67.6 % (45.0-75.0) Lymphocytes (%) (Auto) 12.9 % (20.0-45.0) L Monocytes (%) (Auto) 17.4 % (1.0-10.0) H Eosinophils (%) (Auto) 1.4 % (0.0-3.0) Basophils (%) (Auto) 0.8 % (0.0-2.0) Prothrombin Time 16.7 SEC (9.30-11.50) H Prothromb Time International Ratio 1.6 (0.9-1.1) H Sodium Level 141 MMOL/L (136-145) Potassium Level 3.5 MMOL/L (3.5-5.1) Chloride Level 108 MMOL/L (98-107) H Carbon Dioxide Level 25 MMOL/L (21-32) Anion Gap 8 mmol/L (5-15) Blood Urea Nitrogen 14 mg/dL (7-18) Creatinine 0.8 MG/DL (0.55-1.30) Estimat Glomerular Filtration Rate > 60 mL/min (>60) Glucose Level 90 MG/DL (74-106) Calcium Level 8.1 MG/DL (8.5-10.1) L Phosphorus Level 3.8 MG/DL (2.5-4.9) Magnesium Level 2.0 MG/DL (1.8-2.4) Total Bilirubin 0.2 MG/DL (0.2-1.0) Aspartate Amino Transf (AST/SGOT) 32 U/L (15-37) Alanine Aminotransferase (ALT/SGPT) 24 U/L (12-78) Alkaline Phosphatase 101 U/L (46-116) Total Protein 5.5 G/DL (6.4-8.2) L Albumin 1.9 G/DL (3.4-5.0) L Globulin 3.6 g/dL Albumin/Globulin Ratio 0.5 (1.0-2.7) L Height (Feet): 4 Height (Inches): 10.00 Weight (Pounds): 118 General Appearance: WD/WN, no apparent distress, alert Cardiovascular: normal rate Respiratory/Chest: normal breath sounds, no respiratory distress Abdominal Exam: normal bowel sounds, non tender, soft Extremities: normal range of motion, non-tender Adele Olsen N.PPaola Aug 11, 2017 10:42
[2017-08-11 12:00] VITALS: BP 109/54
--- NOTE | 2017-08-11 12:07 | Cardiac Electrophysiology PN ---
Assessment/Plan Assessment/Plan 1. Severe bradycardia with heart rate in the 30s last week. Resolved.No recurrence.Could have been vagal at the time. 2. Status post respiratory failure. Extubated. It was due to patient's diabetic ketoacidosis. 3. Diabetic ketoacidosis with a blood glucose of 538. Resolved. On IV fluids. 4. Ischemic colitis. 5. History of cerebrovascular accident. 6. History of seizure disorder. 7. Cough and phlegm on Cefepime per ID DW RN and daughter Needs Zio patch as out patient. Subjective Subjective Comfortable in NAD. No arrhythmias on tele. Daughter at bedside. Objective Last 24 Hour Vital Signs Date Time Temp Pulse Resp B/P (MAP) Pulse Ox O2 Delivery O2 Flow Rate FiO2 08/11/17 11:24 94 18 97 Room Air 08/11/17 08:00 97.7 105 20 101/49 97 08/11/17 08:00 100 08/11/17 06:57 94 20 100 Nasal Cannula 2.0 08/11/17 06:51 Nasal Cannula 2.0 08/11/17 06:50 92 18 100 Nasal Cannula 2.0 08/11/17 06:50 100 Nasal Cannula 2.0 08/11/17 06:50 08/11/17 04:25 98.2 96 20 107/55 98 Nasal Cannula 08/11/17 04:00 105 08/11/17 03:26 99 18 100 Nasal Cannula 2.0 08/11/17 03:06 100 18 99 Nasal Cannula 2.0 08/11/17 03:06 28 08/11/17 00:00 98.0 117 20 102/48 97 08/11/17 00:00 114 08/10/17 23:00 108 20 100 Nasal Cannula 2.0 08/10/17 22:51 28 08/10/17 22:50 114 22 97 Nasal Cannula 2.0 08/10/17 20:23 93 24 Nasal Cannula 2.0 08/10/17 20:22 Nasal Cannula 2.0 28 08/10/17 20:21 99 Nasal Cannula 2.0 28 08/10/17 20:00 112 08/10/17 19:55 95 20 100 Nasal Cannula 2.0 28 08/10/17 19:45 28 08/10/17 19:45 93 24 99 Nasal Cannula 2.0 28 08/10/17 16:00 98.6 99 20 106/66 100 Room Air 08/10/17 16:00 87 Laboratory Tests Test 08/11/17 07:50 White Blood Count 11.7 K/UL (4.8-10.8) H Red Blood Count 3.46 M/UL (4.20-5.40) L Hemoglobin 9.9 G/DL (12.0-16.0) L Hematocrit 30.1 % (37.0-47.0) L Mean Corpuscular Volume 87 FL (80-99) Mean Corpuscular Hemoglobin 28.7 PG (27.0-31.0) Mean Corpuscular Hemoglobin Concent 33.0 G/DL (32.0-36.0) Red Cell Distribution Width 13.5 % (11.6-14.8) Platelet Count 369 K/UL (150-450) Mean Platelet Volume 5.7 FL (6.5-10.1) L Neutrophils (%) (Auto) 67.6 % (45.0-75.0) Lymphocytes (%) (Auto) 12.9 % (20.0-45.0) L Monocytes (%) (Auto) 17.4 % (1.0-10.0) H Eosinophils (%) (Auto) 1.4 % (0.0-3.0) Basophils (%) (Auto) 0.8 % (0.0-2.0) Prothrombin Time 16.7 SEC (9.30-11.50) H Prothromb Time International Ratio 1.6 (0.9-1.1) H Sodium Level 141 MMOL/L (136-145) Potassium Level 3.5 MMOL/L (3.5-5.1) Chloride Level 108 MMOL/L (98-107) H Carbon Dioxide Level 25 MMOL/L (21-32) Anion Gap 8 mmol/L (5-15) Blood Urea Nitrogen 14 mg/dL (7-18) Creatinine 0.8 MG/DL (0.55-1.30) Estimat Glomerular Filtration Rate > 60 mL/min (>60) Glucose Level 90 MG/DL (74-106) Calcium Level 8.1 MG/DL (8.5-10.1) L Phosphorus Level 3.8 MG/DL (2.5-4.9) Magnesium Level 2.0 MG/DL (1.8-2.4) Total Bilirubin 0.2 MG/DL (0.2-1.0) Aspartate Amino Transf (AST/SGOT) 32 U/L (15-37) Alanine Aminotransferase (ALT/SGPT) 24 U/L (12-78) Alkaline Phosphatase 101 U/L (46-116) Total Protein 5.5 G/DL (6.4-8.2) L Albumin 1.9 G/DL (3.4-5.0) L Globulin 3.6 g/dL Albumin/Globulin Ratio 0.5 (1.0-2.7) L Microbiology Date/Time Source Procedure Growth Status 08/10/17 23:00 Sputum Expectorated Gram Stain - Final Resulted 08/10/17 23:00 Sputum Expectorated Sputum Culture Pending Resulted Objective HEAD AND NECK: No JVD. LUNGS: Coarse rhonchi. CARDIOVASCULAR: Regular S1 and S2 with no gallop. ABDOMEN: Soft. EXTREMITIES: No pitting edema. FEDE KWOK Aug 11, 2017 12:07
[2017-08-11 15:37] VITALS: BP 115/61
--- NOTE | 2017-08-11 15:59 | Pulmonology Progress Note ---
Assessment/Plan Assessment/Plan resp failure Sepsis, SIRS DKA, severe acidosis Ischemic colitis calf vein clot PNEUMONIA lasix CXR tomorrow abx met w son at bedside Subjective Respiratory: Reports: productive cough Cardiovascular: Reports: other - edema Allergies: Coded Allergies: No Known Allergies (Unverified , 08/01/17) Objective Last 24 Hour Vital Signs Date Time Temp Pulse Resp B/P (MAP) Pulse Ox O2 Delivery O2 Flow Rate FiO2 08/11/17 15:37 99.0 98 18 115/61 100 08/11/17 15:18 94 18 100 Nasal Cannula 2.0 28 08/11/17 15:12 94 18 99 Nasal Cannula 2.0 28 08/11/17 12:00 95 08/11/17 12:00 97.2 103 20 109/54 99 08/11/17 11:34 93 18 100 Room Air 21 08/11/17 11:24 94 18 97 Room Air 08/11/17 08:00 97.7 105 20 101/49 97 08/11/17 08:00 100 08/11/17 06:57 94 20 100 Nasal Cannula 2.0 08/11/17 06:51 Nasal Cannula 2.0 28 08/11/17 06:50 92 18 100 Nasal Cannula 2.0 28 08/11/17 06:50 100 Nasal Cannula 2.0 08/11/17 06:50 08/11/17 04:25 98.2 96 20 107/55 98 Nasal Cannula 08/11/17 04:00 105 08/11/17 03:26 99 18 100 Nasal Cannula 2.0 28 08/11/17 03:06 100 18 99 Nasal Cannula 2.0 28 08/11/17 03:06 28 08/11/17 00:00 98.0 117 20 102/48 97 08/11/17 00:00 114 08/10/17 23:00 108 20 100 Nasal Cannula 2.0 28 08/10/17 22:51 28 08/10/17 22:50 114 22 97 Nasal Cannula 2.0 28 08/10/17 20:23 93 24 Nasal Cannula 2.0 28 08/10/17 20:22 Nasal Cannula 2.0 28 08/10/17 20:21 99 Nasal Cannula 2.0 28 08/10/17 20:00 112 08/10/17 19:55 95 20 100 Nasal Cannula 2.0 28 08/10/17 19:45 28 08/10/17 19:45 93 24 99 Nasal Cannula 2.0 28 08/10/17 16:00 98.6 99 20 106/66 100 Room Air 08/10/17 16:00 87 Intake and Output 08/11/17 08/12/17 19:00 07:00 Intake Total 240 ml Balance 240 ml Intake Oral 240 ml # Bowel Movements 1 General Appearance: no acute distress HEENT: atraumatic Respiratory/Chest: rhonchi Cardiovascular: normal rate Extremities: other - ++ edema Microbiology Date/Time Source Procedure Growth Status 08/10/17 23:00 Sputum Expectorated Gram Stain - Final Resulted 08/10/17 23:00 Sputum Expectorated Sputum Culture Pending Resulted Laboratory Tests 08/11/17 07:50: White Blood Count 11.7H, Red Blood Count 3.46L, Hemoglobin 9.9L, Hematocrit 30.1L, Mean Corpuscular Volume 87, Mean Corpuscular Hemoglobin 28.7, Mean Corpuscular Hemoglobin Concent 33.0, Red Cell Distribution Width 13.5, Platelet Count 369, Mean Platelet Volume 5.7L, Neutrophils (%) (Auto) 67.6, Lymphocytes ( %) (Auto) 12.9L, Monocytes (%) (Auto) 17.4H, Eosinophils (%) (Auto) 1.4, Basophils (%) (Auto) 0.8, Prothrombin Time 16.7H, Prothromb Time International Ratio 1.6H, Sodium Level 141, Potassium Level 3.5, Chloride Level 108H, Carbon Dioxide Level 25, Anion Gap 8, Blood Urea Nitrogen 14, Creatinine 0.8, Estimat Glomerular Filtration Rate > 60, Glucose Level 90, Calcium Level 8.1L, Phosphorus Level 3.8, Magnesium Level 2.0, Total Bilirubin 0.2, Aspartate Amino Transf (AST/SGOT) 32, Alanine Aminotransferase (ALT/SGPT) 24, Alkaline Phosphatase 101, Total Protein 5.5L, Albumin 1.9L, Globulin 3.6, Albumin/ Globulin Ratio 0.5L Current Medications Medications (Trade) Dose Ordered Sig/Sue Route PRN Reason Start Time Stop Time Status Last Admin Dose Admin Albuterol/ Ipratropium (Albuterol/ Ipratropium) 3 ml Q4HRT HHN 08/10/17 19:00 08/15/17 18:59 08/11/17 15:18 Cefepime HCl 2 gm/ Dextrose 55 ml @ 110 mls/hr Q24H IV 08/10/17 18:30 08/17/17 18:29 08/10/17 20:21 Dextrose (Dextrose 50%) PRN IV hypoglycemia 08/08/17 18:00 09/06/17 15:44 Dextrose (Dextrose 50%) STAT PRN IV Hypoglycemia 08/09/17 18:15 09/08/17 18:14 Docusate Sodium (Colace) 100 mg THREE TIMES A DAY ORAL 08/09/17 09:00 09/08/17 08:59 Enoxaparin Sodium (Lovenox) 50 mg Q12HR SUBQ 08/08/17 21:00 09/06/17 17:29 08/11/17 09:03 Insulin Aspart (NovoLOG) Q4HR SUBQ 08/08/17 21:00 09/06/17 16:59 08/11/17 13:01 Insulin Detemir (Levemir) 8 units Q12HR SUBQ 08/09/17 19:30 09/08/17 19:29 08/11/17 09:04 Phosphorus (Phospha 250 Neutral) 250 mg BID ORAL 08/11/17 18:00 09/08/17 12:59 Polyethylene Glycol (Miralax) 17 gm BEDTIME ORAL 08/08/17 21:00 09/07/17 20:59 Potassium Chloride (K-Dur) 20 meq TWICE A DAY ORAL 08/09/17 09:00 09/08/17 08:59 08/11/17 08:59 Ranitidine HCl (Zantac) 150 mg TWICE A DAY ORAL 08/09/17 09:00 09/08/17 08:59 08/11/17 08:59 Warfarin Sodium (Coumadin per pharmacy) 1 ea DAILY PRN MISC Per rx protocol 08/09/17 09:00 09/06/17 16:29 Warfarin Sodium (Coumadin) 5 mg COUMADIN ORAL 08/11/17 17:00 08/11/17 17:01 [employer] Aug 11, 2017 15:59
[2017-08-11] MEDS ORDERED: Warfarin Sodium 5mg ORAL SCH (17:00)
[2017-08-11] MEDS: [UNRECOGNIZED DRUG - OTHER] IV SCH ×2 (18:17)
[2017-08-11] MEDS: CEFEPIME IV SCH ×2 (18:17)
--- NOTE | 2017-08-11 20:31 | General Progress Note ---
Assessment/Plan Problem List: (1) DKA (diabetic ketoacidoses) ICD Codes: E13.10 - Other specified diabetes mellitus with ketoacidosis without coma SNOMED: 947684757, 39799110 (2) Sepsis ICD Codes: A41.9 - Sepsis, unspecified organism SNOMED: 44511777, 40044081 (3) Lactic acidosis ICD Codes: E87.2 - Acidosis SNOMED: 61338765 (4) Rectal bleed ICD Codes: K62.5 - Hemorrhage of anus and rectum SNOMED: 57354853 Status: progressing Assessment/Plan abx per id pna improving leg edema due to dvt dvt on anti coagulation Subjective Allergies: Coded Allergies: No Known Allergies (Unverified , 08/01/17) Subjective ear pain Objective Last 24 Hour Vital Signs Date Time Temp Pulse Resp B/P (MAP) Pulse Ox O2 Delivery O2 Flow Rate FiO2 08/11/17 19:33 97 18 99 Room Air 2.0 08/11/17 19:19 95 18 98 Room Air 08/11/17 19:18 98 Room Air 08/11/17 19:18 Nasal Cannula 2.0 08/11/17 16:00 102 08/11/17 15:37 99.0 98 18 115/61 100 08/11/17 15:18 94 18 100 Nasal Cannula 2.0 08/11/17 15:12 94 18 99 Nasal Cannula 2.0 08/11/17 12:00 95 08/11/17 12:00 97.2 103 20 109/54 99 08/11/17 11:34 93 18 100 Room Air 08/11/17 11:24 94 18 97 Room Air 08/11/17 08:00 97.7 105 20 101/49 97 08/11/17 08:00 100 08/11/17 06:57 94 20 100 Nasal Cannula 2.0 08/11/17 06:51 Nasal Cannula 2.0 08/11/17 06:50 92 18 100 Nasal Cannula 2.0 08/11/17 06:50 100 Nasal Cannula 2.0 08/11/17 06:50 08/11/17 04:25 98.2 96 20 107/55 98 Nasal Cannula 08/11/17 04:00 105 08/11/17 03:26 99 18 100 Nasal Cannula 2.0 08/11/17 03:06 100 18 99 Nasal Cannula 2.0 28 08/11/17 03:06 28 08/11/17 00:00 98.0 117 20 102/48 97 08/11/17 00:00 114 08/10/17 23:00 108 20 100 Nasal Cannula 2.0 28 08/10/17 22:51 28 08/10/17 22:50 114 22 97 Nasal Cannula 2.0 28 Intake and Output 08/11/17 08/12/17 19:00 07:00 Intake Total 545 ml Balance 545 ml Intake Oral 490 ml IV Total 55 ml # Bowel Movements 1 Laboratory Tests 08/11/17 07:50: White Blood Count 11.7H, Red Blood Count 3.46L, Hemoglobin 9.9L, Hematocrit 30.1L, Mean Corpuscular Volume 87, Mean Corpuscular Hemoglobin 28.7, Mean Corpuscular Hemoglobin Concent 33.0, Red Cell Distribution Width 13.5, Platelet Count 369, Mean Platelet Volume 5.7L, Neutrophils (%) (Auto) 67.6, Lymphocytes ( %) (Auto) 12.9L, Monocytes (%) (Auto) 17.4H, Eosinophils (%) (Auto) 1.4, Basophils (%) (Auto) 0.8, Prothrombin Time 16.7H, Prothromb Time International Ratio 1.6H, Sodium Level 141, Potassium Level 3.5, Chloride Level 108H, Carbon Dioxide Level 25, Anion Gap 8, Blood Urea Nitrogen 14, Creatinine 0.8, Estimat Glomerular Filtration Rate > 60, Glucose Level 90, Calcium Level 8.1L, Phosphorus Level 3.8, Magnesium Level 2.0, Total Bilirubin 0.2, Aspartate Amino Transf (AST/SGOT) 32, Alanine Aminotransferase (ALT/SGPT) 24, Alkaline Phosphatase 101, Total Protein 5.5L, Albumin 1.9L, Globulin 3.6, Albumin/ Globulin Ratio 0.5L Height (Feet): 4 Height (Inches): 10.00 Weight (Pounds): 118 Gerhard Baltazar MD Aug 11, 2017 20:31
[2017-08-11 20:43] VITALS: BP 140/80
[2017-08-11] MEDS: Miralax 17gm pkt ORAL SCH (21:00)
[2017-08-12 00:16] VITALS: BP 108/53
[2017-08-12] MEDS: NovoLOG Insulin Flexpen SUBQ SCH ×6 (01:28→21:14)
[2017-08-12] MEDS: Albuterol/Ipratropium 3ml neb HHN SCH ×6 (03:19→23:21)
[2017-08-12 04:23] VITALS: BP 116/57
--- NOTE | 2017-08-12 07:07 | General Progress Note ---
Assessment/Plan Problem List: (1) Lactic acidosis ICD Codes: E87.2 - Acidosis SNOMED: 36802241 (2) Colitis ICD Codes: K52.9 - Noninfective gastroenteritis and colitis, unspecified SNOMED: 22426269 (3) DKA (diabetic ketoacidoses) ICD Codes: E13.10 - Other specified diabetes mellitus with ketoacidosis without coma SNOMED: 363843547, 85209534 (4) Sepsis ICD Codes: A41.9 - Sepsis, unspecified organism SNOMED: 37408659, 15952414 (5) Respiratory failure requiring intubation ICD Codes: J96.90 - Respiratory failure, unspecified, unspecified whether with hypoxia or hypercapnia SNOMED: 640603494 Assessment/Plan continue Levemir 8 units bid + SSI add Starlix 60 mg ac tid discussed with daughter at bedside Subjective Allergies: Coded Allergies: No Known Allergies (Unverified , 08/01/17) All Systems: reviewed and negative except above Subjective events noted discharged was held due to PNA appetite is good daughter is at bedside Objective Last 24 Hour Vital Signs Date Time Temp Pulse Resp B/P (MAP) Pulse Ox O2 Delivery O2 Flow Rate FiO2 08/12/17 04:23 97.7 100 18 116/57 93 Room Air 08/12/17 04:00 104 08/12/17 03:27 98 18 99 Room Air 08/12/17 03:17 95 18 95 Room Air 08/12/17 00:16 98.1 118 18 108/53 97 Room Air 08/12/17 00:00 111 08/11/17 23:24 103 18 99 Room Air 08/11/17 23:12 101 18 97 Room Air 08/11/17 20:43 98.1 71 18 140/80 97 Room Air 08/11/17 20:00 102 08/11/17 19:33 97 18 99 Room Air 21 08/11/17 19:19 95 18 98 Room Air 21 08/11/17 19:18 98 Room Air 08/11/17 19:18 Room Air 08/11/17 16:00 102 08/11/17 15:37 99.0 98 18 115/61 100 08/11/17 15:18 94 18 100 Nasal Cannula 2.0 28 08/11/17 15:12 94 18 99 Nasal Cannula 2.0 28 08/11/17 12:00 95 08/11/17 12:00 97.2 103 20 109/54 99 08/11/17 11:34 93 18 100 Room Air 21 08/11/17 11:24 94 18 97 Room Air 21 08/11/17 08:00 97.7 105 20 101/49 97 08/11/17 08:00 100 Laboratory Tests 08/11/17 07:50: White Blood Count 11.7H, Red Blood Count 3.46L, Hemoglobin 9.9L, Hematocrit 30.1L, Mean Corpuscular Volume 87, Mean Corpuscular Hemoglobin 28.7, Mean Corpuscular Hemoglobin Concent 33.0, Red Cell Distribution Width 13.5, Platelet Count 369, Mean Platelet Volume 5.7L, Neutrophils (%) (Auto) 67.6, Lymphocytes ( %) (Auto) 12.9L, Monocytes (%) (Auto) 17.4H, Eosinophils (%) (Auto) 1.4, Basophils (%) (Auto) 0.8, Prothrombin Time 16.7H, Prothromb Time International Ratio 1.6H, Sodium Level 141, Potassium Level 3.5, Chloride Level 108H, Carbon Dioxide Level 25, Anion Gap 8, Blood Urea Nitrogen 14, Creatinine 0.8, Estimat Glomerular Filtration Rate > 60, Glucose Level 90, Calcium Level 8.1L, Phosphorus Level 3.8, Magnesium Level 2.0, Total Bilirubin 0.2, Aspartate Amino Transf (AST/SGOT) 32, Alanine Aminotransferase (ALT/SGPT) 24, Alkaline Phosphatase 101, Total Protein 5.5L, Albumin 1.9L, Globulin 3.6, Albumin/ Globulin Ratio 0.5L Height (Feet): 4 Height (Inches): 10.00 Weight (Pounds): 118 General Appearance: no apparent distress Neck: normal alignment Cardiovascular: normal rate Respiratory/Chest: rhonchi - bilaterally Abdomen: normal bowel sounds Objective Current Medications Medications (Trade) Dose Ordered Sig/Sue Route PRN Reason Start Time Stop Time Status Last Admin Dose Admin Albuterol/ Ipratropium (Albuterol/ Ipratropium) 3 ml Q4HRT HHN 08/10/17 19:00 08/15/17 18:59 08/12/17 03:19 Cefepime HCl 2 gm/ Dextrose 55 ml @ 110 mls/hr Q24H IV 12/14/17 18:30 08/17/17 18:29 08/11/17 18:17 Dextrose (Dextrose 50%) PRN IV hypoglycemia 08/08/17 18:00 09/06/17 15:44 Dextrose (Dextrose 50%) STAT PRN IV Hypoglycemia 08/09/17 18:15 09/08/17 18:14 Docusate Sodium (Colace) 100 mg THREE TIMES A DAY ORAL 08/09/17 09:00 09/08/17 08:59 Enoxaparin Sodium (Lovenox) 50 mg Q12HR SUBQ 08/08/17 21:00 09/06/17 17:29 08/11/17 21:06 Furosemide (Lasix) 20 mg EVERY 12 HOURS IV 08/11/17 21:00 09/10/17 20:59 08/11/17 21:05 Insulin Aspart (NovoLOG) Q4HR SUBQ 08/08/17 21:00 09/06/17 16:59 08/12/17 05:25 Insulin Detemir (Levemir) 8 units Q12HR SUBQ 08/09/17 19:30 09/08/17 19:29 08/11/17 21:06 Phosphorus (Phospha 250 Neutral) 250 mg BID ORAL 08/11/17 18:00 09/08/17 12:59 08/11/17 18:16 Polyethylene Glycol (Miralax) 17 gm BEDTIME ORAL 08/08/17 21:00 09/07/17 20:59 Potassium Chloride (K-Dur) 20 meq TWICE A DAY ORAL 08/09/17 09:00 09/08/17 08:59 08/11/17 18:16 Ranitidine HCl (Zantac) 150 mg TWICE A DAY ORAL 08/09/17 09:00 09/08/17 08:59 08/11/17 18:15 Warfarin Sodium (Coumadin per pharmacy) 1 ea DAILY PRN MISC Per rx protocol 08/09/17 09:00 09/06/17 16:29 Item Value Date Time Bedside Blood Glucose 111 mg/dl 08/12/17 0525 Bedside Blood Glucose 218 mg/dl H 08/12/17 0128 Bedside Blood Glucose 249 mg/dl H 08/11/17 2107 Bedside Blood Glucose 146 mg/dl H 08/11/17 1659 Bedside Blood Glucose 181 mg/dl H 08/11/17 1301 RL MEDINA Aug 12, 2017 07:06
[2017-08-12 07:55] LABS: BASOPHILS % (AUTO) 0.7 % (0.0-2.0); EOSINOPHILS % (AUTO) 2.9 % (0.0-3.0); MEAN CORPUSCULAR HEMOGLOBIN 30.1 PG (27.0-31.0); MEAN CORPUSCULAR HGB CONC 34.5 G/DL (32.0-36.0); MEAN CORPUSCULAR VOLUME 87 FL (80-99); MEAN PLATELET VOLUME 5.7 FL (6.5-10.1); MONOCYTES % (AUTO) 17.8 % (1.0-10.0); NEUTROPHILS % (AUTO) 66.7 % (45.0-75.0); PLATELET COUNT 315 K/UL (150-450); RED BLOOD COUNT 3.14 M/UL (4.20-5.40); RED CELL DISTRIBUTION WIDTH 13.9 % (11.6-14.8); WHITE BLOOD COUNT 8.1 K/UL (4.8-10.8)
[2017-08-12 07:57] LABS: INR 2.2 (0.9-1.1); PROTHROMBIN TIME 22.9 SEC (9.30-11.50)
[2017-08-12 08:00] VITALS: BP 123/53
[2017-08-12 08:13] LABS: ANION GAP 5 mmol/L (5-15); CARBON DIOXIDE 28 MMOL/L (21-32); CHLORIDE 106 MMOL/L (98-107); CREATININE 0.7 MG/DL (0.55-1.30); GLOMERULAR FILTRATION RATE > 60 mL/min (>60); POTASSIUM 4.1 MMOL/L (3.5-5.1); SODIUM 139 MMOL/L (136-145)
--- NOTE | 2017-08-12 08:46 | Nephrology Progress Note ---
Assessment/Plan Problem List: (1) Sepsis (2) Colitis Assessment: sever hypoalbuminemia (3) Respiratory failure requiring intubation Assessment: now extubated (4) Hypophosphatemia Assessment: resolving (5) Hypokalemia Assessment: resolving Assessment no renal issues- new pneumonia- family filed appeal on IV Abx Respiratory failure and DKA on admit, resolved Low Phos , K , and Mag HTN Ischemic colitis h/o CVA Anemia Plan Plan: ? lower level care? Phos , mag , and K as needed Monitor lytes and renal parameters per consultants per orders nutritinal boost per GI Subjective ROS Limited/Unobtainable: No Objective Objective Last 24 Hour Vital Signs Date Time Temp Pulse Resp B/P (MAP) Pulse Ox O2 Delivery O2 Flow Rate FiO2 08/12/17 07:15 96 18 99 Room Air 08/12/17 07:05 96 Room Air 08/12/17 07:05 94 16 96 Room Air 08/12/17 07:05 Room Air 08/12/17 04:23 97.7 100 18 116/57 93 Room Air 08/12/17 04:00 104 08/12/17 03:27 98 18 99 Room Air 21 08/12/17 03:17 95 18 95 Room Air 08/12/17 00:16 98.1 118 18 108/53 97 Room Air 08/12/17 00:00 111 08/11/17 23:24 103 18 99 Room Air 08/11/17 23:12 101 18 97 Room Air 08/11/17 20:43 98.1 71 18 140/80 97 Room Air 08/11/17 20:00 102 08/11/17 19:33 97 18 99 Room Air 21 08/11/17 19:19 95 18 98 Room Air 21 08/11/17 19:18 98 Room Air 21 08/11/17 19:18 Room Air 08/11/17 16:00 102 08/11/17 15:37 99.0 98 18 115/61 100 08/11/17 15:18 94 18 100 Nasal Cannula 2.0 28 08/11/17 15:12 94 18 99 Nasal Cannula 2.0 28 08/11/17 12:00 95 08/11/17 12:00 97.2 103 20 109/54 99 08/11/17 11:34 93 18 100 Room Air 21 08/11/17 11:24 94 18 97 Room Air 21 Laboratory Tests 08/12/17 06:00: White Blood Count 8.1, Red Blood Count 3.14L, Hemoglobin 9.4L, Hematocrit 27.3L , Mean Corpuscular Volume 87, Mean Corpuscular Hemoglobin 30.1, Mean Corpuscular Hemoglobin Concent 34.5, Red Cell Distribution Width 13.9, Platelet Count 315, Mean Platelet Volume 5.7L, Neutrophils (%) (Auto) 66.7, Lymphocytes ( %) (Auto) 12.0L, Monocytes (%) (Auto) 17.8H, Eosinophils (%) (Auto) 2.9, Basophils (%) (Auto) 0.7, Prothrombin Time 22.9H, Prothromb Time International Ratio 2.2H, Sodium Level 139, Potassium Level 4.1, Chloride Level 106, Carbon Dioxide Level 28, Anion Gap 5, Blood Urea Nitrogen 10, Creatinine 0.7, Estimat Glomerular Filtration Rate > 60, Glucose Level 124H, Calcium Level 8.0L Height (Feet): 4 Height (Inches): 10.00 Weight (Pounds): 118 General Appearance: no apparent distress Objective no other change LAYNE WEIR Aug 12, 2017 08:45
[2017-08-12] MEDS: Enoxaparin Sodium 300mg/3ml vial SUBQ SCH (09:00)
[2017-08-12] MEDS: Docusate 100mg cap ORAL SCH ×3 (09:00→17:37)
[2017-08-12] MEDS: Phospha 250 Neutral tab ORAL SCH ×2 (09:13→17:43)
[2017-08-12] MEDS: Levemir Flexpen SUBQ SCH ×2 (09:18→21:13)
--- NOTE | 2017-08-12 10:31 | Infectious Diseases Prog Note ---
Assessment/Plan Assessment/Plan antibiotics : cefepime A 1. pneumonia 2. respiratory failure resolved 3. DKA 4. MRSA nasal colonization P 1. continue cefepime 2. will follow up cultures Subjective Constitutional: Denies: fever, chills Respiratory: Reports: shortness of breath - decreasing, dry cough Gastrointestinal/Abdominal: Reports: diarrhea - mild, Denies: nausea, vomiting Musculoskeletal: Denies: pain Allergies: Coded Allergies: No Known Allergies (Unverified , 08/01/17) Objective Vital Signs Last 24 Hour Vital Signs Date Time Temp Pulse Resp B/P (MAP) Pulse Ox O2 Delivery O2 Flow Rate FiO2 08/12/17 08:00 109 08/12/17 08:00 97.4 100 19 123/53 93 Room Air 08/12/17 07:15 96 18 99 Room Air 08/12/17 07:05 96 Room Air 08/12/17 07:05 94 16 96 Room Air 08/12/17 07:05 Room Air 08/12/17 04:23 97.7 100 18 116/57 93 Room Air 08/12/17 04:00 104 08/12/17 03:27 98 18 99 Room Air 21 08/12/17 03:17 95 18 95 Room Air 08/12/17 00:16 98.1 118 18 108/53 97 Room Air 08/12/17 00:00 111 08/11/17 23:24 103 18 99 Room Air 08/11/17 23:12 101 18 97 Room Air 21 08/11/17 20:43 98.1 71 18 140/80 97 Room Air 08/11/17 20:00 102 08/11/17 19:33 97 18 99 Room Air 21 08/11/17 19:19 95 18 98 Room Air 21 08/11/17 19:18 98 Room Air 21 08/11/17 19:18 Room Air 21 08/11/17 16:00 102 08/11/17 15:37 99.0 98 18 115/61 100 08/11/17 15:18 94 18 100 Nasal Cannula 2.0 28 08/11/17 15:12 94 18 99 Nasal Cannula 2.0 28 08/11/17 12:00 95 08/11/17 12:00 97.2 103 20 109/54 99 08/11/17 11:34 93 18 100 Room Air 21 08/11/17 11:24 94 18 97 Room Air 21 Height (Feet): 4 Height (Inches): 10.00 Weight (Pounds): 118 Respiratory/Chest: lungs clear Cardiovascular: normal rate, regular rhythm, no gallop/murmur Abdomen: soft, non tender Extremities: no edema Microbiology Date/Time Source Procedure Growth Status 08/10/17 23:00 Sputum Expectorated Gram Stain - Final Complete 08/10/17 23:00 Sputum Expectorated Sputum Culture - Final NORMAL UPPER RESPIRATORY KATHRYN AT 24 ... Complete Laboratory Tests Test 08/12/17 06:00 White Blood Count 8.1 K/UL (4.8-10.8) Red Blood Count 3.14 M/UL (4.20-5.40) L Hemoglobin 9.4 G/DL (12.0-16.0) L Hematocrit 27.3 % (37.0-47.0) L Mean Corpuscular Volume 87 FL (80-99) Mean Corpuscular Hemoglobin 30.1 PG (27.0-31.0) Mean Corpuscular Hemoglobin Concent 34.5 G/DL (32.0-36.0) Red Cell Distribution Width 13.9 % (11.6-14.8) Platelet Count 315 K/UL (150-450) Mean Platelet Volume 5.7 FL (6.5-10.1) L Neutrophils (%) (Auto) 66.7 % (45.0-75.0) Lymphocytes (%) (Auto) 12.0 % (20.0-45.0) L Monocytes (%) (Auto) 17.8 % (1.0-10.0) H Eosinophils (%) (Auto) 2.9 % (0.0-3.0) Basophils (%) (Auto) 0.7 % (0.0-2.0) Prothrombin Time 22.9 SEC (9.30-11.50) H Prothromb Time International Ratio 2.2 (0.9-1.1) H Sodium Level 139 MMOL/L (136-145) Potassium Level 4.1 MMOL/L (3.5-5.1) Chloride Level 106 MMOL/L (98-107) Carbon Dioxide Level 28 MMOL/L (21-32) Anion Gap 5 mmol/L (5-15) Blood Urea Nitrogen 10 mg/dL (7-18) Creatinine 0.7 MG/DL (0.55-1.30) Estimat Glomerular Filtration Rate > 60 mL/min (>60) Glucose Level 124 MG/DL (74-106) H Calcium Level 8.0 MG/DL (8.5-10.1) ROMMEL VARGAS Aug 12, 2017 10:31
--- NOTE | 2017-08-12 10:58 | General Progress Note ---
Assessment/Plan Assessment/Plan ASSESSMENT AND RECOMMENDATION: #. Acute DVT. On lovenox and coumadin. INR goal 2-3. currently at therapeutic level. Lovenox DC'd. #. Anemia of chronic disease --> w/u from prior admission has been reviewed. Continue to monitor counts #. 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 Patient does not need any further workup at this time. #. Leukocytosis, likely secondary to reactive process. WBC count has normalized. #. Ischemic colitis and hemorrhoids. GI following. s/p egd and colonoscopy. Subjective Hematologic/Lymphatic: Reports: anemia Allergies: Coded Allergies: No Known Allergies (Unverified , 08/01/17) All Systems: reviewed and negative except above Subjective no events overnight. NAD Objective Last 24 Hour Vital Signs Date Time Temp Pulse Resp B/P (MAP) Pulse Ox O2 Delivery O2 Flow Rate FiO2 08/12/17 10:44 86 16 95 Room Air 08/12/17 08:00 109 08/12/17 08:00 97.4 100 19 123/53 93 Room Air 08/12/17 07:15 96 18 99 Room Air 08/12/17 07:05 96 Room Air 08/12/17 07:05 94 16 96 Room Air 08/12/17 07:05 Room Air 08/12/17 04:23 97.7 100 18 116/57 93 Room Air 08/12/17 04:00 104 08/12/17 03:27 98 18 99 Room Air 08/12/17 03:17 95 18 95 Room Air 08/12/17 00:16 98.1 118 18 108/53 97 Room Air 08/12/17 00:00 111 08/11/17 23:24 103 18 99 Room Air 08/11/17 23:12 101 18 97 Room Air 08/11/17 20:43 98.1 71 18 140/80 97 Room Air 08/11/17 20:00 102 08/11/17 19:33 97 18 99 Room Air 08/11/17 19:19 95 18 98 Room Air 08/11/17 19:18 98 Room Air 21 08/11/17 19:18 Room Air 08/11/17 16:00 102 08/11/17 15:37 99.0 98 18 115/61 100 08/11/17 15:18 94 18 100 Nasal Cannula 2.0 28 08/11/17 15:12 94 18 99 Nasal Cannula 2.0 28 08/11/17 12:00 95 08/11/17 12:00 97.2 103 20 109/54 99 08/11/17 11:34 93 18 100 Room Air 21 08/11/17 11:24 94 18 97 Room Air 21 Intake and Output 08/12/17 08/13/17 19:00 07:00 Intake Total 120 ml Balance 120 ml Intake Oral 120 ml # Voids 1 Laboratory Tests 08/12/17 06:00: White Blood Count 8.1, Red Blood Count 3.14L, Hemoglobin 9.4L, Hematocrit 27.3L , Mean Corpuscular Volume 87, Mean Corpuscular Hemoglobin 30.1, Mean Corpuscular Hemoglobin Concent 34.5, Red Cell Distribution Width 13.9, Platelet Count 315, Mean Platelet Volume 5.7L, Neutrophils (%) (Auto) 66.7, Lymphocytes ( %) (Auto) 12.0L, Monocytes (%) (Auto) 17.8H, Eosinophils (%) (Auto) 2.9, Basophils (%) (Auto) 0.7, Prothrombin Time 22.9H, Prothromb Time International Ratio 2.2H, Sodium Level 139, Potassium Level 4.1, Chloride Level 106, Carbon Dioxide Level 28, Anion Gap 5, Blood Urea Nitrogen 10, Creatinine 0.7, Estimat Glomerular Filtration Rate > 60, Glucose Level 124H, Calcium Level 8.0L Height (Feet): 4 Height (Inches): 10.00 Weight (Pounds): 118 General Appearance: no apparent distress EENT: normal ENT inspection Neck: non-tender, normal alignment Abdomen: normal bowel sounds Edema: 1+ Leg (L), 1+ Leg (R), 1+ Pedal (L), 1+ Pedal (R) 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
[2017-08-12] MEDS: Nateglinide 60mg tab ORAL SCH ×2 (11:34→16:54)
--- NOTE | 2017-08-12 11:43 | General Progress Note ---
Assessment/Plan Problem List: (1) DKA (diabetic ketoacidoses) ICD Codes: E13.10 - Other specified diabetes mellitus with ketoacidosis without coma SNOMED: 647690005, 69154938 (2) Sepsis ICD Codes: A41.9 - Sepsis, unspecified organism SNOMED: 56536082, 54826349 (3) Lactic acidosis ICD Codes: E87.2 - Acidosis SNOMED: 92620555 (4) Rectal bleed ICD Codes: K62.5 - Hemorrhage of anus and rectum SNOMED: 37578383 Status: progressing Assessment/Plan abx per id pna dvt on coumadin weak and debilitated Subjective ROS Limited/Unobtainable: Yes Allergies: Coded Allergies: No Known Allergies (Unverified , 08/01/17) Subjective ear pain Objective Last 24 Hour Vital Signs Date Time Temp Pulse Resp B/P (MAP) Pulse Ox O2 Delivery O2 Flow Rate FiO2 08/12/17 10:54 98 20 98 Room Air 08/12/17 10:44 86 16 95 Room Air 08/12/17 08:00 109 08/12/17 08:00 97.4 100 19 123/53 93 Room Air 08/12/17 07:15 96 18 99 Room Air 08/12/17 07:05 96 Room Air 08/12/17 07:05 94 16 96 Room Air 08/12/17 07:05 Room Air 08/12/17 04:23 97.7 100 18 116/57 93 Room Air 08/12/17 04:00 104 08/12/17 03:27 98 18 99 Room Air 08/12/17 03:17 95 18 95 Room Air 08/12/17 00:16 98.1 118 18 108/53 97 Room Air 08/12/17 00:00 111 08/11/17 23:24 103 18 99 Room Air 08/11/17 23:12 101 18 97 Room Air 08/11/17 20:43 98.1 71 18 140/80 97 Room Air 08/11/17 20:00 102 08/11/17 19:33 97 18 99 Room Air 08/11/17 19:19 95 18 98 Room Air 08/11/17 19:18 98 Room Air 08/11/17 19:18 Room Air 08/11/17 16:00 102 08/11/17 15:37 99.0 98 18 115/61 100 08/11/17 15:18 94 18 100 Nasal Cannula 2.0 28 08/11/17 15:12 94 18 99 Nasal Cannula 2.0 28 08/11/17 12:00 95 08/11/17 12:00 97.2 103 20 109/54 99 Intake and Output 08/12/17 08/13/17 19:00 07:00 Intake Total 120 ml Balance 120 ml Intake Oral 120 ml # Voids 1 Laboratory Tests 08/12/17 06:00: White Blood Count 8.1, Red Blood Count 3.14L, Hemoglobin 9.4L, Hematocrit 27.3L , Mean Corpuscular Volume 87, Mean Corpuscular Hemoglobin 30.1, Mean Corpuscular Hemoglobin Concent 34.5, Red Cell Distribution Width 13.9, Platelet Count 315, Mean Platelet Volume 5.7L, Neutrophils (%) (Auto) 66.7, Lymphocytes ( %) (Auto) 12.0L, Monocytes (%) (Auto) 17.8H, Eosinophils (%) (Auto) 2.9, Basophils (%) (Auto) 0.7, Prothrombin Time 22.9H, Prothromb Time International Ratio 2.2H, Sodium Level 139, Potassium Level 4.1, Chloride Level 106, Carbon Dioxide Level 28, Anion Gap 5, Blood Urea Nitrogen 10, Creatinine 0.7, Estimat Glomerular Filtration Rate > 60, Glucose Level 124H, Calcium Level 8.0L Height (Feet): 4 Height (Inches): 10.00 Weight (Pounds): 118 Gerhard Baltazar MD Aug 12, 2017 11:43
[2017-08-12 12:00] VITALS: BP 132/66
--- NOTE | 2017-08-12 12:30 | Diagnostic Imaging Report ---
Indication: Cough Technique: XRAY Chest 1v Comparison: 08/10/2017 Findings: Heart size and mediastinal contours are stable. Persistent streaky opacity at the right base, slightly improved compared to the prior exam. There is blunting of the right costophrenic sulcus likely representing trace right pleural effusion. Previously seen patchy atelectasis at the left base is improved. There is no pneumothorax. No acute osseous abnormality. Impression: Slight interval improved aeration of the right lower lung compared to the prior exam. Patchy opacities and trace right pleural effusion persists.
[2017-08-12 16:00] VITALS: BP 109/63
[2017-08-12] MEDS ORDERED: Tubing IV Secondary IV ONE (16:11)
[2017-08-12] MEDS ORDERED: NS 500ML ONE (16:11)
--- NOTE | 2017-08-12 16:42 | Pulmonology Progress Note ---
Assessment/Plan Assessment/Plan Assessment/Plan resp failure Sepsis, SIRS DKA, severe acidosis Ischemic colitis calf vein clot PNEUMONIA lasix RLL infiltrate improving on RA transition to po abx no steroids mdi upon dc dc planning for home and fu with Dr. Loco as an out pt Subjective HEENT: Repors: no symptoms Respiratory: Reports: no symptoms Cardiovascular: Reports: no symptoms Gastrointestinal/Abdominal: Reports: no symptoms Allergies: Coded Allergies: No Known Allergies (Unverified , 08/01/17) Subjective diong well on ra tolerating po' sitting in the chauir Objective Last 24 Hour Vital Signs Date Time Temp Pulse Resp B/P (MAP) Pulse Ox O2 Delivery O2 Flow Rate FiO2 08/12/17 16:00 97.9 90 19 109/63 98 Nasal Cannula 08/12/17 15:20 96 18 97 Room Air 08/12/17 15:10 92 18 94 Room Air 08/12/17 12:00 105 08/12/17 12:00 96.3 100 18 132/66 98 Room Air 08/12/17 10:54 98 20 98 Room Air 08/12/17 10:44 86 16 95 Room Air 08/12/17 08:00 109 08/12/17 08:00 97.4 100 19 123/53 93 Room Air 08/12/17 07:15 96 18 99 Room Air 08/12/17 07:05 96 Room Air 21 08/12/17 07:05 94 16 96 Room Air 21 08/12/17 07:05 Room Air 08/12/17 04:23 97.7 100 18 116/57 93 Room Air 08/12/17 04:00 104 08/12/17 03:27 98 18 99 Room Air 21 08/12/17 03:17 95 18 95 Room Air 08/12/17 00:16 98.1 118 18 108/53 97 Room Air 08/12/17 00:00 111 08/11/17 23:24 103 18 99 Room Air 08/11/17 23:12 101 18 97 Room Air 08/11/17 20:43 98.1 71 18 140/80 97 Room Air 08/11/17 20:00 102 08/11/17 19:33 97 18 99 Room Air 08/11/17 19:19 95 18 98 Room Air 08/11/17 19:18 98 Room Air 21 08/11/17 19:18 Room Air 21 Intake and Output 08/12/17 08/13/17 19:00 07:00 Intake Total 120 ml Balance 120 ml Intake Oral 120 ml # Voids 2 General Appearance: WD/WN Respiratory/Chest: lungs clear, normal breath sounds Cardiovascular: normal peripheral pulses, regular rhythm, regularly irregular Abdomen: soft, non tender, no organomegaly Extremities: no cyanosis, no clubbing Skin: no lesions Neurologic/Psychiatric: alert, oriented x 3 Musculoskeletal: normal muscle bulk Microbiology Date/Time Source Procedure Growth Status 08/10/17 23:00 Sputum Expectorated Gram Stain - Final Complete 08/10/17 23:00 Sputum Expectorated Sputum Culture - Final NORMAL UPPER RESPIRATORY KATHRYN AT 24 ... Complete Laboratory Tests 08/12/17 06:00: White Blood Count 8.1, Red Blood Count 3.14L, Hemoglobin 9.4L, Hematocrit 27.3L , Mean Corpuscular Volume 87, Mean Corpuscular Hemoglobin 30.1, Mean Corpuscular Hemoglobin Concent 34.5, Red Cell Distribution Width 13.9, Platelet Count 315, Mean Platelet Volume 5.7L, Neutrophils (%) (Auto) 66.7, Lymphocytes ( %) (Auto) 12.0L, Monocytes (%) (Auto) 17.8H, Eosinophils (%) (Auto) 2.9, Basophils (%) (Auto) 0.7, Prothrombin Time 22.9H, Prothromb Time International Ratio 2.2H, Sodium Level 139, Potassium Level 4.1, Chloride Level 106, Carbon Dioxide Level 28, Anion Gap 5, Blood Urea Nitrogen 10, Creatinine 0.7, Estimat Glomerular Filtration Rate > 60, Glucose Level 124H, Calcium Level 8.0L Current Medications Medications (Trade) Dose Ordered Sig/Sue Route PRN Reason Start Time Stop Time Status Last Admin Dose Admin Albuterol/ Ipratropium (Albuterol/ Ipratropium) 3 ml Q4HRT HHN 08/10/17 19:00 08/15/17 18:59 08/12/17 15:10 Cefepime HCl 2 gm/ Dextrose 55 ml @ 110 mls/hr Q24H IV 08/10/17 18:30 08/17/17 18:29 08/11/17 18:17 Dextrose (Dextrose 50%) STAT PRN IV Hypoglycemia 08/09/17 18:15 09/08/17 18:14 Docusate Sodium (Colace) 100 mg THREE TIMES A DAY ORAL 08/09/17 09:00 09/08/17 08:59 Furosemide (Lasix) 20 mg EVERY 12 HOURS IV 08/11/17 21:00 09/10/17 20:59 08/12/17 09:15 Insulin Aspart (NovoLOG) Q4HR SUBQ 08/08/17 21:00 09/06/17 16:59 08/12/17 13:32 Insulin Detemir (Levemir) 8 units Q12HR SUBQ 08/09/17 19:30 09/08/17 19:29 08/12/17 09:18 Nateglinide (Starlix) 60 mg TIAC ORAL 08/12/17 11:30 09/11/17 11:29 08/12/17 11:34 Phosphorus (Phospha 250 Neutral) 250 mg BID ORAL 08/11/17 18:00 09/08/17 12:59 08/12/17 09:13 Polyethylene Glycol (Miralax) 17 gm BEDTIME ORAL 08/08/17 21:00 09/07/17 20:59 Potassium Chloride (K-Dur) 20 meq TWICE A DAY ORAL 08/09/17 09:00 09/08/17 08:59 08/12/17 09:15 Ranitidine HCl (Zantac) 150 mg TWICE A DAY ORAL 08/09/17 09:00 09/08/17 08:59 08/12/17 09:13 Warfarin Sodium (Coumadin per pharmacy) 1 ea DAILY PRN MISC Per rx protocol 08/09/17 09:00 09/06/17 16:29 Warfarin Sodium (Coumadin) 2.5 mg COUMADIN ONCE ORAL 08/12/17 17:00 08/12/17 17:01 VIDAL LANFGORD DO Aug 12, 2017 16:42
[2017-08-12] MEDS ORDERED: Warfarin Sodium 2.5mg ORAL ONE (17:00)
[2017-08-12] MEDS: [UNRECOGNIZED DRUG - OTHER] IV SCH ×2 (17:45)
[2017-08-12] MEDS: CEFEPIME IV SCH ×2 (17:45)
[2017-08-12 20:00] VITALS: BP 107/54
[2017-08-12] MEDS: Miralax 17gm pkt ORAL SCH (21:00)
--- NOTE | 2017-08-12 23:04 | Cardiology Progress Note ---
Assessment/Plan Assessment/Plan 1. Severe bradycardia resolved, now tachycardic. 2. Status post respiratory failure. Extubated. It was due to patient's diabetic ketoacidosis. 3. Diabetic ketoacidosis with a blood glucose of 538. Resolved. On IV fluids. 4. Ischemic colitis. 5. History of cerebrovascular accident. 6. History of seizure disorder. 7. Cough and phlegm on Cefepime per ID Subjective Cardiovascular: Reports: no symptoms Respiratory: Reports: no symptoms Gastrointestinal/Abdominal: Reports: no symptoms Genitourinary: Reports: no symptoms Subjective Sinus tachycardia at 110. Objective Last 24 Hour Vital Signs Date Time Temp Pulse Resp B/P (MAP) Pulse Ox O2 Delivery O2 Flow Rate FiO2 08/12/17 20:00 99.5 113 20 107/54 97 Room Air 08/12/17 19:26 96 18 96 Room Air 08/12/17 19:25 Room Air 21 08/12/17 19:25 94 16 92 Room Air 08/12/17 19:24 92 Room Air 08/12/17 16:00 97.9 90 19 109/63 98 Nasal Cannula 08/12/17 16:00 105 08/12/17 15:20 96 18 97 Room Air 08/12/17 15:10 92 18 94 Room Air 08/12/17 12:00 105 08/12/17 12:00 96.3 100 18 132/66 98 Room Air 08/12/17 10:54 98 20 98 Room Air 21 08/12/17 10:44 86 16 95 Room Air 08/12/17 08:00 109 08/12/17 08:00 97.4 100 19 123/53 93 Room Air 08/12/17 07:15 96 18 99 Room Air 08/12/17 07:05 96 Room Air 21 08/12/17 07:05 94 16 96 Room Air 21 08/12/17 07:05 Room Air 08/12/17 04:23 97.7 100 18 116/57 93 Room Air 08/12/17 04:00 104 08/12/17 03:27 98 18 99 Room Air 08/12/17 03:17 95 18 95 Room Air 08/12/17 00:16 98.1 118 18 108/53 97 Room Air 08/12/17 00:00 111 08/11/17 23:24 103 18 99 Room Air 21 08/11/17 23:12 101 18 97 Room Air 21 Intake and Output 08/12/17 08/13/17 19:00 07:00 Intake Total 175 ml Balance 175 ml Intake Oral 120 ml IV Total 55 ml # Voids 3 Laboratory Tests Test 08/12/17 06:00 White Blood Count 8.1 K/UL (4.8-10.8) Red Blood Count 3.14 M/UL (4.20-5.40) L Hemoglobin 9.4 G/DL (12.0-16.0) L Hematocrit 27.3 % (37.0-47.0) L Mean Corpuscular Volume 87 FL (80-99) Mean Corpuscular Hemoglobin 30.1 PG (27.0-31.0) Mean Corpuscular Hemoglobin Concent 34.5 G/DL (32.0-36.0) Red Cell Distribution Width 13.9 % (11.6-14.8) Platelet Count 315 K/UL (150-450) Mean Platelet Volume 5.7 FL (6.5-10.1) L Neutrophils (%) (Auto) 66.7 % (45.0-75.0) Lymphocytes (%) (Auto) 12.0 % (20.0-45.0) L Monocytes (%) (Auto) 17.8 % (1.0-10.0) H Eosinophils (%) (Auto) 2.9 % (0.0-3.0) Basophils (%) (Auto) 0.7 % (0.0-2.0) Prothrombin Time 22.9 SEC (9.30-11.50) H Prothromb Time International Ratio 2.2 (0.9-1.1) H Sodium Level 139 MMOL/L (136-145) Potassium Level 4.1 MMOL/L (3.5-5.1) Chloride Level 106 MMOL/L (98-107) Carbon Dioxide Level 28 MMOL/L (21-32) Anion Gap 5 mmol/L (5-15) Blood Urea Nitrogen 10 mg/dL (7-18) Creatinine 0.7 MG/DL (0.55-1.30) Estimat Glomerular Filtration Rate > 60 mL/min (>60) Glucose Level 124 MG/DL (74-106) H Calcium Level 8.0 MG/DL (8.5-10.1) L Microbiology Date/Time Source Procedure Growth Status 08/10/17 23:00 Sputum Expectorated Gram Stain - Final Complete 08/10/17 23:00 Sputum Expectorated Sputum Culture - Final NORMAL UPPER RESPIRATORY KATHRYN AT 24 ... Complete Objective General Appearance: WD/WN Respiratory/Chest: lungs clear, normal breath sounds Cardiovascular: normal peripheral pulses, regular rhythm, regularly irregular Abdomen: soft, non tender, no organomegaly Extremities: no cyanosis, no clubbing Skin: no lesions Neurologic/Psychiatric: alert, oriented x 3 Musculoskeletal: normal muscle bulk FEDE RILEY Aug 12, 2017 23:04
[2017-08-13] VITALS: BP 117/67
[2017-08-13] MEDS: NovoLOG Insulin Flexpen SUBQ SCH ×6 (01:33→21:28)
[2017-08-13] MEDS: Albuterol/Ipratropium 3ml neb HHN SCH ×6 (03:46→23:00)
[2017-08-13 04:00] VITALS: BP 123/58
[2017-08-13] MEDS: Nateglinide 60mg tab ORAL SCH (06:51)
--- NOTE | 2017-08-13 07:16 | General Progress Note ---
Assessment/Plan Problem List: (1) Lactic acidosis ICD Codes: E87.2 - Acidosis SNOMED: 20245275 (2) Colitis ICD Codes: K52.9 - Noninfective gastroenteritis and colitis, unspecified SNOMED: 10260900 (3) DKA (diabetic ketoacidoses) ICD Codes: E13.10 - Other specified diabetes mellitus with ketoacidosis without coma SNOMED: 196854048, 86291803 (4) Sepsis ICD Codes: A41.9 - Sepsis, unspecified organism SNOMED: 11991504, 96786030 (5) Respiratory failure requiring intubation ICD Codes: J96.90 - Respiratory failure, unspecified, unspecified whether with hypoxia or hypercapnia SNOMED: 623440273 Assessment/Plan increase Levemir 8 to 12 units bid + SSI increase Starlix 60 to 120 mg ac tid Rx left in chart for diabetic regimen Subjective Allergies: Coded Allergies: No Known Allergies (Unverified , 08/01/17) All Systems: reviewed and negative except above Subjective events noted glucose is still elevated Objective Last 24 Hour Vital Signs Date Time Temp Pulse Resp B/P (MAP) Pulse Ox O2 Delivery O2 Flow Rate FiO2 08/13/17 04:00 98.2 101 20 123/58 95 Room Air 08/13/17 04:00 92 08/13/17 03:46 90 18 96 Room Air 08/13/17 03:46 84 16 94 Room Air 08/13/17 00:00 100.0 110 20 117/67 94 Room Air 08/13/17 00:00 117 08/12/17 23:21 90 16 93 Room Air 08/12/17 23:21 94 18 97 Room Air 08/12/17 20:00 99.5 113 20 107/54 97 Room Air 08/12/17 20:00 109 08/12/17 19:26 96 18 96 Room Air 21 08/12/17 19:25 Room Air 21 08/12/17 19:25 94 16 92 Room Air 08/12/17 19:24 92 Room Air 21 08/12/17 16:00 97.9 90 19 109/63 98 Nasal Cannula 08/12/17 16:00 105 08/12/17 15:20 96 18 97 Room Air 08/12/17 15:10 92 18 94 Room Air 21 12/16/17 12:00 105 08/12/17 12:00 96.3 100 18 132/66 98 Room Air 08/12/17 10:54 98 20 98 Room Air 21 08/12/17 10:44 86 16 95 Room Air 21 08/12/17 08:00 109 08/12/17 08:00 97.4 100 19 123/53 93 Room Air 08/12/17 07:15 96 18 99 Room Air 21 Height (Feet): 4 Height (Inches): 10.00 Weight (Pounds): 114 General Appearance: no apparent distress EENT: pale conjunctivae Neck: normal alignment Cardiovascular: normal rate Respiratory/Chest: lungs clear Abdomen: normal bowel sounds Edema: no edema noted Arm (L), no edema noted Arm (R), no edema noted Leg (L), no edema noted Leg (R), no edema noted Pedal (L), no edema noted Pedal (R), no edema noted Generalized Objective Current Medications Medications (Trade) Dose Ordered Sig/Sue Route PRN Reason Start Time Stop Time Status Last Admin Dose Admin Albuterol/ Ipratropium (Albuterol/ Ipratropium) 3 ml Q4HRT HHN 08/10/17 19:00 08/15/17 18:59 08/13/17 03:46 Cefepime HCl 2 gm/ Dextrose 55 ml @ 110 mls/hr Q24H IV 08/10/17 18:30 08/17/17 18:29 08/12/17 17:45 Dextrose (Dextrose 50%) STAT PRN IV Hypoglycemia 08/09/17 18:15 09/08/17 18:14 Docusate Sodium (Colace) 100 mg THREE TIMES A DAY ORAL 08/09/17 09:00 09/08/17 08:59 Furosemide (Lasix) 20 mg EVERY 12 HOURS IV 08/11/17 21:00 09/10/17 20:59 08/12/17 21:16 Insulin Aspart (NovoLOG) Q4HR SUBQ 08/08/17 21:00 09/06/17 16:59 08/13/17 05:45 Insulin Detemir (Levemir) 8 units Q12HR SUBQ 08/09/17 19:30 09/08/17 19:29 08/12/17 21:13 Nateglinide (Starlix) 60 mg TIAC ORAL 08/12/17 11:30 09/11/17 11:29 08/13/17 06:51 Phosphorus (Phospha 250 Neutral) 250 mg BID ORAL 08/11/17 18:00 09/08/17 12:59 08/12/17 17:43 Polyethylene Glycol (Miralax) 17 gm BEDTIME ORAL 08/08/17 21:00 09/07/17 20:59 Potassium Chloride (K-Dur) 20 meq TWICE A DAY ORAL 08/09/17 09:00 09/08/17 08:59 08/12/17 17:55 Ranitidine HCl (Zantac) 150 mg TWICE A DAY ORAL 08/09/17 09:00 09/08/17 08:59 08/12/17 17:43 Warfarin Sodium (Coumadin per pharmacy) 1 ea DAILY PRN MISC Per rx protocol 08/09/17 09:00 09/06/17 16:29 Item Value Date Time Bedside Blood Glucose 206 mg/dl H 08/13/17 0545 Bedside Blood Glucose 384 mg/dl H 08/13/17 0133 Bedside Blood Glucose 364 mg/dl H 08/12/17 2114 Bedside Blood Glucose 205 mg/dl H 08/12/17 1657 Bedside Blood Glucose 413 mg/dl H 08/12/17 1332 Bedside Blood Glucose 220 mg/dl H 08/12/17 0919 RL MEDINA Aug 13, 2017 07:16
[2017-08-13 07:48] LABS: PROTHROMBIN TIME 21.4 SEC (9.30-11.50)
[2017-08-13 08:00] VITALS: BP 114/64
[2017-08-13] MEDS: Docusate 100mg cap ORAL SCH ×3 (08:37→17:45)
[2017-08-13] MEDS: Phospha 250 Neutral tab ORAL SCH ×2 (08:38→17:44)
[2017-08-13] MEDS: Levemir Flexpen SUBQ SCH ×2 (08:48→21:24)
--- NOTE | 2017-08-13 09:32 | Pulmonology Progress Note ---
Assessment/Plan Assessment/Plan Assessment/Plan resp failure Sepsis, SIRS DKA, severe acidosis Ischemic colitis calf vein clot PNEUMONIA lasix RLL infiltrate improving on cxr yesterday on RA transition to po abx no steroids mdi upon dc dc planning for home and fu with Dr. Loco as an out pt and repeat cxr as out pt Subjective Constitutional: Reports: no symptoms HEENT: Repors: no symptoms Respiratory: Reports: shortness of breath Gastrointestinal/Abdominal: Reports: no symptoms Genitourinary: Reports: no symptoms Allergies: Coded Allergies: No Known Allergies (Unverified , 08/01/17) Subjective doing well on ra tolerating po sitting in the chair no nv no fever Objective Last 24 Hour Vital Signs Date Time Temp Pulse Resp B/P (MAP) Pulse Ox O2 Delivery O2 Flow Rate FiO2 08/13/17 08:00 98.4 114 18 114/64 97 Room Air 08/13/17 07:23 92 16 Room Air 08/13/17 07:20 Room Air 08/13/17 07:15 92 16 95 Room Air 08/13/17 07:14 95 Room Air 08/13/17 04:00 98.2 101 20 123/58 95 Room Air 08/13/17 04:00 92 08/13/17 03:46 90 18 96 Room Air 08/13/17 03:46 84 16 94 Room Air 08/13/17 00:00 100.0 110 20 117/67 94 Room Air 08/13/17 00:00 117 08/12/17 23:21 90 16 93 Room Air 08/12/17 23:21 94 18 97 Room Air 08/12/17 20:00 99.5 113 20 107/54 97 Room Air 08/12/17 20:00 109 08/12/17 19:26 96 18 96 Room Air 21 08/12/17 19:25 Room Air 21 08/12/17 19:25 94 16 92 Room Air 08/12/17 19:24 92 Room Air 08/12/17 16:00 97.9 90 19 109/63 98 Nasal Cannula 08/12/17 16:00 105 08/12/17 15:20 96 18 97 Room Air 08/12/17 15:10 92 18 94 Room Air 08/12/17 12:00 105 08/12/17 12:00 96.3 100 18 132/66 98 Room Air 08/12/17 10:54 98 20 98 Room Air 21 08/12/17 10:44 86 16 95 Room Air 21 Intake and Output 08/13/17 08/14/17 19:00 07:00 Intake Total 240 ml Balance 240 ml Intake Oral 240 ml General Appearance: WD/WN Respiratory/Chest: lungs clear, normal breath sounds Cardiovascular: normal peripheral pulses, normal rate, regular rhythm Abdomen: normal bowel sounds, no organomegaly Extremities: no cyanosis, no clubbing 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, no motor/sensory deficits, oriented x 3 Microbiology Date/Time Source Procedure Growth Status 08/10/17 23:00 Sputum Expectorated Gram Stain - Final Complete 08/10/17 23:00 Sputum Culture - Final Dolly Albicans Usual Upper Respiratory Kimberly Complete Laboratory Tests 08/13/17 06:35: Prothrombin Time 21.4H, Prothromb Time International Ratio 2.0H Current Medications Medications (Trade) Dose Ordered Sig/Sue Route PRN Reason Start Time Stop Time Status Last Admin Dose Admin Albuterol/ Ipratropium (Albuterol/ Ipratropium) 3 ml Q4HRT HHN 08/10/17 19:00 08/15/17 18:59 08/13/17 07:15 Cefepime HCl 2 gm/ Dextrose 55 ml @ 110 mls/hr Q24H IV 08/10/17 18:30 08/17/17 18:29 08/12/17 17:45 Dextrose (Dextrose 50%) STAT PRN IV Hypoglycemia 08/09/17 18:15 09/08/17 18:14 Docusate Sodium (Colace) 100 mg THREE TIMES A DAY ORAL 08/09/17 09:00 09/08/17 08:59 08/13/17 08:37 Furosemide (Lasix) 20 mg EVERY 12 HOURS IV 08/11/17 21:00 09/10/17 20:59 08/13/17 08:37 Insulin Aspart (NovoLOG) Q4HR SUBQ 08/08/17 21:00 09/06/17 16:59 08/13/17 08:49 Insulin Detemir (Levemir) 12 units Q12HR SUBQ 08/13/17 09:00 09/12/17 08:59 08/13/17 08:48 Nateglinide (Starlix) 120 mg TIAC ORAL 08/13/17 11:30 09/12/17 11:29 Phosphorus (Phospha 250 Neutral) 250 mg BID ORAL 08/11/17 18:00 09/08/17 12:59 08/13/17 08:38 Polyethylene Glycol (Miralax) 17 gm BEDTIME ORAL 08/08/17 21:00 09/07/17 20:59 Potassium Chloride (K-Dur) 20 meq TWICE A DAY ORAL 08/09/17 09:00 09/08/17 08:59 08/13/17 08:38 Ranitidine HCl (Zantac) 150 mg TWICE A DAY ORAL 08/09/17 09:00 09/08/17 08:59 08/13/17 08:38 Warfarin Sodium (Coumadin per pharmacy) 1 ea DAILY PRN MISC Per rx protocol 08/09/17 09:00 09/06/17 16:29 Warfarin Sodium (Coumadin) 4 mg COUMADIN ONCE PO 08/13/17 17:00 08/13/17 17:01 VIDAL LANGFORD DO Aug 13, 2017 09:32
--- NOTE | 2017-08-13 09:46 | Nephrology Progress Note ---
Assessment/Plan Problem List: (1) Sepsis (2) Colitis Assessment: sever hypoalbuminemia (3) Respiratory failure requiring intubation Assessment: now extubated (4) Hypophosphatemia Assessment: resolving (5) Hypokalemia Assessment: resolving Assessment no renal issues- new pneumonia- family filed appeal on IV Abx Respiratory failure and DKA on admit, resolved Low Phos , K , and Mag HTN Ischemic colitis h/o CVA Anemia Plan Plan: ? lower level care? Phos , mag , and K as needed Monitor lytes and renal parameters per consultants per orders nutritinal boost per GI Subjective ROS Limited/Unobtainable: No Objective Objective Last 24 Hour Vital Signs Date Time Temp Pulse Resp B/P (MAP) Pulse Ox O2 Delivery O2 Flow Rate FiO2 08/13/17 08:00 98.4 114 18 114/64 97 Room Air 08/13/17 07:23 92 16 Room Air 08/13/17 07:20 Room Air 08/13/17 07:15 92 16 95 Room Air 08/13/17 07:14 95 Room Air 08/13/17 04:00 98.2 101 20 123/58 95 Room Air 08/13/17 04:00 92 08/13/17 03:46 90 18 96 Room Air 08/13/17 03:46 84 16 94 Room Air 08/13/17 00:00 100.0 110 20 117/67 94 Room Air 08/13/17 00:00 117 08/12/17 23:21 90 16 93 Room Air 08/12/17 23:21 94 18 97 Room Air 08/12/17 20:00 99.5 113 20 107/54 97 Room Air 08/12/17 20:00 109 08/12/17 19:26 96 18 96 Room Air 08/12/17 19:25 Room Air 08/12/17 19:25 94 16 92 Room Air 08/12/17 19:24 92 Room Air 08/12/17 16:00 97.9 90 19 109/63 98 Nasal Cannula 08/12/17 16:00 105 08/12/17 15:20 96 18 97 Room Air 08/12/17 15:10 92 18 94 Room Air 08/12/17 12:00 105 08/12/17 12:00 96.3 100 18 132/66 98 Room Air 08/12/17 10:54 98 20 98 Room Air 21 08/12/17 10:44 86 16 95 Room Air 21 Intake and Output 08/13/17 08/14/17 19:00 07:00 Intake Total 240 ml Balance 240 ml Intake Oral 240 ml Laboratory Tests 08/13/17 06:35: Prothrombin Time 21.4H, Prothromb Time International Ratio 2.0H Height (Feet): 4 Height (Inches): 10.00 Weight (Pounds): 114 General Appearance: no apparent distress Objective no other change LAYNE WEIR Aug 13, 2017 09:46
[2017-08-13 11:52] VITALS: BP 116/73
--- NOTE | 2017-08-13 12:44 | Infectious Diseases Prog Note ---
Assessment/Plan Assessment/Plan A: Atelectasis/ Pneumonia DKA Ischemic colitis Hypoxemic respiratory failure resolved MRSA colonization Diarrhea resolved P: continue Cefepime At time of discharge PO Levaquin X 3 days Subjective ROS Limited/Unobtainable: No Constitutional: Reports: fever, other - [id number] HEENT: Reports: other - itching sensation in throat Respiratory: Reports: dry cough Cardiovascular: Reports: no symptoms Gastrointestinal/Abdominal: Reports: no symptoms Genitourinary: Reports: no symptoms Allergies: Coded Allergies: No Known Allergies (Unverified , 08/01/17) Objective Vital Signs Last 24 Hour Vital Signs Date Time Temp Pulse Resp B/P (MAP) Pulse Ox O2 Delivery O2 Flow Rate FiO2 08/13/17 11:52 99.0 97 18 116/73 100 Room Air 08/13/17 11:42 94 16 Room Air 08/13/17 11:25 90 16 Room Air 08/13/17 08:00 98.4 114 18 114/64 97 Room Air 08/13/17 08:00 107 08/13/17 07:23 92 16 Room Air 08/13/17 07:20 Room Air 21 08/13/17 07:15 92 16 95 Room Air 08/13/17 07:14 95 Room Air 08/13/17 04:00 98.2 101 20 123/58 95 Room Air 08/13/17 04:00 92 08/13/17 03:46 90 18 96 Room Air 08/13/17 03:46 84 16 94 Room Air 08/13/17 00:00 100.0 110 20 117/67 94 Room Air 08/13/17 00:00 117 08/12/17 23:21 90 16 93 Room Air 08/12/17 23:21 94 18 97 Room Air 21 08/12/17 20:00 99.5 113 20 107/54 97 Room Air 08/12/17 20:00 109 08/12/17 19:26 96 18 96 Room Air 21 08/12/17 19:25 Room Air 21 08/12/17 19:25 94 16 92 Room Air 21 08/12/17 19:24 92 Room Air 08/12/17 16:00 97.9 90 19 109/63 98 Nasal Cannula 08/12/17 16:00 105 12/16/17 15:20 96 18 97 Room Air 21 08/12/17 15:10 92 18 94 Room Air 21 Height (Feet): 4 Height (Inches): 10.00 Weight (Pounds): 114 General Appearance: no acute distress HEENT: anicteric Respiratory/Chest: other - coarse sounds Cardiovascular: normal rate Abdomen: soft, non tender Microbiology Date/Time Source Procedure Growth Status 08/10/17 23:00 Sputum Expectorated Gram Stain - Final Complete 08/10/17 23:00 Sputum Culture - Final Dolly Albicans Usual Upper Respiratory Kimberly Complete Laboratory Tests Test 08/13/17 06:35 Prothrombin Time 21.4 SEC (9.30-11.50) H Prothromb Time International Ratio 2.0 (0.9-1.1) H Current Medications Medications (Trade) Dose Ordered Sig/Sue Route PRN Reason Start Time Stop Time Status Last Admin Dose Admin Albuterol/ Ipratropium (Albuterol/ Ipratropium) 3 ml Q4HRT HHN 08/10/17 19:00 08/15/17 18:59 08/13/17 11:30 Cefepime HCl 2 gm/ Dextrose 55 ml @ 110 mls/hr Q24H IV 08/10/17 18:30 08/17/17 18:29 08/12/17 17:45 Dextrose (Dextrose 50%) STAT PRN IV Hypoglycemia 08/09/17 18:15 09/08/17 18:14 Docusate Sodium (Colace) 100 mg THREE TIMES A DAY ORAL 08/09/17 09:00 09/08/17 08:59 08/13/17 08:37 Furosemide (Lasix) 20 mg EVERY 12 HOURS IV 08/11/17 21:00 09/10/17 20:59 08/13/17 08:37 Insulin Aspart (NovoLOG) Q4HR SUBQ 08/08/17 21:00 09/06/17 16:59 08/13/17 08:49 Insulin Detemir (Levemir) 12 units Q12HR SUBQ 08/13/17 09:00 09/12/17 08:59 08/13/17 08:48 Nateglinide (Starlix) 120 mg TIAC ORAL 08/13/17 11:30 09/12/17 11:29 Phosphorus (Phospha 250 Neutral) 250 mg BID ORAL 08/11/17 18:00 09/08/17 12:59 08/13/17 08:38 Polyethylene Glycol (Miralax) 17 gm BEDTIME ORAL 08/08/17 21:00 09/07/17 20:59 Potassium Chloride (K-Dur) 20 meq TWICE A DAY ORAL 08/09/17 09:00 09/08/17 08:59 08/13/17 08:38 Ranitidine HCl (Zantac) 150 mg TWICE A DAY ORAL 08/09/17 09:00 09/08/17 08:59 08/13/17 08:38 Warfarin Sodium (Coumadin per pharmacy) 1 ea DAILY PRN MISC Per rx protocol 08/09/17 09:00 09/06/17 16:29 Warfarin Sodium (Coumadin) 4 mg COUMADIN ONCE PO 08/13/17 17:00 08/13/17 17:01 MITCHELL HOLM Aug 13, 2017 12:44
[2017-08-13 16:00] VITALS: BP 120/56
[2017-08-13] MEDS ORDERED: Warfarin Sodium 4mg PO ONE (17:00)
[2017-08-13] MEDS: [UNRECOGNIZED DRUG - OTHER] IV SCH ×2 (17:44)
[2017-08-13] MEDS: CEFEPIME IV SCH ×2 (17:44)
[2017-08-13] MEDS ORDERED: Etomidate 40mg/20ml Inj IV ONE (18:02)
[2017-08-13 20:18] VITALS: BP 129/67
[2017-08-13] MEDS: Miralax 17gm pkt ORAL SCH (21:00)
--- NOTE | 2017-08-13 21:56 | General Progress Note ---
Assessment/Plan Problem List: (1) DKA (diabetic ketoacidoses) ICD Codes: E13.10 - Other specified diabetes mellitus with ketoacidosis without coma SNOMED: 484064439, 61736192 (2) Sepsis ICD Codes: A41.9 - Sepsis, unspecified organism SNOMED: 15312485, 86784028 (3) Lactic acidosis ICD Codes: E87.2 - Acidosis SNOMED: 61679111 (4) Rectal bleed ICD Codes: K62.5 - Hemorrhage of anus and rectum SNOMED: 40587082 Status: progressing Assessment/Plan abx per id pna improving no bleeding dka resomved weak dvt on coumadin Subjective ROS Limited/Unobtainable: Yes Constitutional: Reports: no symptoms Allergies: Coded Allergies: No Known Allergies (Unverified , 08/01/17) Subjective ear pain Objective Last 24 Hour Vital Signs Date Time Temp Pulse Resp B/P (MAP) Pulse Ox O2 Delivery O2 Flow Rate FiO2 08/13/17 20:18 98.0 100 21 129/67 96 Room Air 08/13/17 19:29 72 18 99 Room Air 08/13/17 19:18 99 Room Air 08/13/17 19:18 Room Air 08/13/17 19:18 100 18 99 Room Air 08/13/17 19:18 21 08/13/17 16:00 106 08/13/17 16:00 98.2 105 18 120/56 99 Room Air 08/13/17 15:08 91 16 Room Air 08/13/17 14:50 88 16 Room Air 08/13/17 12:00 114 08/13/17 11:52 99.0 97 18 116/73 100 Room Air 08/13/17 11:42 94 16 Room Air 08/13/17 11:25 90 16 Room Air 08/13/17 08:00 98.4 114 18 114/64 97 Room Air 08/13/17 08:00 107 08/13/17 07:23 92 16 Room Air 08/13/17 07:20 Room Air 08/13/17 07:15 92 16 95 Room Air 08/13/17 07:14 95 Room Air 08/13/17 04:00 98.2 101 20 123/58 95 Room Air 08/13/17 04:00 92 08/13/17 03:46 90 18 96 Room Air 21 08/13/17 03:46 84 16 94 Room Air 21 08/13/17 00:00 100.0 110 20 117/67 94 Room Air 08/13/17 00:00 117 08/12/17 23:21 90 16 93 Room Air 21 08/12/17 23:21 94 18 97 Room Air 21 Intake and Output 08/13/17 08/14/17 19:00 07:00 Intake Total 720 ml Balance 720 ml Intake Oral 720 ml # Voids 4 Laboratory Tests 08/13/17 06:35: Prothrombin Time 21.4H, Prothromb Time International Ratio 2.0H Height (Feet): 4 Height (Inches): 10.00 Weight (Pounds): 114 Gerhard Baltazar MD Aug 13, 2017 21:56
[2017-08-14 00:30] VITALS: BP 115/60
[2017-08-14] MEDS: NovoLOG Insulin Flexpen SUBQ SCH ×6 (00:48→21:58)
[2017-08-14] MEDS: Albuterol/Ipratropium 3ml neb HHN SCH ×6 (03:47→23:00)
[2017-08-14 04:04] VITALS: BP 126/64
[2017-08-14 08:00] VITALS: BP_SYST 106; BP_SYST 92; BP_DIAS 53; BP_DIAS 54
[2017-08-14] MEDS: Docusate 100mg cap ORAL SCH ×3 (09:00→17:07)
[2017-08-14] MEDS ORDERED: Sodium Chloride 500ML 500 ML IV ONE (09:00)
[2017-08-14 09:13] LABS: INR 1.7 (0.9-1.1); PROTHROMBIN TIME 18.1 SEC (9.30-11.50)
[2017-08-14] MEDS: Levemir Flexpen SUBQ SCH ×2 (09:27→21:57)
[2017-08-14] MEDS: Phospha 250 Neutral tab ORAL SCH ×2 (09:30→17:07)
[2017-08-14] MEDS: Levofloxacin 500mg tab ORAL SCH (09:36)
--- NOTE | 2017-08-14 11:05 | GI Progress Note ---
Assessment/Plan Problems: (1) DKA (diabetic ketoacidoses) ICD Codes: E13.10 - Other specified diabetes mellitus with ketoacidosis without coma SNOMED: 645010797, 27943781 (2) Colitis ICD Codes: K52.9 - Noninfective gastroenteritis and colitis, unspecified SNOMED: 04399743 (3) Lactic acidosis ICD Codes: E87.2 - Acidosis SNOMED: 46665073 (4) Respiratory failure requiring intubation ICD Codes: J96.90 - Respiratory failure, unspecified, unspecified whether with hypoxia or hypercapnia SNOMED: 918135630 Status: unchanged Status Narrative Discussed with Dr. Gomez. Assessment/Plan s/p colonoscopy SUMMARY FINDINGS: 1. Atrophic gastritis. 2. Hiatal hernia. 3. Possible ischemic colitis. 4. Internal hemorrhoids. CT AP reviewed >> no obvious perforation or acute complication from ischemic colitis Lactic Acid >> WNL RECOMMENDATIONS: fu endocrine DM mgmt adv diet monitor H&H, prn transfusions titrate bowel regime ppi abx The patient will need a repeat full colonoscopy as an outpatient when the ischemic colitis has completely resolved, 2 months from dc date. Subjective Subjective generalized weakness diarrhea resolved, had BM yesterday Objective Last 24 Hour Vital Signs Date Time Temp Pulse Resp B/P (MAP) Pulse Ox O2 Delivery O2 Flow Rate FiO2 08/14/17 08:03 104 18 95 Room Air 08/14/17 08:01 Room Air 08/14/17 08:01 95 Room Air 08/14/17 08:00 97.6 116 20 92/54 98 08/14/17 08:00 111 106/53 08/14/17 07:54 100 14 95 Room Air 08/14/17 07:54 21 08/14/17 04:04 97.1 94 19 126/64 98 Room Air 08/14/17 04:00 94 08/14/17 03:57 96 16 99 Nasal Cannula 2.0 28 08/14/17 03:48 86 14 93 Room Air 08/14/17 00:30 97.9 93 20 115/60 95 Room Air 08/14/17 00:00 91 08/13/17 23:00 21 08/13/17 23:00 Room Air 08/13/17 23:00 21 08/13/17 20:18 98.0 100 21 129/67 96 Room Air 08/13/17 20:00 98 08/13/17 19:29 72 18 99 Room Air 21 08/13/17 19:18 99 Room Air 21 08/13/17 19:18 Room Air 21 08/13/17 19:18 100 18 99 Room Air 21 08/13/17 19:18 21 08/13/17 16:00 106 08/13/17 16:00 98.2 105 18 120/56 99 Room Air 08/13/17 15:08 91 16 Room Air 21 08/13/17 14:50 88 16 Room Air 21 08/13/17 12:00 114 08/13/17 11:52 99.0 97 18 116/73 100 Room Air 08/13/17 11:42 94 16 Room Air 21 08/13/17 11:25 90 16 Room Air 21 Laboratory Tests Test 08/14/17 08:00 Prothrombin Time 18.1 SEC (9.30-11.50) H Prothromb Time International Ratio 1.7 (0.9-1.1) H Height (Feet): 4 Height (Inches): 10.00 Weight (Pounds): 112 General Appearance: WD/WN, no apparent distress, alert Cardiovascular: normal rate Respiratory/Chest: normal breath sounds, no respiratory distress Abdominal Exam: normal bowel sounds, non tender, soft Extremities: normal range of motion, non-tender Adele Olsen N.P. Aug 14, 2017 11:05
[2017-08-14 12:00] VITALS: BP 121/68
--- NOTE | 2017-08-14 12:56 | Pulmonology Progress Note ---
Assessment/Plan Assessment/Plan resp failure Sepsis, SIRS DKA, severe acidosis Ischemic colitis calf vein clot pneumonia dc lasix due to low blood pressure CXR is improving abxchange to oral Levaquin per infectious disease recommendation met w son at bedside blood pressure low this morning, Lasix held and IV saline bolus given Subjective Constitutional: Reports: fever Respiratory: Reports: productive cough Allergies: Coded Allergies: No Known Allergies (Unverified , 08/01/17) Objective Last 24 Hour Vital Signs Date Time Temp Pulse Resp B/P (MAP) Pulse Ox O2 Delivery O2 Flow Rate FiO2 08/14/17 12:45 101 22 95 Room Air 08/14/17 12:39 106 14 94 Room Air 08/14/17 12:39 21 08/14/17 08:03 104 18 95 Room Air 08/14/17 08:01 Room Air 21 08/14/17 08:01 95 Room Air 21 08/14/17 08:00 97.6 116 20 92/54 98 08/14/17 08:00 111 106/53 08/14/17 07:54 100 14 95 Room Air 08/14/17 07:54 21 08/14/17 04:04 97.1 94 19 126/64 98 Room Air 08/14/17 04:00 94 08/14/17 03:57 96 16 99 Nasal Cannula 2.0 28 08/14/17 03:48 86 14 93 Room Air 08/14/17 00:30 97.9 93 20 115/60 95 Room Air 08/14/17 00:00 91 08/13/17 23:00 21 08/13/17 23:00 Room Air 21 08/13/17 23:00 21 08/13/17 20:18 98.0 100 21 129/67 96 Room Air 08/13/17 20:00 98 08/13/17 19:29 72 18 99 Room Air 21 08/13/17 19:18 99 Room Air 21 08/13/17 19:18 Room Air 21 08/13/17 19:18 100 18 99 Room Air 21 08/13/17 19:18 21 08/13/17 16:00 106 08/13/17 16:00 98.2 105 18 120/56 99 Room Air 08/13/17 15:08 91 16 Room Air 21 08/13/17 14:50 88 16 Room Air 21 General Appearance: no acute distress HEENT: atraumatic Respiratory/Chest: lungs clear Cardiovascular: normal rate Laboratory Tests 08/14/17 08:00: Prothrombin Time 18.1H, Prothromb Time International Ratio 1.7H Current Medications Medications (Trade) Dose Ordered Sig/Sue Route PRN Reason Start Time Stop Time Status Last Admin Dose Admin Albuterol/ Ipratropium (Albuterol/ Ipratropium) 3 ml Q4HRT HHN 08/10/17 19:00 08/15/17 18:59 08/14/17 12:38 Dextrose (Dextrose 50%) STAT PRN IV Hypoglycemia 08/09/17 18:15 09/08/17 18:14 Docusate Sodium (Colace) 100 mg THREE TIMES A DAY ORAL 08/09/17 09:00 09/08/17 08:59 08/13/17 08:37 Furosemide (Lasix) 40 mg DAILY ORAL 08/14/17 09:00 09/13/17 08:59 Insulin Aspart (NovoLOG) Q4HR SUBQ 08/08/17 21:00 09/06/17 16:59 08/14/17 09:26 Insulin Detemir (Levemir) 12 units Q12HR SUBQ 08/13/17 09:00 09/12/17 08:59 08/14/17 09:27 Levofloxacin (Levaquin) 500 mg DAILY ORAL 08/14/17 09:00 08/21/17 08:59 08/14/17 09:36 Nateglinide (Starlix) 120 mg TIAC ORAL 08/13/17 11:30 09/12/17 11:29 08/14/17 11:50 Phosphorus (Phospha 250 Neutral) 250 mg BID ORAL 08/11/17 18:00 09/08/17 12:59 08/14/17 09:30 Polyethylene Glycol (Miralax) 17 gm BEDTIME ORAL 08/08/17 21:00 09/07/17 20:59 Potassium Chloride (K-Dur) 20 meq TWICE A DAY ORAL 08/09/17 09:00 09/08/17 08:59 08/14/17 09:31 Ranitidine HCl (Zantac) 150 mg TWICE A DAY ORAL 08/09/17 09:00 09/08/17 08:59 08/14/17 09:31 Warfarin Sodium (Coumadin per pharmacy) 1 ea DAILY PRN MISC Per rx protocol 08/09/17 09:00 09/06/17 16:29 Warfarin Sodium (Coumadin) 4 mg COUMADIN ONCE PO 08/14/17 17:00 08/14/17 17:01 NATO WOODRUFF Aug 14, 2017 12:56
--- NOTE | 2017-08-14 13:25 | Infectious Diseases Prog Note ---
Assessment/Plan Assessment/Plan A: Atelectasis/ Pneumonia DKA Ischemic colitis Hypoxemic respiratory failure resolved MRSA colonization Diarrhea resolved P: continue PO Levaquin X 3 days Subjective ROS Limited/Unobtainable: No Respiratory: Reports: no symptoms Cardiovascular: Reports: dyspnea on exertion Gastrointestinal/Abdominal: Reports: no symptoms Genitourinary: Reports: no symptoms Allergies: Coded Allergies: No Known Allergies (Unverified , 08/01/17) Objective Vital Signs Last 24 Hour Vital Signs Date Time Temp Pulse Resp B/P (MAP) Pulse Ox O2 Delivery O2 Flow Rate FiO2 08/14/17 12:45 101 22 95 Room Air 08/14/17 12:39 106 14 94 Room Air 08/14/17 12:39 21 08/14/17 08:03 104 18 95 Room Air 08/14/17 08:01 Room Air 21 08/14/17 08:01 95 Room Air 21 08/14/17 08:00 97.6 116 20 92/54 98 08/14/17 08:00 111 106/53 08/14/17 07:54 100 14 95 Room Air 21 08/14/17 07:54 21 08/14/17 04:04 97.1 94 19 126/64 98 Room Air 08/14/17 04:00 94 08/14/17 03:57 96 16 99 Nasal Cannula 2.0 28 08/14/17 03:48 86 14 93 Room Air 08/14/17 00:30 97.9 93 20 115/60 95 Room Air 08/14/17 00:00 91 08/13/17 23:00 21 08/13/17 23:00 Room Air 21 08/13/17 23:00 21 08/13/17 20:18 98.0 100 21 129/67 96 Room Air 08/13/17 20:00 98 08/13/17 19:29 72 18 99 Room Air 21 08/13/17 19:18 99 Room Air 21 08/13/17 19:18 Room Air 21 08/13/17 19:18 100 18 99 Room Air 21 08/13/17 19:18 21 08/13/17 16:00 106 08/13/17 16:00 98.2 105 18 120/56 99 Room Air 08/13/17 15:08 91 16 Room Air 21 08/13/17 14:50 88 16 Room Air 21 Height (Feet): 4 Height (Inches): 10.00 Weight (Pounds): 112 General Appearance: no acute distress HEENT: mucous membranes moist Respiratory/Chest: lungs clear Cardiovascular: tachycardia Abdomen: soft, non tender Extremities: no edema Neurologic/Psychiatric: alert, oriented x 3, responsive Laboratory Tests Test 08/14/17 08:00 Prothrombin Time 18.1 SEC (9.30-11.50) H Prothromb Time International Ratio 1.7 (0.9-1.1) H Current Medications Medications (Trade) Dose Ordered Sig/Sue Route PRN Reason Start Time Stop Time Status Last Admin Dose Admin Albuterol/ Ipratropium (Albuterol/ Ipratropium) 3 ml Q4HRT HHN 08/10/17 19:00 08/15/17 18:59 08/14/17 12:38 Dextrose (Dextrose 50%) STAT PRN IV Hypoglycemia 08/09/17 18:15 09/08/17 18:14 Docusate Sodium (Colace) 100 mg THREE TIMES A DAY ORAL 08/09/17 09:00 09/08/17 08:59 08/13/17 08:37 Furosemide (Lasix) 40 mg DAILY ORAL 08/14/17 09:00 09/13/17 08:59 Insulin Aspart (NovoLOG) Q4HR SUBQ 08/08/17 21:00 09/06/17 16:59 08/14/17 12:54 Insulin Detemir (Levemir) 12 units Q12HR SUBQ 08/13/17 09:00 09/12/17 08:59 08/14/17 09:27 Levofloxacin (Levaquin) 500 mg DAILY ORAL 08/14/17 09:00 08/21/17 08:59 08/14/17 09:36 Nateglinide (Starlix) 120 mg TIAC ORAL 08/13/17 11:30 09/12/17 11:29 08/14/17 11:50 Phosphorus (Phospha 250 Neutral) 250 mg BID ORAL 08/11/17 18:00 09/08/17 12:59 08/14/17 09:30 Polyethylene Glycol (Miralax) 17 gm BEDTIME ORAL 08/08/17 21:00 09/07/17 20:59 Potassium Chloride (K-Dur) 20 meq TWICE A DAY ORAL 08/09/17 09:00 09/08/17 08:59 08/14/17 09:31 Ranitidine HCl (Zantac) 150 mg TWICE A DAY ORAL 08/09/17 09:00 09/08/17 08:59 08/14/17 09:31 Warfarin Sodium (Coumadin per pharmacy) 1 ea DAILY PRN MISC Per rx protocol 08/09/17 09:00 09/06/17 16:29 Warfarin Sodium (Coumadin) 4 mg COUMADIN ONCE PO 08/14/17 17:00 08/14/17 17:01 MITCHELL HOLM Aug 14, 2017 13:24
--- NOTE | 2017-08-14 14:54 | Nephrology Progress Note ---
Assessment/Plan Problem List: (1) Sepsis (2) Colitis Assessment: sever hypoalbuminemia (3) Respiratory failure requiring intubation Assessment: now extubated (4) Hypophosphatemia Assessment: resolving (5) Hypokalemia Assessment: resolving Assessment no renal issues- tachycardiac new pneumonia- family filed appeal on IV Abx Respiratory failure and DKA on admit, resolved Low Phos , K , and Mag HTN Ischemic colitis h/o CVA Anemia Plan Plan: ? lower level care? Phos , mag , and K as needed Monitor lytes and renal parameters per consultants per orders nutritional boost per GI Subjective ROS Limited/Unobtainable: No Constitutional: Reports: malaise Objective Objective Last 24 Hour Vital Signs Date Time Temp Pulse Resp B/P (MAP) Pulse Ox O2 Delivery O2 Flow Rate FiO2 08/14/17 12:45 101 22 95 Room Air 08/14/17 12:39 106 14 94 Room Air 08/14/17 12:39 21 08/14/17 12:00 112 08/14/17 08:03 104 18 95 Room Air 08/14/17 08:01 Room Air 08/14/17 08:01 95 Room Air 08/14/17 08:00 97.6 116 20 92/54 98 08/14/17 08:00 112 08/14/17 08:00 111 106/53 08/14/17 07:54 100 14 95 Room Air 08/14/17 07:54 21 08/14/17 04:04 97.1 94 19 126/64 98 Room Air 08/14/17 04:00 94 08/14/17 03:57 96 16 99 Nasal Cannula 2.0 28 08/14/17 03:48 86 14 93 Room Air 08/14/17 00:30 97.9 93 20 115/60 95 Room Air 08/14/17 00:00 91 08/13/17 23:00 21 08/13/17 23:00 Room Air 08/13/17 23:00 21 08/13/17 20:18 98.0 100 21 129/67 96 Room Air 08/13/17 20:00 98 08/13/17 19:29 72 18 99 Room Air 08/13/17 19:18 99 Room Air 08/13/17 19:18 Room Air 08/13/17 19:18 100 18 99 Room Air 21 08/13/17 19:18 21 08/13/17 16:00 106 08/13/17 16:00 98.2 105 18 120/56 99 Room Air 08/13/17 15:08 91 16 Room Air 21 Laboratory Tests 08/14/17 08:00: Prothrombin Time 18.1H, Prothromb Time International Ratio 1.7H Height (Feet): 4 Height (Inches): 10.00 Weight (Pounds): 112 General Appearance: no apparent distress Cardiovascular: tachycardia Objective no other change LAYNE WEIR Aug 14, 2017 14:54
--- NOTE | 2017-08-14 15:17 | General Progress Note ---
Assessment/Plan Assessment/Plan ASSESSMENT AND RECOMMENDATION: #. Acute DVT. On coumadin. INR goal 2-3. Continue to monitor. Lovenox DC'd. #. Anemia of chronic disease --> w/u from prior admission has been reviewed. Continue to monitor counts --> H/H stable #. 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 Patient does not need any further workup at this time. #. Leukocytosis, likely secondary to reactive process. WBC count has normalized. #. Ischemic colitis and hemorrhoids. GI following. s/p egd and colonoscopy. Subjective Allergies: Coded Allergies: No Known Allergies (Unverified , 08/01/17) All Systems: reviewed and negative except above Subjective NAD Objective Last 24 Hour Vital Signs Date Time Temp Pulse Resp B/P (MAP) Pulse Ox O2 Delivery O2 Flow Rate FiO2 08/14/17 12:45 101 22 95 Room Air 08/14/17 12:39 106 14 94 Room Air 08/14/17 12:39 21 08/14/17 12:00 112 08/14/17 08:03 104 18 95 Room Air 08/14/17 08:01 Room Air 08/14/17 08:01 95 Room Air 08/14/17 08:00 97.6 116 20 92/54 98 08/14/17 08:00 112 08/14/17 08:00 111 106/53 08/14/17 07:54 100 14 95 Room Air 08/14/17 07:54 21 08/14/17 04:04 97.1 94 19 126/64 98 Room Air 08/14/17 04:00 94 08/14/17 03:57 96 16 99 Nasal Cannula 2.0 28 08/14/17 03:48 86 14 93 Room Air 08/14/17 00:30 97.9 93 20 115/60 95 Room Air 08/14/17 00:00 91 08/13/17 23:00 21 08/13/17 23:00 Room Air 08/13/17 23:00 21 08/13/17 20:18 98.0 100 21 129/67 96 Room Air 08/13/17 20:00 98 08/13/17 19:29 72 18 99 Room Air 08/13/17 19:18 99 Room Air 21 12/17/17 19:18 Room Air 21 08/13/17 19:18 100 18 99 Room Air 21 08/13/17 19:18 21 08/13/17 16:00 106 08/13/17 16:00 98.2 105 18 120/56 99 Room Air Laboratory Tests 08/14/17 08:00: Prothrombin Time 18.1H, Prothromb Time International Ratio 1.7H Height (Feet): 4 Height (Inches): 10.00 Weight (Pounds): 112 General Appearance: no apparent distress EENT: PERRL/EOMI, normal ENT inspection Neck: non-tender, normal alignment Cardiovascular: normal peripheral pulses Abdomen: normal bowel sounds Edema: trace edema Arun Gamez Aug 14, 2017 15:17
[2017-08-14 16:00] VITALS: BP 114/56
[2017-08-14] MEDS ORDERED: Warfarin Sodium 4mg PO ONE (17:00)
--- NOTE | 2017-08-14 18:46 | Cardiology Progress Note ---
Assessment/Plan Assessment/Plan 1. Severe bradycardia resolved, now tachycardic, start low dose atenolol. 2D echo reveals normal LV systolic function with LVEF at 55%. 2. Status post respiratory failure. 3. Diabetic ketoacidosis, continue fluids. 4. Ischemic colitis. 5. History of cerebrovascular accident. 6. History of seizure disorder. Subjective Subjective Sinus tachycardia at 107. Objective Last 24 Hour Vital Signs Date Time Temp Pulse Resp B/P (MAP) Pulse Ox O2 Delivery O2 Flow Rate FiO2 08/14/17 16:01 103 22 98 Room Air 08/14/17 16:00 97.2 107 114/56 08/14/17 16:00 106 08/14/17 15:48 21 08/14/17 15:48 98 16 95 Room Air 08/14/17 12:45 101 22 95 Room Air 08/14/17 12:39 106 14 94 Room Air 21 08/14/17 12:39 21 08/14/17 12:00 97.8 111 21 121/68 08/14/17 12:00 112 08/14/17 08:03 104 18 95 Room Air 08/14/17 08:01 Room Air 21 08/14/17 08:01 95 Room Air 21 08/14/17 08:00 97.6 116 20 92/54 98 08/14/17 08:00 112 08/14/17 08:00 111 106/53 08/14/17 07:54 100 14 95 Room Air 08/14/17 07:54 21 08/14/17 04:04 97.1 94 19 126/64 98 Room Air 08/14/17 04:00 94 08/14/17 03:57 96 16 99 Nasal Cannula 2.0 28 08/14/17 03:48 86 14 93 Room Air 08/14/17 00:30 97.9 93 20 115/60 95 Room Air 08/14/17 00:00 91 08/13/17 23:00 21 08/13/17 23:00 Room Air 21 08/13/17 23:00 21 08/13/17 20:18 98.0 100 21 129/67 96 Room Air 08/13/17 20:00 98 08/13/17 19:29 72 18 99 Room Air 21 08/13/17 19:18 99 Room Air 21 12/17/17 19:18 Room Air 21 08/13/17 19:18 100 18 99 Room Air 21 08/13/17 19:18 21 Intake and Output 08/14/17 08/15/17 19:00 07:00 Intake Total 1649 ml Balance 1649 ml Intake Oral 650 ml IV Total 999 ml # Voids 4 # Bowel Movements 2 2D Echo: LVEF 55-60%, RVSP 33 mmHg, Gradwe I LVDD Laboratory Tests Test 08/14/17 08:00 Prothrombin Time 18.1 SEC (9.30-11.50) H Prothromb Time International Ratio 1.7 (0.9-1.1) H Objective General Appearance: WD/WN Respiratory/Chest: lungs clear, normal breath sounds Cardiovascular: normal peripheral pulses, regular rhythm, regularly irregular Abdomen: soft, non tender, no organomegaly Extremities: no cyanosis, no clubbing Skin: no lesions Neurologic/Psychiatric: alert, oriented x 3 Musculoskeletal: normal muscle bulk FEDE RILEY Aug 14, 2017 18:46
--- NOTE | 2017-08-14 19:05 | General Progress Note ---
Assessment/Plan Problem List: (1) Lactic acidosis ICD Codes: E87.2 - Acidosis SNOMED: 17705021 (2) Colitis ICD Codes: K52.9 - Noninfective gastroenteritis and colitis, unspecified SNOMED: 08762095 (3) DKA (diabetic ketoacidoses) ICD Codes: E13.10 - Other specified diabetes mellitus with ketoacidosis without coma SNOMED: 711517168, 27985072 (4) Sepsis ICD Codes: A41.9 - Sepsis, unspecified organism SNOMED: 24364466, 44618466 (5) Respiratory failure requiring intubation ICD Codes: J96.90 - Respiratory failure, unspecified, unspecified whether with hypoxia or hypercapnia SNOMED: 883735088 Assessment/Plan increase Levemir to 15 units bid + SSI continue Starlix 120 mg ac tid Rx left in chart for diabetic regimen Subjective Allergies: Coded Allergies: No Known Allergies (Unverified , 08/01/17) All Systems: reviewed and negative except above Subjective events noted interval notes reviewed Objective Last 24 Hour Vital Signs Date Time Temp Pulse Resp B/P (MAP) Pulse Ox O2 Delivery O2 Flow Rate FiO2 08/14/17 16:01 103 22 98 Room Air 08/14/17 16:00 97.2 107 114/56 08/14/17 16:00 106 08/14/17 15:48 21 08/14/17 15:48 98 16 95 Room Air 08/14/17 12:45 101 22 95 Room Air 08/14/17 12:39 106 14 94 Room Air 08/14/17 12:39 21 08/14/17 12:00 97.8 111 21 121/68 08/14/17 12:00 112 08/14/17 08:03 104 18 95 Room Air 08/14/17 08:01 Room Air 21 08/14/17 08:01 95 Room Air 21 08/14/17 08:00 97.6 116 20 92/54 98 08/14/17 08:00 112 08/14/17 08:00 111 106/53 08/14/17 07:54 100 14 95 Room Air 21 08/14/17 07:54 21 08/14/17 04:04 97.1 94 19 126/64 98 Room Air 08/14/17 04:00 94 08/14/17 03:57 96 16 99 Nasal Cannula 2.0 28 08/14/17 03:48 86 14 93 Room Air 21 08/14/17 00:30 97.9 93 20 115/60 95 Room Air 08/14/17 00:00 91 08/13/17 23:00 21 08/13/17 23:00 Room Air 21 08/13/17 23:00 21 08/13/17 20:18 98.0 100 21 129/67 96 Room Air 08/13/17 20:00 98 08/13/17 19:29 72 18 99 Room Air 21 08/13/17 19:18 99 Room Air 21 08/13/17 19:18 Room Air 21 08/13/17 19:18 100 18 99 Room Air 21 08/13/17 19:18 21 Intake and Output 08/14/17 08/15/17 19:00 07:00 Intake Total 1649 ml Balance 1649 ml Intake Oral 650 ml IV Total 999 ml # Voids 4 # Bowel Movements 2 Laboratory Tests 08/14/17 08:00: Prothrombin Time 18.1H, Prothromb Time International Ratio 1.7H Height (Feet): 4 Height (Inches): 10.00 Weight (Pounds): 112 General Appearance: no apparent distress Neck: normal alignment Cardiovascular: normal rate Respiratory/Chest: decreased breath sounds Abdomen: normal bowel sounds Edema: no edema noted Arm (L), no edema noted Arm (R), no edema noted Leg (L), no edema noted Leg (R), no edema noted Pedal (L), no edema noted Pedal (R), no edema noted Generalized Objective Current Medications Medications (Trade) Dose Ordered Sig/Sue Route PRN Reason Start Time Stop Time Status Last Admin Dose Admin Albuterol/ Ipratropium (Albuterol/ Ipratropium) 3 ml Q4HRT HHN 08/10/17 19:00 08/15/17 18:59 08/14/17 15:48 Dextrose (Dextrose 50%) STAT PRN IV Hypoglycemia 08/09/17 18:15 09/08/17 18:14 Docusate Sodium (Colace) 100 mg THREE TIMES A DAY ORAL 08/09/17 09:00 09/08/17 08:59 08/13/17 08:37 Furosemide (Lasix) 40 mg DAILY ORAL 08/14/17 09:00 09/13/17 08:59 Insulin Aspart (NovoLOG) Q4HR SUBQ 08/08/17 21:00 09/06/17 16:59 08/14/17 16:47 Insulin Detemir (Levemir) 12 units Q12HR SUBQ 08/13/17 09:00 09/12/17 08:59 08/14/17 09:27 Levofloxacin (Levaquin) 500 mg DAILY ORAL 08/14/17 09:00 08/21/17 08:59 08/14/17 09:36 Nateglinide (Starlix) 120 mg TIAC ORAL 08/13/17 11:30 09/12/17 11:29 08/14/17 15:46 Phosphorus (Phospha 250 Neutral) 250 mg BID ORAL 08/11/17 18:00 09/08/17 12:59 08/14/17 17:07 Polyethylene Glycol (Miralax) 17 gm BEDTIME ORAL 08/08/17 21:00 09/07/17 20:59 Potassium Chloride (K-Dur) 20 meq TWICE A DAY ORAL 08/09/17 09:00 09/08/17 08:59 08/14/17 17:07 Ranitidine HCl (Zantac) 150 mg DAILY ORAL 08/15/17 09:00 09/14/17 08:59 Warfarin Sodium (Coumadin per pharmacy) 1 ea DAILY PRN MISC Per rx protocol 08/09/17 09:00 09/06/17 16:29 Item Value Date Time Bedside Blood Glucose 241 mg/dl H 08/14/17 1647 Bedside Blood Glucose 294 mg/dl H 08/14/17 1254 Bedside Blood Glucose 335 mg/dl H 08/14/17 0927 Bedside Blood Glucose 335 mg/dl H 08/14/17 0514 Bedside Blood Glucose 177 mg/dl H 08/14/17 0100 Bedside Blood Glucose 269 mg/dl H 08/13/17 2128 Bedside Blood Glucose 164 mg/dl H 08/13/17 1747 Bedside Blood Glucose 220 mg/dl H 08/13/17 1321 RL MEDINA Aug 14, 2017 19:05
[2017-08-14 20:00] VITALS: BP 102/50
[2017-08-14] MEDS: Miralax 17gm pkt ORAL SCH (21:00)
--- NOTE | 2017-08-14 21:14 | General Progress Note ---
Assessment/Plan Problem List: (1) DKA (diabetic ketoacidoses) ICD Codes: E13.10 - Other specified diabetes mellitus with ketoacidosis without coma SNOMED: 365354749, 73021033 (2) Sepsis ICD Codes: A41.9 - Sepsis, unspecified organism SNOMED: 11552409, 98930604 (3) Lactic acidosis ICD Codes: E87.2 - Acidosis SNOMED: 80948871 (4) Rectal bleed ICD Codes: K62.5 - Hemorrhage of anus and rectum SNOMED: 39213296 Status: progressing Assessment/Plan afebrile ear pain improved reviewed chart and med and labs monitor for bleeding dvt on coumadin Subjective ROS Limited/Unobtainable: Yes Allergies: Coded Allergies: No Known Allergies (Unverified , 08/01/17) Subjective ear pain Objective Last 24 Hour Vital Signs Date Time Temp Pulse Resp B/P (MAP) Pulse Ox O2 Delivery O2 Flow Rate FiO2 08/14/17 19:18 99 18 100 Room Air 08/14/17 19:00 21 08/14/17 19:00 92 18 96 Room Air 08/14/17 19:00 96 Room Air 08/14/17 19:00 Room Air 21 08/14/17 16:01 103 22 98 Room Air 08/14/17 16:00 97.2 107 114/56 08/14/17 16:00 106 08/14/17 15:48 21 08/14/17 15:48 98 16 95 Room Air 08/14/17 12:45 101 22 95 Room Air 08/14/17 12:39 106 14 94 Room Air 08/14/17 12:39 21 08/14/17 12:00 97.8 111 21 121/68 08/14/17 12:00 112 08/14/17 08:03 104 18 95 Room Air 08/14/17 08:01 Room Air 21 08/14/17 08:01 95 Room Air 08/14/17 08:00 97.6 116 20 92/54 98 08/14/17 08:00 112 08/14/17 08:00 111 106/53 08/14/17 07:54 100 14 95 Room Air 21 08/14/17 07:54 21 08/14/17 04:04 97.1 94 19 126/64 98 Room Air 08/14/17 04:00 94 12/18/17 03:57 96 16 99 Nasal Cannula 2.0 28 08/14/17 03:48 86 14 93 Room Air 21 08/14/17 00:30 97.9 93 20 115/60 95 Room Air 08/14/17 00:00 91 08/13/17 23:00 21 08/13/17 23:00 Room Air 21 08/13/17 23:00 21 Intake and Output 08/14/17 08/15/17 19:00 07:00 Intake Total 1649 ml Balance 1649 ml Intake Oral 650 ml IV Total 999 ml # Voids 4 # Bowel Movements 2 Laboratory Tests 08/14/17 08:00: Prothrombin Time 18.1H, Prothromb Time International Ratio 1.7H Height (Feet): 4 Height (Inches): 10.00 Weight (Pounds): 112 Gerhard Baltazar MD Aug 14, 2017 21:14
[2017-08-15] VITALS: BP 105/50
[2017-08-15] MEDS: NovoLOG Insulin Flexpen SUBQ SCH ×6 (01:20→22:55)
[2017-08-15 04:00] VITALS: BP 109/52
[2017-08-15] MEDS: Albuterol/Ipratropium 3ml neb HHN SCH ×4 (04:59→15:32)
[2017-08-15 08:00] VITALS: BP 103/53
[2017-08-15 08:42] LABS: ANION GAP 18 mmol/L (5-15); CALCIUM 8.7 MG/DL (8.5-10.1); CARBON DIOXIDE 17 MMOL/L (21-32); CHLORIDE 97 MMOL/L (98-107); CREATININE 0.8 MG/DL (0.55-1.30); GLOMERULAR FILTRATION RATE > 60 mL/min (>60); POTASSIUM 5.6 MMOL/L (3.5-5.1); SODIUM 132 MMOL/L (136-145)
[2017-08-15 08:43] LABS: MEAN CORPUSCULAR HEMOGLOBIN 28.6 PG (27.0-31.0); MEAN CORPUSCULAR HGB CONC 31.2 G/DL (32.0-36.0); MEAN CORPUSCULAR VOLUME 92 FL (80-99); MEAN PLATELET VOLUME 5.5 FL (6.5-10.1); PLATELET COUNT 479 K/UL (150-450); RED BLOOD COUNT 3.75 M/UL (4.20-5.40); RED CELL DISTRIBUTION WIDTH 15.2 % (11.6-14.8); WHITE BLOOD COUNT 12.4 K/UL (4.8-10.8)
[2017-08-15 08:56] LABS: INR 1.7 (0.9-1.1); PROTHROMBIN TIME 18.2 SEC (9.30-11.50)
[2017-08-15] MEDS: Docusate 100mg cap ORAL SCH ×3 (09:00→17:30)
[2017-08-15] MEDS: Phospha 250 Neutral tab ORAL SCH ×2 (09:09→17:30)
[2017-08-15] MEDS: Levofloxacin 500mg tab ORAL SCH (09:09)
[2017-08-15 09:34] LABS: ALANINE AMINOTRANSFERASE 79 U/L (12-78); ASPARTATE AMINO TRANSFERASE 54 U/L (15-37); BILIRUBIN,DIRECT < 0.1 MG/DL (0.0-0.3); PHOSPHORUS 3.5 MG/DL (2.5-4.9); TOTAL PROTEIN 6.4 G/DL (6.4-8.2)
[2017-08-15 10:33] LABS: BAND NEUTROPHILS % (MANUAL) 1 % (0-8); BASOPHILS % (MANUAL) 0 % (0-2); EOSINOPHILS % (MANUAL) 1 % (0-3); LYMPHOCYTES % (MANUAL) 9 % (20-45); NEUTROPHILS % (MANUAL) 84 % (45-75); PLATELET ESTIMATE INCREASED; PLATELET MORPHOLOGY NORMAL; TOTAL CELLS COUNTED 100
[2017-08-15 10:34] LABS: ANISOCYTOSIS 1+
--- NOTE | 2017-08-15 10:49 | Infectious Diseases Prog Note ---
Assessment/Plan Assessment/Plan A: Atelectasis/ Pneumonia DKA Ischemic colitis Hypoxemic respiratory failure resolved MRSA colonization Diarrhea resolved P: continue PO Levaquin X 2 days Subjective ROS Limited/Unobtainable: No Constitutional: Reports: no symptoms Respiratory: Reports: productive cough Cardiovascular: Reports: no symptoms Gastrointestinal/Abdominal: Reports: no symptoms Genitourinary: Reports: no symptoms Allergies: Coded Allergies: No Known Allergies (Unverified , 08/01/17) Objective Vital Signs Last 24 Hour Vital Signs Date Time Temp Pulse Resp B/P (MAP) Pulse Ox O2 Delivery O2 Flow Rate FiO2 08/15/17 08:25 111 22 98 Room Air 21 08/15/17 08:22 Room Air 08/15/17 08:22 109 20 97 Room Air 08/15/17 08:22 97 Room Air 08/15/17 08:00 98.2 106 18 103/53 97 Room Air 08/15/17 05:01 21 08/15/17 05:01 95 22 95 Room Air 08/15/17 05:00 95 22 95 Room Air 08/15/17 04:00 98 08/15/17 04:00 98.1 104 20 109/52 Room Air 08/15/17 00:17 100 22 95 Room Air 2.0 21 08/15/17 00:03 21 08/15/17 00:00 102 22 95 Room Air 08/15/17 00:00 98 08/15/17 00:00 98.2 111 20 105/50 96 Room Air 08/14/17 20:00 107 08/14/17 20:00 99.0 108 22 102/50 95 Room Air 08/14/17 19:18 99 18 100 Room Air 08/14/17 19:00 21 08/14/17 19:00 92 18 96 Room Air 21 08/14/17 19:00 96 Room Air 21 08/14/17 19:00 Room Air 08/14/17 16:01 103 22 98 Room Air 08/14/17 16:00 97.2 107 114/56 08/14/17 16:00 106 08/14/17 15:48 21 08/14/17 15:48 98 16 95 Room Air 08/14/17 12:45 101 22 95 Room Air 08/14/17 12:39 106 14 94 Room Air 21 08/14/17 12:39 21 08/14/17 12:00 97.8 111 21 121/68 08/14/17 12:00 112 Height (Feet): 4 Height (Inches): 10.00 Weight (Pounds): 120 HEENT: mucous membranes moist Respiratory/Chest: lungs clear Cardiovascular: tachycardia Abdomen: soft, non tender Extremities: no edema Neurologic/Psychiatric: alert, oriented x 3, responsive Laboratory Tests Test 08/15/17 08:10 White Blood Count 12.4 K/UL (4.8-10.8) H Red Blood Count 3.75 M/UL (4.20-5.40) L Hemoglobin 10.7 G/DL (12.0-16.0) L Hematocrit 34.4 % (37.0-47.0) L Mean Corpuscular Volume 92 FL (80-99) Mean Corpuscular Hemoglobin 28.6 PG (27.0-31.0) Mean Corpuscular Hemoglobin Concent 31.2 G/DL (32.0-36.0) L Red Cell Distribution Width 15.2 % (11.6-14.8) H Platelet Count 479 K/UL (150-450) H Mean Platelet Volume 5.5 FL (6.5-10.1) L Neutrophils (%) (Auto) % (45.0-75.0) Lymphocytes (%) (Auto) % (20.0-45.0) Monocytes (%) (Auto) % (1.0-10.0) Eosinophils (%) (Auto) % (0.0-3.0) Basophils (%) (Auto) % (0.0-2.0) Differential Total Cells Counted 100 Neutrophils % (Manual) 84 % (45-75) H Lymphocytes % (Manual) 9 % (20-45) L Monocytes % (Manual) 5 % (1-10) Eosinophils % (Manual) 1 % (0-3) Basophils % (Manual) 0 % (0-2) Band Neutrophils 1 % (0-8) Platelet Estimate Increased H Platelet Morphology Normal Anisocytosis 1+ Prothrombin Time 18.2 SEC (9.30-11.50) H Prothromb Time International Ratio 1.7 (0.9-1.1) H Sodium Level 132 MMOL/L (136-145) L Potassium Level 5.6 MMOL/L (3.5-5.1) H Chloride Level 97 MMOL/L (98-107) L Carbon Dioxide Level 17 MMOL/L (21-32) L Anion Gap 18 mmol/L (5-15) H Blood Urea Nitrogen 18 mg/dL (7-18) Creatinine 0.8 MG/DL (0.55-1.30) Estimat Glomerular Filtration Rate > 60 mL/min (>60) Glucose Level 462 MG/DL (74-106) H Calcium Level 8.7 MG/DL (8.5-10.1) Phosphorus Level 3.5 MG/DL (2.5-4.9) Magnesium Level 2.0 MG/DL (1.8-2.4) Total Bilirubin 0.3 MG/DL (0.2-1.0) Direct Bilirubin < 0.1 MG/DL (0.0-0.3) Aspartate Amino Transf (AST/SGOT) 54 U/L (15-37) H Alanine Aminotransferase (ALT/SGPT) 79 U/L (12-78) H Alkaline Phosphatase 156 U/L (46-116) H Total Protein 6.4 G/DL (6.4-8.2) Albumin 2.3 G/DL (3.4-5.0) L Current Medications Medications (Trade) Dose Ordered Sig/Sue Route PRN Reason Start Time Stop Time Status Last Admin Dose Admin Albuterol/ Ipratropium (Albuterol/ Ipratropium) 3 ml Q4HRT HHN 08/10/17 19:00 08/15/17 18:59 08/15/17 08:20 Dextrose (Dextrose 50%) STAT PRN IV Hypoglycemia 08/09/17 18:15 09/08/17 18:14 Docusate Sodium (Colace) 100 mg THREE TIMES A DAY ORAL 08/09/17 09:00 09/08/17 08:59 08/13/17 08:37 Furosemide (Lasix) 40 mg DAILY ORAL 08/14/17 09:00 09/13/17 08:59 Insulin Aspart (NovoLOG) Q4HR SUBQ 08/08/17 21:00 09/06/17 16:59 08/15/17 09:15 Insulin Detemir (Levemir) 15 units Q12HR SUBQ 08/14/17 21:00 09/13/17 20:59 08/14/17 21:57 Levofloxacin (Levaquin) 500 mg DAILY ORAL 08/14/17 09:00 08/21/17 08:59 08/15/17 09:09 Nateglinide (Starlix) 120 mg TIAC ORAL 08/13/17 11:30 09/12/17 11:29 08/15/17 07:03 Phosphorus (Phospha 250 Neutral) 250 mg BID ORAL 08/11/17 18:00 09/08/17 12:59 08/15/17 09:09 Polyethylene Glycol (Miralax) 17 gm BEDTIME ORAL 08/08/17 21:00 09/07/17 20:59 Potassium Chloride (K-Dur) 20 meq TWICE A DAY ORAL 08/09/17 09:00 09/08/17 08:59 08/15/17 09:09 Ranitidine HCl (Zantac) 150 mg DAILY ORAL 08/15/17 09:00 09/14/17 08:59 08/15/17 09:09 Warfarin Sodium (Coumadin per pharmacy) 1 ea DAILY PRN MISC Per rx protocol 08/09/17 09:00 09/06/17 16:29 Warfarin Sodium (Coumadin) 5 mg COUMADIN ONCE ORAL 08/15/17 17:00 08/15/17 17:01 MITCHELL HOLM Aug 15, 2017 10:49
--- NOTE | 2017-08-15 10:53 | Nephrology Progress Note ---
Assessment/Plan Problem List: (1) Sepsis (2) Colitis Assessment: sever hypoalbuminemia (3) Respiratory failure requiring intubation Assessment: now extubated (4) Hypophosphatemia Assessment: resolving (5) Hypokalemia Assessment: resolving Assessment K 5.2 , on lasix and KCl Na 132 likely due to high BS tachycardiac new pneumonia- family filed appeal on IV Abx Respiratory failure and DKA on admit, resolved Low Phos , K , and Mag HTN Ischemic colitis h/o CVA Anemia Plan Plan: stop KCl aim to control BS Monitor lytes and renal parameters per consultants per orders nutritional boost per GI Subjective ROS Limited/Unobtainable: No Constitutional: Reports: malaise Objective Objective Last 24 Hour Vital Signs Date Time Temp Pulse Resp B/P (MAP) Pulse Ox O2 Delivery O2 Flow Rate FiO2 08/15/17 08:25 111 22 98 Room Air 08/15/17 08:22 Room Air 08/15/17 08:22 109 20 97 Room Air 08/15/17 08:22 97 Room Air 08/15/17 08:00 98.2 106 18 103/53 97 Room Air 08/15/17 05:01 21 08/15/17 05:01 95 22 95 Room Air 08/15/17 05:00 95 22 95 Room Air 08/15/17 04:00 98 08/15/17 04:00 98.1 104 20 109/52 Room Air 08/15/17 00:17 100 22 95 Room Air 2.0 08/15/17 00:03 21 08/15/17 00:00 102 22 95 Room Air 08/15/17 00:00 98 08/15/17 00:00 98.2 111 20 105/50 96 Room Air 08/14/17 20:00 107 08/14/17 20:00 99.0 108 22 102/50 95 Room Air 08/14/17 19:18 99 18 100 Room Air 08/14/17 19:00 21 08/14/17 19:00 92 18 96 Room Air 08/14/17 19:00 96 Room Air 08/14/17 19:00 Room Air 08/14/17 16:01 103 22 98 Room Air 08/14/17 16:00 97.2 107 114/56 08/14/17 16:00 106 08/14/17 15:48 21 08/14/17 15:48 98 16 95 Room Air 21 08/14/17 12:45 101 22 95 Room Air 08/14/17 12:39 106 14 94 Room Air 21 08/14/17 12:39 21 08/14/17 12:00 97.8 111 21 121/68 08/14/17 12:00 112 Intake and Output 08/15/17 08/16/17 19:00 07:00 Intake Total 360 ml Balance 360 ml Intake Oral 360 ml # Voids 1 Laboratory Tests 08/15/17 08:10: White Blood Count 12.4H, Red Blood Count 3.75L, Hemoglobin 10.7L, Hematocrit 34.4L, Mean Corpuscular Volume 92, Mean Corpuscular Hemoglobin 28.6, Mean Corpuscular Hemoglobin Concent 31.2L, Red Cell Distribution Width 15.2H, Platelet Count 479H, Mean Platelet Volume 5.5L, Neutrophils (%) (Auto) , Lymphocytes (%) (Auto) , Monocytes (%) (Auto) , Eosinophils (%) (Auto) , Basophils (%) (Auto) , Differential Total Cells Counted 100, Neutrophils % ( Manual) 84H, Lymphocytes % (Manual) 9L, Monocytes % (Manual) 5, Eosinophils % ( Manual) 1, Basophils % (Manual) 0, Band Neutrophils 1, Platelet Estimate IncreasedH, Platelet Morphology Normal, Anisocytosis 1+, Prothrombin Time 18.2H , Prothromb Time International Ratio 1.7H, Sodium Level 132L, Potassium Level 5.6H, Chloride Level 97L, Carbon Dioxide Level 17L, Anion Gap 18H, Blood Urea Nitrogen 18, Creatinine 0.8, Estimat Glomerular Filtration Rate > 60, Glucose Level 462H, Calcium Level 8.7, Phosphorus Level 3.5, Magnesium Level 2.0, Total Bilirubin 0.3, Direct Bilirubin < 0.1, Aspartate Amino Transf (AST/SGOT) 54H, Alanine Aminotransferase (ALT/SGPT) 79H, Alkaline Phosphatase 156H, Total Protein 6.4, Albumin 2.3L Height (Feet): 4 Height (Inches): 10.00 Weight (Pounds): 120 General Appearance: no apparent distress Cardiovascular: tachycardia Respiratory/Chest: decreased breath sounds Abdomen: soft Objective no other change LAYNE WEIR Aug 15, 2017 10:53
[2017-08-15] MEDS: Levemir Flexpen SUBQ SCH ×2 (11:00→21:20)
[2017-08-15 12:00] VITALS: BP 114/65
--- NOTE | 2017-08-15 12:36 | Pulmonology Progress Note ---
Assessment/Plan Assessment/Plan resp failure, resolved Sepsis, SIRS DKA, severe acidosis, resolved Ischemic colitis calf vein clot pneumonia feels better after IV bolus note high HR 20 mg lasix, reduced dose due to low blood pressure feels better, cough resolving complete oral Levaquin per infectious disease recommendation met w dtr at bedside Subjective Respiratory: Reports: no symptoms Allergies: Coded Allergies: No Known Allergies (Unverified , 08/01/17) Objective Last 24 Hour Vital Signs Date Time Temp Pulse Resp B/P (MAP) Pulse Ox O2 Delivery O2 Flow Rate FiO2 08/15/17 11:28 110 20 97 Room Air 21 08/15/17 11:23 111 20 96 Room Air 08/15/17 08:25 111 22 98 Room Air 08/15/17 08:22 Room Air 08/15/17 08:22 109 20 97 Room Air 08/15/17 08:22 97 Room Air 08/15/17 08:00 98.2 106 18 103/53 97 Room Air 08/15/17 08:00 111 08/15/17 05:01 21 08/15/17 05:01 95 22 95 Room Air 08/15/17 05:00 95 22 95 Room Air 08/15/17 04:00 98 08/15/17 04:00 98.1 104 20 109/52 Room Air 08/15/17 00:17 100 22 95 Room Air 2.0 08/15/17 00:03 21 08/15/17 00:00 102 22 95 Room Air 08/15/17 00:00 98 08/15/17 00:00 98.2 111 20 105/50 96 Room Air 08/14/17 20:00 107 08/14/17 20:00 99.0 108 22 102/50 95 Room Air 08/14/17 19:18 99 18 100 Room Air 08/14/17 19:00 21 08/14/17 19:00 92 18 96 Room Air 08/14/17 19:00 96 Room Air 08/14/17 19:00 Room Air 08/14/17 16:01 103 22 98 Room Air 08/14/17 16:00 97.2 107 114/56 08/14/17 16:00 106 08/14/17 15:48 21 08/14/17 15:48 98 16 95 Room Air 17 12:45 101 22 95 Room Air 08/14/17 12:39 106 14 94 Room Air 21 08/14/17 12:39 21 Intake and Output 08/15/17 08/16/17 19:00 07:00 Intake Total 360 ml Balance 360 ml Intake Oral 360 ml # Voids 1 Laboratory Tests 08/15/17 08:10: White Blood Count 12.4H, Red Blood Count 3.75L, Hemoglobin 10.7L, Hematocrit 34.4L, Mean Corpuscular Volume 92, Mean Corpuscular Hemoglobin 28.6, Mean Corpuscular Hemoglobin Concent 31.2L, Red Cell Distribution Width 15.2H, Platelet Count 479H, Mean Platelet Volume 5.5L, Neutrophils (%) (Auto) , Lymphocytes (%) (Auto) , Monocytes (%) (Auto) , Eosinophils (%) (Auto) , Basophils (%) (Auto) , Differential Total Cells Counted 100, Neutrophils % ( Manual) 84H, Lymphocytes % (Manual) 9L, Monocytes % (Manual) 5, Eosinophils % ( Manual) 1, Basophils % (Manual) 0, Band Neutrophils 1, Platelet Estimate IncreasedH, Platelet Morphology Normal, Anisocytosis 1+, Prothrombin Time 18.2H , Prothromb Time International Ratio 1.7H, Sodium Level 132L, Potassium Level 5.6H, Chloride Level 97L, Carbon Dioxide Level 17L, Anion Gap 18H, Blood Urea Nitrogen 18, Creatinine 0.8, Estimat Glomerular Filtration Rate > 60, Glucose Level 462H, Calcium Level 8.7, Phosphorus Level 3.5, Magnesium Level 2.0, Total Bilirubin 0.3, Direct Bilirubin < 0.1, Aspartate Amino Transf (AST/SGOT) 54H, Alanine Aminotransferase (ALT/SGPT) 79H, Alkaline Phosphatase 156H, Total Protein 6.4, Albumin 2.3L Current Medications Medications (Trade) Dose Ordered Sig/Sue Route PRN Reason Start Time Stop Time Status Last Admin Dose Admin Albuterol/ Ipratropium (Albuterol/ Ipratropium) 3 ml Q4HRT HHN 08/10/17 19:00 08/15/17 18:59 08/15/17 11:21 Dextrose (Dextrose 50%) STAT PRN IV Hypoglycemia 08/09/17 18:15 09/08/17 18:14 Docusate Sodium (Colace) 100 mg THREE TIMES A DAY ORAL 08/09/17 09:00 09/08/17 08:59 08/13/17 08:37 Furosemide (Lasix) 40 mg DAILY ORAL 08/14/17 09:00 09/13/17 08:59 Insulin Aspart (NovoLOG) Q4HR SUBQ 08/08/17 21:00 09/06/17 16:59 08/15/17 12:23 Insulin Detemir (Levemir) 15 units Q12HR SUBQ 08/14/17 21:00 09/13/17 20:59 08/15/17 11:00 Levofloxacin (Levaquin) 500 mg DAILY ORAL 08/14/17 09:00 08/21/17 08:59 08/15/17 09:09 Nateglinide (Starlix) 120 mg TIAC ORAL 08/13/17 11:30 09/12/17 11:29 08/15/17 12:20 Phosphorus (Phospha 250 Neutral) 250 mg BID ORAL 08/11/17 18:00 09/08/17 12:59 08/15/17 09:09 Polyethylene Glycol (Miralax) 17 gm BEDTIME ORAL 08/08/17 21:00 09/07/17 20:59 Ranitidine HCl (Zantac) 150 mg DAILY ORAL 08/15/17 09:00 09/14/17 08:59 08/15/17 09:09 Warfarin Sodium (Coumadin per pharmacy) 1 ea DAILY PRN MISC Per rx protocol 08/09/17 09:00 09/06/17 16:29 Warfarin Sodium (Coumadin) 5 mg COUMADIN ONCE ORAL 08/15/17 17:00 08/15/17 17:01 [employer] WOODRUFF Aug 15, 2017 12:36
--- NOTE | 2017-08-15 14:28 | GI Progress Note ---
Assessment/Plan Problems: (1) DKA (diabetic ketoacidoses) ICD Codes: E13.10 - Other specified diabetes mellitus with ketoacidosis without coma SNOMED: 667170620, 14733219 (2) Colitis ICD Codes: K52.9 - Noninfective gastroenteritis and colitis, unspecified SNOMED: 64238814 (3) Lactic acidosis ICD Codes: E87.2 - Acidosis SNOMED: 33517265 (4) Respiratory failure requiring intubation ICD Codes: J96.90 - Respiratory failure, unspecified, unspecified whether with hypoxia or hypercapnia SNOMED: 393215107 Status: unchanged Status Narrative Discussed with Dr. Gomez. Assessment/Plan s/p colonoscopy SUMMARY FINDINGS: 1. Atrophic gastritis. 2. Hiatal hernia. 3. Possible ischemic colitis. 4. Internal hemorrhoids. CT AP reviewed >> no obvious perforation or acute complication from ischemic colitis Lactic Acid >> WNL transaminitis >> mild elevation today RECOMMENDATIONS: fu endocrine DM mgmt adv diet monitor H&H, prn transfusions titrate bowel regime ppi abx fu labs The patient will need a repeat full colonoscopy as an outpatient when the ischemic colitis has completely resolved, 2 months from dc date. Subjective Subjective generalized weakness diarrhea resolved, had BM yesterday Objective Last 24 Hour Vital Signs Date Time Temp Pulse Resp B/P (MAP) Pulse Ox O2 Delivery O2 Flow Rate FiO2 08/15/17 11:28 110 20 97 Room Air 08/15/17 11:23 111 20 96 Room Air 08/15/17 08:25 111 22 98 Room Air 08/15/17 08:22 Room Air 08/15/17 08:22 109 20 97 Room Air 08/15/17 08:22 97 Room Air 08/15/17 08:00 98.2 106 18 103/53 97 Room Air 08/15/17 08:00 111 08/15/17 05:01 21 08/15/17 05:01 95 22 95 Room Air 08/15/17 05:00 95 22 95 Room Air 08/15/17 04:00 98 08/15/17 04:00 98.1 104 20 109/52 Room Air 08/15/17 00:17 100 22 95 Room Air 2.0 08/15/17 00:03 21 08/15/17 00:00 102 22 95 Room Air 08/15/17 00:00 98 08/15/17 00:00 98.2 111 20 105/50 96 Room Air 08/14/17 20:00 107 08/14/17 20:00 99.0 108 22 102/50 95 Room Air 08/14/17 19:18 99 18 100 Room Air 08/14/17 19:00 21 08/14/17 19:00 92 18 96 Room Air 21 08/14/17 19:00 96 Room Air 21 08/14/17 19:00 Room Air 21 08/14/17 16:01 103 22 98 Room Air 08/14/17 16:00 97.2 107 114/56 08/14/17 16:00 106 08/14/17 15:48 21 08/14/17 15:48 98 16 95 Room Air 21 Intake and Output 08/15/17 08/16/17 19:00 07:00 Intake Total 720 ml Balance 720 ml Intake Oral 720 ml # Voids 2 Laboratory Tests Test 08/15/17 08:10 White Blood Count 12.4 K/UL (4.8-10.8) H Red Blood Count 3.75 M/UL (4.20-5.40) L Hemoglobin 10.7 G/DL (12.0-16.0) L Hematocrit 34.4 % (37.0-47.0) L Mean Corpuscular Volume 92 FL (80-99) Mean Corpuscular Hemoglobin 28.6 PG (27.0-31.0) Mean Corpuscular Hemoglobin Concent 31.2 G/DL (32.0-36.0) L Red Cell Distribution Width 15.2 % (11.6-14.8) H Platelet Count 479 K/UL (150-450) H Mean Platelet Volume 5.5 FL (6.5-10.1) L Neutrophils (%) (Auto) % (45.0-75.0) Lymphocytes (%) (Auto) % (20.0-45.0) Monocytes (%) (Auto) % (1.0-10.0) Eosinophils (%) (Auto) % (0.0-3.0) Basophils (%) (Auto) % (0.0-2.0) Differential Total Cells Counted 100 Neutrophils % (Manual) 84 % (45-75) H Lymphocytes % (Manual) 9 % (20-45) L Monocytes % (Manual) 5 % (1-10) Eosinophils % (Manual) 1 % (0-3) Basophils % (Manual) 0 % (0-2) Band Neutrophils 1 % (0-8) Platelet Estimate Increased H Platelet Morphology Normal Anisocytosis 1+ Prothrombin Time 18.2 SEC (9.30-11.50) H Prothromb Time International Ratio 1.7 (0.9-1.1) H Sodium Level 132 MMOL/L (136-145) L Potassium Level 5.6 MMOL/L (3.5-5.1) H Chloride Level 97 MMOL/L (98-107) L Carbon Dioxide Level 17 MMOL/L (21-32) L Anion Gap 18 mmol/L (5-15) H Blood Urea Nitrogen 18 mg/dL (7-18) Creatinine 0.8 MG/DL (0.55-1.30) Estimat Glomerular Filtration Rate > 60 mL/min (>60) Glucose Level 462 MG/DL (74-106) H Calcium Level 8.7 MG/DL (8.5-10.1) Phosphorus Level 3.5 MG/DL (2.5-4.9) Magnesium Level 2.0 MG/DL (1.8-2.4) Total Bilirubin 0.3 MG/DL (0.2-1.0) Direct Bilirubin < 0.1 MG/DL (0.0-0.3) Aspartate Amino Transf (AST/SGOT) 54 U/L (15-37) H Alanine Aminotransferase (ALT/SGPT) 79 U/L (12-78) H Alkaline Phosphatase 156 U/L (46-116) H Total Protein 6.4 G/DL (6.4-8.2) Albumin 2.3 G/DL (3.4-5.0) L Height (Feet): 4 Height (Inches): 10.00 Weight (Pounds): 120 General Appearance: WD/WN, no apparent distress, alert Cardiovascular: normal rate Respiratory/Chest: normal breath sounds, no respiratory distress Abdominal Exam: normal bowel sounds, non tender, soft Extremities: normal range of motion, non-tender Adele Olsen N.PPaola Aug 15, 2017 14:28
[2017-08-15 16:00] VITALS: BP 107/55
[2017-08-15] MEDS ORDERED: Warfarin Sodium 5mg ORAL ONE (17:00)
[2017-08-15 20:00] VITALS: BP 116/50
--- NOTE | 2017-08-15 20:34 | General Progress Note ---
Assessment/Plan Assessment/Plan ASSESSMENT AND RECOMMENDATION: #. Acute DVT. On coumadin. INR goal 2-3. Continue to monitor. Lovenox DC'd. #. Anemia of chronic disease --> w/u from prior admission has been reviewed. Continue to monitor counts --> H/H stable #. 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 Patient does not need any further workup at this time. #. Leukocytosis, likely secondary to reactive process. WBC count has normalized. #. Ischemic colitis and hemorrhoids. GI following. s/p egd and colonoscopy. Subjective Hematologic/Lymphatic: Reports: anemia Allergies: Coded Allergies: No Known Allergies (Unverified , 08/01/17) All Systems: reviewed and negative except above Subjective no major changes Objective Last 24 Hour Vital Signs Date Time Temp Pulse Resp B/P (MAP) Pulse Ox O2 Delivery O2 Flow Rate FiO2 08/15/17 16:00 97.9 100 18 107/55 98 Room Air 08/15/17 16:00 100 08/15/17 15:39 102 20 97 Room Air 08/15/17 15:35 100 20 96 Room Air 08/15/17 12:00 111 08/15/17 12:00 98.2 100 18 114/65 100 Room Air 08/15/17 11:28 110 20 97 Room Air 08/15/17 11:23 111 20 96 Room Air 08/15/17 08:25 111 22 98 Room Air 08/15/17 08:22 Room Air 08/15/17 08:22 109 20 97 Room Air 08/15/17 08:22 97 Room Air 08/15/17 08:00 98.2 106 18 103/53 97 Room Air 08/15/17 08:00 111 08/15/17 05:01 21 08/15/17 05:01 95 22 95 Room Air 08/15/17 05:00 95 22 95 Room Air 08/15/17 04:00 98 08/15/17 04:00 98.1 104 20 109/52 Room Air 08/15/17 00:17 100 22 95 Room Air 2.0 08/15/17 00:03 21 08/15/17 00:00 102 22 95 Room Air 08/15/17 00:00 98 08/15/17 00:00 98.2 111 20 105/50 96 Room Air Intake and Output 08/15/17 08/16/17 19:00 07:00 Intake Total 1080 ml Balance 1080 ml Intake Oral 1080 ml # Voids 4 Laboratory Tests 08/15/17 08:10: White Blood Count 12.4H, Red Blood Count 3.75L, Hemoglobin 10.7L, Hematocrit 34.4L, Mean Corpuscular Volume 92, Mean Corpuscular Hemoglobin 28.6, Mean Corpuscular Hemoglobin Concent 31.2L, Red Cell Distribution Width 15.2H, Platelet Count 479H, Mean Platelet Volume 5.5L, Neutrophils (%) (Auto) , Lymphocytes (%) (Auto) , Monocytes (%) (Auto) , Eosinophils (%) (Auto) , Basophils (%) (Auto) , Differential Total Cells Counted 100, Neutrophils % ( Manual) 84H, Lymphocytes % (Manual) 9L, Monocytes % (Manual) 5, Eosinophils % ( Manual) 1, Basophils % (Manual) 0, Band Neutrophils 1, Platelet Estimate IncreasedH, Platelet Morphology Normal, Anisocytosis 1+, Prothrombin Time 18.2H , Prothromb Time International Ratio 1.7H, Sodium Level 132L, Potassium Level 5.6H, Chloride Level 97L, Carbon Dioxide Level 17L, Anion Gap 18H, Blood Urea Nitrogen 18, Creatinine 0.8, Estimat Glomerular Filtration Rate > 60, Glucose Level 462H, Calcium Level 8.7, Phosphorus Level 3.5, Magnesium Level 2.0, Total Bilirubin 0.3, Direct Bilirubin < 0.1, Aspartate Amino Transf (AST/SGOT) 54H, Alanine Aminotransferase (ALT/SGPT) 79H, Alkaline Phosphatase 156H, Total Protein 6.4, Albumin 2.3L Height (Feet): 4 Height (Inches): 10.00 Weight (Pounds): 120 General Appearance: no apparent distress EENT: normal ENT inspection Neck: normal alignment Cardiovascular: normal peripheral pulses Abdomen: normal bowel sounds Extremities: normal range of motion Edema: trace edema Arun Gamez Aug 15, 2017 20:34
[2017-08-15] MEDS: Miralax 17gm pkt ORAL SCH (20:47)
--- NOTE | 2017-08-15 21:09 | Cardiology Progress Note ---
Assessment/Plan Assessment/Plan 1. Severe bradycardia resolved, continue atenolol. 2D echo reveals normal LV systolic function with LVEF at 55%. 2. Status post respiratory failure. 3. Diabetic ketoacidosis, continue fluids. 4. Ischemic colitis. 5. History of cerebrovascular accident. 6. History of seizure disorder. Subjective Subjective Sinus tachycardia at 100. Objective Last 24 Hour Vital Signs Date Time Temp Pulse Resp B/P (MAP) Pulse Ox O2 Delivery O2 Flow Rate FiO2 08/15/17 16:00 97.9 100 18 107/55 98 Room Air 08/15/17 16:00 100 08/15/17 15:39 102 20 97 Room Air 21 08/15/17 15:35 100 20 96 Room Air 21 08/15/17 12:00 111 08/15/17 12:00 98.2 100 18 114/65 100 Room Air 08/15/17 11:28 110 20 97 Room Air 21 08/15/17 11:23 111 20 96 Room Air 21 08/15/17 08:25 111 22 98 Room Air 21 08/15/17 08:22 Room Air 21 08/15/17 08:22 109 20 97 Room Air 21 08/15/17 08:22 97 Room Air 21 08/15/17 08:00 98.2 106 18 103/53 97 Room Air 08/15/17 08:00 111 08/15/17 05:01 21 08/15/17 05:01 95 22 95 Room Air 21 08/15/17 05:00 95 22 95 Room Air 21 08/15/17 04:00 98 08/15/17 04:00 98.1 104 20 109/52 Room Air 08/15/17 00:17 100 22 95 Room Air 2.0 08/15/17 00:03 21 08/15/17 00:00 102 22 95 Room Air 21 08/15/17 00:00 98 08/15/17 00:00 98.2 111 20 105/50 96 Room Air Intake and Output 08/15/17 08/16/17 19:00 07:00 Intake Total 1080 ml Balance 1080 ml Intake Oral 1080 ml # Voids 4 2D Echo: LVEF 55-60%, RVSP 33 mmHg, Gradwe I LVDD Laboratory Tests Test 08/15/17 08:10 White Blood Count 12.4 K/UL (4.8-10.8) H Red Blood Count 3.75 M/UL (4.20-5.40) L Hemoglobin 10.7 G/DL (12.0-16.0) L Hematocrit 34.4 % (37.0-47.0) L Mean Corpuscular Volume 92 FL (80-99) Mean Corpuscular Hemoglobin 28.6 PG (27.0-31.0) Mean Corpuscular Hemoglobin Concent 31.2 G/DL (32.0-36.0) L Red Cell Distribution Width 15.2 % (11.6-14.8) H Platelet Count 479 K/UL (150-450) H Mean Platelet Volume 5.5 FL (6.5-10.1) L Neutrophils (%) (Auto) % (45.0-75.0) Lymphocytes (%) (Auto) % (20.0-45.0) Monocytes (%) (Auto) % (1.0-10.0) Eosinophils (%) (Auto) % (0.0-3.0) Basophils (%) (Auto) % (0.0-2.0) Differential Total Cells Counted 100 Neutrophils % (Manual) 84 % (45-75) H Lymphocytes % (Manual) 9 % (20-45) L Monocytes % (Manual) 5 % (1-10) Eosinophils % (Manual) 1 % (0-3) Basophils % (Manual) 0 % (0-2) Band Neutrophils 1 % (0-8) Platelet Estimate Increased H Platelet Morphology Normal Anisocytosis 1+ Prothrombin Time 18.2 SEC (9.30-11.50) H Prothromb Time International Ratio 1.7 (0.9-1.1) H Sodium Level 132 MMOL/L (136-145) L Potassium Level 5.6 MMOL/L (3.5-5.1) H Chloride Level 97 MMOL/L (98-107) L Carbon Dioxide Level 17 MMOL/L (21-32) L Anion Gap 18 mmol/L (5-15) H Blood Urea Nitrogen 18 mg/dL (7-18) Creatinine 0.8 MG/DL (0.55-1.30) Estimat Glomerular Filtration Rate > 60 mL/min (>60) Glucose Level 462 MG/DL (74-106) H Calcium Level 8.7 MG/DL (8.5-10.1) Phosphorus Level 3.5 MG/DL (2.5-4.9) Magnesium Level 2.0 MG/DL (1.8-2.4) Total Bilirubin 0.3 MG/DL (0.2-1.0) Direct Bilirubin < 0.1 MG/DL (0.0-0.3) Aspartate Amino Transf (AST/SGOT) 54 U/L (15-37) H Alanine Aminotransferase (ALT/SGPT) 79 U/L (12-78) H Alkaline Phosphatase 156 U/L (46-116) H Total Protein 6.4 G/DL (6.4-8.2) Albumin 2.3 G/DL (3.4-5.0) L Objective General Appearance: WD/WN Respiratory/Chest: lungs clear, normal breath sounds Cardiovascular: normal peripheral pulses, regular rhythm, regularly irregular Abdomen: soft, non tender, no organomegaly Extremities: no cyanosis, no clubbing Skin: no lesions Neurologic/Psychiatric: alert, oriented x 3 Musculoskeletal: normal muscle bulk FEDE RILEY Aug 15, 2017 21:08
--- NOTE | 2017-08-15 21:10 | General Progress Note ---
Assessment/Plan Problem List: (1) DKA (diabetic ketoacidoses) ICD Codes: E13.10 - Other specified diabetes mellitus with ketoacidosis without coma SNOMED: 761283760, 29148327 (2) Sepsis ICD Codes: A41.9 - Sepsis, unspecified organism SNOMED: 39254603, 31450546 (3) Lactic acidosis ICD Codes: E87.2 - Acidosis SNOMED: 47546557 (4) Rectal bleed ICD Codes: K62.5 - Hemorrhage of anus and rectum SNOMED: 88989509 Status: progressing Assessment/Plan dka resolved afebrile pna improved spoke at length w daughter dvt on coumadin Subjective ROS Limited/Unobtainable: Yes Allergies: Coded Allergies: No Known Allergies (Unverified , 08/01/17) Subjective ear pain Objective Last 24 Hour Vital Signs Date Time Temp Pulse Resp B/P (MAP) Pulse Ox O2 Delivery O2 Flow Rate FiO2 08/15/17 16:00 97.9 100 18 107/55 98 Room Air 08/15/17 16:00 100 08/15/17 15:39 102 20 97 Room Air 08/15/17 15:35 100 20 96 Room Air 08/15/17 12:00 111 08/15/17 12:00 98.2 100 18 114/65 100 Room Air 08/15/17 11:28 110 20 97 Room Air 08/15/17 11:23 111 20 96 Room Air 08/15/17 08:25 111 22 98 Room Air 08/15/17 08:22 Room Air 08/15/17 08:22 109 20 97 Room Air 08/15/17 08:22 97 Room Air 08/15/17 08:00 98.2 106 18 103/53 97 Room Air 08/15/17 08:00 111 08/15/17 05:01 21 08/15/17 05:01 95 22 95 Room Air 08/15/17 05:00 95 22 95 Room Air 08/15/17 04:00 98 08/15/17 04:00 98.1 104 20 109/52 Room Air 08/15/17 00:17 100 22 95 Room Air 2.0 08/15/17 00:03 21 08/15/17 00:00 102 22 95 Room Air 08/15/17 00:00 98 08/15/17 00:00 98.2 111 20 105/50 96 Room Air Intake and Output 08/15/17 08/16/17 19:00 07:00 Intake Total 1080 ml Balance 1080 ml Intake Oral 1080 ml # Voids 4 Laboratory Tests 08/15/17 08:10: White Blood Count 12.4H, Red Blood Count 3.75L, Hemoglobin 10.7L, Hematocrit 34.4L, Mean Corpuscular Volume 92, Mean Corpuscular Hemoglobin 28.6, Mean Corpuscular Hemoglobin Concent 31.2L, Red Cell Distribution Width 15.2H, Platelet Count 479H, Mean Platelet Volume 5.5L, Neutrophils (%) (Auto) , Lymphocytes (%) (Auto) , Monocytes (%) (Auto) , Eosinophils (%) (Auto) , Basophils (%) (Auto) , Differential Total Cells Counted 100, Neutrophils % ( Manual) 84H, Lymphocytes % (Manual) 9L, Monocytes % (Manual) 5, Eosinophils % ( Manual) 1, Basophils % (Manual) 0, Band Neutrophils 1, Platelet Estimate IncreasedH, Platelet Morphology Normal, Anisocytosis 1+, Prothrombin Time 18.2H , Prothromb Time International Ratio 1.7H, Sodium Level 132L, Potassium Level 5.6H, Chloride Level 97L, Carbon Dioxide Level 17L, Anion Gap 18H, Blood Urea Nitrogen 18, Creatinine 0.8, Estimat Glomerular Filtration Rate > 60, Glucose Level 462H, Calcium Level 8.7, Phosphorus Level 3.5, Magnesium Level 2.0, Total Bilirubin 0.3, Direct Bilirubin < 0.1, Aspartate Amino Transf (AST/SGOT) 54H, Alanine Aminotransferase (ALT/SGPT) 79H, Alkaline Phosphatase 156H, Total Protein 6.4, Albumin 2.3L Height (Feet): 4 Height (Inches): 10.00 Weight (Pounds): 120 Gerhard Baltazar MD Aug 15, 2017 21:10
[2017-08-16] VITALS: BP 107/57
[2017-08-16] MEDS: NovoLOG Insulin Flexpen SUBQ SCH ×4 (01:00→14:00)
[2017-08-16 04:00] VITALS: BP 137/73
[2017-08-16 06:35] LABS: BASOPHILS % (AUTO) 0.6 % (0.0-2.0); EOSINOPHILS % (AUTO) 2.1 % (0.0-3.0); LYMPHOCYTES % (AUTO) 10.7 % (20.0-45.0); MEAN CORPUSCULAR HEMOGLOBIN 28.6 PG (27.0-31.0); MEAN CORPUSCULAR HGB CONC 32.3 G/DL (32.0-36.0); MEAN CORPUSCULAR VOLUME 89 FL (80-99); MEAN PLATELET VOLUME 5.6 FL (6.5-10.1); MONOCYTES % (AUTO) 9.7 % (1.0-10.0); NEUTROPHILS % (AUTO) 76.9 % (45.0-75.0); PLATELET COUNT 508 K/UL (150-450); RED BLOOD COUNT 3.69 M/UL (4.20-5.40); RED CELL DISTRIBUTION WIDTH 15.1 % (11.6-14.8); WHITE BLOOD COUNT 10.2 K/UL (4.8-10.8)
[2017-08-16 06:45] LABS: INR 2.2 (0.9-1.1); PROTHROMBIN TIME 23.2 SEC (9.30-11.50)
--- NOTE | 2017-08-16 06:58 | General Progress Note ---
Assessment/Plan Problem List: (1) Lactic acidosis ICD Codes: E87.2 - Acidosis SNOMED: 93723181 (2) Colitis ICD Codes: K52.9 - Noninfective gastroenteritis and colitis, unspecified SNOMED: 85871094 (3) DKA (diabetic ketoacidoses) ICD Codes: E13.10 - Other specified diabetes mellitus with ketoacidosis without coma SNOMED: 758326747, 98856682 (4) Sepsis ICD Codes: A41.9 - Sepsis, unspecified organism SNOMED: 83576874, 63075775 (5) Respiratory failure requiring intubation ICD Codes: J96.90 - Respiratory failure, unspecified, unspecified whether with hypoxia or hypercapnia SNOMED: 458399840 Assessment/Plan Levemir 12 units bid + SSI continue Starlix 120 mg ac tid Rx left in chart for diabetic regimen Subjective Allergies: Coded Allergies: No Known Allergies (Unverified , 08/01/17) All Systems: reviewed and negative except above Subjective events noted interval notes reviewed Objective Last 24 Hour Vital Signs Date Time Temp Pulse Resp B/P (MAP) Pulse Ox O2 Delivery O2 Flow Rate FiO2 08/16/17 04:00 88 08/16/17 04:00 98.8 91 20 137/73 96 Room Air 08/16/17 00:00 98.2 92 18 107/57 96 Room Air 08/16/17 00:00 88 08/15/17 20:00 98.4 102 20 116/50 96 Room Air 08/15/17 19:00 Room Air 08/15/17 19:00 96 Room Air 08/15/17 16:00 97.9 100 18 107/55 98 Room Air 08/15/17 16:00 100 08/15/17 15:39 102 20 97 Room Air 08/15/17 15:35 100 20 96 Room Air 08/15/17 12:00 111 08/15/17 12:00 98.2 100 18 114/65 100 Room Air 08/15/17 11:28 110 20 97 Room Air 08/15/17 11:23 111 20 96 Room Air 08/15/17 08:25 111 22 98 Room Air 08/15/17 08:22 Room Air 08/15/17 08:22 109 20 97 Room Air 08/15/17 08:22 97 Room Air 08/15/17 08:00 98.2 106 18 103/53 97 Room Air 08/15/17 08:00 111 Laboratory Tests 08/15/17 08:10: White Blood Count 12.4H, Red Blood Count 3.75L, Hemoglobin 10.7L, Hematocrit 34.4L, Mean Corpuscular Volume 92, Mean Corpuscular Hemoglobin 28.6, Mean Corpuscular Hemoglobin Concent 31.2L, Red Cell Distribution Width 15.2H, Platelet Count 479H, Mean Platelet Volume 5.5L, Neutrophils (%) (Auto) , Lymphocytes (%) (Auto) , Monocytes (%) (Auto) , Eosinophils (%) (Auto) , Basophils (%) (Auto) , Differential Total Cells Counted 100, Neutrophils % ( Manual) 84H, Lymphocytes % (Manual) 9L, Monocytes % (Manual) 5, Eosinophils % ( Manual) 1, Basophils % (Manual) 0, Band Neutrophils 1, Platelet Estimate IncreasedH, Platelet Morphology Normal, Anisocytosis 1+, Prothrombin Time 18.2H , Prothromb Time International Ratio 1.7H, Sodium Level 132L, Potassium Level 5.6H, Chloride Level 97L, Carbon Dioxide Level 17L, Anion Gap 18H, Blood Urea Nitrogen 18, Creatinine 0.8, Estimat Glomerular Filtration Rate > 60, Glucose Level 462H, Calcium Level 8.7, Phosphorus Level 3.5, Magnesium Level 2.0, Total Bilirubin 0.3, Direct Bilirubin < 0.1, Aspartate Amino Transf (AST/SGOT) 54H, Alanine Aminotransferase (ALT/SGPT) 79H, Alkaline Phosphatase 156H, Total Protein 6.4, Albumin 2.3L 08/16/17 05:50: White Blood Count 10.2, Red Blood Count 3.69L, Hemoglobin 10.5L, Hematocrit 32.7L, Mean Corpuscular Volume 89, Mean Corpuscular Hemoglobin 28.6, Mean Corpuscular Hemoglobin Concent 32.3, Red Cell Distribution Width 15.1H, Platelet Count 508H, Mean Platelet Volume 5.6L, Neutrophils (%) (Auto) 76.9H, Lymphocytes (%) (Auto) 10.7L, Monocytes (%) (Auto) 9.7, Eosinophils (%) (Auto) 2.1, Basophils (%) (Auto) 0.6, Prothrombin Time 23.2H, Prothromb Time International Ratio 2.2H, Sodium Level [Pending], Potassium Level [Pending], Chloride Level [Pending], Carbon Dioxide Level [Pending], Blood Urea Nitrogen [ Pending], Creatinine [Pending], Estimat Glomerular Filtration Rate [Pending], Glucose Level [Pending], Calcium Level [Pending], Phosphorus Level [Pending], Magnesium Level [Pending], Total Bilirubin [Pending], Aspartate Amino Transf ( AST/SGOT) [Pending], Alanine Aminotransferase (ALT/SGPT) [Pending], Alkaline Phosphatase [Pending], Total Protein [Pending], Albumin [Pending], C-Reactive Protein, Quantitative [Pending], Pro-B-Type Natriuretic Peptide [Pending], Globulin [Pending] Height (Feet): 4 Height (Inches): 10.00 Weight (Pounds): 119 General Appearance: no apparent distress Neck: normal alignment Cardiovascular: normal rate Respiratory/Chest: lungs clear Abdomen: normal bowel sounds Objective Item Value Date Time Bedside Blood Glucose 97 mg/dl 08/16/17 0500 Bedside Blood Glucose 87 mg/dl 08/16/17 0100 Bedside Blood Glucose 124 mg/dl H 08/15/17 2255 Bedside Blood Glucose 136 mg/dl H 08/15/17 1733 Bedside Blood Glucose 152 mg/dl H 08/15/17 1300 Bedside Blood Glucose 492 mg/dl H 08/15/17 0915 Bedside Blood Glucose 369 mg/dl H 08/15/17 0520 RL MEDINA Aug 16, 2017 06:58
[2017-08-16 07:06] LABS: ALANINE AMINOTRANSFERASE 65 U/L (12-78); ALBUMIN/GLOBULIN RATIO 0.5 (1.0-2.7); ANION GAP 5 mmol/L (5-15); ASPARTATE AMINO TRANSFERASE 40 U/L (15-37); CALCIUM 8.4 MG/DL (8.5-10.1); CARBON DIOXIDE 28 MMOL/L (21-32); CHLORIDE 105 MMOL/L (98-107); CREATININE 0.7 MG/DL (0.55-1.30); GLOMERULAR FILTRATION RATE > 60 mL/min (>60); POTASSIUM 4.3 MMOL/L (3.5-5.1); SODIUM 138 MMOL/L (136-145); TOTAL PROTEIN 6.2 G/DL (6.4-8.2)
[2017-08-16 07:42] LABS: CRP QUANT 4.2 mg/dL (0.00-0.90); PHOSPHORUS 3.6 MG/DL (2.5-4.9)
[2017-08-16 08:00] VITALS: BP 128/69
[2017-08-16] MEDS: Docusate 100mg cap ORAL SCH ×2 (09:00→12:39)
[2017-08-16] MEDS ORDERED: Levemir Flexpen SUBQ SCH (09:00)
[2017-08-16] MEDS: Phospha 250 Neutral tab ORAL SCH (09:03)
[2017-08-16] MEDS: Levofloxacin 500mg tab ORAL SCH (09:03)
--- NOTE | 2017-08-16 10:06 | Infectious Diseases Prog Note ---
Assessment/Plan Assessment/Plan A: Atelectasis/ Pneumonia treated DKA Ischemic colitis Hypoxemic respiratory failure resolved MRSA colonization Diarrhea resolved P: discontinue PO Levaquin Agree with discharge Subjective ROS Limited/Unobtainable: No Constitutional: Reports: other - itching in throat Respiratory: Reports: no symptoms Cardiovascular: Reports: no symptoms Gastrointestinal/Abdominal: Reports: no symptoms Allergies: Coded Allergies: No Known Allergies (Unverified , 08/01/17) Objective Vital Signs Last 24 Hour Vital Signs Date Time Temp Pulse Resp B/P (MAP) Pulse Ox O2 Delivery O2 Flow Rate FiO2 08/16/17 08:00 97.9 89 18 128/69 95 Room Air 08/16/17 04:00 88 08/16/17 04:00 98.8 91 20 137/73 96 Room Air 08/16/17 00:00 98.2 92 18 107/57 96 Room Air 08/16/17 00:00 88 08/15/17 20:00 98.4 102 20 116/50 96 Room Air 08/15/17 19:00 Room Air 21 08/15/17 19:00 96 Room Air 21 08/15/17 16:00 97.9 100 18 107/55 98 Room Air 08/15/17 16:00 100 08/15/17 15:39 102 20 97 Room Air 21 08/15/17 15:35 100 20 96 Room Air 21 08/15/17 12:00 111 08/15/17 12:00 98.2 100 18 114/65 100 Room Air 08/15/17 11:28 110 20 97 Room Air 21 08/15/17 11:23 111 20 96 Room Air 21 Height (Feet): 4 Height (Inches): 10.00 Weight (Pounds): 119 General Appearance: no acute distress HEENT: mucous membranes moist Respiratory/Chest: lungs clear Cardiovascular: normal rate Abdomen: soft, non tender Extremities: no edema Neurologic/Psychiatric: alert, oriented x 3, responsive Laboratory Tests Test 08/16/17 05:50 White Blood Count 10.2 K/UL (4.8-10.8) Red Blood Count 3.69 M/UL (4.20-5.40) L Hemoglobin 10.5 G/DL (12.0-16.0) L Hematocrit 32.7 % (37.0-47.0) L Mean Corpuscular Volume 89 FL (80-99) Mean Corpuscular Hemoglobin 28.6 PG (27.0-31.0) Mean Corpuscular Hemoglobin Concent 32.3 G/DL (32.0-36.0) Red Cell Distribution Width 15.1 % (11.6-14.8) H Platelet Count 508 K/UL (150-450) H Mean Platelet Volume 5.6 FL (6.5-10.1) L Neutrophils (%) (Auto) 76.9 % (45.0-75.0) H Lymphocytes (%) (Auto) 10.7 % (20.0-45.0) L Monocytes (%) (Auto) 9.7 % (1.0-10.0) Eosinophils (%) (Auto) 2.1 % (0.0-3.0) Basophils (%) (Auto) 0.6 % (0.0-2.0) Prothrombin Time 23.2 SEC (9.30-11.50) H Prothromb Time International Ratio 2.2 (0.9-1.1) H Sodium Level 138 MMOL/L (136-145) Potassium Level 4.3 MMOL/L (3.5-5.1) Chloride Level 105 MMOL/L (98-107) Carbon Dioxide Level 28 MMOL/L (21-32) Anion Gap 5 mmol/L (5-15) Blood Urea Nitrogen 19 mg/dL (7-18) H Creatinine 0.7 MG/DL (0.55-1.30) Estimat Glomerular Filtration Rate > 60 mL/min (>60) Glucose Level 98 MG/DL (74-106) # Calcium Level 8.4 MG/DL (8.5-10.1) L Phosphorus Level 3.6 MG/DL (2.5-4.9) Magnesium Level 2.0 MG/DL (1.8-2.4) Total Bilirubin 0.1 MG/DL (0.2-1.0) L Aspartate Amino Transf (AST/SGOT) 40 U/L (15-37) H Alanine Aminotransferase (ALT/SGPT) 65 U/L (12-78) Alkaline Phosphatase 149 U/L (46-116) H C-Reactive Protein, Quantitative 4.2 mg/dL (0.00-0.90) H Pro-B-Type Natriuretic Peptide 536 pg/mL (0-125) H Total Protein 6.2 G/DL (6.4-8.2) L Albumin 2.1 G/DL (3.4-5.0) L Globulin 4.1 g/dL Albumin/Globulin Ratio 0.5 (1.0-2.7) L Current Medications Medications (Trade) Dose Ordered Sig/Sue Route PRN Reason Start Time Stop Time Status Last Admin Dose Admin Dextrose (Dextrose 50%) STAT PRN IV Hypoglycemia 08/09/17 18:15 09/08/17 18:14 Docusate Sodium (Colace) 100 mg THREE TIMES A DAY ORAL 08/09/17 09:00 09/08/17 08:59 08/13/17 08:37 Furosemide (Lasix) 20 mg DAILY ORAL 08/16/17 09:00 09/15/17 08:59 Insulin Aspart (NovoLOG) Q4HR SUBQ 08/08/17 21:00 09/06/17 16:59 08/16/17 09:07 Insulin Detemir (Levemir) 12 units Q12HR SUBQ 08/16/17 09:00 09/15/17 08:59 08/16/17 09:48 Levofloxacin (Levaquin) 500 mg DAILY ORAL 08/14/17 09:00 08/21/17 08:59 08/16/17 09:03 Nateglinide (Starlix) 120 mg TIAC ORAL 08/13/17 11:30 09/12/17 11:29 08/16/17 06:57 Phosphorus (Phospha 250 Neutral) 250 mg BID ORAL 08/11/17 18:00 09/08/17 12:59 08/16/17 09:03 Polyethylene Glycol (Miralax) 17 gm BEDTIME ORAL 08/08/17 21:00 09/07/17 20:59 Ranitidine HCl (Zantac) 150 mg DAILY ORAL 08/15/17 09:00 09/14/17 08:59 08/16/17 09:04 Warfarin Sodium (Coumadin per pharmacy) 1 ea DAILY PRN MISC Per rx protocol 08/09/17 09:00 09/06/17 16:29 Warfarin Sodium (Coumadin) 4 mg COUMADIN ONCE PO 08/16/17 17:00 08/16/17 17:01 MITCHELL HOLM 20, 2017 10:06
[2017-08-16] MEDS ORDERED: COUMADIN4 MG ORAL (10:20)
--- NOTE | 2017-08-16 10:52 | General Progress Note ---
Assessment/Plan Assessment/Plan ASSESSMENT AND RECOMMENDATION: #. Acute DVT. On coumadin. INR goal 2-3. Continue to monitor. Lovenox DC'd. --> INR at 2.2 #. Anemia of chronic disease --> w/u from prior admission has been reviewed. Continue to monitor counts --> H/H stable #. 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 Patient does not need any further workup at this time. #. Leukocytosis, likely secondary to reactive process. WBC count has normalized. #. Ischemic colitis and hemorrhoids. GI following. s/p egd and colonoscopy. Subjective Allergies: Coded Allergies: No Known Allergies (Unverified , 08/01/17) All Systems: reviewed and negative except above Subjective no events overnight. on po antibiotics. inr @ goal Objective Last 24 Hour Vital Signs Date Time Temp Pulse Resp B/P (MAP) Pulse Ox O2 Delivery O2 Flow Rate FiO2 08/16/17 08:00 100 08/16/17 08:00 97.9 89 18 128/69 95 Room Air 08/16/17 04:00 88 08/16/17 04:00 98.8 91 20 137/73 96 Room Air 08/16/17 00:00 98.2 92 18 107/57 96 Room Air 08/16/17 00:00 88 08/15/17 20:00 98.4 102 20 116/50 96 Room Air 08/15/17 19:00 Room Air 21 08/15/17 19:00 96 Room Air 21 08/15/17 16:00 97.9 100 18 107/55 98 Room Air 08/15/17 16:00 100 08/15/17 15:39 102 20 97 Room Air 21 08/15/17 15:35 100 20 96 Room Air 21 08/15/17 12:00 111 08/15/17 12:00 98.2 100 18 114/65 100 Room Air 08/15/17 11:28 110 20 97 Room Air 21 08/15/17 11:23 111 20 96 Room Air 21 Intake and Output 08/16/17 08/17/17 19:00 07:00 Intake Total 120 ml Balance 120 ml Intake Oral 120 ml Laboratory Tests 08/16/17 05:50: White Blood Count 10.2, Red Blood Count 3.69L, Hemoglobin 10.5L, Hematocrit 32.7L, Mean Corpuscular Volume 89, Mean Corpuscular Hemoglobin 28.6, Mean Corpuscular Hemoglobin Concent 32.3, Red Cell Distribution Width 15.1H, Platelet Count 508H, Mean Platelet Volume 5.6L, Neutrophils (%) (Auto) 76.9H, Lymphocytes (%) (Auto) 10.7L, Monocytes (%) (Auto) 9.7, Eosinophils (%) (Auto) 2.1, Basophils (%) (Auto) 0.6, Prothrombin Time 23.2H, Prothromb Time International Ratio 2.2H, Sodium Level 138, Potassium Level 4.3, Chloride Level 105, Carbon Dioxide Level 28, Anion Gap 5, Blood Urea Nitrogen 19H, Creatinine 0.7, Estimat Glomerular Filtration Rate > 60, Glucose Level 98#, Calcium Level 8.4L, Phosphorus Level 3.6, Magnesium Level 2.0, Total Bilirubin 0.1L, Aspartate Amino Transf (AST/SGOT) 40H, Alanine Aminotransferase (ALT/SGPT) 65, Alkaline Phosphatase 149H, C-Reactive Protein, Quantitative 4.2H, Pro-B-Type Natriuretic Peptide 536H, Total Protein 6.2L, Albumin 2.1L, Globulin 4.1, Albumin/Globulin Ratio 0.5L Height (Feet): 4 Height (Inches): 10.00 Weight (Pounds): 119 General Appearance: no apparent distress EENT: normal ENT inspection Neck: normal alignment Cardiovascular: normal peripheral pulses Respiratory/Chest: chest wall non-tender Extremities: non-tender Skin: normal pigmentation Arun Gamez Aug 16, 2017 10:52
--- NOTE | 2017-08-16 11:18 | Nephrology Progress Note ---
Assessment/Plan Problem List: (1) Sepsis (2) Colitis Assessment: sever hypoalbuminemia (3) Respiratory failure requiring intubation Assessment: now extubated (4) Hypophosphatemia Assessment: resolving (5) Hypokalemia Assessment: resolving Assessment K and Na now wnl tachycardiac resolved pneumonia on treatment- DC planning? Respiratory failure and DKA on admit, resolved Low Phos , K , and Mag HTN Ischemic colitis h/o CVA Anemia Plan Plan: stop KCl aim to control BS Monitor lytes and renal parameters per consultants per orders nutritional boost per GI Subjective ROS Limited/Unobtainable: No Constitutional: Reports: malaise Objective Objective Last 24 Hour Vital Signs Date Time Temp Pulse Resp B/P (MAP) Pulse Ox O2 Delivery O2 Flow Rate FiO2 08/16/17 08:00 100 08/16/17 08:00 97.9 89 18 128/69 95 Room Air 08/16/17 04:00 88 08/16/17 04:00 98.8 91 20 137/73 96 Room Air 08/16/17 00:00 98.2 92 18 107/57 96 Room Air 08/16/17 00:00 88 08/15/17 20:00 98.4 102 20 116/50 96 Room Air 08/15/17 19:00 Room Air 21 08/15/17 19:00 96 Room Air 21 08/15/17 16:00 97.9 100 18 107/55 98 Room Air 08/15/17 16:00 100 08/15/17 15:39 102 20 97 Room Air 21 08/15/17 15:35 100 20 96 Room Air 21 08/15/17 12:00 111 08/15/17 12:00 98.2 100 18 114/65 100 Room Air 08/15/17 11:28 110 20 97 Room Air 21 08/15/17 11:23 111 20 96 Room Air 21 Intake and Output 08/16/17 08/17/17 19:00 07:00 Intake Total 120 ml Balance 120 ml Intake Oral 120 ml Laboratory Tests 08/16/17 05:50: White Blood Count 10.2, Red Blood Count 3.69L, Hemoglobin 10.5L, Hematocrit 32.7L, Mean Corpuscular Volume 89, Mean Corpuscular Hemoglobin 28.6, Mean Corpuscular Hemoglobin Concent 32.3, Red Cell Distribution Width 15.1H, Platelet Count 508H, Mean Platelet Volume 5.6L, Neutrophils (%) (Auto) 76.9H, Lymphocytes (%) (Auto) 10.7L, Monocytes (%) (Auto) 9.7, Eosinophils (%) (Auto) 2.1, Basophils (%) (Auto) 0.6, Prothrombin Time 23.2H, Prothromb Time International Ratio 2.2H, Sodium Level 138, Potassium Level 4.3, Chloride Level 105, Carbon Dioxide Level 28, Anion Gap 5, Blood Urea Nitrogen 19H, Creatinine 0.7, Estimat Glomerular Filtration Rate > 60, Glucose Level 98#, Calcium Level 8.4L, Phosphorus Level 3.6, Magnesium Level 2.0, Total Bilirubin 0.1L, Aspartate Amino Transf (AST/SGOT) 40H, Alanine Aminotransferase (ALT/SGPT) 65, Alkaline Phosphatase 149H, C-Reactive Protein, Quantitative 4.2H, Pro-B-Type Natriuretic Peptide 536H, Total Protein 6.2L, Albumin 2.1L, Globulin 4.1, Albumin/Globulin Ratio 0.5L Height (Feet): 4 Height (Inches): 10.00 Weight (Pounds): 119 General Appearance: no apparent distress Objective no other change LAYNE WEIR Aug 16, 2017 11:18
[2017-08-16 12:00] VITALS: BP 130/73
--- NOTE | 2017-08-16 13:17 | GI Progress Note ---
Assessment/Plan Problems: (1) DKA (diabetic ketoacidoses) ICD Codes: E13.10 - Other specified diabetes mellitus with ketoacidosis without coma SNOMED: 118080683, 59851272 (2) Colitis ICD Codes: K52.9 - Noninfective gastroenteritis and colitis, unspecified SNOMED: 21959631 (3) Lactic acidosis ICD Codes: E87.2 - Acidosis SNOMED: 41855506 (4) Respiratory failure requiring intubation ICD Codes: J96.90 - Respiratory failure, unspecified, unspecified whether with hypoxia or hypercapnia SNOMED: 453151176 Status: stable Status Narrative Discussed with Dr. Gomez. Assessment/Plan s/p colonoscopy SUMMARY FINDINGS: 1. Atrophic gastritis. 2. Hiatal hernia. 3. Possible ischemic colitis. 4. Internal hemorrhoids. CT AP reviewed >> no obvious perforation or acute complication from ischemic colitis Lactic Acid >> WNL transaminitis >> mild elevation today RECOMMENDATIONS: okay for DC per GI standpoint fu endocrine DM mgmt adv diet monitor H&H, prn transfusions titrate bowel regime ppi abx fu labs The patient will need a repeat full colonoscopy as an outpatient when the ischemic colitis has completely resolved, 2 months from dc date. Subjective Subjective generalized weakness diarrhea resolved, had BM yesterday Objective Last 24 Hour Vital Signs Date Time Temp Pulse Resp B/P (MAP) Pulse Ox O2 Delivery O2 Flow Rate FiO2 08/16/17 12:00 97.7 91 18 130/73 98 Room Air 08/16/17 08:00 100 08/16/17 08:00 97.9 89 18 128/69 95 Room Air 08/16/17 04:00 88 08/16/17 04:00 98.8 91 20 137/73 96 Room Air 08/16/17 00:00 98.2 92 18 107/57 96 Room Air 08/16/17 00:00 88 08/15/17 20:00 98.4 102 20 116/50 96 Room Air 08/15/17 19:00 Room Air 21 08/15/17 19:00 96 Room Air 21 08/15/17 16:00 97.9 100 18 107/55 98 Room Air 08/15/17 16:00 100 08/15/17 15:39 102 20 97 Room Air 21 08/15/17 15:35 100 20 96 Room Air 21 Intake and Output 08/15/17 08/16/17 19:00 07:00 Intake Total 1080 ml 300 ml Balance 1080 ml 300 ml Intake Oral 1080 ml 300 ml # Voids 4 Laboratory Tests Test 08/16/17 05:50 White Blood Count 10.2 K/UL (4.8-10.8) Red Blood Count 3.69 M/UL (4.20-5.40) L Hemoglobin 10.5 G/DL (12.0-16.0) L Hematocrit 32.7 % (37.0-47.0) L Mean Corpuscular Volume 89 FL (80-99) Mean Corpuscular Hemoglobin 28.6 PG (27.0-31.0) Mean Corpuscular Hemoglobin Concent 32.3 G/DL (32.0-36.0) Red Cell Distribution Width 15.1 % (11.6-14.8) H Platelet Count 508 K/UL (150-450) H Mean Platelet Volume 5.6 FL (6.5-10.1) L Neutrophils (%) (Auto) 76.9 % (45.0-75.0) H Lymphocytes (%) (Auto) 10.7 % (20.0-45.0) L Monocytes (%) (Auto) 9.7 % (1.0-10.0) Eosinophils (%) (Auto) 2.1 % (0.0-3.0) Basophils (%) (Auto) 0.6 % (0.0-2.0) Prothrombin Time 23.2 SEC (9.30-11.50) H Prothromb Time International Ratio 2.2 (0.9-1.1) H Sodium Level 138 MMOL/L (136-145) Potassium Level 4.3 MMOL/L (3.5-5.1) Chloride Level 105 MMOL/L (98-107) Carbon Dioxide Level 28 MMOL/L (21-32) Anion Gap 5 mmol/L (5-15) Blood Urea Nitrogen 19 mg/dL (7-18) H Creatinine 0.7 MG/DL (0.55-1.30) Estimat Glomerular Filtration Rate > 60 mL/min (>60) Glucose Level 98 MG/DL (74-106) # Calcium Level 8.4 MG/DL (8.5-10.1) L Phosphorus Level 3.6 MG/DL (2.5-4.9) Magnesium Level 2.0 MG/DL (1.8-2.4) Total Bilirubin 0.1 MG/DL (0.2-1.0) L Aspartate Amino Transf (AST/SGOT) 40 U/L (15-37) H Alanine Aminotransferase (ALT/SGPT) 65 U/L (12-78) Alkaline Phosphatase 149 U/L (46-116) H C-Reactive Protein, Quantitative 4.2 mg/dL (0.00-0.90) H Pro-B-Type Natriuretic Peptide 536 pg/mL (0-125) H Total Protein 6.2 G/DL (6.4-8.2) L Albumin 2.1 G/DL (3.4-5.0) L Globulin 4.1 g/dL Albumin/Globulin Ratio 0.5 (1.0-2.7) L Height (Feet): 4 Height (Inches): 10.00 Weight (Pounds): 119 General Appearance: WD/WN, no apparent distress, alert Cardiovascular: normal rate Respiratory/Chest: normal breath sounds, no respiratory distress Abdominal Exam: normal bowel sounds, non tender, soft Extremities: normal range of motion, non-tender Adele Olsen N.P. Aug 16, 2017 13:17
[2017-08-16] MEDS ORDERED: Warfarin Sodium 4mg PO ONE (17:00)
--- NOTE | 2017-08-17 14:00 | Discharge Summary ---
Discharge Summary Hospital Course Date of Admission Aug 05, 2017 at 20:38 Date of Discharge Aug 16, 2017 at 13:30 Admitting Diagnosis dyspnea, dka icu HPI Carlee Harper is a 67 year old female who was admitted on Aug 05, 2017 at 20:38 for Dyspnea,Diabetic Ketoacidosis Hospital Course [id number] Discharge Discharge Disposition Patient was discharged to Home with Home Health(06) Discharge Diagnoses: Discharge Instructions Discharge Instructions Follow up with: at the facility Activity: as tolerated Martita Alford NP Aug 17, 2017 14:00
--- NOTE | 2017-08-17 18:30 | Discharge Summary 2 SIG ---
DATE OF ADMISSION: 08/05/2017 DATE OF DISCHARGE: 08/16/2017 CONSULTANTS: 1. Segundo Gomez M.D. 2. Jhonny Bryan M.D. 3. Arun Gamez M.D. 4. Ishan Wylie M.D. 5. Luis Enrique Last M.D. 6. Tesfaye Kuhn M.D. 7. Chicho Loco M.D. BRIEF HOSPITAL COURSE: The patient is a 67-year-old female. The patient was just recently discharged from the hospital for a diagnosis of colitis, was brought in by family to the emergency room for reports of the patient being unresponsive and was breathing faster than usual. She has history of diabetes mellitus type 2, hypertension, and seizure disorder. On arrival to ED, she was tachypneic with decreased GCS. Blood work showed leukocytosis, WBC was 17. Glucose was 538. Lactic acid 3.9. She was given aggressive hydration and was given insulin and started on insulin drip. ABG showed significant acidosis. She was orally intubated and a central line was inserted to the right femur. Urine ketones was 4+. She was admitted to ICU for acute respiratory failure and diabetic ketoacidosis. She was recently discharged for ischemic colitis. CT of the abdomen and pelvis done at ED did not show any acute abdominal perforation. She was continued on IV Zosyn. Head CT showed mild atrophy with chronic small vessel white matter ischemic change and infarct in the right frontal chaney radiata, likely old. Blood sugars were monitored. She was eventually extubated on 08/07/2017 and insulin drip was discontinued. She was started on Levemir 12 units b.i.d. together with sliding scale. She had episodes of severe bradycardia during previous admission, however, bradycardia from prior admission resolved. There has been no recurrence, could have been vagal at that time. She was transferred out of ICU. Venous duplex of the lower extremity showed an acute thrombus in the left peroneal vein. She was given Lovenox on bridged with Coumadin. She was planned for discharge on 08/10/2017, however, discharge was placed on hold as chest x-ray findings showed development of pneumonia. Mucous plug secretion was sent for pathology and results showed exudate with benign epithelial cells with no evidence of atypia or malignancy. She was placed on cefepime. Subsequent surveillance chest x-ray done showed improvement in the right lower lung. Blood sugar had better control and was placed on Levemir 12 units b.i.d. with sliding scale and Starlix 120 mg before meals t.i.d. Antibiotic was changed to p.o. Levaquin. She was discharged home with [facility] for PT, medication, and RN visits. To continue Coumadin upon discharge and would need INR checks and Coumadin dosing as outpatient. FINAL DIAGNOSES: 1. Sepsis. 2. Diabetic ketoacidosis. 3. Acute renal failure requiring intubation. 4. Lactic acidosis. 5. Colitis. 6. Hypophosphatemia. 7. Hypokalemia. 8. Acute deep venous thrombosis on the left leg. 9. Anemia of chronic disease. 10. Hepatic mass secondary to hepatic hemangioma on the right lobe. 11. Acute pneumonia. 12. Methicillin-resistant Staphylococcus aureus colonization. 13. Severe bradycardia, resolved. 14. History of seizure disorder. 15. Old cerebrovascular accident. DISCHARGE DISPOSITION: The patient was discharged home with [facility]. DISCHARGE MEDICATIONS: Continue with Coumadin 4 mg daily, Starlix 150 mg t.i.d. before meals, and Levemir 15 units b.i.d. with a sliding scale. Prescription was left in the chart. DISCHARGE INSTRUCTIONS: To follow up with PMD in a week. Gerhard Baltazar M.D. I have been assigned to dictate discharge summary on this account and I was not involved in the patient's management. Martita Alford N.P. DR: JANA JOB#: [id number] CC: SHAY
== END 2017-08-16 13:30 | disposition home health service (06) | DRG 871 ==
LOC: EMR 20:34 → ICU 20:38 → EDBEDREQSVC 21:02 → EDBEDREQ 21:02 → 2E 08-08 17:51
PROC: 06HM33Z Insertion of Infusion Device into Right Femoral Vein, Percutaneous Approach (ICD-10-PCS; principal; 2017-08-05)
PROC: 5A1945Z Respiratory Ventilation, 24-96 Consecutive Hours (ICD-10-PCS; principal; 2017-08-05)
PROC: 0BH17EZ Insertion of Endotracheal Airway into Trachea, Via Natural or Artificial Opening (ICD-10-PCS; principal; 2017-08-05)
DX: A41.9 Sepsis, unspecified organism (principal); J18.9 Pneumonia, unspecified organism; J96.01 Acute respiratory failure with hypoxia; K55.9 Vascular disorder of intestine, unspecified; E10.10 Type 1 diabetes mellitus with ketoacidosis without coma; K62.5 Hemorrhage of anus and rectum; I82.4Z2 Acute embolism and thrombosis of unspecified deep veins of left distal lower extremity; Z79.4 Long term (current) use of insulin; K52.9 Noninfective gastroenteritis and colitis, unspecified; E83.39 Other disorders of phosphorus metabolism; E87.6 Hypokalemia; D63.8 Anemia in other chronic diseases classified elsewhere; Z22.322 Carrier or suspected carrier of Methicillin resistant Staphylococcus aureus; Z86.73 Personal history of transient ischemic attack (TIA), and cerebral infarction without residual deficits; D18.09 Hemangioma of other sites; K44.9 Diaphragmatic hernia without obstruction or gangrene; K64.8 Other hemorrhoids; E88.09 Other disorders of plasma-protein metabolism, not elsewhere classified; K29.40 Chronic atrophic gastritis without bleeding
CPT/HCPCS: 36415; 36600; 70450; 71010; 74176; 80048; 80053; 80061; 80076; 81003; 82550; 82553; 82607; 82728; 82746; 82803; 82962; 82977; 83036; 83605; 83690; 83735; 83880; 84100; 84443; 84484; 84550; 85007; 85025; 85610; 86140; 87040; 87070; 87081; 87205; 93005; 93970; 94002; 94003; 94640; 94664; 94760; 99291; C9399; J1815; J7620; J8499; S5561